=== PATIENT | female | born 1935 ===

== ENCOUNTER 2019-12-21 08:11 | Inpatient (IN) | payer MEDICARE ==
[~2019-12-21] VITALS: Ht 157.4 cm; Wt 57.2 kg
--- NOTE | 2019-12-21 11:08 | Progress Note ---
VERONICA JAVIER MED STUDENT 12/21/19 1108: Progress Note History: Ms. Grimm is an 84 year old white female who presented 12/17 to [facility] ER with back pain. She had been working in her garden when she experience shooting R sided back pain upon standing up after bending down. She experienced urinary incontinence earlier that day, as well as one week prior. She received Decadron in the ER. CT done that day showed no acute changes, spondylosis of C3-4, L3-4, and L4-5. Patient also had pulmonary effusion but denied any respiratory distress. An MRI was ordered but not done due to pacemaker. Since then she has had continued back pain. No LE weakness or loss of sensation noted on exam, however she has had frequent falls and OT/PT reports difficulty with ambulation and ADLs. She has not had continued incontinence, and has not developed any SOB or other respiratory difficulty. Transferred to IRF 12/22/19. Physical Exam: Assessment/Plan: Low back pain unable to assess for cauda equina due to pacemaker prohibiting MRI. No acute changes noted on initial CT Bladder incontinence monitor Frequent falls PT/OT HTN continue home medications PAF continue home medications Mitral valve replacement Aortic valve replacement Pacemaker CKD monitor kidney function Hypothyroidism Pleural effusion 12/17 monitor for shortness of breath, developing respiratory distress NIGHAT HERNANDEZ DO 12/22/192111: Supervisory-Addendum Brief Verification & Attestation Participated in pt care: history, MDM, physical Personally performed: exam, history, MDM, supervision of care Care discussed with: Medical Student Procedures: n/a Results interpretation: Verified all documentation Verification and Attestation of Medical Student E/M Service A medical student performed and documented this service in my presence. I reviewed and verified all information documented by the medical student and made modifications to such information, when appropriate. I personally performed the physical exam and medical decision making. Nighat Hernandez, Dec 22, 2019,21:12 VERONICA JAVIER MED STUDENT Dec 21, 2019 11:08 NIGHAT HERNANDEZ DO Dec 22, 2019 21:12
[2019-12-22] MEDS ORDERED: LOPERAMIDE 2 MG (IMODIUM) TABLET PO PRN (13:45)
[2019-12-22] MEDS ORDERED: guaiFENesin/CODEINE (ROBITUSSIN AC) 10ML UDC PO PRN (13:45)
[2019-12-22] MEDS ORDERED: BISACODYL 10 MG SUPP (DULCOLAX) PR PRN (13:45)
[2019-12-22] MEDS ORDERED: MELATONIN 3 MG TABLET PO PRN (13:45)
[2019-12-22] MEDS ORDERED: CALCIUM CARBONATE 500 MG (TUMS) TAB.CHEW PO PRN (13:45)
[2019-12-22] MEDS ORDERED: ONDANSETRON 4 MG (ZOFRAN) ORAL DISSOLVE TAB PO PRN (13:45)
[2019-12-22] MEDS ORDERED: DOCUSATE SODIUM 100 MG (COLACE) CAP PO PRN (13:45)
[2019-12-22] MEDS ORDERED: ALPRAZolam 0.25 MG (XANAX) TAB PO PRN (13:45)
[2019-12-22] MEDS ORDERED: ACETAMINOPHEN 500 MG TAB (TYLENOL) PO PRN (13:45)
[2019-12-22] MEDS ORDERED: diphenhydrAMINE 25 MG TAB (BENADRYL) PO PRN (13:45)
[2019-12-22] MEDS ORDERED: FLEET ENEMA ADULT 1 EA BTL PR PRN (13:45)
[2019-12-22] MEDS ORDERED: LACTULOSE SYRUP 10GM/15ML (ENULOSE) 30ML UDC PO PRN (13:45)
[2019-12-22] MEDS ORDERED: IRON1TAB97 PO (15:23)
[2019-12-22] MEDS ORDERED: CNC1KV IM (15:23)
[2019-12-22] MEDS ORDERED: DOCU-238 PO (15:23)
[2019-12-22] MEDS ORDERED: FURO-125 PO (15:23)
[2019-12-22] MEDS ORDERED: DEXA4TAB66 PO (15:23)
[2019-12-22] MEDS ORDERED: SIMV20TA PO (15:23)
[2019-12-22] MEDS ORDERED: LISI10TA2 PO (15:23)
[2019-12-22] MEDS ORDERED: WARF-47 PO (15:23)
[2019-12-22] MEDS ORDERED: LEVO75TA PO (15:23)
[2019-12-22] MEDS ORDERED: LUTE6TAB PO (15:23)
[2019-12-22] MEDS ORDERED: GLUC100016 PO (15:23)
[2019-12-22] MEDS ORDERED: ESCI5TAB PO (15:23)
[2019-12-22] MEDS ORDERED: ASPI-586 PO (15:23)
[2019-12-22] MEDS ORDERED: METO-451 PO (15:23)
[2019-12-22] MEDS ORDERED: ACET-2267 PO (15:23)
[2019-12-22] MEDS ORDERED: FLDR.1T PO (15:23)
--- NOTE | 2019-12-22 17:00 | NUR ---
MAXI KENNEDY, admitted to room 230-1, with an admitting diagnosis of DEBILITY, on 12/22/19 from [facility], accompanied by STAFF. MAXI KENNEDY introduced to surroundings, call light, bed controls, phone, TV, temperature control, lights, meal times, smoking policy, visitor policy, side rail policy, bathrooms and showers. Patient Rights given to patient in the handbook.MAXI KENNEDY verbalizes understanding that [facility] is not responsible for the loss or damage to any personal effects or valuables that are kept in the patients posession during their hospitalization. The following Patient Care Plans were discussed with the PATIENT: Discharge Planning, ACTIVITY INTOLERANCE,and FALLS. MAXI KENNEDY verbalizes understanding of Interdisciplinary Patient Education. Patient and/or family were informed about the Rapid Response Team and its purpose. Patient received Patient Rights Booklet, which includes Privacy Act Statement and Data Collection Information Summary.
[2019-12-22] MEDS ORDERED: CYANOCOBALAMIN INJ 1000 MCG/ML IM SCH (18:00)
--- NOTE | 2019-12-22 19:12 | NUR ---
Dr. Awad called at this time to report that patient's blood pressure is 181/72. Pulse is 77 and regular with heart murmur noted. Asks this RN what BP meds have been restarted. This RN states Metoprol 25 mg russell. and lisinopril 10mg PRN for SBP >160. Dr. Awad states to give both medications and to recheck BP in 4 hours and if still elevated to give one time dose of 5mg Norvasc PO. Will carry out orders and pass on information to shift lab technician RN.
[2019-12-22] MEDS: warFARin 2 MG (COUMADIN) TAB PO SCH (19:33)
--- NOTE | 2019-12-22 19:34 | NUR ---
Pt's 2100 Coumadin given at [facility] prior to discharge to this facility at 1530.
[2019-12-22] MEDS: meTOprolol TARTRATE 50 MG (LOPRESSOR) TAB PO SCH (19:38)
[2019-12-22] MEDS: lisINopril 10 MG (PRINIVIL) TABLET PO PRN (19:38)
[2019-12-22] MEDS: SENNA W/DOCUSATE (SENOKOT S) TABLET PO SCH (19:38)
[2019-12-22] MEDS: polyethylene glycoL POWDER 17 GM (MIRALAX) PACK PO SCH (20:21)
[2019-12-22] MEDS: SIMvastatin 20 MG (ZOCOR) TAB PO SCH (20:22)
[2019-12-22] MEDS: DOCUSATE SODIUM 100 MG (COLACE) CAP PO SCH (20:22)
[2019-12-22] MEDS ORDERED: ENOXAPARIN 30 MG/0.3 ML (LOVENOX) SYR SC SCH (20:30)
--- NOTE | 2019-12-22 20:41 | NUR ---
Pt currently on Lovenox and Coumadin. New orders received to d/c Lovenox.
[2019-12-22] MEDS ORDERED: ASCORBIC ACID PO SCH (21:00)
[2019-12-22] MEDS ORDERED: DOCUSATE SODIUM 100 MG (COLACE) CAP PO SCH (21:00)
[2019-12-22] MEDS ORDERED: IRON CARBONYL PO SCH (21:00)
[2019-12-22] MEDS ORDERED: amLODIPine 5 MG (NORVASC) TAB PO ONE (21:15)
[2019-12-22 21:18] VITALS: BP 186/77
--- NOTE | 2019-12-22 21:20 | PM&R Post Admission Assessment ---
PM&R HP Date of Visit: Dec 22, 2019 Time of Visit: 18:00 History of Present Illness CC: Severe low back pain requiring intensive rehab to return home HPI: This is an 84yoWF clinic patient of Dr Leyva and Dr Decker at [facility] who has a h/o AF and Aortic valve replacement who presents to the IRF unit in need of aggressive therapy in order to return to independent living. Patient appears to have mild cognitive impairment at baseline and apparently she had some significant confusion caused by narcotics which were DC and patient had clearance of that confusion. Patient has AF on Coumadin and was supratherapeutic at one point but has restarted Coumadin and INR was therapeutic at time of tra nsfer. BM have not moved since 12/16. Laxatives will be given. Patient does not wear O2 or CPAP at home. 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 Cardiac murmur will be managed by Dr Awad who has graciously agreed for consultation. I reviewed her [facility] admit details and hospital course. DC summary per [facility] Dr Thomson: Pat Peterson a 84 y.o.femalewho was admitted to [facility] on 12/18/2019and found to have a principle diagnosis of acute low back pain. The patientwas admitted through the emergency room with chief complaint ofback pain.Patient mentioned that she was working in her garden and taken out weeds earlier today when she bent down and after she got up, she experienced to shooting right-sided back pain. She is experienced chronic lower back pain in the past but this pain was worse which prompted her to come to the ER. She also mentions that she has had urinary incontinence x1 aweek ago. She also experienced urinary incontinence earlier today too.Labs not available at the time of admission. CT scan was done which showed no acute changes. CT showed C3-C4, L3-L4, L4-L5 spondylosis. He also showed pleural effusion but patient is in no respiratory distress and is at her baseline cardiopulmonary status with no supplementary oxygen use. MRI lumbar cannot be done 2/2 pacemaker. Discussed with neurosurgery , as patient don't have any signs of cauda equina syndrome, the risks of reversing the patient anticoagulation and performing CT myelogram outweigh benefits. Recommended pain control, PT and outpatient follow up. Patient responded well to steroids and PT. Patient didn't tolerate narcotics well, had significant confusion which resolved with stopping narcotics. Pain is controlled with tylenol. Patient was then discharged to acute rehab. History per Salas LARSEN: Ms. Grimm is an 84 year old white female who presented 12/17 to [facility] ER with b ack pain. She had been working in her garden when she experience shooting R sided back pain upon standing up after bending down. She experienced urinary incontinence earlier that day, as well as one week prior. She received Decadron in the ER. CT done that day showed no acute changes, spondylosis of C3-4, L3-4, and L4-5. Patient also had pulmonary effusion but denied any respiratory distress. An MRI was ordered but not done due to pacemaker. Since then she has had continued back pain. No LE weakness or loss of sensation noted on exam, however she has had frequent falls and OT/PT reports difficulty with ambulation and ADLs. She has not had continued incontinence, and has not developed any SOB or other respiratory difficulty. Transferred to IRF 12/22/19. Assessment/Plan: Low back pain unable to assess for cauda equina due to pacemaker prohibiting MRI. No acute changes noted on initial CT Bladder incontinence monitor Frequent falls PT/OT HTN continue home medications PAF continue home medications Mitral valve replacement Aortic valve replacement Pacemaker CKD monitor kidney function Hypothyroidism Pleural effusion 12/17 monitor for shortness of breath, developing respiratory distress Past Cmscbcy-Nujtdk-Obxtnv Hx Past Med/Social Hx: Reviewed Nursing Past Med/Soc Hx, Reviewed and Corrections made Patient Social History Marrital Status: single Employed/Student: retired Alcohol Use: Denies Use Recreational Drug Use: No Smoking Status: Never a Smoker Physical Abuse Screen: No Sexual Abuse: No Recent Foreign Travel: No Contact w/other who traveled: No Recent Hopitalizations: Yes (for Back pain at [facility]) Recent Infectious Disease Expo: No Immunizations Up To Date Date of Pneumonia Vaccine: Mar 23, 2019 Seasonal Allergies Seasonal Allergies: No Past Medical History Surgeries: Cardiac, Pacemaker Cardiac: Atrial Fibrillation, High Cholesterol, Hypertension, Valvular Heart Disease Neurological: Dementia Sexually Transmitted Disease: No HIV/AIDS: No Female Reproductive Disorders: Denies Genitourinary: Renal Failure Musculoskeletal: Chronic Back Pain HEENT: Cataract Loss of Vision: Bilateral Hearing Impairment: Hard of Hearing Cancer: Skin Did You Recieve Any Treatments: Yes What Type of Treatment Did You: Surgical Intervention History of Blood Disorders: No Family History Patient reports no known family medical history. Current Level of Fuctioning Wheelchair Distance: SEE PT NOTES PM&R Allergy/Meds/Data Review Allergies Coded Allergies: No Known Drug Allergies (Unverified , 12/22/19) Home Medications Scheduled Acetaminophen (Tylenol Extra Strength), 500 MG PO Q6H, (Reported) Aspirin (Aspir 81), 81 MG PO DAILY, (Reported) Cyanocobalamin (Cyanocobalamin Injection), 1,000 MCG IM UD, (Reported) Dexamethasone (Decadron), 4 MG PO BID, (Reported) Docusate Sodium (Stool Softener), 100 MG PO HS, (Reported) Escitalopram Oxalate (Lexapro), 5 MG PO DAILY, (Reported) Fludrocortisone Acetate (Fludrocortisone Acetate), 0.1 MG PO DAILY, (Reported) Furosemide (Lasix), 20 MG PO DAILY, (Reported) Glucosamine Sulfate 2Kcl (Glucosamine), 1,500 MG PO DAILY, (Reported) Iron,Carbonyl/Ascorbic Acid (Vitron-C Tablet), 1 EACH PO BID, (Reported) Levothyroxine Sodium (Synthroid), 75 MCG PO DAILY, (Reported) Lutein (Lutein), 6 MG PO DAILY, (Reported) Metoprolol Tartrate (Lopressor), 25 MG PO BID, (Reported) Simvastatin (Zocor), 20 MG PO HS, (Reported) Warfarin Sodium (Warfarin Sodium), 2 MG PO HS, (Reported) Scheduled PRN Lisinopril (Lisinopril), 10 MG PO DAILY PRN PRN for BLOOD PRESSURE, (Reported) Current Medications Current Medications Reviewed Laboratory Data Laboratory Tests 12/22/19 19:55: Creatinine 1.28 Review of Systems Constitutional: see HPI, malaise, weakness EENTM: no symptoms reported Respiratory: no symptoms reported Cardiovascular: no symptoms reported Gastrointestinal: constipation Genitourinary: no symptoms reported Musculoskeletal: back pain, joint pain, muscle pain, muscle stiffness, muscle cramps Skin: no symptoms reported Psychiatric/Neurological: Depressed, Other (confusion) Physical Exam Physical Exam Vital Signs Vital Signs - First Documented 12/22/19 12/22/19 17:00 17:10 Temp 36.6 Pulse 61 Resp 16 Pulse Ox 97 O2 Delivery Room Air Capillary Refill : Height, Weight, BMI Height: '" Weight: lbs. oz. kg; 23.20 BMI Method: General Appearance: No Apparent Distress, WD/WN, Chronically ill, Thin Eyes: Bilateral Eye Normal Inspection, Bilateral Eye PERRL HEENT: PERRL/EOMI, Normal ENT Inspection, Pharynx Normal Neck: Full Range of Motion, Normal Inspection, Non Tender, Supple, Carotid Bruit Respiratory: Chest Non Tender, Lungs Clear, Normal Breath Sounds, No Accessory Muscle Use, No Respiratory Distress Cardiovascular: No Edema, No Gallop, No JVD, Normal Peripheral Pulses, Diastolic Murmur, Systolic Murmur, Irregularly Irregular Gastrointestinal: Normal Bowel Sounds, No Organomegaly, No Pulsatile Mass, Non Tender, Soft Back: Normal Inspection, CVA Tenderness (L), CVA Tenderness (R), Decreased Range of Motion, Muscle Spasm, Vertebral Tenderness Extremity: Normal Capillary Refill, Normal Inspection, Normal Range of Motion, Non Tender, No Calf Tenderness, No Pedal Edema Neurologic/Psychiatric: Alert, Oriented x3, No Motor/Sensory Deficits (except for weakness in legs from severe back pain), Normal Mood/Affect, 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 Norm as Tested, Abnormal Gait, Disoriented (subtle poor recall) Skin: Normal Color, Warm/Dry Lymphatic: No Adenopathy PM&R Medical Assessment & Plan REHAB/MEDICAL ASSESSMENT AND PLAN: REHAB IMPAIRMENT GROUP: Debility ETIOLOGIC DIAGNOSIS: Debility The comorbidities that impact the patients function and/or functional outcome by: advanced age, cognitive deficit baseline, AF, valve replacement hx, lives alone, severe constipation narcotic induced REHAB PLAN: The patient is being admitted to our comprehensive inpatient rehabilitation facility and can tolerate the intensity of service consisting of at least: 180 minutes of therapy a day, 5 out of 7 days a week Rehab treatment will consist of: PT OT will help patient navigate with severe back pain and teach energy conservation and ST will help cognition The patient/family has a good understanding of our discharge process and will benefit from an interdisciplinary inpatient rehabilitation program. The patient has potential to make improvement and is in need of at least two of the following multidisciplinary therapies including but not limited to physical, occupational, speech, and prosthetics and orthotics. Additionally the patient will need services from respiratory, nutritional services, wound care, psychology, etc. (Customize this to each patient). Given the patients complex condition and risk of further medical complications, rehabilitation services cannot be safely or effectively provided at a lower level of care such as a halfway facility. BARRIERS TO DISCHARGE: Lives alone with confusion and poor recall ESTIMATED LOS: 7 days DISPOSITION: Home RELEVANT CHANGES SINCE PREADMISSION SCREENING: I have compared the patients medical and functional status at the time of the preadmission screening and there are: no changes PROGNOSIS: Fair REHABILITATION GOALS: 1. PT OT will help patient navigate with severe back pain and teach energy conservation and ST will help cognition All the above goals were reviewed with the patient and he/she is in agreement. By signing this document, I acknowledge that I have personally performed a full physical examination on this patient within 24 hours of admission to this inpatient rehabilitation facility and have determined the patient to be able to tolerate the above course of treatment at an intensive level for a reasonable period of time. I will be completing a detailed individualized Plan of Care for this patient by day #4 of the patients stay based upon the Preadmission Screen, the Post-Admission Evaluation, and the therapy evaluations. Admission Dx/Comorbidities: (1) Lumbar spondylosis ICD Codes: M47.816 - Spondylosis without myelopathy or radiculopathy, lumbar region (2) Atrial fibrillation with normal ventricular rate ICD Codes: I48.91 - Unspecified atrial fibrillation (3) Aortic valve replaced ICD Codes: Z95.2 - Presence of prosthetic heart valve (4) Mitral valve replaced ICD Codes: Z95.2 - Presence of prosthetic heart valve (5) Confusion ICD Codes: R41.0 - Disorientation, unspecified (6) Pacemaker ICD Codes: Z95.0 - Presence of cardiac pacemaker (7) Warfarin anticoagulation ICD Codes: Z79.01 - oral hygienist (current) use of anticoagulants (8) Renal insufficiency ICD Codes: N28.9 - Disorder of kidney and ureter, unspecified (9) Hypertension ICD Codes: I10 - Essential (primary) hypertension (10) Constipation ICD Codes: K59.00 - Constipation, unspecified (11) Delirium ICD Codes: R41.0 - Disorientation, unspecified (12) Advanced age ICD Codes: R54 - Age-related physical debility Assessment/Plan Assessment and Plan Assess & Plan/Chief Complaint Assessment: Severe back pain with severe spondylosis AF Coumadin treatment CRI Confusion Delirium Pacemaker Plan: 12/22/19 IRF protocol Check labs in am Fall risk Bed alarm Dr Awad consultation MOOSE HERNANDEZ DO Dec 22, 2019 21:20
--- OUTSIDE RECORDS SUMMARY | 2019-12-22 21:25 | XMS REPORT | Summary of Care ---
Author Author Pat Foster M.D. Organization Unknown Address [address] [place], [place] [id number] Phone Unavailable Care Team Providers Care Care Specialist Name Role Phone No Assigned PCP-Pt Confirmed PP Unavailable Unavailable Unavailable Functional Status Functional Status Health Issues* Name Dates Details Functional status health issues are not documented Status: Cognitive Status Health Issues* Name Dates Details Cognitive status health issues are not d ocumented Status: Problems Name Dates Details Laceration of right lower extremity (894 .0, S81.811A) Status: Active Medications Name Dates Details Metoprolol Tartrate 50 MG Oral Tablet TAKE 1 TABLET DAILY. * Started 20-Sep-2015 AddoscH28-Mpqwlm 1 MG Oral Tablet Chewable * Refills: 0 * Started 20-Sep-2015 ActiveGlucosamine 1500 Complex Oral Capsule * Refills: 0 * Started 20-Sep-2015 ActiveLutein-Zeaxanthin 25-5 MG Oral Capsule * Refills: 0 * Started 20-Sep-2015 ActiveCephalexin 500 MG Oral Tablet * Refills: 0 * Started 20-Sep-2015 ActiveSimvastatin 20 MG Oral Tablet * Refills: 0 * Started 20-Sep-2015 ActiveLisinopril 20 MG Oral Tablet * Refills: 0 * Started 20-Sep-2015 ActiveAspirin 81 MG Oral Tablet Chewable CHEW AND SWALLOW 1 TABLET DAILY. * Refills: 0 * Started 20-Sep-2015 Active Allergies and Adverse Reactions Name Dates Details No Known Drug Allergies Status: Active Past Medical History Name Dates Details History of blood transfusion (V15.89, Z9 2.89) Status: Resolved History of hypertension (V12.59, Z86.79) Status: Resolved History of hypothyroidism (V12.29, Z86.3 9) Status: Resolved History of malignant melanoma (V10.82, Z 85.820) Status: Resolved History of osteoarthritis (V13.4, Z87.39 ) Status: Resolved History of valvular heart disease (V12.5 9, Z86.79) Status: Resolved Procedures Procedure Dates Details History of Tonsillectomy History of Knee Surgery Left History of Hysterectomy History of Section Procedures not documented Immunization Name Dates Details Immunizations not documented Family History Mother* Name Dates Details Family history of congestive heart failu re (V17.49, Z82.49) Status: Active Father* Name Dates Details Family history of myocardial infarction (V17.3, Z82.49) Status: Active Social History Name Dates Details Smoking Status* Never smoker Vital Signs Date Test Result Details 20-Sep-2015 10:12 BP Systolic 124 mm[Hg] Status: BP Diastolic 60 mm[Hg] Status: Temperature 97.9 f Status: Heart Rate 68 /min Status: O2 SAT 97 % Status: Results Date Description Value Details Results not documented Plan of Care Planned Observations* Name Dates Details Planned Goals not documented Goal Instructions * Instructions not documented Encounters Appointment; Trey Foster Encounter Diagnosis: Problem not documented On 20-Sep-2015 10:00
--- OUTSIDE RECORDS SUMMARY | 2019-12-22 21:25 | XMS REPORT | Continuity of Care Document ---
Author Organization Unknown Address Unknown Phone Unavailable Allergies Active Description Code Type Severity Reaction Onset Reported/Identified Relationship to Patient Clinical Status Yes NO KNOWN DRUG ALLERGIES [id number] Drug Allergy N/A N/A Yes No Known Drug Allergies [id number] Drug Allergy Unknown N/A 12/22/2019 Medications There is no data. Problems Date Dx Coded Attending Type Code Diagnosis Diagnosed By 09/20/2015 Trey Foster Working S81.811A Laceration of right lower extremity Katja Foster 09/20/2015 Trey Foster Working S81.811A Laceration without foreign body, right l ower leg, initial encounter Trey Foster Procedures Code Description [place] [id number] [facility] Trey Foster 09/20/2015 Results Test Result Range POCT PT/INR - 01/16/19 13:44 POC PROTIME 48 NA NRG POC INR 4.3 NA PROTIME-INR - 11/30/19 13:50 PROTHROMBIN TIME 14.9 sec 11.8-15.0 INR 1.2 NA Serum or plasma creatinine measurement ( mass/volume) - 12/22/19 19:55 Serum or plasma creatinine measurement (mass/volume) 1.28 mg/dL 0.60-1.30 Encounters ACCT No. Visit Date/Time Discharge Status Pt. Type Provider Facility Loc./Unit Complaint [id number] 09/21/2015 13:50:50 ACT Outpatient Trey Foster [facility] 1WWIC [id number] 12/22/2019 17:00:[address] Inpatient MOOSE HERNANDEZ DO [facility] IRF SPONDYLOSIS [id number] 11/30/2019 13:49:42 2019 01:08:17 DIS Outpatient [facility] [id number] [id number] 01/16/2019 13:25:43 2018 01:09:03 [facility] [place] [facility]
[2019-12-23] VITALS: BP 153/71
[2019-12-23] MEDS: lisINopril 10 MG (PRINIVIL) TABLET PO PRN (04:59)
[2019-12-23 05:04] VITALS: BP 153/71
[2019-12-23 05:49] LABS: BASOPHILS % (AUTO) 0 % (0-10); EOSINOPHILS % (AUTO) 0 % (0-10); HEMATOCRIT 27 % (35-52); HEMOGLOBIN 8.4 G/DL (11.5-16.0); LYMPHOCYTES # (AUTO) 0.4 X 10^3 (1.0-4.0); LYMPHOCYTES % (AUTO) 3 % (12-44); MEAN CORPUSCULAR HGB CONC 32 G/DL (32-36); MEAN CORPUSCULAR VOLUME 81 FL (80-99); MEAN PLATELET VOLUME 9.6 FL (7.4-10.4); MONOCYTES # (AUTO) 0.2 X 10^3 (0.0-1.0); MONOCYTES % (AUTO) 2 % (0-12); NEUTROPHILS # (AUTO) 13.2 X 10^3 (1.8-7.8); NEUTROPHILS % (AUTO) 95 % (42-75); PLATELET COUNT 305 10^3/uL (130-400); RED CELL DISTRIBUTION WIDTH 17.2 % (10.0-14.5); WHITE BLOOD COUNT 13.8 10^3/uL (4.3-11.0)
[2019-12-23 05:51] LABS: MEAN CORPUSCULAR HEMOGLOBIN 25 PG (25-34)
[2019-12-23 05:56] LABS: INR 2.5 (0.8-1.4); PROTHROMBIN TIME PATIENT 27.4 SEC (12.2-14.7)
[2019-12-23 05:58] LABS: ALBUMIN 3.2 GM/DL (3.2-4.5); POTASSIUM 4.9 MMOL/L (3.6-5.0)
[2019-12-23 06:01] LABS: TOTAL PROTEIN 6.5 GM/DL (6.4-8.2)
[2019-12-23 06:02] LABS: BILIRUBIN,TOTAL 0.5 MG/DL (0.1-1.0)
[2019-12-23 06:04] LABS: CREATININE SERUM 1.03 MG/DL (0.60-1.30)
[2019-12-23 06:17] LABS: BAND NEUTROPHILS 2 %; LYMPHOCYTES % (MANUAL) 4 %; MONOCYTES % (MANUAL) 1 %; NEUTROPHILS % (MANUAL) 93 %
[2019-12-23 06:18] LABS: ANISOCYTOSIS SLIGHT
--- NOTE | 2019-12-23 07:32 | PM&R Progress Note ---
Subjective HPI/CC On Admission Date Seen by Provider: Dec 23, 2019 Time Seen by Provider: 10:00 Subjective/Events-last exam Patient doing well ECHO completed and Dr Awad saw her last night Noted increased pain and APAP not helping so I will start very low dose of Hydrocodone and assure she has no delirium with it as I had reviewed at [facility] requiring Narcan at once time BM not moved since 12/16 so will start suppository and SSE if needed to get those moving today INR 2.5 Kpad will be initiated too to help with pain Lisinopril started 10mg for elevated BP this morning Checked meds and labs Reviewed therapy notes 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 [employer] General: Fatigue, Malaise Gastrointestinal: Constipation Musculoskeletal: back pain, leg pain Neurological: Confusion Objective Exam Vital Signs Vital Signs Date Time Temp Pulse Resp B/P (MAP) Pulse Ox O2 Delivery O2 Flow Rate FiO2 12/23/19 09:00 Room Air 12/23/19 05:04 61 20 153/71 (98) 96 12/22/19 17:10 36.6 Capillary Refill : Less Than 3 Seconds General Appearance: No Apparent Distress, WD/WN, Chronically ill, Thin HEENT: PERRL/EOMI, Normal ENT Inspection, Pharynx Normal Neck: Full Range of Motion, Normal Inspection, Non Tender, Supple, Carotid Bruit Respiratory: Chest Non Tender, Lungs Clear, Normal Breath Sounds, No Accessory Muscle Use, No Respiratory Distress Cardiovascular: No Edema, No Gallop, No JVD, Normal Peripheral Pulses, Diastolic Murmur, Systolic Murmur, Irregularly Irregular Gastrointestinal: Normal Bowel Sounds, No Organomegaly, No Pulsatile Mass, Non Tender, Soft Back: Normal Inspection, CVA Tenderness (L), CVA Tenderness (R), Decreased Range of Motion, Muscle Spasm, Vertebral Tenderness Extremity: Normal Capillary Refill, Normal Inspection, Normal Range of Motion, Non Tender, No Calf Tenderness, No Pedal Edema Neurologic/Psychiatric: Alert, Oriented x3, No Motor/Sensory Deficits (except for weakness in legs from severe back pain), Normal Mood/Affect, case reviewer II-XII Norm as Tested, Abnormal Gait, Disoriented (subtle poor recall) Skin: Normal Color, Warm/Dry Lymphatic: No Adenopathy Results/Procedures Lab Laboratory Tests 12/22/19 19:55 12/23/19 04:50 Patient resulted labs reviewed. FIM Transfers Therapy Code Descriptions/Definitions Functional [place] Measure: 0=Not Assessed/NA 4=Minimal Assistance 1=Total Assistance 5=Supervision or Setup 2=Maximal Assistance 6=Modified [place] 3=Moderate Assistance 7=Complete IndependenceSCALE: Activities may be completed with or without assistive devices. 4-Nfmfrsoteq-xfmerkm completes the activity by him/herself with no assistance from a helper. 5-Set-up or Clean-up Assistance-helper sets up or cleans up; patient completes activity. [place] assists only prior to or following the activity. 4-Supervision or Touching Assistance-helper provides verbal cues and/or touch ing/steadying and/or contact guard assistance as patient completes activity. Assistance may be provided throughout the activity or intermittently. 3-Partial/Moderate Assistance-helper does LESS THAN HALF the effort. [place] lifts, holds or supports trunk or limbs, but provides less than half the effort. 2-Substantial/Maximal Assistance-helper does MORE THAN HALF the effort. [place] lifts or holds trunk or limbs and provides more than half the effort. 6-Bisxiqcsn-jfrmid does ALL the effort. Patient does none of the effort to complete the activity. Or, the assistance of 2 or more helpers is required for the patient to complete the activity. If activity was not attempted, code reason: 7-Patient Refused. 9-Not Applicable-not attempted and the patient did not perform the activity bef ore the current illness, exacerbation or injury. 10-Not Attempted due to Environmental Limitations-(lack of equipment, weather restraints, etc.). 88-Not Attempted due to Medical Conditions or Safety Concerns. 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
[2019-12-23 08:00] VITALS: BP 147/66
[2019-12-23] MEDS: polyethylene glycoL POWDER 17 GM (MIRALAX) PACK PO SCH ×2 (08:27→19:53)
[2019-12-23] MEDS: FLUDROCORTISONE 0.1 MG (FLORINEF) TAB PO SCH (08:27)
[2019-12-23] MEDS: LEVOTHYROXINE 75 MCG (LEVOTHROID) TABLET PO SCH (08:27)
[2019-12-23] MEDS: meTOprolol TARTRATE 50 MG (LOPRESSOR) TAB PO SCH ×2 (08:27→20:28)
[2019-12-23] MEDS: FUROSEMIDE 20 MG (LASIX) TAB PO SCH (08:27)
[2019-12-23] MEDS: ASPIRIN E.C. 81 MG (ECOTRIN) TAB PO SCH (08:27)
[2019-12-23] MEDS: SENNA W/DOCUSATE (SENOKOT S) TABLET PO SCH ×2 (08:27→19:53)
--- NOTE | 2019-12-23 08:30 | NUR ---
RATES NECK PAIN A "10" AND MEDICATED WITH TYLENOL. BP STABLE. IS MILDLY CONFUSED, BUT PLEASANT AND COOPERATIVE. COMPLAINS OF RIGHT SHOULDER STIFFNESS.
[2019-12-23] MEDS: ACETAMINOPHEN 325 MG TABLET PO PRN (08:35)
[2019-12-23] MEDS ORDERED: LUTEIN 6 MG PO SCH (09:00)
[2019-12-23] MEDS ORDERED: GLUCOSAMINE SULFATE 1500 MG PO SCH (09:00)
--- NOTE | 2019-12-23 09:22 | Occupational Therapy Eval ---
OT Evaluation-General/PLF Medical Diagnosis Admission Date Dec 22, 2019 at 17:00 Medical Diagnosis: Right Lower back pain Onset Date: Dec 22, 2019 Therapy Diagnosis Therapy Diagnosis: Decreased ADL skills Precautions Precautions/Isolations: Fall Prevention, Standard Precautions Weight Bear Status Weight Bearing Restriction: Weight Bearing/Tolerated Referral Physician: Dr. Johnston Referral Reason: Activity Tolerance, Self Care, Evaluation/Treatment, Strengthening/ROM Medical History Pertinent Medical History: Atrial Fib, HTN Additional Medical History CKD, Pacemaker Reviewed History: Yes Social History Home: Single Level Current Living Status: Alone Entry Into Home: Ramp ADL-Prior Level of Function SCALE: Activities may be completed with or without assistive devices. 2-Tyiebsktfl-ruftrph completes the activity by him/herself with no assistance from a helper. 5-Set-up or Clean-up Assistance-helper sets up or cleans up; patient completes activity. [place] assists only prior to or following the activity. 4-Supervision or Touching Assistance-helper provides verbal cues and/or touching/steadying and/or contact guard assistance as patient completes activity. Assistance may be provided throughout the activity or intermittently. 3-Partial/Moderate Assistance-helper does LESS THAN HALF the effort. [place] lifts, holds or supports trunk or limbs, but provides less than half the effort. 2-Substantial/Maximal Assistance-helper does MORE THAN HALF the effort. [place] lifts or holds trunk or limbs and provides more than half the effort. 0-Qqyzytvwb-sfowuz does ALL the effort. Patient does none of the effort to complete the activity. Or, the assistance of 2 or more helpers is required for the patient to complete the activity. If activity was not attempted, code reason: 7-Patient Refused. 9-Not Applicable-not attempted and the patient did not perform the activity before the current illness, exacerbation or injury. 10-Not Attempted due to Environmental Limitations-(lack of equipment, weather restraints, etc.). 88-Not Attempted due to Medical Conditions or Safety Concerns. ADL PLOF Comments Pt. reports that she lives alone in a house in [place]. She states that she was independent with her ADLs and IADLs. She still drives. Self Care: Independent Functional Cognition: Unknown DME/Equipment: Tub/Shower DME/Equipment Comments Pt. reports that she has her spouse's walker, but does not usually use. Drive Self: Yes OT Current Status Subjective Pt. reports 7/10 pain in lower back with movement. Nursing is notified and gives pt. pain medication. Appearance Pt. is up in chair, and agrees to work with OT. Mental Status/Objective Patient Orientation: Person, Place Current Hand Dominance: Right ADL-Treatment Eating (QC): 5 (per pt.) Oral Hygiene (QC): 10 Shower/Bathe Self (QC): 10 Upper Body Dressing (QC): 10 Lower Body Dressing (QC): 10 On/Off Footwear (QC): 2 Toileting Hygiene (QC): 7 Other Treatments Pt. up in chair. Pt. is able to participate in partial OT evaluation. LUKE to assist with ADLs at later time. Pt. agrees to attempt ambulation. Pt. reports that she is unable to don slipper socks, as she is unable to bend over. Pt. requires mod assist to stand from chair, and is able to ambulate approximately 12 feet with min assist. Pt. requires increased time with this task. Declines using bathroom, as she has already went. Pt. is inconsistent at times with history, and seems slightly confused as to previous level of function. This is reported. Pt. up in chair and LUKE takes over treatment. Education OT Patient Education: Correct positioning, Modified ADL techniques, Progress toward Goal/Update tx plan, Purpose of tx/functional activities, Reviewed precautions, Rehab process, Transfer techniques Teaching Recipient: Patient Teaching Methods: Demonstration, Discussion Response to Teaching: Verbalize Understanding, Return Demonstration, Reinforcement Needed OT Short Term Goals Short Term Goals Time Frame: Dec 30, 2019 Eatin Oral hygiene: 4 Toileting hygiene: 3 Shower/bathe self: 3 Upper body dressin Lower body dressin Putting on/taking off footwear: 3 OT Long-Term Goals Director Immunology Goals Time Frame: Jan 06, 2020 Eating (QC): 6 Oral Hygiene (QC): 6 Toileting Hygiene (QC): 6 Shower/Bathe Self (QC): 4 Upper Body Dressing (QC): 5 Lower Body Dressing (QC): 5 On/Off Footwear (QC): 5 Additional Goals: 1-Demonstrate ADL Tasks, 2-Verbalize Understanding, 3- ImproveStrength/Lukas 1=Demonstrate adherence to instructed precautions during ADL tasks. 2=Patient will verbalize/demonstrate understanding of assistive devices/modifications for ADL. 3=Patient will improve strength/tolerance for activity to enable patient to perform ADL's. OT Education/Plan Problem List/Assessment Assessment: Decreased Activ Tolerance, Dependent Transfers, Impaired Cognition, Impaired Funct Balance, Impaired I ADL's, Impaired Self-Care Skills Discharge Recommendations Plan/Recommendations: Continue POC Therapy Discharge Recommendati: Post Acute OT Equpiment Recommendations-D/C: Bath Chair, Hip Kit Treatment Plan/Plan of Care Treatment,Training & Education: Yes Patient would benefit from OT for education, treatment and training to promote independence in ADL's, mobility, safety and/or upper extremity function for ADL's. Plan of Care: ADL Retraining, Functional Mobility, UE Funct Exercise/Act Treatment Duration: Jan 06, 2020 Frequency: At least 5 of 7 days/Wk (IRF) Estimated Hrs Per Day: 1.5 hours per day Agreement: Yes Rehab Potential: Good Time/GCodes Start Time: 08:15 Stop Time: 08:40 Total Time Billed (hr/min): 25 Billed Treatment Time 1, EVM x 10minutes, FA x 15minutes DAVID LIU OT Dec 23, 2019 09:22
--- NOTE | 2019-12-23 10:20 | Occupational Ther Daily Note ---
OT Current Status-Daily Note Subjective Pt alert, sitting in ARU commons with OTR/L. Took over care of pt from OTR/L. Pt c/o pain in lower back with sit to stands, nrsg has given Tylenol prior to OT session. Mental Status/Objective Patient Orientation: Person, Place, Time, Situation Attachments: IV ADL-Treatment Pt has vision issues. Pt unable to distinguish items 2' distance, seeing fine rain though knows it is not real. Pt states that she was supposed to go to eye doctor soon. Vision issues may be contributing to pt's slight confusion throughout session. Pt does have difficulty with learning new strategies for dressing/bathing though is willing to learn and use equipment. Pt agrees to shower. Pt is close SBA for sit to stand and ambulation with FWW, some verbal cues needed to manipulate FWW effectively. Pt has increased pain with lower body dressing and bathing, will need AE and strategies to decrease pain. CGA for toilet transfer and verbal cues for hand placement. CGA for clothing manipulation and SBA for toilet hygiene. Verbal cues and CGA for FWW and hand placement during shower transfer. Pt able to complete bathing with min A for l ower legs/feet and verbal cues for safety while bathing and dressing. After set up, pt able to don/doff shirt by self. Pt required assist to thread feet into pants, pt pulled pants up B LE's then assist to hike over hips. Max A to don/doff socks. Pt educated on AE for lower body dressing, pt did demonstrate understanding though will need further education/attempts to become proficient. Pt ambulated to sink to complete oral care, SBA standing at sink. After session, pt sitting in recliner with call light/phone in reach. All needs met in room. Therapy Code Descriptions/Definitions Functional [place] Measure: 0=Not Assessed/NA 4=Minimal Assistance 1=Total Assistance 5=Supervision or Setup 2=Maximal Assistance 6=Modified [place] 3=Moderate Assistance 7=Complete IndependenceSCALE: Activities may be completed with or without assistive devices. 0-Pofdphippz-mfsdwfu completes the activity by him/herself with no assistance from a helper. 5-Set-up or Clean-up Assistance-helper sets up or cleans up; patient completes activity. [place] assists only prior to or following the activity. 4-Supervision or Touching Assistance-helper provides verbal cues and/or touching/steadying and/or contact guard assistance as patient completes activity. Assistance may be provided throughout the activity or intermittently. 3-Partial/Moderate Assistance-helper does LESS THAN HALF the effort. [place] lifts, holds or supports trunk or limbs, but provides less than half the effort. 2-Substantial/Maximal Assistance-helper does MORE THAN HALF the effort. [place] lifts or holds trunk or limbs and provides more than half the effort. 7-Btgtxupft-uotvnr does ALL the effort. Patient does none of the effort to complete the activity. Or, the assistance of 2 or more helpers is required for the patient to complete the activity. If activity was not attempted, code reason: 7-Patient Refused. 9-Not Applicable-not attempted and the patient did not perform the activity before the current illness, exacerbation or injury. 10-Not Attempted due to Environmental Limitations-(lack of equipment, weather restraints, etc.). 88-Not Attempted due to Medical Conditions or Safety Concerns. Eating (QC): 6 (Using clinical judgment pt demonstrates ability to set up own meal and use regular utensils to eat.) Oral Hygiene (QC): 4 Bathing Location: L Arm, R Arm, L Upper Leg, R Upper Leg, Chest, Abdomen, Buttocks, Perineal Area Shower/Bathe Self (QC): 3 Upper Body Dressing (QC): 5 Lower Body Dressing (QC): 2 On/Off Footwear: 2 Toileting Hygiene (QC): 4 Toilet Transfer (QC): 4 Pt has sock aide at home. Will need tub transfer bench, dressing stick, reach and either BSC or grabbars for bathroom and shower. OT Intermediate Goals Intermediate Goals Eating (QC): 6 Oral Hygiene (QC): 6 Toileting Hygiene (QC): 6 Shower/Bathe Self (QC): 6 Upper Body Dressing (QC): 6 Lower Body Dressing (QC): 6 On/Off Footwear (QC): 6 1=Demonstrate adherence to instructed precautions during ADL tasks. 2=Patient will verbalize/demonstrate understanding of assistive devices/modifications for ADL. 3=Patient will improve strength/tolerance for activity to enable patient to perform ADL's. OT Education/Plan Problem List/Assessment Assessment: Decreased Activ Tolerance, Decreased Safety Aware, Decreased UE Strength, Impaired Bed Mobility, Impaired Cognition, Impaired Coordination, Impaired Funct Balance, Impaired I ADL's, Impaired Self-Care Skills, Restricted Funct UE ROM, Visual-Perceptual Deficit Discharge Recommendations Plan/Recommendations: Continue POC Therapy Discharge Recommendati: Post Acute OT Equpiment Recommendations-D/C: Extended Bath Bench, Rails on Tub/Shower, Toilet Riser with Rails, Bath Chair, Extended Shower Sprayer, Bedside Commode, Hip Kit, Walker Bag or Basket Treatment Plan/Plan of Care Patient would benefit from OT for education, treatment and training to promote independence in ADL's, mobility, safety and/or upper extremity function for ADL's. Plan of Care: ADL Retraining, Functional Mobility, Group Exercise/Act as Ind, UE Funct Exercise/Act, UE Neuromus Re-Ed/Coord, Visual/Perceptual Retrain Treatment Duration: Jan 20, 2020 Frequency: At least 5 of 7 days/Wk (IRF) Estimated Hrs Per Day: 1.5 hours per day Rehab Potential: Good Time/GCodes Start Time: 08:40 Stop Time: 10:00 Total Time Billed (hr/min): 80 Billed Treatment Time 1 visit-ADL 5 (80 min) MAURA MORENO Dec 23, 2019 10:20
--- NOTE | 2019-12-23 11:00 | NUR ---
DR. HERNANDEZ INFORMED OF ELEVATED LIVER ENZYMES AND ORDER RECEIVED THAT IT IS OKAY TO CONTINUE TYLENOL FOR PAIN.
[2019-12-23] MEDS: HYDROcodone/APAP 5 MG/325 MG (LORTAB) TAB PO PRN (11:18)
[2019-12-23] MEDS ORDERED: CATHETER FLUSH 10 ML SYR IV PRN (11:30)
[2019-12-23] MEDS ORDERED: CATHETER FLUSH 10 ML SYR IV SCH (14:00)
--- NOTE | 2019-12-23 14:00 | NUR ---
DR. DAMON HERE TO SEE PATIENT.
--- NOTE | 2019-12-23 14:41 | Physical Therapy Evaluation ---
PT Evaluation-General Medical Diagnosis Admission Date Dec 22, 2019 at 17:00 Medical Diagnosis: Right Lower back pain Onset Date: Dec 22, 2019 Therapy Diagnosis Therapy Diagnosis: pain, decreased functional mobility Precautions Precautions/Isolations: Fall Prevention, Standard Precautions Weight Bear Status Right Lower Extremity: Right Weight Bearing/Tolerated Left Lower Extremity: Left Weight Bearing/Tolerated Referral Physician: Dr. Johnston Reason for Referral: Evaluation/Treatment Medical History Pertinent Medical History: Atrial Fib, HTN Additional Medical History aortic valve replacement, mitral valve replacement, mild cognitive impairment at baseline, chronic LBP, pacemaker, CKD Current History Pt admitted to [facility] in [place] on 12/18/2019 with acute LBP. Pt reports that she had been attempting to move a very heavy chair in the yard the day before. "When I got out of bed the next morning, I couldn't feel my feet on the floor and when I tried to stand up I just melted and couldn't get up". CT revealed C3-4, L3-4, L4-5 spondylosis, conservative measures taken. Pt reports that she did have chronic, mild LBP prior to this episode. Reviewed History: Yes Social History Home: Single Level Current Living Status: Alone Entry Into Home: Ramp Prior Prior Level of Function SCALE: Activities may be completed with or without assistive devices. 1-Vvbggrylbh-nzeuozs completes the activity by him/herself with no assistance from a helper. 5-Set-up or Clean-up Assistance-helper sets up or cleans up; patient completes activity. [place] assists only prior to or following the activity. 4-Supervision or Touching Assistance-helper provides verbal cues and/or touching/steadying and/or contact guard assistance as patient completes activity. Assistance may be provided throughout the activity or intermittently. 3-Partial/Moderate Assistance-helper does LESS THAN HALF the effort. [place] lifts, holds or supports trunk or limbs, but provides less than half the effort. 2-Substantial/Maximal Assistance-helper does MORE THAN HALF the effort. [place] lifts or holds trunk or limbs and provides more than half the effort. 5-Ripunlcct-cvzcys does ALL the effort. Patient does none of the effort to complete the activity. Or, the assistance of 2 or more helpers is required for the patient to complete the activity. If activity was not attempted, code reason: 7-Patient Refused. 9-Not Applicable-not attempted and the patient did not perform the activity before the current illness, exacerbation or injury. 10-Not Attempted due to Environmental Limitations-(lack of equipment, weather restraints, etc.). 88-Not Attempted due to Medical Conditions or Safety Concerns. Bed Mobility: 6 Transfers (B,C,W/C): 6 Gait: 6 Stairs: 6 Indoor Mobility (Ambulation): Independent Stairs: Independent Prior Devices Use: None Pt has a hospital bed ( 's) but she did not previously have to use it for bed mobility. PT Evaluation-Current Subjective Pt asleep in bed, agreeable to PT with encouragement. c/o neck and LBP at 8/10 in bed. Pain Numeric Pain Scale: 8 Location: Posterior Location Body Site: Neck Pain Description: Ache Pt/Family Goals Home Objective Patient Orientation: Person, Confused, Place, Time, Situation Mildly confused, difficulty problem solving transfers. ROM/Strength ROM Upper Extremities See OT ROM Lower Extremities Grossly WFL Strength Upper Extremities See OT Strength Lower Extremities Grossly 3/5; no resistance given due to high pain Integumentary/Posture Integumentary See nurses' notes Posture Forward head, mild kyphosis Neuromuscular (Tone, Coordination, Reflexes) Grossly intact Sensory Vision: Functional Hearing: Functional Hand Dominance: Right Sensation Right Lower Extremit: Intact Sensation Left Lower Extremity: Intact Transfers Roll Left to Right (QC): 5 Sit to Lying (QC): 3 Lying to Sitting/Side of Bed(Q: 5 Sit to Stand (QC): 4 Chair/Ezi-qd-Lvczz Xfer(QC): 4 Toilet Transfer (QC): 4 Car Transfer (QC): 4 Pt moves at a very slow pace with all functional mobility. Difficulty safely pro blem solving with TFRs, requiring frequent skilled VCS for sequencing and safety. VCS for log-rolling. Gait Does the Patient Walk?: Yes Mode of Locomotion: Walk Anticipated Mode of Locomotion: Walk Walk 10 feet (QC): 4 Walk 50 ft with 2 Turns(QC): 4 Walk 150 ft (QC): 7 Walking 10ft/uneven surface-QC: 4 Distance: 100 Gait Assistive Device: FWW Comments/Gait Description Very slow, shuffling gait with FWW, no justina LOB but requires frequent skilled VCS for safe use of walker and to navigate around objects. Pt declined to walk farther stating she felt weak and shaky. Wheelchair Training Does the Pt Use a Wheelchair?: No Wheel 50 ft with 2 turns (QC): 9 Wheel 150 ft (QC): 9 Type of Wheelchair: N/A Stairs #of Steps: 1 1 Step (curb) (QC): 4 4 Steps (QC): 88 12 Steps (QC): 88 Walking Assistive Device: Walker Pt negotiated curb step with FWW with min A x 1 and max skilled VCS for sequencing and safety. Flight of stairs not attempted due to high pain rating and level of assist required to negotiate one step. Balance Sitting Static: Good Sitting Dynamic: Fair Standing Static: Fair Standing Dynamic: Fair Picking up an Object (QC): 88 Special Test Comments Pt will utilize surgical instruments inspector as trunk flexion drastically increases pain. Treatment Eval. Gait training with FWW, transfer training (log-rolling, toilet transfers, car transfers). Pt returned to bed with all needs met. Towel roll positioned to promote neck extension with Pt reporting relief. Assessment/Needs Pt is an 84 y.o. female with decreased (I) with functional mobility due to acute LBP. Pt's problem list includes: decreased strength, decreased balance, decreased safety awareness, and significant pain which limits (I) with functional mobility. Pt would benefit from skilled PT to reduce LBP and improve safety and (I) with functional mobility to allow safe return home. Rehab Potential: Good Equipment Needs Continue to assess PT Short Term Goals Short Term Goals Time Frame: Dec 30, 2019 Roll Left & Right: 6 Sit to lyin Lying to sitting on side of be: 6 Sit to stand: 6 PT Hockey Scout Goals Hockey Scout Goals PT Halfway Goals Time Frame: Jan 06, 2020 Roll Left & Right (QC): 6 Sit to Lying (QC): 6 Lying-Sitting on Side/Bed(QC): 6 Sit to Stand (QC): 6 Chair/Ajc-is-Vhavl Xfer(QC): 6 Toilet Transfer (QC): 6 Car Transfer (QC): 6 Does the Patient Walk: Yes Walk 10 feet (QC): 6 Walk 50ft with 2 Turns (QC): 6 Walk 150 ft (QC): 6 Walking 10ft on Uneven Surface: 6 1 Step (curb) (QC): 6 4 Steps (QC): 6 12 Steps (QC): 9 Picking up an Object (QC): 88 (Pt will utilize surgical instruments inspector for back health) Does the Pt use WC or Scooter?: No Wheel 50 feet with 2 turns (QC: 9 Type: N/A Wheel 150 feet: 9 Type: N/A PT LTGs established to reduce LBP and improve safety and (I) with functional mobility to allow safe return home. PT Plan Problem List Problem List: Activity Tolerance, Functional Strength, Safety, Balance, Gait, Transfer, Bed Mobility, ROM Treatment/Plan Treatment Plan: Continue Plan of Care Treatment Plan: Bed Mobility, Education, Functional Activity Lukas, Functional Strength, Group Therapy, Gait, Safety, Therapeutic Exercise, Transfers Treatment Duration: Dec 30, 2019 Frequency: At least 5 of 7 days/Wk (IRF) Estimated Hrs Per Day: 1.5 hours per day Patient and/or Family Agrees t: Yes Safety Risks/Education Patient Education: Gait Training, Transfer Techniques Teaching Recipient: Patient Teaching Methods: Demonstration, Discussion Response to Teaching: Verbalize Understanding, Reinforcement Needed Discharge Recommendations Therapy Discharge Recommendati: Post Acute PT Barriers to Progress Pain Time/GCodes Time In: 1141 Time Out: 1256 Total Billed Treatment Time: 75 Total Billed Treatment 1, EVMODC x 20', GT x 30', FA x 25' CHASIDY JONES DPJarett Dec 23, 2019 14:41
--- NOTE | 2019-12-23 15:01 | Consultation-Cardiology ---
HPI-Cardiology Cardiology Consultation: Date of Consultation 12/23/19 Time Seen by a Provider: 14:20 Date of Admission Attending Physician Nighat Johnston DO Admitting Physician Consulting Physician FRANTZ DAMON MD, MA, FACP, FACC, FSCAI, CCDS HPI: Chief Complaint: Reason for cardiology consultation: H/o dual cardiac valve replacement, h/o PAF HPI 84 yo woman who has been admitted to Dr Johnston's service for rehab because of severe back pain. She has a significant cardiac history that is summarized below but she has very little recollection of details of her cardiac issues. States has had two valves replaced in [place] in or around 2007, but does not recall the hospital or the town of surgery. Her records from [place] (where she had initially presented for back pain and where she resides) state a h/o PAF, but she says she has never heard that she had atrial fibrillation. Says was on warfarin only for a few weeks after valve surgery. Anticoag was then stopped she was again place on anticoag perhaps in 2018, but does not know why. Was initially on Xarelto (for a year) and then went on warfarin due to cost issues. She does not report cp or palp or syncope or shortness of breath at rest. Review of Systems-Cardiology Review of Systems Constitutional: malaise, tiredness; No weight loss, No weight gain Eyes: No vision change Ears/Nose/Throat: No ear discharge, No nasal drainage, No recent hearing loss Respiratory: As described under HPI Cardiovascular: As described under HPI Gastrointestinal: No constipation, No diarrhea, No nausea, No vomiting Genitourinary: No dysuria, No hematuria, No urine frequency changes Musculoskeletal: As describe under HPI Skin: No rash, No ulcerations Psychiatric/Neurological: No focal weakness, No syncope Hematologic: No bleeding abnormalities ZLA-Cgwosi-Jppopw Hx Patient Social History Marrital Status: single Employed/Student: retired Alcohol Use: Denies Use Recreational Drug Use: No Smoking Status: Never a Smoker Recent Foreign Travel: No Recent Infectious Disease Expo: No Hospitalization with Isolation: Unknown Physical Abuse Screen: No Sexual Abuse: No Immunizations Up To Date Date of Pneumonia Vaccine: Mar 23, 2019 Past Medical History PMH As described under Assessment. Family Medical History Family History: Patient reports no known family medical history. Allergies and Home Medications Allergies Coded Allergies: No Known Drug Allergies (Unverified , 12/22/19) Home Medications Acetaminophen 500 Mg Tablet, 500 MG PO Q6H, (Reported) Aspirin 81 Mg Tablet.dr, 81 MG PO DAILY, (Reported) Cyanocobalamin 1,000 Mcg/Ml Inj, 1,000 MCG IM UD, (Reported) Every other month. Dexamethasone 4 Mg Tablet, 4 MG PO BID, (Reported) Stop date 12/25/19. Docusate Sodium 100 Mg Capsule, 100 MG PO HS, (Reported) Escitalopram Oxalate 5 Mg Tablet, 5 MG PO DAILY, (Reported) Fludrocortisone Acetate 0.1 Mg Tab, 0.1 MG PO DAILY, (Reported) Furosemide 20 Mg Tablet, 20 MG PO DAILY, (Reported) Daily PRN for swelling. Glucosamine Sulfate 2Kcl 1,000 Mg Tablet, 1,500 MG PO DAILY, (Reported) Iron,Carbonyl/Ascorbic Acid 1 Each Tablet.dr, 1 EACH PO BID, (Reported) Levothyroxine Sodium 75 Mcg Tablet, 75 MCG PO DAILY, (Reported) Lisinopril 10 Mg Tablet, 10 MG PO DAILY PRN PRN for BLOOD PRESSURE, (Reported) PRN systolic BP greater than 140mmhg. Lutein 6 Mg Tablet, 6 MG PO DAILY, (Reported) Metoprolol Tartrate 50 Mg Tablet, 25 MG PO BID, (Reported) Simvastatin 20 Mg Tablet, 20 MG PO HS, (Reported) Warfarin Sodium 2 Mg Tablet, 2 MG PO HS, (Reported) Patient Home Medication List Home Medication List Reviewed: Yes Physical Exam-Cardiology Physical Exam Vital Signs/I&O 12/23/19 12/23/19 05:04 09:00 Pulse 61 Resp 20 B/P (MAP) 153/71 (98) Pulse Ox 96 O2 Delivery Room Air Room Air Capillary Refill : Less Than 3 Seconds Constitutional: AAO x 3; No well-developed, No well-nourished; other (poor memory) HEENT: PERRL; No xanthelasmas are seen Neck: carotid pulses are 2 + bilaterally Respiratory: accessory muscle use, other (good bilat air entry) Cardiovascular: regular rate-rhythm, S1 and S2, systolic murmur (3/6 MSM over entire precordium, more prominent at the cardiac base) Gastrointestinal: No tender; soft; No guarding, No rebound; audible bowel sounds Extremities: No clubbing, No cyanosis, No significant edema Neurologic/Psychiatric: oriented x 3, other (moves all limbs equally) Skin: No rash on exposed areas, No ulcerations on exposed areas Data Review Labs Laboratory Tests 12/22/19 19:55: Creatinine 1.28 12/23/19 04:50: Creatinine 1.03, White Blood Count 13.8H, Red Blood Count 3.30L, Hemoglobin 8.4L , Hematocrit 27L, Mean Corpuscular Volume 81, Mean Corpuscular Hemoglobin 25, Mean Corpuscular Hemoglobin Concent 32, Red Cell Distribution Width 17.2H, Platelet Count 305, Mean Platelet Volume 9.6, Neutrophils (%) (Auto) 95H, Lymphocytes (%) (Auto) 3L, Monocytes (%) (Auto) 2, Eosinophils (%) (Auto) 0, Basophils (%) (Auto) 0, Neutrophils # (Auto) 13.2H, Lymphocytes # (Auto) 0.4L, Monocytes # (Auto) 0.2, Eosinophils # (Auto) 0.0, Basophils # (Auto) 0.0, Neutrophils % (Manual) 93, Lymphocytes % (Manual) 4, Monocytes % (Manual) 1, Band Neutrophils 2, Anisocytosis SLIGHT, Prothrombin Time 27.4H, INR Comment 2.5H, Sodium Level 135, Potassium Level 4.9, Chloride Level 105, Carbon Dioxide Level 18L, Anion Gap 12, Blood Urea Nitrogen 36H, Estimat Glomerular Filtration Rate 51, BUN/Creatinine Ratio 35, Glucose Level 146H, Calcium Level 9.0, Corrected Calcium 9.6, Total Bilirubin 0.5, Aspartate Amino Transf (AST/SGOT) 94H, Alanine Aminotransferase (ALT/SGPT) 65H, Alkaline Phosphatase 97, Total Protein 6.5, Albumin 3.2 Laboratory Tests 12/22/19 19:55 12/23/19 04:50 A/P-Cardiology Assessment/Admission Diagnosis Poor memory Valvular heart disease. Pt reports bioprosthetic ("pig valves") replacement of aortic and mitral valve in or around 2007 in [place] Echo of 12/23/19: LVEF 60-65%, prosthetic MV with mild mod mitral stenosis, severe AoV stenosis (mean gradient 62 mmHg, valve area 0.7 sq cm), biatrial enlargement, PASP 60 mmHg PAF. Pt has no recollection of that, but her records indicate that and she is on chronic anticoag H/o permanent pacemaker. Pt does not know details Pulmonary hypertension, probably related to valvular heart disease Back pain CKD 2-3 Hypertension Discussion and Recomendations * ECG * Continue anticoag * Pt states she sees a nurse executive in [place], but does not know the name of the nurse executive. We have requested that she find out the name so that we can request more info. She says she has some cards giving info on her valves and pacemaker. We have asked that she try to locate them * Further recs based on hosp course Clinical Quality Measures DVT/VTE Risk/Contraindication: Risk Factor Score Per Nursin RFS Level Per Nursing on Admit: 3=High FRANTZ DAMON MD FACP FAC CCDS Dec 23, 2019 15:01
--- NOTE | 2019-12-23 18:00 | NUR ---
AFTER RECEIVING DULCOLAX SUPPOSITORY AND FLEETS ENEMA THIS AFTERNOON, DID HAVE MULTIPLE BLACK STOOLS. STATES IS ON IRON AT HOME
[2019-12-23 18:55] VITALS: BP 128/60
[2019-12-23] MEDS: DOCUSATE SODIUM 100 MG (COLACE) CAP PO SCH (19:53)
[2019-12-23] MEDS: SIMvastatin 20 MG (ZOCOR) TAB PO SCH (20:28)
[2019-12-23] MEDS: warFARin 2 MG (COUMADIN) TAB PO SCH (20:28)
[2019-12-24] MEDS: lisINopril 10 MG (PRINIVIL) TABLET PO PRN (04:22)
[2019-12-24 05:21] VITALS: BP 198/83
[2019-12-24 08:00] VITALS: BP 188/81
--- NOTE | 2019-12-24 08:00 | NUR ---
REMAINS HYPERTENSIVE AT 188/81. MEDICATED WITH SCHEDULED LOPRESSOR. ALSO ADMITS TO NECK PAIN AND MEDICATED WITH LORTAB.
[2019-12-24] MEDS: FLUDROCORTISONE 0.1 MG (FLORINEF) TAB PO SCH (08:18)
[2019-12-24] MEDS: meTOprolol TARTRATE 50 MG (LOPRESSOR) TAB PO SCH ×2 (08:18→20:08)
[2019-12-24] MEDS: ASPIRIN E.C. 81 MG (ECOTRIN) TAB PO SCH (08:18)
[2019-12-24] MEDS: LEVOTHYROXINE 75 MCG (LEVOTHROID) TABLET PO SCH (08:18)
[2019-12-24] MEDS: FUROSEMIDE 20 MG (LASIX) TAB PO SCH (08:18)
[2019-12-24] MEDS: HYDROcodone/APAP 5 MG/325 MG (LORTAB) TAB PO PRN ×2 (08:19→23:28)
[2019-12-24] MEDS: polyethylene glycoL POWDER 17 GM (MIRALAX) PACK PO SCH ×2 (08:22→19:32)
[2019-12-24] MEDS: SENNA W/DOCUSATE (SENOKOT S) TABLET PO SCH ×2 (08:27→20:09)
--- NOTE | 2019-12-24 08:50 | PM&R Progress Note ---
Subjective HPI/CC On Admission Date Seen by Provider: Dec 24, 2019 Time Seen by Provider: 12:45 Subjective/Events-last exam Patient doing well Appreciate Dr Awad consultation Pain meds given rarely and it does seem to help her and I dosed it very minimally and having no delirium BM moved large amount dark from iron supplement INR 2.5 yesterday so will recheck tomorrow Kpad will be initiated too to help with pain Lisinopril started 10mg for elevated BP this morning again Checked meds and labs Reviewed therapy notes Conferred with global logistics analyst of Systems General: Fatigue, Malaise Neurological: Weakness Objective Exam Vital Signs Vital Signs Date Time Temp Pulse Resp B/P (MAP) Pulse Ox O2 Delivery O2 Flow Rate FiO2 12/24/19 15:50 64 189/79 (115) 12/24/19 09:00 Room Air 12/24/19 05:21 36.3 16 95 Capillary Refill : Less Than 3 Seconds General Appearance: No Apparent Distress, WD/WN, Chronically ill, Thin HEENT: PERRL/EOMI, Normal ENT Inspection, Pharynx Normal Neck: Full Range of Motion, Normal Inspection, Non Tender, Supple, Carotid Bruit Respiratory: Chest Non Tender, Lungs Clear, Normal Breath Sounds, No Accessory Muscle Use, No Respiratory Distress Cardiovascular: No Edema, No Gallop, No JVD, Normal Peripheral Pulses, Diastolic Murmur, Systolic Murmur, Irregularly Irregular Gastrointestinal: Normal Bowel Sounds, No Organomegaly, No Pulsatile Mass, Non Tender, Soft Back: Normal Inspection, CVA Tenderness (L), CVA Tenderness (R), Decreased Range of Motion, Muscle Spasm, Vertebral Tenderness Extremity: Normal Capillary Refill, Normal Inspection, Normal Range of Motion, Non Tender, No Calf Tenderness, No Pedal Edema Neurologic/Psychiatric: Alert, Oriented x3, No Motor/Sensory Deficits (except for weakness in legs from severe back pain), Normal Mood/Affect, instrumentation and controls technician II-XII Norm as Tested, Abnormal Gait, Disoriented (subtle poor recall) Skin: Normal Color, Warm/Dry Lymphatic: No Adenopathy Results/Procedures Lab Patient resulted labs reviewed. FIM Transfers Therapy Code Descriptions/Definitions Functional [place] Measure: 0=Not Assessed/NA 4=Minimal Assistance 1=Total Assistance 5=Supervision or Setup 2=Maximal Assistance 6=Modified [place] 3=Moderate Assistance 7=Complete IndependenceSCALE: Activities may be completed with or without assistive devices. 2-Dbkmjyjrpv-krufryk completes the activity by him/herself with no assistance from a helper. 5-Set-up or Clean-up Assistance-helper sets up or cleans up; patient completes activity. [place] assists only prior to or following the activity. 4-Supervision or Touching Assistance-helper provides verbal cues and/or touching/steadying and/or contact guard assistance as patient completes activity. Assistance may be provided throughout the activity or intermittently. 3-Partial/Moderate Assistance-helper does LESS THAN HALF the effort. [place] lifts, holds or supports trunk or limbs, but provides less than half the effort. 2-Substantial/Maximal Assistance-helper does MORE THAN HALF the effort. [place] lifts or holds trunk or limbs and provides more than half the effort. 8-Emaxqcrxj-mzbelr does ALL the effort. Patient does none of the effort to complete the activity. Or, the assistance of 2 or more helpers is required for the patient to complete the activity. If activity was not attempted, code reason: 7-Patient Refused. 9-Not Applicable-not attempted and the patient did not perform the activity before the current illness, exacerbation or injury. 10-Not Attempted due to Environmental Limitations-(lack of equipment, weather restraints, etc.). 88-Not Attempted due to Medical Conditions or Safety Concerns. Roll Left to Right (QC): 5 Sit to Lying (QC): 3 Sit to Stand (QC): 4 Chair/Iqy-ja-Opzfy Xfer(QC): 4 Car Transfer (QC): 4 Gait Training Does the Patient Walk?: Yes Walk 10 feet (QC): 4 Walk 50 ft with 2 Turns(QC): 4 Walk 150 ft (QC): 7 Walking 10ft/uneven surface-QC: 4 Gait Assistive Device: FWW Wheelchair Training Does the Pt Use a Wheelchair?: No Distance: SEE PT NOTES Wheel 50 ft with 2 turns (QC): 9 Wheel 150 ft (QC): 9 Type of Wheelchair: N/A Stair Training #of Steps: 1 1 Step (curb) (QC): 4 4 Steps (QC): 88 12 Steps (QC): 88 Balance Picking up an Object (QC): 88 ADL-Treatment Eating (QC): 5 (per pt.) Oral Hygiene (QC): 10 Bathing Location: L Arm, R Arm, L Upper Leg, R Upper Leg, Chest, Abdomen, Buttocks, Perineal Area Shower/Bathe Self (QC): 10 Upper Body Dressing (QC): 10 Lower Body Dressing (QC): 10 On/Off Footwear (QC): 2 Toileting Hygiene (QC): 7 Toilet Transfer (QC): 4 Assessment/Plan Assessment and Plan Assess & Plan/Chief Complaint Assessment: Severe back pain with severe spondylosis AF Coumadin treatment CRI Confusion Delirium Pacemaker Plan: 12/22/19 IRF protocol Check labs in am Fall risk Bed alarm Dr Awad consultation 12/23/19: INR good Start low dose Hydrocodone Monitor LFT's BP monitoring BM regimen since 6 days since BM 12/24/19: BM large so severe constipation of 6 days resolved Pain meds minimal dosing to prevent delirium Iron level and hgb 8.4 will require midline placement due to poor vascular access and start IV iron Monitor orthostatic BP readings (1) Lumbar spondylosis (2) Atrial fibrillation with normal ventricular rate (3) Aortic valve replaced (4) Mitral valve replaced (5) Confusion (6) Pacemaker (7) Warfarin anticoagulation (8) Renal insufficiency (9) Hypertension (10) Constipation (11) Delirium (12) Advanced age MOOSE HERNANDEZ DO Dec 24, 2019 08:49
--- NOTE | 2019-12-24 08:50 | Individualized Plan of Care ---
Individualized Plan of Care Rehab Nursing IPOC Order Admission Date Dec 22, 2019 at 17:00 Current Orders Orders Admission Order(Inpt,Obs,Sdc) (12/22/19 13:37) Vital Signs: Per Unit Policy ( 08,16,00 (12/22/19 13:37) Rodolfo Lombardo 09,21 (12/22/19 13:37) Sequential Compression Device Q4H (12/22/19 13:37) Implementation Technician-Inpt Rehab Con (12/22/19 13:37) Rehab Nursing Orders-Ipoc (12/22/19 13:37) Physical Therapy Rehab Orders (12/22/19 13:37) Occupational Therapy Rehab Ord (12/22/19 13:37) Speech Therapy Rehab Orders (12/22/19 13:37) Cbc With Automated Diff (12/23/19 06:00) Comprehensive Metabolic Panel (12/23/19 06:00) General/Regular (12/22/19 Lunch) Intake & Output 06,14,22 (12/22/19 13:37) Precautions (Aru) (12/22/19 13:37) Rehab-Intensity Of Therapy (12/22/19 13:37) Initiate Admission Nursing Pro .admission (12/22/19 13:37) Acetaminophen Tablet (Tylenol Tablet) (12/22/19 13:45) Alprazolam Tablet (Xanax Tablet) (12/22/19 13:45) Calcium Carbonate Chew Tablet (Antacid C (12/22/19 13:45) Diphenhydramine Tablet (Benadryl Tablet) (12/22/19 13:45) Docusate Sodium Capsule (Colace Capsule) (12/22/19 21:00) Docusate Sodium Capsule (Colace Capsule) (12/22/19 13:45) Bisacodyl Suppository (Dulcolax Supposit (12/22/19 13:45) Lactulose Oral Solution (Enulose Oral So (12/22/19 13:45) Na Phos/Na Biphos Enema (Fleet Enema Hal (12/22/19 13:45) Guaifenesin/Codeine Syrup (Robitussin Ac (12/22/19 13:45) Loperamide Tablet (Imodium Tablet) (12/22/19 13:45) Melatonin Tablet (Melatonin Tablet) (12/22/19 13:45) Polyethylene Glycol Powder Pkt (Miralax (12/22/19 21:00) Ondansetron Oral Dissolve Tab (Zofran (12/22/19 13:45) Senna S Tablet (Senokot S Tablet) (12/22/19 21:00) Code/Resuscitation (12/22/19 13:37) Initiate Admission Nursing Pro .admission (12/22/19 13:37) Transfer - Bed/Room/Location (12/22/19 17:00) Aspirin Enteric Coated Tablet (Ecotrin T (12/23/19 09:00) Cyanocobalamin Injection (Vitamin B-12 I (12/22/19 18:00) Dexamethasone Tablet (Decadron Tablet) (12/22/19 21:00) Docusate Sodium Capsule (Colace Capsule) (12/22/19 21:00) Fludrocortisone Tablet (Florinef Tablet) (12/23/19 09:00) Furosemide Tablet (Lasix Tablet) (12/23/19 09:00) Levothyroxine Tablet (Synthroid Tablet) (12/23/19 09:00) Lisinopril Tablet (Zestril Tablet) (12/22/19 18:00) Metoprolol Tartrate (Ir) Tab (Lopressor (12/22/19 21:00) Simvastatin Tablet (Zocor Tablet) (12/22/19 21:00) Warfarin Tablet (Coumadin Tablet) (12/22/19 21:00) Citalopram Tablet (Celexa Tablet) (12/23/19 09:00) (Nf) Glucosamine Sulfate 2kcl (Glucosami (12/23/19 09:00) (Nf) Iron,Carbonyl/Ascorbic Acid (Vitron (12/22/19 21:00) (Nf) Lutein (12/23/19 09:00) Protime With Inr (12/23/19 06:00) Consult Cardiology (12/22/19 17:53) Ambulate 08,12,20 (12/22/19 18:51) Sequential Compression Device Q4H (12/22/19 18:51) Dvt/Vte Risk - Notifiy Physici Q4H (12/22/19 18:51) Add Behavorial Health Instruct (12/22/19 18:51) Amlodipine Tablet (Norvasc Tablet) (12/22/19 21:15) Creatinine Serum (12/22/19 19:30) Enoxaparin Injection (Lovenox Injection) (12/22/19 20:30) Echo W Doppler/Color Flow (12/23/19 05:20) Manual Differential (12/23/19 04:50) Acetaminophen Tablet/Caplet (Tylenol T (12/23/19 08:30) Iron Test (Fe) (12/23/19 10:35) Hydrocodone/Apap 5/325 Tablet (Lortab 5 (12/23/19 10:45) Sodium Chloride Flush (Catheter Flush Sy (12/23/19 14:00) Patient Visit (12/23/19 ) Pt Eval Moderate Complexity (12/23/19 ) Gait Training, Ea 15 Min (12/23/19 ) Functional Activities, Ea 15 (12/23/19 ) Ekg Tracing (12/24/19 ) Venous Access Request Order (12/24/19 12:26) Iron Sucrose Injection (Venofer Injectio (12/25/19 11:00) Cbc With Automated Diff (12/25/19 06:00) Comprehensive Metabolic Panel (12/25/19 06:00) Protime With Inr (12/25/19 06:00) Metoprolol Tartrate (Ir) Tab (Lopressor (12/24/19 21:00) Lisinopril Tablet (Zestril Tablet) (12/24/19 15:45) Lisinopril Tablet (Zestril Tablet) (12/25/19 09:00) Triamterene/Hctz 75-50 Tablet (Maxzide 7 (12/25/19 09:00) Rehab Nursing Orders: Ongoing Assess. of Function Status, Bladder Management, Bladder Scan, Bladder Training, Bowel Management, Bowel Training, Disease Management & Educaiton, DVT Prophylaxis, Fall Prevention, Fluid/Electrolyte/Nutrition Mgmt, Infection Prevention, Medication Management & Education, Management of Risks & Complications, Management of Skin Intergrity, Nutrition Management, Pain Management, Patient/Family Support, Safety Management Intensity of Therapy to be met Patient to be seen: Min.3h per day/5 of 7d PT IPOC Problem List: Activity Tolerance, Functional Strength, Safety, Balance, Gait, Transfer, Bed Mobility, ROM Treatment Plan: Continue Plan of Care Bed Mobility, Education, Functional Activity Lukas, Functional Strength, Group Therapy, Gait, Safety, Therapeutic Exercise, Transfers Treatment Duration: Dec 30, 2019 Frequency: At least 5 of 7 days/Wk (IRF) Estimated Hrs Per Day: 1.5 hours per day OT IPOC Problems: Decreased Activ Tolerance, Dependent Transfers, Impaired Cognition, Impaired Funct Balance, Impaired I ADL's, Impaired Self-Care Skills OT Treatment, Training and Edu: Yes Plan of Care: ADL Retraining, Functional Mobility, UE Funct Exercise/Act Treatment Duration: Jan 06, 2020 Frequency: At least 5 of 7 days/Wk (IRF) Estimated Hrs Per Day: 1.[address] IPOC Speech Therapy Treatment Plan: Modify Plan, See Comments Treatment Duration: Dec 25, 2019 Frequency: Modified Program (IRF) Estimated Hrs Per Day: Other Implementation Technician/Case Mgmt Implementation Technician/Case Managemen: Discharge Planning Dietitian/Healthcare Economics Consultant Dietitian/Healthcare Economics Consultant to monitor nutritional status and make changes and/or recommendations as needed and work with speech pathology on dietary upgrades as the occur. Physician IPOC Medical Issues being managed closely and that require the 24 hour availability of a physician: Recent lengthy stay at [facility] complicated with delirium due to pain meds with pelvic fracture and high risk for decompensation Medical Issues: Bowel/Bladder Function, DVT Prophylaxis, Falls Precautions, Fluid/Electrolyte/Nutrition Balance, Infection Protection, Pain Management Brief Synthesis of Preadmission Screen, Post-Admission Evaluation, and Therapy Evaluations: PT OT will help increase ROM of spine and manage pain and focus on fall prevention and energy conservation and ST will focus on cognitive capabilities Medical Prognosis: Good Anticipated Length of Stay: 7 days MOOSE HERNANDEZ DO Dec 24, 2019 08:50
[2019-12-24 10:20] VITALS: BP 113/59
--- NOTE | 2019-12-24 10:20 | NUR ---
BP NOW 113/59 WHILE SITTING IN CHAIR. STATES HAS ORTHOSTATIC HYPOTENSION. WILL CONTINUE TO MONITOR.
--- NOTE | 2019-12-24 13:00 | NUR ---
PATIENT REQUESTING TO GO TO EYE APPOINTMENT IN [place] ON WEDNESDAY. STATES HAS "BALLS GOING ACROSS EYES AND WATER SPRAYING" SINCE HAS BEEN IN HOSPITAL. DR. HERNANDEZ DOES NOT FEEL APPOINTMENT IS NECESSARY TO GO TO AT THIS TIME. DR. HERNANDEZ ALSO NOTIFIED OF IRON LEVEL. PATIENT HAS VERY THIN, BRUISED SKIN AND WILL HAVE MIDLINE PLACED TOMORROW AND THEN START VENOFER.
--- NOTE | 2019-12-24 14:00 | NUR ---
BROTHER VISITED. KEEPING LEGS ELEVATED IN CHAIR. 1+ EDEMA BILATERALLY. PATIENT COMPLAINS THAT BRIGID HOSE HURT HER SKIN, BUT AGREEABLE TO WEARING STEPHEN WRAPS.
--- NOTE | 2019-12-24 15:38 | Progress Note - Cardiology ---
Cardiology SOAP Progress Note Subjective: No cp or palp or syncope No shortness of breath at rest Notes gen weakness No focal weakness No n/v/d Objective: I&O/Vital Signs 12/24/19 12/24/19 05:21 09:00 Temp 36.3 Pulse 61 Resp 16 B/P (MAP) 198/83 (121) Pulse Ox 95 O2 Delivery Room Air Room Air 12/24/19 00:00 Intake Total 800 ml Balance 800 ml Constitutional: AAO x 3; No well-developed, No well-nourished; other (poor memory) Respiratory: accessory muscle use, other (good bilat air entry) Cardiovascular: regular rate-rhythm, S1 and S2, systolic murmur (3/6 MSM over entire precordium, more prominent at the cardiac base) Gastrointestional: No tender; soft; No guarding, No rebound; audible bowel sounds Extremities: No clubbing, No cyanosis, No significant edema Neurologic/Psychiatric: oriented x 3, other (moves all limbs equally) Skin: No rash on exposed areas, No ulcerations on exposed areas Results/Procedures: Labs Laboratory Tests 12/22/19 19:55 12/23/19 04:50 A/P: Assessment: Poor memory Uncontrolled hypertension Valvular heart disease. 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
[2019-12-24] MEDS ORDERED: lisINopril 20 MG (PRINIVIL) TABLET PO ONE (15:45)
[2019-12-24 15:49] VITALS: BP 113/59
[2019-12-24 15:50] VITALS: BP 189/79
[2019-12-24] MEDS: ACETAMINOPHEN 325 MG TABLET PO PRN (16:02)
--- NOTE | 2019-12-24 18:00 | NUR ---
BP HAS BEEN UP AND DOWN TODAY. BP MEDS ADJUSTED BY DR. DAMON.
[2019-12-24 18:06] VITALS: BP 124/61
[2019-12-24] MEDS: DOCUSATE SODIUM 100 MG (COLACE) CAP PO SCH (19:32)
[2019-12-24] MEDS: SIMvastatin 20 MG (ZOCOR) TAB PO SCH (20:09)
[2019-12-24] MEDS: warFARin 2 MG (COUMADIN) TAB PO SCH (20:09)
[2019-12-25] VITALS (7 sets, daily range): BP systolic 127–168; BP diastolic 60–79
[2019-12-25 05:08] LABS: BASOPHILS % (AUTO) 0 % (0-10); EOSINOPHILS % (AUTO) 0 % (0-10); HEMATOCRIT 24 % (35-52); HEMOGLOBIN 7.5 G/DL (11.5-16.0); LYMPHOCYTES # (AUTO) 0.4 X 10^3 (1.0-4.0); LYMPHOCYTES % (AUTO) 5 % (12-44); MEAN CORPUSCULAR HEMOGLOBIN 26 PG (25-34); MEAN CORPUSCULAR HGB CONC 32 G/DL (32-36); MEAN CORPUSCULAR VOLUME 81 FL (80-99); MEAN PLATELET VOLUME 9.8 FL (7.4-10.4); MONOCYTES # (AUTO) 0.3 X 10^3 (0.0-1.0); MONOCYTES % (AUTO) 3 % (0-12); NEUTROPHILS # (AUTO) 8.3 X 10^3 (1.8-7.8); NEUTROPHILS % (AUTO) 92 % (42-75); PLATELET COUNT 219 10^3/uL (130-400); RED CELL DISTRIBUTION WIDTH 17.1 % (10.0-14.5)
[2019-12-25 05:14] LABS: INR 2.8 (0.8-1.4); PROTHROMBIN TIME PATIENT 29.6 SEC (12.2-14.7)
[2019-12-25 05:19] LABS: ALBUMIN 2.9 GM/DL (3.2-4.5)
[2019-12-25 05:20] LABS: POTASSIUM 4.6 MMOL/L (3.6-5.0)
[2019-12-25 05:21] LABS: CALCIUM 8.5 MG/DL (8.5-10.1)
[2019-12-25 05:22] LABS: TOTAL PROTEIN 5.5 GM/DL (6.4-8.2)
[2019-12-25 05:24] LABS: BILIRUBIN,TOTAL 0.4 MG/DL (0.1-1.0)
[2019-12-25 05:25] LABS: CREATININE SERUM 0.98 MG/DL (0.60-1.30)
[2019-12-25] MEDS: ASPIRIN E.C. 81 MG (ECOTRIN) TAB PO SCH (07:49)
[2019-12-25] MEDS: FLUDROCORTISONE 0.1 MG (FLORINEF) TAB PO SCH (07:50)
[2019-12-25] MEDS: meTOprolol TARTRATE 50 MG (LOPRESSOR) TAB PO SCH ×2 (07:50→20:20)
[2019-12-25] MEDS: LEVOTHYROXINE 75 MCG (LEVOTHROID) TABLET PO SCH (07:50)
[2019-12-25] MEDS: FUROSEMIDE 20 MG (LASIX) TAB PO SCH (07:50)
[2019-12-25] MEDS: SENNA W/DOCUSATE (SENOKOT S) TABLET PO SCH ×2 (07:50→20:28)
[2019-12-25] MEDS: TRIAMTERENE/HCTZ 75-50 (MAXZIDE,DYAZIDE) TABLET PO SCH (07:51)
[2019-12-25] MEDS: polyethylene glycoL POWDER 17 GM (MIRALAX) PACK PO SCH ×2 (07:52→20:28)
--- NOTE | 2019-12-25 09:11 | Physical Therapy Daily Note ---
PT Daily Note-Current Subjective Pt in recliner upon arrival and agrees to tx. With amb pt stated pain in R lower back. Pain Location: Right Location Body Site: Back Comment: Pt didn't rate pain Mental Status Patient Orientation: Person, Place, Time, Situation Transfers SCALE: Activities may be completed with or without assistive devices. 9-Hlwfhokqst-tmmqimq completes the activity by him/herself with no assistance from a helper. 5-Set-up or Clean-up Assistance-helper sets up or cleans up; patient completes activity. [place] assists only prior to or following the activity. 4-Supervision or Touching Assistance-helper provides verbal cues and/or touching/steadying and/or contact guard assistance as patient completes activity. Assistance may be provided throughout the activity or intermittently. 3-Partial/Moderate Assistance-helper does LESS THAN HALF the effort. [place] lifts, holds or supports trunk or limbs, but provides less than half the effort. 2-Substantial/Maximal Assistance-helper does MORE THAN HALF the effort. [place] lifts or holds trunk or limbs and provides more than half the effort. 0-Pxfdgtjxc-vjzmur does ALL the effort. Patient does none of the effort to complete the activity. Or, the assistance of 2 or more helpers is required for the patient to complete the activity. If activity was not attempted, code reason: 7-Patient Refused. 9-Not Applicable-not attempted and the patient did not perform the activity before the current illness, exacerbation or injury. 10-Not Attempted due to Environmental Limitations-(lack of equipment, weather restraints, etc.). 88-Not Attempted due to Medical Conditions or Safety Concerns. Sit to Lying (QC): 5 Lying to Sitting/Side of Bed(Q: 5 Sit to Stand (QC): 4 Chair/Mno-hy-Gablz Xfer(QC): 4 Weight Bearing Right Lower Extremity: Right Weight Bearing/Tolerated Left Lower Extremity: Left Weight Bearing/Tolerated Gait Training Does the Patient Walk?: Yes Distance: 100' Walk 10 feet (QC): 4 Walk 50 ft with 2 Turns(QC): 4 Gait Persons Needed: 1 Gait Assistive Device: FWW Pt amb from recliner to toilet and back. Pt amb in hallways approx 100' with FWW, requiring VC to keep FWW close to her. Pt had slow, shuffling gait. Pt stated she has used a FWW before, but only for a couple weeks. Pt shown and performed folding/unfolding of FWW. Pt performed retro gait 10' with no LOB. Wheelchair Training Does the Pt Use a Wheelchair?: No Exercises Seated Therapy Exercises: Ankle pumps, Long arc quads, Hip flexion, Hip abd/add, Glut set Seated Reps: 10 Treatments Pt in recliner and BP was taken at beginning of tx reading 136/65. Pt sit to stand and BP was taken again reading 142/59 and again at 139/62. Pt amb to bathroom and returns to recliner. Pt stated that she would like her legs wrapped prior to amb. [employer] talked to pt stating she should trial Rodolfo Hose so pt could be indep on donning them and be more prepared to return to home.Pt transferred from recliner to bed, sit to supine SBA and Rodolfo Hose were donned by [employer]. Pt supine to sit SBA, pt donned L shoe indep and [employer] donned R shoe. Pt amb in hallway 50' to a chair on unit. Pt takes seated rest break and performs seated exercises. Pt amb around unit and returns to recliner. Pt left with all needs met, call light in hand. Assessment Current Status: Good Progress Pt issued Rodolfo Hose to assist with edema in LE. Pt has no LOB with amb but requires VC to keep FWW closer to her as well as where to go. Pt somewhat confused throughout tx, requiring redirection. PT Short Term Goals Short Term Goals Time Frame: Dec 30, 2019 Roll Left & Right: 6 Sit to lyin Lying to sitting on side of be: 6 Sit to stand: 6 PT Alf Goals Alf Goals PT Furniture Refinisher Goals Time Frame: Jan 06, 2020 Roll Left & Right (QC): 6 Sit to Lying (QC): 6 Lying-Sitting on Side/Bed(QC): 6 Sit to Stand (QC): 6 Chair/Tkn-qy-Ahgaa Xfer(QC): 6 Toilet Transfer (QC): 6 Car Transfer (QC): 6 Does the Patient Walk: Yes Walk 10 feet (QC): 6 Walk 50ft with 2 Turns (QC): 6 Walk 150 ft (QC): 6 Walking 10ft on Uneven Surface: 6 1 Step (curb) (QC): 6 4 Steps (QC): 6 12 Steps (QC): 9 Picking up an Object (QC): 88 (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) Does the Pt use WC or Scooter?: No Wheel 50 feet with 2 turns (QC: 9 Type: N/A Wheel 150 feet: 9 Type: N/A PT Plan Problem List Problem List: Activity Tolerance, Safety Treatment/Plan Treatment Plan: Continue Plan of Care Treatment Plan: Bed Mobility, Education, Functional Activity Lukas, Functional Strength, Group Therapy, Gait, Safety, Therapeutic Exercise, Transfers Treatment Duration: Dec 30, 2019 Frequency: At least 5 of 7 days/Wk (IRF) Estimated Hrs Per Day: 1.5 hours per day Patient and/or Family Agrees t: Yes Safety Risks/Education Patient Education: Gait Training, Correct Positioning, Disease Process, Safety Issues Teaching Recipient: Patient Teaching Methods: Demonstration, Discussion Response to Teaching: Verbalize Understanding, Return Demonstration, Reinforcement Needed Time/GCodes Time In: 815 Time Out: 915 Total Billed Treatment Time: 60 Total Billed Treatment 1, FA x2 (30m), GT (15m), Ex (15m) MAX DEL ROSARIO [employer] Dec 25, 2019 09:11
--- NOTE | 2019-12-25 09:14 | PM&R Progress Note ---
Subjective HPI/CC On Admission Date Seen by Provider: Dec 25, 2019 Time Seen by Provider: 09:15 Subjective/Events-last exam One unit of blood will be given today Vitamin B12 subQ injection will be done today since she is due for that, she does have pernicious anemia Hgb 7.5 and Albumin is 2.8 Dr. Awad increased her blood pressure medicine Bowels moved yesterday, will hemoccult stools Hemoccult was positive so I did consult with Dr. Martines who will provide recommendations Pt maintained on Coumadin, INR 2.8 Very complex case Checked meds and labs Reviewed therapy notes Conferred with tank shop supervisor of Systems General: Fatigue, Malaise Musculoskeletal: back pain, leg pain Neurological: Weakness, Confusion Objective Exam Vital Signs Vital Signs Date Time Temp Pulse Resp B/P (MAP) Pulse Ox O2 Delivery O2 Flow Rate FiO2 12/25/19 18:25 36.8 57 18 158/68 (98) 98 Room Air Capillary Refill : Less Than 3 Seconds General Appearance: No Apparent Distress, WD/WN, Chronically ill, Thin HEENT: PERRL/EOMI, Normal ENT Inspection, Pharynx Normal Neck: Full Range of Motion, Normal Inspection, Non Tender, Supple, Carotid Bruit Respiratory: Chest Non Tender, Lungs Clear, Normal Breath Sounds, No Accessory Muscle Use, No Respiratory Distress Cardiovascular: No Edema, No Gallop, No JVD, Normal Peripheral Pulses, Diastolic Murmur, Systolic Murmur, Irregularly Irregular Gastrointestinal: Normal Bowel Sounds, No Organomegaly, No Pulsatile Mass, Non Tender, Soft Back: Normal Inspection, CVA Tenderness (L), CVA Tenderness (R), Decreased Range of Motion, Muscle Spasm, Vertebral Tenderness Extremity: Normal Capillary Refill, Normal Inspection, Normal Range of Motion, Non Tender, No Calf Tenderness, No Pedal Edema Neurologic/Psychiatric: Alert, Oriented x3, No Motor/Sensory Deficits (except for weakness in legs from severe back pain), Normal Mood/Affect, rail operator II-XII Norm as Tested, Abnormal Gait, Disoriented (subtle poor recall) Skin: Normal Color, Warm/Dry Lymphatic: No Adenopathy Results/Procedures Lab Laboratory Tests 12/25/19 04:30 Patient resulted labs reviewed. FIM Transfers Therapy Code Descriptions/Definitions Functional [place] Measure: 0=Not Assessed/NA 4=Minimal Assistance 1=Total Assistance 5=Supervision or Setup 2=Maximal Assistance 6=Modified [place] 3=Moderate Assistance 7=Complete IndependenceSCALE: Activities may be completed with or without assistive devices. 3-Hqhwkwmgla-wwavnvx completes the activity by him/herself with no assistance from a helper. 5-Set-up or Clean-up Assistance-helper sets up or cleans up; patient completes activity. [place] assists only prior to or following the activity. 4-Supervision or Touching Assistance-helper provides verbal cues and/or touching/steadying and/or contact guard assistance as patient completes activity. Assistance may be provided throughout the activity or intermittently. 3-Partial/Moderate Assistance-helper does LESS THAN HALF the effort. [place] lifts, holds or supports trunk or limbs, but provides less than half the effort. 2-Substantial/Maximal Assistance-helper does MORE THAN HALF the effort. [place] lifts or holds trunk or limbs and provides more than half the effort. 6-Fqchfmeow-hxzivk does ALL the effort. Patient does none of the effort to complete the activity. Or, the assistance of 2 or more helpers is required for the patient to complete the activity. If activity was not attempted, code reason: 7-Patient Refused. 9-Not Applicable-not attempted and the patient did not perform the activity before the current illness, exacerbation or injury. 10-Not Attempted due to Environmental Limitations-(lack of equipment, weather restraints, etc.). 88-Not Attempted due to Medical Conditions or Safety Concerns. Roll Left to Right (QC): 5 Sit to Lying (QC): 3 Sit to Stand (QC): 4 Chair/Eyb-uk-Oxxug Xfer(QC): 4 Car Transfer (QC): 4 Gait Training Does the Patient Walk?: Yes Walk 10 feet (QC): 4 Walk 50 ft with 2 Turns(QC): 4 Walk 150 ft (QC): 7 Walking 10ft/uneven surface-QC: 4 Gait Assistive Device: FWW Wheelchair Training Does the Pt Use a Wheelchair?: No Distance: SEE PT NOTES Wheel 50 ft with 2 turns (QC): 9 Wheel 150 ft (QC): 9 Type of Wheelchair: N/A Stair Training #of Steps: 1 1 Step (curb) (QC): 4 4 Steps (QC): 88 12 Steps (QC): 88 Balance Picking up an Object (QC): 88 ADL-Treatment Eating (QC): 5 (per pt.) Oral Hygiene (QC): 10 Bathing Location: L Arm, R Arm, L Upper Leg, R Upper Leg, Chest, Abdomen, Buttocks, Perineal Area Shower/Bathe Self (QC): 10 Upper Body Dressing (QC): 10 Lower Body Dressing (QC): 10 On/Off Footwear (QC): 2 Toileting Hygiene (QC): 7 Toilet Transfer (QC): 4 Assessment/Plan Assessment and Plan Assess & Plan/Chief Complaint Assessment: Severe back pain with severe spondylosis AF Coumadin treatment CRI Confusion Delirium Pacemaker Plan: 12/22/19 IRF protocol Check labs in am Fall risk Bed alarm Dr Awad consultation 12/23/19: INR good Start low dose Hydrocodone Monitor LFT's BP monitoring BM regimen since 6 days since BM 12/24/19: BM large so severe constipation of 6 days resolved Pain meds minimal dosing to prevent delirium Iron level and hgb 8.4 will require midline placement due to poor vascular access and start IV iron Monitor orthostatic BP readings 12/25/19: Transfuse 1 unit of blood Iron infusions Dr Martines consult INR monitoring Complex case (1) Lumbar spondylosis (2) Atrial fibrillation with normal ventricular rate (3) Aortic valve replaced (4) Mitral valve replaced (5) Confusion (6) Pacemaker (7) Warfarin anticoagulation (8) Renal insufficiency (9) Hypertension (10) Constipation (11) Delirium (12) Advanced age MOOSE HERNANDEZ DO Dec 25, 2019 09:14
--- NOTE | 2019-12-25 09:37 | NUR ---
DR. HERNANDEZ HERE WITH ORDERS TO GIVE 1 UNIT OF BLOOD AFTER MIDLINE IS PLACED. GIVE SCHEDULED IV IRON AFTER BLOOD IS FINISHED INFUSING. GIVE VITAMIN B-12 INJECTION NOW.
[2019-12-25] MEDS ORDERED: NS IV 500 ML 500 ML IV SCH (09:45)
[2019-12-25] MEDS ORDERED: CYANOCOBALAMIN INJ 1000 MCG/ML IM NR (09:45)
--- NOTE | 2019-12-25 09:57 | ST Cognitive Linguistic Eval ---
Speech Evaluation-General Medical Diagnosis Right Lower back pain Onset Date: Dec 22, 2019 Therapy Diagnosis Therapy Diagnosis: Cognitive-communication Referral Referring Physician: Dr. Johnston Medical History Pertinent Medical History: Atrial Fib, HTN Reviewed History: Yes Social History Current Living Status: Alone Speech PLF-Current Status Prior Level of Function Patient lived alone in [facility] where she was independent for her daily needs. Subjective Patient was pleasant and cooperative with the cognitive assessment. Language Eval: Auditory Comprehends Simple Yes/No Ques: Functional Indent/Objects Multiple Kate: Functional Ident/Pics in Multiple Kate: Functional Follows 1-Step Commands: Functional Follows Complex Directions: Functional Follows General Conversations: Functional Language Eval: Verbal Language Completes Spontaneous Greeting: Functional Produces Auto, Serial Info: Functional Imitates Simple Words/Phrases: Functional Word Finding: Mild Requests Basic Needs: Functional Expresses Complex Ideas: Functional Objective Cognitive Domain Attention: WNL Memory: Mild Problem Solving: Functional Executive Functions: WNL Visuospatial Skills: WNL Composite Severity Rating: WNL Clock Drawing Severity Rating: Mild Objective Formal/Standardized Tests [facility] Status ([facility]) Results 24/30, Mild Neurocognitive Disorder range of function Oral Motor/Speech Production Within Normal Limits Impression Patient is a pleasant 84 y/o female who was admitted to the ARU due to back pain. Patient was given the SLUMS with a score of 24/30 obtained. Patient's score is within the MNCD range of function. Patient will receive skilled ST services with focus on improving memory, safety awareness and problem solving so that she may return home safer. Speech Patient Assess Expression of Ideas/Wants: Exhibits (3) Understanding Verbal Content: Usually Understands (3) Brief Interview-Mental Status: Yes Repetition of Three Words: Three (3) Temporal Orientation: Year: Correct (3) Temporal Orientation: Month: Accurate within 5 days(2) Temporal Orientation: Day: Correct (1) Recall : Wear to say "Sock": Yes,after cueing (1) Recall : Color: Yes, after cueing (1) Recall : Bed: No, could not recall (0) Memory/Recall Ability: Current season, That he or she is in a hsp/hsp unit Speech Short Term Goals Short Term Goals Short Term Goals 1) Patient will complete memory tasks related to her daily needs at 90% or greater. 2) Patient will complete safety awareness tasks related to her daily needs at 90% or greater. 3) Patient will complete problem solving tasks related to her daily needs at 90% or greater. Speech Skilled Nursing Goals Spiritual Care Coordinator Goals Patient will improve cognitive-communication necessary for safety and daily living tasks with minimal assist. Speech-Plan Patient/Family Goals Patient/Family Goals: Patient plans on returning to her home upon discharge. Treatment Plan Speech Therapy Treatment Plan: Continue Plan of Care Treatment Duration: Dec 25, 2019 Frequency: 5 times per week Estimated Hrs Per Day: Other Rehab Potential: Good Barriers to Learning: Patient has mild cognitive deficits Pt/Family Agrees to Plan: Yes Safety Risks/Education Teaching Recipient: Patient Teaching Methods: Discussion Response to Teaching: Verbalize Understanding Education Topics Provided: Safety within her room and communication of wants/needs Time Speech Therapy Time In: 09:15 Speech Therapy Time Out: 09:30 Total Billed Time: 15 Billed Treatment Time 1, CRISTINE Conley Dec 25, 2019 09:57
[2019-12-25] MEDS: lisINopril 20 MG (PRINIVIL) TABLET PO SCH (10:11)
[2019-12-25] MEDS: HYDROcodone/APAP 5 MG/325 MG (LORTAB) TAB PO PRN ×2 (11:30→20:20)
--- NOTE | 2019-12-25 12:15 | Progress Note - Cardiology ---
Cardiology SOAP Progress Note Subjective: No new symptoms Weakness present No cp or palp or syncope or shortness of breath at rest No focal weakness No n/v/d Objective: I&O/Vital Signs 12/25/19 12/25/19 12/25/19 12/25/19 05:12 07:54 08:22 10:17 Temp 36.2 Pulse 64 62 65 Resp 18 B/P (MAP) 168/79 (108) 147/65 (92) 127/60 (82) Pulse Ox 97 O2 Delivery Room Air Room Air 12/25/19 00:00 Intake Total 1000 ml Balance 1000 ml Constitutional: AAO x 3; No well-developed, No well-nourished; other (poor memory) Respiratory: accessory muscle use, other (good bilat air entry) Cardiovascular: regular rate-rhythm, S1 and S2, systolic murmur (3/6 MSM over entire precordium, more prominent at the cardiac base) Gastrointestional: No tender; soft; No guarding, No rebound; audible bowel sounds Extremities: No clubbing, No cyanosis, No significant edema Neurologic/Psychiatric: oriented x 3, other (moves all limbs equally) Skin: No rash on exposed areas, No ulcerations on exposed areas Results/Procedures: Labs Laboratory Tests 12/24/19 20:50: Glucometer 99 12/25/19 04:30: White Blood Count 9.0, Red Blood Count 2.90L, Hemoglobin 7.5L, Hematocrit 24L, Mean Corpuscular Volume 81, Mean Corpuscular Hemoglobin 26, Mean Corpuscular Hemoglobin Concent 32, Red Cell Distribution Width 17.1H, Platelet Count 219, Mean Platelet Volume 9.8, Neutrophils (%) (Auto) 92H, Lymphocytes (%) (Auto) 5L, Monocytes (%) (Auto) 3, Eosinophils (%) (Auto) 0, Basophils (%) (Auto) 0, Neutrophils # (Auto) 8.3H, Lymphocytes # (Auto) 0.4L, Monocytes # (Auto) 0.3, Eosinophils # (Auto) 0.0, Basophils # (Auto) 0.0, Prothrombin Time 29.6H, INR Comment 2.8H, Sodium Level 136, Potassium Level 4.6, Chloride Level 106, Carbon Dioxide Level 21, Anion Gap 9, Blood Urea Nitrogen 35H, Creatinine 0.98, Estimat Glomerular Filtration Rate 54, BUN/Creatinine Ratio 36, Glucose Level 122H, Calcium Level 8.5, Corrected Calcium 9.4, Total Bilirubin 0.4, Aspartate Amino T ransf (AST/SGOT) 40H, Alanine Aminotransferase (ALT/SGPT) 49, Alkaline Phosphatase 83, Total Protein 5.5L, Albumin 2.9L 12/25/19 11:32: Stool Occult Blood Immunoassay POSITIVEH Laboratory Tests 12/25/19 04:30 A/P: Assessment: Severe anemia that is worsening. Management is with Dr Johnston Uncontrolled hypertension, now improved Valvular heart disease. 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
--- NOTE | 2019-12-25 12:49 | NUR ---
DR. HERNANDEZ INFORMED OF POSITIVE OB STOOL. ORDERS TO CONSULT DR. HAWKINS. DR. HERNANDEZ STATES THAT SHE WILL NOTIFY DR. HAWKINS.
--- NOTE | 2019-12-25 13:17 | NUR ---
CM/SS ADMISSION Patient was admitted to ARU 12/22/19 from [facility] for Lumbar Spondylosis. Additional comorbidities are, in part, afib, aortic and mitral valves replaced, pacemaker, HTN, confusion and delirium (exacerbated by pain Rx), advanced age. Patient resided home alone prior to acute onset of severe back pain after working in her garden at home. She describes being IADL prior to that, including driving. Patient's spouse Severino Grimm 07/09/18 after having a foot amputation and an extended stay at [facility]. Patient describes they used to winter in [place] and summer in [place], all of which she has given up at this time. Patient plans to go to the home of her brother in [place], [place] upon discharge for a temporary period of time so that they can assess her ability and confidence regarding returning home alone. She has a son, Kiersten [place], in [place], [place]; her other son, Franklin [place], . PCP: Dr. Bel Leyva MD, affiliated with [facility]. [phone] PHARMACY: Not yet identified. INSURANCE: Medicare, [place] Power of [place] DME: Patient indicates she has a FWW at her house. BARRIERS TO DISCHARGE PLAN: Going home alone would be a concern unless her back pain is controlled and her fall risk is lessened. She conversed well, will refer to ST progress note for SLUMS score and any documentation of confusion. She shared a tentative plan to go to the home of her brother in [place], he intends to be here Wednesday to get an update on team recommendations. Assurance that she would have this assistance and monitor immediately post discharge would lessen concern. CONTACTS: Get Velarde, Brother, POA- [address] [place], [place] [id number] Kiersten [place], Son, DPOA [address] [place] [address] Phone number not clarified. Patient understands the purpose and process of the weekly patient care conference and her brother Get plans to be here this Wednesday for her first review, 12/27/19.
[2019-12-25] MEDS ORDERED: NS IV 500 ML 500 ML ONE (13:35)
--- NOTE | 2019-12-25 14:02 | Physical Therapy Daily Note ---
PT Daily Note-Current Subjective Pt in recliner upon arrival and agrees to tx. Pt stated she had a pain pill recently and had no pain at beginning of tx. During tx, pt stated pain with exercise while attempting LE exercises in supine Pain Location: Right Location Body Site: Back Comment: pt. did not rate pain per number Mental Status Patient Orientation: Person, Confused, Place, Time, Situation Transfers SCALE: Activities may be completed with or without assistive devices. 7-Siablacgoh-ykrjnjz completes the activity by him/herself with no assistance from a helper. 5-Set-up or Clean-up Assistance-helper sets up or cleans up; patient completes activity. [place] assists only prior to or following the activity. 4-Supervision or Touching Assistance-helper provides verbal cues and/or touching/steadying and/or contact guard assistance as patient completes activity. Assistance may be provided throughout the activity or intermittently. 3-Partial/Moderate Assistance-helper does LESS THAN HALF the effort. [place] lifts, holds or supports trunk or limbs, but provides less than half the effort. 2-Substantial/Maximal Assistance-helper does MORE THAN HALF the effort. [place] lifts or holds trunk or limbs and provides more than half the effort. 8-Vnmramsxx-mixnxj does ALL the effort. Patient does none of the effort to co mplete the activity. Or, the assistance of 2 or more helpers is required for the patient to complete the activity. If activity was not attempted, code reason: 7-Patient Refused. 9-Not Applicable-not attempted and the patient did not perform the activity before the current illness, exacerbation or injury. 10-Not Attempted due to Environmental Limitations-(lack of equipment, weather restraints, etc.). 88-Not Attempted due to Medical Conditions or Safety Concerns. Sit to Lying (QC): 5 Lying to Sitting/Side of Bed(Q: 5 Sit to Stand (QC): 5 Weight Bearing Right Lower Extremity: Right Weight Bearing/Tolerated Left Lower Extremity: Left Weight Bearing/Tolerated Gait Training Does the Patient Walk?: Yes Distance: 150 Walk 10 feet (QC): 4 Walk 50 ft with 2 Turns(QC): 4 Walk 150 ft (QC): 4 Gait Persons Needed: 1 Gait Assistive Device: FWW Exercises Supine Ex: Bridging (discontinued d/t pain), Pelvic tilt Supine Reps: 10 pt. with poor performance of pelvic tilt , poor awareness of core etc. will continue to work on this to facilitate core stability Treatments Pt in recliner and amb to bathroom followed by amb to gym. Pt laid on mat and performed supine exercises, as well as hook lying marching, with pelvic stability. Pt amb back to room and returned to recliner, left with all needs met. Assessment Current Status: Good Progress Pt is confused, thinking that her kidneys are hurting and was educated regarding her spinal issues. Pt requires VC to remind her on activities and keep her FWW close to her. PT Short Term Goals Short Term Goals Time Frame: Dec 30, 2019 Roll Left & Right: 6 Sit to lyin Lying to sitting on side of be: 6 Sit to stand: 6 PT Auditor Supervisor Goals Custodial Goals PT Auditor Supervisor Goals Time Frame: Jan 06, 2020 Roll Left & Right (QC): 6 Sit to Lying (QC): 6 Lying-Sitting on Side/Bed(QC): 6 Sit to Stand (QC): 6 Chair/Lwg-wk-Hcwyj Xfer(QC): 6 Toilet Transfer (QC): 6 Car Transfer (QC): 6 Does the Patient Walk: Yes Walk 10 feet (QC): 6 Walk 50ft with 2 Turns (QC): 6 Walk 150 ft (QC): 6 Walking 10ft on Uneven Surface: 6 1 Step (curb) (QC): 6 4 Steps (QC): 6 12 Steps (QC): 9 Picking up an Object (QC): 88 (Pt will utilize water pollution specialist for back health) Does the Pt use WC or Scooter?: No Wheel 50 feet with 2 turns (QC: 9 Type: N/A Wheel 150 feet: 9 Type: N/A PT Plan Treatment/Plan Treatment Plan: Continue Plan of Care Treatment Plan: Bed Mobility, Education, Functional Activity Lukas, Functional Strength, Group Therapy, Gait, Safety, Therapeutic Exercise, Transfers Treatment Duration: Dec 30, 2019 Frequency: At least 5 of 7 days/Wk (IRF) Estimated Hrs Per Day: 1.5 hours per day Patient and/or Family Agrees t: Yes Safety Risks/Education Patient Education: Gait Training, Correct Positioning, Safety Issues Teaching Recipient: Patient Teaching Methods: Demonstration, Discussion Response to Teaching: Verbalize Understanding, Return Demonstration, Reinforcement Needed Time/GCodes Time In: 1300 Time Out: 1330 Total Billed Treatment Time: 30 Total Billed Treatment 1, FA (15m), Ex (15m) MAX DEL ROSARIO SALT PLANT OPERATOR Dec 25, 2019 14:02
--- NOTE | 2019-12-25 14:02 | NUR ---
RD ASSESSMENT PMHx: afib; hypercholesterolemia; HTN; dementia; renal failure PT INTERACTION: Pt was awake and pleasant during nutrition assessment. Pt states current appetite is not good and has this way for a while. Note avg PO intake 25-50% x2d, per chart review. Pt states following a regular diet at home, and has no issues with chewing/swallowing food. Pt states no recent issues with nausea, vomiting, or diarrhea. Pt states some recent issues with constipation. Note last BM was 12/22 and pt currently on bowel regimen of colace HS; senna BID; and miralax BID, per chart review. Pt states recent 4# wt loss "since all this happened (believe reference to COVID-19)". Note unable to determine recent wt hx, per chart review. ABNORMAL NUTRITION-RELATED LAB VALUES LOW: Pro 5.5; alb 2.9 HIGH: BUN 35; glu 122; AST 40 Est. kcal needs: 1450 kcal | 25 kcal/kg Est. Pro needs: 58 g Pro | 0.8 g Pro/kg PES STATEMENT: Inadequate oral intake (NI-2.1) related to loss of appetite | constipation as evidenced by pt interview | avg PO intake 25-50% x2d INTERVENTION: Continue with current diet order of Regular diet. Pt may benefit from nutrition supplementation, if PO intake declines. Encouraged pt to eat when able. Will continue to follow and reassess as pt needs, intake, and status change. MONITOR/EVALUATE: PO Intake; Plan of Care; Hydration Status; Weight Status; Lab Values Shantelle Flores, MS, RD, LD
--- NOTE | 2019-12-25 14:14 | Occupational Ther Daily Note ---
OT Current Status-Daily Note Subjective No pain reported. Appearance Pt. on toilet when OT entered room. Pt. agrees to shower. Mental Status/Objective Patient Orientation: Person, Place Attachments: IV Pt. has just had mid-line placed in right upper arm. ADL-Treatment Therapy Code Descriptions/Definitions Functional [place] Measure: 0=Not Assessed/NA 4=Minimal Assistance 1=Total Assistance 5=Supervision or Setup 2=Maximal Assistance 6=Modified [place] 3=Moderate Assistance 7=Complete IndependenceSCALE: Activities may be completed with or without assistive devices. 0-Bkkogdlxuc-ieoumpr completes the activity by him/herself with no assistance from a helper. 5-Set-up or Clean-up Assistance-helper sets up or cleans up; patient completes activity. [place] assists only prior to or following the activity. 4-Supervision or Touching Assistance-helper provides verbal cues and/or touching/steadying and/or contact guard assistance as patient completes activity. Assistance may be provided throughout the activity or intermittently. 3-Partial/Moderate Assistance-helper does LESS THAN HALF the effort. [place] lifts, holds or supports trunk or limbs, but provides less than half the effort. 2-Substantial/Maximal Assistance-helper does MORE THAN HALF the effort. [place] lifts or holds trunk or limbs and provides more than half the effort. 5-Qmejmskom-dqdklw does ALL the effort. Patient does none of the effort to com plete the activity. Or, the assistance of 2 or more helpers is required for the patient to complete the activity. If activity was not attempted, code reason: 7-Patient Refused. 9-Not Applicable-not attempted and the patient did not perform the activity before the current illness, exacerbation or injury. 10-Not Attempted due to Environmental Limitations-(lack of equipment, weather restraints, etc.). 88-Not Attempted due to Medical Conditions or Safety Concerns. Shower/Bathe Self (QC): 4 (CGA in stance in shower.) Upper Body Dressing (QC): 5 Lower Body Dressing (QC): 3 (Min assist to use AE to don underwear and shorts over feet and over hips.) On/Off Footwear: 3 (Mod assist overall with shoes. Pt. able to doff shoes with cues and dressing stick, but required assistance to don them.) Toileting Hygiene (QC): 4 (SBA) Toilet Transfer (QC): 4 Other Treatment Pt. agreed to shower. Pt. had LH sponge in room, as well as dressing stick. Pt. issued spring production supervisor and sock aide, and practiced spring production supervisor, as she did not don socks. OT did assist with doffing/donning BRIGID hose. Pt. reports having sensitive skin and this made application difficult. After ADL treatment, pt. ambulated to chair in room with SBA and walker. All needs met. Education OT Patient Education: Correct positioning, Modified ADL techniques, Progress toward Goal/Update tx plan, Purpose of tx/functional activities, Reviewed precautions, Rehab process, Transfer techniques, Use of adapted equipment Teaching Recipient: Patient Teaching Methods: Demonstration, Discussion Response to Teaching: Verbalize Understanding, Return Demonstration OT Short Term Goals Short Term Goals Time Frame: Dec 30, 2019 Eatin Oral hygiene: 4 Toileting hygiene: 3 Shower/bathe self: 3 Upper body dressin Lower body dressin Putting on/taking off footwear: 3 OT Senior Living Goals Senior Living Goals Time Frame: Jan 06, 2020 Eating (QC): 6 Oral Hygiene (QC): 6 Toileting Hygiene (QC): 6 Shower/Bathe Self (QC): 4 Upper Body Dressing (QC): 5 Lower Body Dressing (QC): 5 On/Off Footwear (QC): 5 Additional Goals: 1-Demonstrate ADL Tasks, 2-Verbalize Understanding, 3-ImproveStrength/Lukas 1=Demonstrate adherence to instructed precautions during ADL tasks. 2=Patient will verbalize/demonstrate understanding of assistive devices/modifications for ADL. 3=Patient will improve strength/tolerance for activity to enable patient to perform ADL's. OT Education/Plan Problem List/Assessment Assessment: Decreased Activ Tolerance, Dependent Transfers, Impaired I ADL's, Impaired Self-Care Skills Discharge Recommendations Plan/Recommendations: Continue POC Therapy Discharge Recommendati: Post Acute OT Equpiment Recommendations-D/C: Hip Kit Treatment Plan/Plan of Care Treatment,Training & Education: Yes Patient would benefit from OT for education, treatment and training to promote independence in ADL's, mobility, safety and/or upper extremity function for ADL's. Plan of Care: ADL Retraining, Functional Mobility, UE Funct Exercise/Act Treatment Duration: Jan 06, 2020 Frequency: At least 5 of 7 days/Wk (IRF) Estimated Hrs Per Day: 1.5 hours per day Agreement: Yes Rehab Potential: Good Time/GCodes Start Time: 11:30 Stop Time: 12:15 Total Time Billed (hr/min): 45 Billed Treatment Time 1, ADL x 3 DAVID LIU OT Dec 25, 2019 14:14
--- NOTE | 2019-12-25 14:36 | Occupational Ther Daily Note ---
OT Current Status-Daily Note Subjective Pt alert, sitting in recliner. Pt agrees to therapy. Pt discusses her pain medications. States pain is 3/10. Mental Status/Objective Patient Orientation: Person, Place, Time, Situation Attachments: IV (midline) ADL-Treatment Pt educated on using sock aide to don socks. Pt required verbal and gestural cues to complete sock aide task. Pt then demonstrated ability to complete doffing socks/shoes without AE. Therapy Code Descriptions/Definitions Functional [place] Measure: 0=Not Assessed/NA 4=Minimal Assistance 1=Total Assistance 5=Supervision or Setup 2=Maximal Assistance 6=Modified [place] 3=Moderate Assistance 7=Complete IndependenceSCALE: Activities may be completed with or without assistive devices. 9-Xpvifqufbo-yuewndz completes the activity by him/herself with no assistance from a helper. 5-Set-up or Clean-up Assistance-helper sets up or cleans up; patient completes activity. [place] assists only prior to or following the activity. 4-Supervision or Touching Assistance-helper provides verbal cues and/or touching/steadying and/or contact guard assistance as patient completes activity. Assistance may be provided throughout the activity or intermittently. 3-Partial/Moderate Assistance-helper does LESS THAN HALF the effort. [place] lifts, holds or supports trunk or limbs, but provides less than half the effort. 2-Substantial/Maximal Assistance-helper does MORE THAN HALF the effort. [place] lifts or holds trunk or limbs and provides more than half the effort. 2-Gvrdkxefl-iyxoou does ALL the effort. Patient does none of the effort to complete the activity. Or, the assistance of 2 or more helpers is required for the patient to complete the activity. If activity was not attempted, code reason: 7-Patient Refused. 9-Not Applicable-not attempted and the patient did not perform the activity before the current illness, exacerbation or injury. 10-Not Attempted due to Environmental Limitations-(lack of equipment, weather restraints, etc.). 88-Not Attempted due to Medical Conditions or Safety Concerns. Oral Hygiene (QC): 6 (Standing at sink, completes own oral care.) On/Off Footwear: 4 Other Treatment Pt ambulated to therapy gym to complete B UE exercises to increase strength and activity tolerance for daily functional tasks. 1# wts attached to arms while completing resistive fine motor tasks. Pt ambulated back to room. After therapy, pt lying in bed with call light/phone in reach. All needs met in room. OT Short Term Goals Short Term Goals Time Frame: Dec 30, 2019 Eatin Oral hygiene: 4 Toileting hygiene: 3 Shower/bathe self: 3 Upper body dressin Lower body dressin Putting on/taking off footwear: 3 OT Senior Clinical Consultant Goals Senior Clinical Consultant Goals Time Frame: Jan 06, 2020 Eating (QC): 6 Oral Hygiene (QC): 6 Toileting Hygiene (QC): 6 Shower/Bathe Self (QC): 4 Upper Body Dressing (QC): 5 Lower Body Dressing (QC): 5 On/Off Footwear (QC): 5 Additional Goals: 1-Demonstrate ADL Tasks, 2-Verbalize Understanding, 3- ImproveStrength/Lukas 1=Demonstrate adherence to instructed precautions during ADL tasks. 2=Patient will verbalize/demonstrate understanding of assistive devices/modifications for ADL. 3=Patient will improve strength/tolerance for activity to enable patient to perform ADL's. OT Education/Plan Problem List/Assessment Assessment: Decreased Activ Tolerance, Decreased UE Strength, Impaired Self- Care Skills Discharge Recommendations Plan/Recommendations: Continue POC Treatment Plan/Plan of Care Patient would benefit from OT for education, treatment and training to promote independence in ADL's, mobility, safety and/or upper extremity function for ADL's. Plan of Care: ADL Retraining, Functional Mobility, UE Funct Exercise/Act Treatment Duration: Jan 06, 2020 Frequency: At least 5 of 7 days/Wk (IRF) Estimated Hrs Per Day: 1.5 hours per day Agreement: Yes Rehab Potential: Good Time/GCodes Start Time: 13:30 Stop Time: 14:15 Total Time Billed (hr/min): 45 Billed Treatment Time 1 visit-ADL 1 (20 min) EX 2 (25 min) MAURA MORENO Dec 25, 2019 14:36
[2019-12-25] MEDS: IRON SUCROSE 200 MG/10 ML (VENOFER) VIAL IV SCH (17:43)
--- NOTE | 2019-12-25 18:06 | NUR ---
DR. HAWKINS HERE TO SEE PATIENT. OK TO GIVE COUMADIN AND ASA FOR NOW. IF PATIENT DECIDES TO PROCEED WITH EGD/COLONOSCOPY... IT WILL NOT BE DONE UNTIL WEDNESDAY. DR. HAWKINS STATES THAT HE WILL DISCUSS CASE WITH DR. DAMON.
--- NOTE | 2019-12-25 18:26 | Consultation - Surgery ---
History of Present Illness History of Present Illness Patient Consulted On(guillermo/time) 12/25/19 18:20 Time Seen by Provider: 16:46 History of Present Illness Surgery asked to consult regarding Anemia and Hemoccult +. HPI per IM: Ms. Grimm is an 84 year old white female who presented 12/17 to [facility] ER with back pain. She had been working in her garden when she experience shooting R sided back pain upon standing up after bending down. She experienced urinary incontinence earlier that day, as well as one week prior. She received Decadron in the ER. CT done that day showed no acute changes, spondylosis of C3-4, L3-4, and L4-5. Patient also had pulmonary effusion but denied any respiratory distress. An MRI was ordered but not done due to pacemaker. Since then she has had continued back pain. No LE weakness or loss of sensation noted on exam, however she has had frequent falls and OT/PT reports difficulty with ambulation and ADLs. She has not had continued incontinence, and has not developed any SOB or other respiratory difficulty. Transferred to IRF 12/22/19. When I spoke to pt this afternoon she states she has "been anemic my entire life". She thinks her last colonoscopy was about 13 years ago and does not think she has ever had an EGD. She states they have never found anything on her colonoscopies. She has been worked up for Leukemia and last she was told was that she had pernicious anemia. Pt is sub-therapeutic on Coumadin, INR 2.8. She has in the past required blood transfusions. Allergies and Home Medications Allergies Coded Allergies: No Known Drug Allergies (Unverified , 12/22/19) Home Medications Acetaminophen 500 Mg Tablet, 500 MG PO Q6H, (Reported) Aspirin 81 Mg Tablet.dr, 81 MG PO DAILY, (Reported) Cyanocobalamin 1,000 Mcg/Ml Inj, 1,000 MCG IM UD, (Reported) Every other month. Dexamethasone 4 Mg Tablet, 4 MG PO BID, (Reported) Stop date 12/25/19. Docusate Sodium 100 Mg Capsule, 100 MG PO HS, (Reported) Escitalopram Oxalate 5 Mg Tablet, 5 MG PO DAILY, (Reported) Fludrocortisone Acetate 0.1 Mg Tab, 0.1 MG PO DAILY, (Reported) Furosemide 20 Mg Tablet, 20 MG PO DAILY, (Reported) Daily PRN for swelling. Glucosamine Sulfate 2Kcl 1,000 Mg Tablet, 1,500 MG PO DAILY, (Reported) Iron,Carbonyl/Ascorbic Acid 1 Each Tablet.dr, 1 EACH PO BID, (Reported) Levothyroxine Sodium 75 Mcg Tablet, 75 MCG PO DAILY, (Reported) Lisinopril 10 Mg Tablet, 10 MG PO DAILY PRN PRN for BLOOD PRESSURE, (Reported) PRN systolic BP greater than 140mmhg. Lutein 6 Mg Tablet, 6 MG PO DAILY, (Reported) Metoprolol Tartrate 50 Mg Tablet, 25 MG PO BID, (Reported) Simvastatin 20 Mg Tablet, 20 MG PO HS, (Reported) Warfarin Sodium 2 Mg Tablet, 2 MG PO HS, (Reported) Patient Home Medication List Home Medication List Reviewed: Yes Past Xghpalf-Fdmkcm-Gewuag Hx Patient Social History Alcohol Use: Denies Use Recreational Drug Use: No Smoking Status: Never a Smoker Recent Foreign Travel: No Contact w/Someone Who Travel: No Recent Infectious Disease Expo: No Recent Hopitalizations: Yes (for Back pain at [facility]) Physical Abuse Screen: No Sexual Abuse: No Immunizations Up To Date Date of Pneumonia Vaccine: Mar 23, 2019 Seasonal Allergies Seasonal Allergies: No Surgeries History of Surgeries: Yes Surgeries: Cardiac, Pacemaker Respiratory History of Respiratory Disorde: No Cardiovascular History of Cardiac Disorders: Yes (Aortic valve replacement) Cardiac Disorders: Atrial Fibrillation, High Cholesterol, Hypertension, Valvular Heart Disease Neurological History of Neurological Disord: No Neurological Disorders: Dementia Reproductive System Sexually Transmitted Disease: No HIV/AIDS: No Female Reproductive Disorders: Denies Genitourinary History of Genitourinary Disor: No Genitourinary Disorders: Renal Failure Gastrointestinal History of Gastrointestinal Di: No Musculoskeletal History of Musculoskeletal Dis: Yes Musculoskeletal Disorders: Chronic Back Pain Endocrine History of Endocrine Disorders: Yes HEENT History of HEENT Disorders: Yes (cataracts removed) HEENT Disorders: Cataract Loss of Vision: Bilateral Hearing Impairment: Hard of Hearing Cancer History of Cancer: Yes Cancer: Skin Psychosocial History of Psychiatric Problem: No Integumentary History of Skin or Integumenta: No Blood Transfusions History of Blood Disorders: No Family Medical History Significant Family History: Other Conditions/Hx (pt denied ) Family Medial History: Patient reports no known family medical history. Review of Systems-General Constitutional: malaise, weakness EENTM: No blurred vision, No double vision, No mouth swelling, No epistaxis Respiratory: No dyspnea on exertion, No short of breath Cardiovascular: No chest pain; palpitations Gastrointestinal: No abdominal pain, No melena, No nausea, No vomiting Genitourinary: No dysuria, No frequency, No hematuria Musculoskeletal: back pain, joint pain, joint swelling, muscle pain, muscle stiffness, muscle cramps, muscle weakness Skin: hx of skin cancer; No rash Psychiatric/Neurological: Denies Anxiety, Denies Depressed; Numbness, Paresthesia; Denies Seizure; Weakness Other pt states she bleeds and bruises easily because of blood thinners Physical Exam-General Problems Physical Exam Vital Signs Vital Signs - First Documented 12/22/19 12/22/19 12/22/19 17:00 17:10 21:18 Temp 36.6 Pulse 61 Resp 16 B/P (MAP) 186/77 (113) Pulse Ox 97 O2 Delivery Room Air Capillary Refill : Less Than 3 Seconds General Appearance: WD/WN, no apparent distress Eyes: Bilateral Eye PERRL, Bilateral Eye EOMI HEENT: pharynx normal; No scleral icterus (R), No scleral icterus (L) Neck: non-tender, supple Respiratory: lungs clear, normal breath sounds, no respiratory distress, no accessory muscle use Cardiovascular: regular rate, rhythm, no murmur Gastrointestinal: non tender, soft, no organomegaly, no pulsatile mass Back: decreased range of motion, vertebral tenderness Extremities: no pedal edema, no calf tenderness, normal capillary refill Neurologic/Psychiatric: 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 nml as tested, alert, oriented x 3 Skin: normal color, warm/dry, ecchymosis Lymphatic: no adenopathy (neck, axilla or groin) Data Review Labs Laboratory Tests 12/24/19 20:50: Glucometer 99 12/25/19 04:30: White Blood Count 9.0, Red Blood Count 2.90L, Hemoglobin 7.5L, Hematocrit 24L, Mean Corpuscular Volume 81, Mean Corpuscular Hemoglobin 26, Mean Corpuscular Hemoglobin Concent 32, Red Cell Distribution Width 17.1H, Platelet Count 219, Mean Platelet Volume 9.8, Neutrophils (%) (Auto) 92H, Lymphocytes (%) (Auto) 5L, Monocytes (%) (Auto) 3, Eosinophils (%) (Auto) 0, Basophils (%) (Auto) 0, Neutrophils # (Auto) 8.3H, Lymphocytes # (Auto) 0.4L, Monocytes # (Auto) 0.3, Eosinophils # (Auto) 0.0, Basophils # (Auto) 0.0, Prothrombin Time 29.6H, INR Comment 2.8H, Sodium Level 136, Potassium Level 4.6, Chloride Level 106, Carbon Dioxide Level 21, Anion Gap 9, Blood Urea Nitrogen 35H, Creatinine 0.98, Estimat Glomerular Filtration Rate 54, BUN/Creatinine Ratio 36, Glucose Level 122H, Calcium Level 8.5, Corrected Calcium 9.4, Total Bilirubin 0.4, Aspartate Amino Transf (AST/SGOT) 40H, Alanine Aminotransferase (ALT/SGPT) 49, Alkaline Phosphatase 83, Total Protein 5.5L, Albumin 2.9L 12/25/19 11:32: Stool Occult Blood Immunoassay POSITIVEH Assessment/Plan Assessment/Plan Assessment/Plan Anemia Hemoccult + Anticoagulation therapy Pt is on coumadin and INR is elevated. She has not really seen any melena or hematochezia and has always had problems with anemia. However, it has been appx 13 years since her last colonoscopy and therefore it might be worthwhile to do an EGD and colonoscopy for work-up. First pt will need to stop her coumadin (will check with Cardiology) and then will need to do bowel prep. I did discuss risks and complications not limited to pain, bleeding, infection, intestinal or esophageal perforation and all questions answered to her satisfaction. She is going to think about it overnight. Clinical Quality Measures DVT/VTE Risk/Contraindication: Risk Factor Score Per Nursin RFS Level Per Nursing on Admit: 3=High HERMES HAWKINS DO Dec 25, 2019 18:26
[2019-12-25] MEDS: DOCUSATE SODIUM 100 MG (COLACE) CAP PO SCH (20:20)
[2019-12-25] MEDS: SIMvastatin 20 MG (ZOCOR) TAB PO SCH (20:20)
[2019-12-25] MEDS: warFARin 2 MG (COUMADIN) TAB PO SCH (20:20)
[2019-12-26 05:37] VITALS: BP 165/74
[2019-12-26 06:26] LABS: BASOPHILS % (AUTO) 0 % (0-10); EOSINOPHILS % (AUTO) 0 % (0-10); HEMATOCRIT 29 % (35-52); HEMOGLOBIN 9.4 G/DL (11.5-16.0); LYMPHOCYTES # (AUTO) 0.5 X 10^3 (1.0-4.0); LYMPHOCYTES % (AUTO) 4 % (12-44); MEAN CORPUSCULAR HEMOGLOBIN 26 PG (25-34); MEAN CORPUSCULAR HGB CONC 33 G/DL (32-36); MEAN CORPUSCULAR VOLUME 80 FL (80-99); MONOCYTES # (AUTO) 0.4 X 10^3 (0.0-1.0); MONOCYTES % (AUTO) 3 % (0-12); NEUTROPHILS # (AUTO) 10.6 X 10^3 (1.8-7.8); NEUTROPHILS % (AUTO) 93 % (42-75); PLATELET COUNT 223 10^3/uL (130-400); RED CELL DISTRIBUTION WIDTH 16.4 % (10.0-14.5); WHITE BLOOD COUNT 11.5 10^3/uL (4.3-11.0)
[2019-12-26 06:37] LABS: ALBUMIN 3.2 GM/DL (3.2-4.5); CHLORIDE 102 MMOL/L (98-107); POTASSIUM 4.6 MMOL/L (3.6-5.0); SODIUM 135 MMOL/L (135-145)
[2019-12-26 06:38] LABS: CALCIUM 8.8 MG/DL (8.5-10.1)
[2019-12-26 06:40] LABS: GLUCOSE 99 MG/DL (70-105); TOTAL PROTEIN 6.1 GM/DL (6.4-8.2)
[2019-12-26 06:41] LABS: BILIRUBIN,TOTAL 0.8 MG/DL (0.1-1.0); CARBON DIOXIDE 23 MMOL/L (21-32)
--- NOTE | 2019-12-26 06:42 | PM&R Progress Note ---
Subjective HPI/CC On Admission Date Seen by Provider: Dec 26, 2019 Time Seen by Provider: 10:00 Subjective/Events-last exam Hgb 9.4 after one units of blood yesterday Overall doing much better Dr. Martines consulted for endoscopy but after a great deal of thought she wants to hold off on that Coumadin maintained BP elevation noted, cardiology managing that Stopping Florinef for the orthostatic hypotension she has had in the past Overall feels much better and the midline did hurt when they inserted it in her right arm but now she is doing well Pain is well controlled Very complex case Checked meds and labs Reviewed therapy notes Conferred with marine photographer of Systems General: Fatigue, Malaise Neurological: Weakness Objective Exam Vital Signs Vital Signs Date Time Temp Pulse Resp B/P (MAP) Pulse Ox O2 Delivery O2 Flow Rate FiO2 12/26/19 17:19 36.9 62 18 145/67 (93) 96 Room Air Capillary Refill : Less Than 3 Seconds General Appearance: No Apparent Distress, WD/WN, Chronically ill, Thin HEENT: PERRL/EOMI, Normal ENT Inspection, Pharynx Normal Neck: Full Range of Motion, Normal Inspection, Non Tender, Supple, Carotid Bruit Respiratory: Chest Non Tender, Lungs Clear, Normal Breath Sounds, No Accessory Muscle Use, No Respiratory Distress Cardiovascular: No Edema, No Gallop, No JVD, Normal Peripheral Pulses, Diastolic Murmur, Systolic Murmur, Irregularly Irregular Gastrointestinal: Normal Bowel Sounds, No Organomegaly, No Pulsatile Mass, Non Tender, Soft Back: Normal Inspection, CVA Tenderness (L), CVA Tenderness (R), Decreased Range of Motion, Muscle Spasm, Vertebral Tenderness Extremity: Normal Capillary Refill, Normal Inspection, Normal Range of Motion, Non Tender, No Calf Tenderness, No Pedal Edema Neurologic/Psychiatric: Alert, Oriented x3, No Motor/Sensory Deficits (except for weakness in legs from severe back pain), Normal Mood/Affect, 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 FIM Transfers Therapy Code Descriptions/Definitions Functional [place] Measure: 0=Not Assessed/NA 4=Minimal Assistance 1=Total Assistance 5=Supervision or Setup 2=Maximal Assistance 6=Modified [place] 3=Moderate Assistance 7=Complete IndependenceSCALE: Activities may be completed with or without assistive devices. 7-Telrjoadxs-pofseym completes the activity by him/herself with no assistance from a helper. 5-Set-up or Clean-up Assistance-helper sets up or cleans up; patient completes activity. [place] assists only prior to or following the activity. 4-Supervision or Touching Assistance-helper provides verbal cues and/or touching/steadying and/or contact guard assistance as patient completes activity. Assistance may be provided throughout the activity or intermittently. 3-Partial/Moderate Assistance-helper does LESS THAN HALF the effort. [place] lifts, holds or supports trunk or limbs, but provides less than half the effort. 2-Substantial/Maximal Assistance-helper does MORE THAN HALF the effort. [place] lifts or holds trunk or limbs and provides more than half the effort. 0-Edeoztdnt-itkqie does ALL the effort. Patient does none of the effort to complete the activity. Or, the assistance of 2 or more helpers is required for the patient to complete the activity. If activity was not attempted, code reason: 7-Patient Refused. 9-Not Applicable-not attempted and the patient did not perform the activity before the current illness, exacerbation or injury. 10-Not Attempted due to Environmental Limitations-(lack of equipment, weather restraints, etc.). 88-Not Attempted due to Medical Conditions or Safety Concerns. Roll Left to Right (QC): 5 Sit to Lying (QC): 5 Sit to Stand (QC): 5 Chair/Wov-ch-Clcgm Xfer(QC): 4 Car Transfer (QC): 4 Gait Training Does the Patient Walk?: Yes Distance: 150 Walk 10 feet (QC): 4 Walk 50 ft with 2 Turns(QC): 4 Walk 150 ft (QC): 4 Walking 10ft/uneven surface-QC: 4 Gait Persons Needed: 1 Gait Assistive Device: FWW Wheelchair Training Does the Pt Use a Wheelchair?: No Distance: SEE PT NOTES Wheel 50 ft with 2 turns (QC): 9 Wheel 150 ft (QC): 9 Type of Wheelchair: N/A Stair Training #of Steps: 1 1 Step (curb) (QC): 4 4 Steps (QC): 88 12 Steps (QC): 88 Balance Picking up an Object (QC): 88 ADL-Treatment Eating (QC): 5 (per pt.) Oral Hygiene (QC): 6 (Standing at sink, completes own oral care.) Bathing Location: L Arm, R Arm, L Upper Leg, R Upper Leg, Chest, Abdomen, Buttocks, Perineal Area Shower/Bathe Self (QC): 4 (CGA in stance in shower.) Upper Body Dressing (QC): 5 Lower Body Dressing (QC): 3 (Min assist to use AE to don underwear and shorts over feet and over hips.) On/Off Footwear (QC): 4 Toileting Hygiene (QC): 4 (SBA) Toilet Transfer (QC): 4 Assessment/Plan Assessment and Plan Assess & Plan/Chief Complaint Assessment: Severe back pain with severe spondylosis AF Coumadin treatment CRI Confusion Delirium Pacemaker Plan: 12/22/19 IRF protocol Check labs in am Fall risk Bed alarm Dr Awad consultation 12/23/19: INR good Start low dose Hydrocodone Monitor LFT's BP monitoring BM regimen since 6 days since BM 12/24/19: BM large so severe constipation of 6 days resolved Pain meds minimal dosing to prevent delirium Iron level and hgb 8.4 will require midline placement due to poor vascular access and start IV iron Monitor orthostatic BP readings 12/25/19: Transfuse 1 unit of blood Iron infusions Dr Martines consult INR monitoring Complex case 12/26/19: Appreciate Dr. Martines but she declines endoscopy Maintain Coumadin Blood pressure management per cardiology Stop Florinef Monitor Hemiglobin (1) Lumbar spondylosis (2) Atrial fibrillation with normal ventricular rate (3) Aortic valve replaced (4) Mitral valve replaced (5) Confusion (6) Pacemaker (7) Warfarin anticoagulation (8) Renal insufficiency (9) Hypertension (10) Constipation (11) Delirium (12) Advanced age MOOSE HERNANDEZ DO Dec 26, 2019 06:42
[2019-12-26 06:43] LABS: ALKALINE PHOSPHATASE 87 U/L (40-136); CREATININE SERUM 0.89 MG/DL (0.60-1.30); GFR ESTIMATED > 60
[2019-12-26 06:44] LABS: BUN/CREATININE RATIO 35
[2019-12-26 06:46] LABS: ALANINE AMINOTRANSFERASE 51 U/L (0-55)
[2019-12-26] MEDS: meTOprolol TARTRATE 50 MG (LOPRESSOR) TAB PO SCH ×2 (08:15→20:41)
[2019-12-26] MEDS: FUROSEMIDE 20 MG (LASIX) TAB PO SCH (08:15)
[2019-12-26] MEDS: polyethylene glycoL POWDER 17 GM (MIRALAX) PACK PO SCH ×2 (08:16→20:36)
[2019-12-26] MEDS: ASPIRIN E.C. 81 MG (ECOTRIN) TAB PO SCH (08:16)
[2019-12-26] MEDS: SENNA W/DOCUSATE (SENOKOT S) TABLET PO SCH ×2 (08:16→20:36)
[2019-12-26] MEDS: TRIAMTERENE/HCTZ 75-50 (MAXZIDE,DYAZIDE) TABLET PO SCH (08:16)
[2019-12-26] MEDS: LEVOTHYROXINE 75 MCG (LEVOTHROID) TABLET PO SCH (08:16)
[2019-12-26 08:20] VITALS: BP 120/56
[2019-12-26] MEDS: lisINopril 20 MG (PRINIVIL) TABLET PO SCH (10:04)
[2019-12-26 10:23] VITALS: BP_SYST 130; BP_SYST 136; BP_SYST 166; BP_DIAS 61; BP_DIAS 62; BP_DIAS 69
[2019-12-26] MEDS: FLUDROCORTISONE 0.1 MG (FLORINEF) TAB PO SCH (10:59)
--- NOTE | 2019-12-26 11:02 | NUR ---
BP CONTINUES TO REMAIN ELEVATED. PATIENT IS ON FLORINEF. STATES THAT SHE TAKES THIS TO "HOLD WATER IN"... "DEHYDRATES TOO EASILY". ALTHOUGH, ON LASIX AND MAXZIDE. ORTHOSTATICS FOLLOWS- LYING- 166/69, HR 67: SITTING- 130/62, HR 63: STANDING- 136/61, HR 60. HBAIMA ON THE FLOOR AND NOTIFIED. ORDERS TO DC FLORINEF FOR NOW. Addendum: 12/26/19 at 1320 by JOHN BATES RN DOES ADMIT TO FAINTING EPISODES 2-3 YEARS AGO D/T LOW BP.
--- NOTE | 2019-12-26 11:10 | Occupational Ther Daily Note ---
OT Current Status-Daily Note Subjective Pt. seated EOB when OT entered room. No c/o pain. Mental Status/Objective Patient Orientation: Person, Place Attachments: Central Line ADL-Treatment Therapy Code Descriptions/Definitions Functional [place] Measure: 0=Not Assessed/NA 4=Minimal Assistance 1=Total Assistance 5=Supervision or Setup 2=Maximal Assistance 6=Modified [place] 3=Moderate Assistance 7=Complete IndependenceSCALE: Activities may be completed with or without assistive devices. 5-Wdnlyeoqub-vlqrthk completes the activity by him/herself with no assistance from a helper. 5-Set-up or Clean-up Assistance-helper sets up or cleans up; patient completes activity. [place] assists only prior to or following the activity. 4-Supervision or Touching Assistance-helper provides verbal cues and/or touchi ng/steadying and/or contact guard assistance as patient completes activity. Assistance may be provided throughout the activity or intermittently. 3-Partial/Moderate Assistance-helper does LESS THAN HALF the effort. [place] lifts, holds or supports trunk or limbs, but provides less than half the effort. 2-Substantial/Maximal Assistance-helper does MORE THAN HALF the effort. [place] lifts or holds trunk or limbs and provides more than half the effort. 9-Ijhtlvbzv-bwbudz does ALL the effort. Patient does none of the effort to complete the activity. Or, the assistance of 2 or more helpers is required for the patient to complete the activity. If activity was not attempted, code reason: 7-Patient Refused. 9-Not Applicable-not attempted and the patient did not perform the activity before the current illness, exacerbation or injury. 10-Not Attempted due to Environmental Limitations-(lack of equipment, weather restraints, etc.). 88-Not Attempted due to Medical Conditions or Safety Concerns. On/Off Footwear: 3 Other Treatment Pt. seated EOB when OT entered room. Pt. agreeable to working on using sock aid to put on slipper socks. Pt. reported that she has watched therapists use sock aid and tried, but struggled. She independently doffed both slipper socks. OT provided step by step instructions and min A to place sock on sock aid. Once sock was on sock aid, pt. independent in donning slipper socks. Pt. able to don second sock with minimal cueing. Pt. reported at the end of session that she was beginning to feel some pain in her back and that she wanted her pain medication prior to PT. Pt. did not report pain level. Pt. was repositioned supine for comfort. Nursing was notified. All needs met. 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 2=Patient will verbalize/demonstrate understanding of assistive devices/modifications for ADL. 3=Patient will improve strength/tolerance for activity to enable patient to perform ADL's. OT Education/Plan Problem List/Assessment Assessment: Decreased UE Strength, Impaired Cognition, Impaired I ADL's, Impaired Self-Care Skills, Visual-Perceptual Deficit Discharge Recommendations Plan/Recommendations: Continue POC Therapy Discharge Recommendati: Post Acute OT Equpiment Recommendations-D/C: Hip Kit Treatment Plan/Plan of Care Treatment,Training & Education: Yes Patient would benefit from OT for education, treatment and training to promote independence in ADL's, mobility, safety and/or upper extremity function for AD L's. Plan of Care: ADL Retraining, Functional Mobility, UE Funct Exercise/Act Treatment Duration: Jan 06, 2020 Frequency: At least 5 of 7 days/Wk (IRF) Estimated Hrs Per Day: 1.5 hours per day Agreement: Yes Rehab Potential: Good Time/GCodes Start Time: 10:32 Stop Time: 10:52 Total Time Billed (hr/min): 20 Billed Treatment Time 1, ADL DAVID LIU OT Dec 26, 2019 11:10
--- NOTE | 2019-12-26 11:19 | Progress Note - Cardiology ---
Cardiology SOAP Progress Note Objective: I&O/Vital Signs 12/27/19 05:36 Temp 36.7 Pulse 63 Resp 18 B/P (MAP) 137/62 (87) Pulse Ox 95 O2 Delivery Room Air 12/26/19 23:59 Intake Total 680 ml Balance 680 ml Constitutional: AAO x 3; No well-developed, No well-nourished; other (poor memory) Respiratory: accessory muscle use, other (good bilat air entry) Cardiovascular: regular rate-rhythm, S1 and S2, systolic murmur (3/6 MSM over entire precordium, more prominent at the cardiac base) Gastrointestional: No tender; soft; No guarding, No rebound; audible bowel sounds Extremities: No clubbing, No cyanosis, No significant edema Neurologic/Psychiatric: oriented x 3, other (moves all limbs equally) Skin: No rash on exposed areas, No ulcerations on exposed areas Results/Procedures: Labs Laboratory Tests 12/27/19 05:25: Sodium Level 132L, Potassium Level 5.0, Chloride Level 100, Carbon Dioxide Level 24, Anion Gap 8, Blood Urea Nitrogen 34H, Creatinine 1.14, Estimat Glomerular Filtration Rate 46, BUN/Creatinine Ratio 30, Glucose Level 85, Calcium Level 8.4L, Magnesium Level 1.9 A/P: Assessment: Severe anemia that is worsening. Management is with Dr Johnston Uncontrolled hypertension, now improved Valvular heart disease. Pt reports bioprosthetic replacement of aortic and mitral valve in or around 2007 in [place] Echo of 12/23/19: LVEF 60-65%, bioprosthetic MV with mild mod mitral stenosis, severe AoV stenosis (mean gradient 62 mmHg, valve area 0.7 sq cm), biatrial enlargement, PASP 60 mmHg PAF. Pt has no recollection of that, but her records indicate that and she is on chronic anticoag H/o permanent pacemaker placed in 2012, pt report regular f/u with her groundskeeper porter and normal function of pacemaker Pulmonary hypertension, probably related to valvular heart disease Back pain CKD 2-3 Transaminase elevation of undetermined etiology, managed by Dr Johnston Plan: * BP better after increased STEPHEN-inhib and bb, and add diuretic for better bp control * We will stop the Florinef * Stop the Lasix since having her on 2 diuretics increases her risk of electrolyte abnormalities * Please eval for bleeding, given patient's worsening anemia * Continue anticoag if no bleeding is suspected * Monitor labs LINCOLN MUÑOZ [facility] Dec 26, 2019 11:19
--- NOTE | 2019-12-26 11:20 | Occupational Ther Daily Note ---
OT Current Status-Daily Note Subjective Pt. in bathroom when OT entered room. No c/o pain. Mental Status/Objective Patient Orientation: Person ADL-Treatment Therapy Code Descriptions/Definitions Functional [place] Measure: 0=Not Assessed/NA 4=Minimal Assistance 1=Total Assistance 5=Supervision or Setup 2=Maximal Assistance 6=Modified [place] 3=Moderate Assistance 7=Complete IndependenceSCALE: Activities may be completed with or without assistive devices. 9-Lxiliepwiy-tccktsl completes the activity by him/herself with no assistance from a helper. 5-Set-up or Clean-up Assistance-helper sets up or cleans up; patient completes activity. [place] assists only prior to or following the activity. 4-Supervision or Touching Assistance-helper provides verbal cues and/or touching/steadying and/or contact guard assistance as patient completes activity. Assistance may be provided throughout the activity or intermittently. 3-Partial/Moderate Assistance-helper does LESS THAN HALF the effort. [place] lifts, holds or supports trunk or limbs, but provides less than half the effort. 2-Substantial/Maximal Assistance-helper does MORE THAN HALF the effort. [place] lifts or holds trunk or limbs and provides more than half the effort. 8-Bewjujmyk-exasal does ALL the effort. Patient does none of the effort to complete the activity. Or, the assistance of 2 or more helpers is required for the patient to complete the activity. If activity was not attempted, code reason: 7-Patient Refused. 9-Not Applicable-not attempted and the patient did not perform the activity before the current illness, exacerbation or injury. 10-Not Attempted due to Environmental Limitations-(lack of equipment, weather restraints, etc.). 88-Not Attempted due to Medical Conditions or Safety Concerns. Upper Body Dressing (QC): 4 Lower Body Dressing (QC): 4 Toileting Hygiene (QC): 4 Toilet Transfer (QC): 4 Pt in restroom when OT entered room. She independently completed isha cleansing while seated on BSC placed over toilet. Pt. required SBA for safety while ambulating with walker to sink to wash hands. Pt. then ambulated with walker and SBA to closet to collect clothing. She independently donned her shirt, underwear, and shorts while seated. SBA required for pulling underwear and pants over hips. Pt. then ambulated to therapy gym with walker and SBA. Once in the gym, pt. participated in 25 minute peg activity with two rest breaks working on hand eye coordination, activity tolerance, and bilateral hand strength and ROM. During activity, pt. reported that she has been having issues with eyes and that she occasionally sees water coming from the [place] and balloons floating by. When OT asked further questions about vision, pt. did not answer. When asked about pain, pt. reported that it felt good to move her arms. Pt. returned to room with walker and SBA. Pt. requested to sit in bed to rest her legs while working with speech. Call light within reach and all needs met. Education OT Patient Education: Correct positioning, Energy conservation, Modified ADL techniques, Progress toward Goal/Update tx plan, Purpose of tx/functional activities, Reviewed precautions, Rehab process, Transfer techniques Teaching Recipient: Patient Teaching Methods: Demonstration, Discussion Response to Teaching: Verbalize Understanding, Return Demonstration OT Short Term Goals Short Term Goals Time Frame: Dec 30, 2019 Eatin Oral hygiene: 4 Toileting hygiene: 3 Shower/bathe self: 3 Upper body dressin Lower body dressin Putting on/taking off footwear: 3 OT Chcf Goals Chcf Goals Time Frame: Jan 06, 2020 Eating (QC): 6 Oral Hygiene (QC): 6 Toileting Hygiene (QC): 6 Shower/Bathe Self (QC): 4 Upper Body Dressing (QC): 5 Lower Body Dressing (QC): 5 On/Off Footwear (QC): 5 Additional Goals: 1-Demonstrate ADL Tasks, 2-Verbalize Understanding, 3- ImproveStrength/Lukas 1=Demonstrate adherence to instructed precautions during ADL tasks. 2=Patient will verbalize/demonstrate understanding of assistive devices/modifications for ADL. 3=Patient will improve strength/tolerance for activity to enable patient to perform ADL's. OT Education/Plan Problem List/Assessment Assessment: Decreased Activ Tolerance, Decreased UE Strength, Impaired I ADL's, Impaired Self-Care Skills, Restricted Funct UE ROM, Visual-Perceptual Deficit Discharge Recommendations Plan/Recommendations: Continue POC Therapy Discharge Recommendati: Post Acute OT Treatment Plan/Plan of Care Treatment,Training & Education: Yes Patient would benefit from OT for education, treatment and training to promote independence in ADL's, mobility, safety and/or upper extremity function for ADL's. Plan of Care: ADL Retraining, Functional Mobility, UE Funct Exercise/Act Treatment Duration: Jan 06, 2020 Frequency: At least 5 of 7 days/Wk (IRF) Estimated Hrs Per Day: 1.5 hours per day Agreement: Yes Rehab Potential: Good Time/GCodes Start Time: 08:05 Stop Time: 09:00 Total Time Billed (hr/min): 55 Billed Treatment Time 1, ADL 2 (25 minutes), FA 2 (30 minutes) DAVID LIU OT Dec 26, 2019 11:20
[2019-12-26] MEDS: PANTOPRAZOLE 40 MG (PROTONIX) TAB PO SCH ×2 (11:33→20:41)
[2019-12-26] MEDS: HYDROcodone/APAP 5 MG/325 MG (LORTAB) TAB PO PRN (11:34)
--- NOTE | 2019-12-26 11:34 | NUR ---
DR. HERNANDEZ HERE WITH ORDERS TO START PROTONIX- 40 MG PO BID. FIRST DOSE NOW.
--- NOTE | 2019-12-26 12:13 | Physical Therapy Daily Note ---
PT Daily Note-Current Subjective Pt in bed upon arrival and agrees to tx. Pt stated pain in lower back, RN gave pain med at this time. Pain Location: Lower Location Body Site: Back Mental Status Patient Orientation: Person, Confused, Place, Time, Situation Transfers SCALE: Activities may be completed with or without assistive devices. 6-Bnphhvxmho-nhtvgrc completes the activity by him/herself with no assistance from a helper. 5-Set-up or Clean-up Assistance-helper sets up or cleans up; patient completes activity. [place] assists only prior to or following the activity. 4-Supervision or Touching Assistance-helper provides verbal cues and/or touching/steadying and/or contact guard assistance as patient completes activity. Assistance may be provided throughout the activity or intermittently. 3-Partial/Moderate Assistance-helper does LESS THAN HALF the effort. [place] lifts, holds or supports trunk or limbs, but provides less than half the effort. 2-Substantial/Maximal Assistance-helper does MORE THAN HALF the effort. [place] lifts or holds trunk or limbs and provides more than half the effort. 8-Kryzslfqc-lduvmv does ALL the effort. Patient does none of the effort to complete the activity. Or, the assistance of 2 or more helpers is required for the patient to complete the activity. If activity was not attempted, code reason: 7-Patient Refused. 9-Not Applicable-not attempted and the patient did not perform the activity before the current illness, exacerbation or injury. 10-Not Attempted due to Environmental Limitations-(lack of equipment, weather restraints, etc.). 88-Not Attempted due to Medical Conditions or Safety Concerns. Sit to Lying (QC): 5 Lying to Sitting/Side of Bed(Q: 5 Sit to Stand (QC): 5 Weight Bearing Right Lower Extremity: Right Weight Bearing/Tolerated Left Lower Extremity: Left Weight Bearing/Tolerated Gait Training Does the Patient Walk?: Yes Distance: 150 Walk 10 feet (QC): 4 Walk 50 ft with 2 Turns(QC): 4 Walk 150 ft (QC): 4 Gait Persons Needed: 1 Gait Assistive Device: FWW Exercises NuStep Minutes: 10 NuStep Workload: 4 Treatments Pt amb from room to restroom, then to gym. Pt used NuStep for 10 mins, amb back to room and returned to bed. Pt left in bed with all needs met, call light in hand. Assessment Current Status: Good Progress Pt requires VC on direction with amb. PT Short Term Goals Short Term Goals Time Frame: Dec 30, 2019 Roll Left & Right: 6 Sit to lyin Lying to sitting on side of be: 6 Sit to stand: 6 PT Immigration Consultant Goals Mcc Goals PT Immigration Consultant Goals Time Frame: Jan 06, 2020 Roll Left & Right (QC): 6 Sit to Lying (QC): 6 Lying-Sitting on Side/Bed(QC): 6 Sit to Stand (QC): 6 Chair/Xhz-uu-Rlzus Xfer(QC): 6 Toilet Transfer (QC): 6 Car Transfer (QC): 6 Does the Patient Walk: Yes Walk 10 feet (QC): 6 Walk 50ft with 2 Turns (QC): 6 Walk 150 ft (QC): 6 Walking 10ft on Uneven Surface: 6 1 Step (curb) (QC): 6 4 Steps (QC): 6 12 Steps (QC): 9 Picking up an Object (QC): 88 (Pt will utilize pillowcase maker for back health) Does the Pt use WC or Scooter?: No Wheel 50 feet with 2 turns (QC: 9 Type: N/A Wheel 150 feet: 9 Type: N/A PT Plan Treatment/Plan Treatment Plan: Continue Plan of Care Treatment Plan: Bed Mobility, Education, Functional Activity Lukas, Functional Strength, Group Therapy, Gait, Safety, Therapeutic Exercise, Transfers Treatment Duration: Dec 30, 2019 Frequency: At least 5 of 7 days/Wk (IRF) Estimated Hrs Per Day: 1.5 hours per day Patient and/or Family Agrees t: Yes Safety Risks/Education Patient Education: Gait Training, Correct Positioning, Safety Issues Teaching Recipient: Patient Teaching Methods: Discussion Response to Teaching: Verbalize Understanding Time/GCodes Time In: 1115 Time Out: 1200 Total Billed Treatment Time: 45 Total Billed Treatment 1, EX x2 (30m), GT (15m) GEOFFREY PARADA PTA Dec 26, 2019 12:13
--- NOTE | 2019-12-26 13:30 | Progress Note - Surgery ---
Subjective Time Seen by a Provider: 11:51 Subjective/Events-last exam Pt seen and examined, just finished walking with PT. She denies abdominal pain or hematochezia. Review of Systems General: Fatigue, Malaise Pulmonary: No Dyspnea, No Cough Cardiovascular: No: Chest Pain, Palpitations Gastrointestinal: No: Nausea, Vomiting, Abdominal Pain Objective Exam Vital Signs Date Time Temp Pulse Resp B/P (MAP) Pulse Ox O2 Delivery O2 Flow Rate FiO2 12/26/19 10:23 67 166/69 (101) 63 130/62 (84) 60 136/61 (86) 12/26/19 09:03 Room Air 12/26/19 08:20 65 120/56 (77) 12/26/19 05:37 36.2 87 12 165/74 (104) 96 Room Air 12/25/19 20:00 Room Air 12/25/19 18:25 36.8 57 18 158/68 (98) 98 Room Air 12/25/19 17:36 36.8 57 18 150/68 98 Room Air 12/25/19 14:58 36.4 60 18 155/71 97 Room Air 12/25/19 14:38 36.8 61 18 144/65 97 Room Air I & O 12/26/19 07:00 Intake Total 1210 ml Balance 1210 ml Capillary Refill : Less Than 3 Seconds General Appearance: No Apparent Distress, Thin HEENT: PERRL/EOMI, Moist Mucous Membranes Respiratory: Chest Non Tender, Lungs Clear, Normal Breath Sounds, No Accessory Muscle Use, No Respiratory Distress Cardiovascular: Systolic Murmur, Irregularly Irregular Gastrointestinal: non tender, soft, no organomegaly, no pulsatile mass Extremity: No Pedal Edema Neurologic/Psychiatric: Alert, Abnormal Gait, Disoriented (subtle poor recall), Motor Weakness Results Lab Laboratory Tests 12/25/19 21:09: Hemoglobin 8.9L 12/26/19 05:27: Hemoglobin 9.4L, White Blood Count 11.5H, Red Blood Count 3.59L, Hematocrit 29L, Mean Corpuscular Volume 80, Mean Corpuscular Hemoglobin 26, Mean Corpuscular Hemoglobin Concent 33, Red Cell Distribution Width 16.4H, Platelet Count 223, Mean Platelet Volume 10.0, Neutrophils (%) (Auto) 93H, Lymphocytes (%) (Auto) 4L , Monocytes (%) (Auto) 3, Eosinophils (%) (Auto) 0, Basophils (%) (Auto) 0, Neutrophils # (Auto) 10.6H, Lymphocytes # (Auto) 0.5L, Monocytes # (Auto) 0.4, Eosinophils # (Auto) 0.0, Basophils # (Auto) 0.0, Sodium Level 135, Potassium Level 4.6, Chloride Level 102, Carbon Dioxide Level 23, Anion Gap 10, Blood Urea Nitrogen 31H, Creatinine 0.89, Estimat Glomerular Filtration Rate > 60, BUN/Creatinine Ratio 35, Glucose Level 99, Calcium Level 8.8, Corrected Calcium 9.4, Total Bilirubin 0.8, Aspartate Amino Transf (AST/SGOT) 35H, Alanine Aminotransferase (ALT/SGPT) 51, Alkaline Phosphatase 87, Total Protein 6.1L, Albumin 3.2 Assessment/Plan Assessment/Plan Assessment/Plan Anemia Hemoccult + Anticoagulation therapy Pt believes her black BM and + hemoccult are due to the iron she started taking (which is the most likely possibility). She states she has been anemic her whole life and has never before seen black or bloody BM's. In addition, she is not sure if she would have surgery if colon CA was found on colonoscopy. Therefore, pt has decided not to proceed with endoscopy work-up for her anemia. I told her that that is her choice and if she changes her mind she can always call and we will set that up. Clinical Quality Measures DVT/VTE Risk/Contraindication: Risk Factor Score Per Nursin RFS Level Per Nursing on Admit: 3=High HERMES HAWKINS DO Dec 26, 2019 13:30
--- NOTE | 2019-12-26 13:33 | NUR ---
CM/SS CONCURRENT DOCUMENTATION Patient's OBED/Analisa Velarde called to coordinate a meeting with mortgage or loan underwriter to discuss tentative discharge plans for patient. In correlation with the patient care conference tomorrow, brother Get (DPOA-HC) and Analisa plan to come to [place] to visit patient and to participate in her post hospital care planning. Patient indicated she would go to their home in [place], [place] for a respite period to ensure she was capable of returning to her home alone. Analisa has requested that patient have a med alert, and confirms that patient has no landline service. Exploring alert systems that do not require a landline and will provide to patient and family. It will be up to patient to pursue due to private pay monthly fee. Track Coach agreed to meet with Get and Analisa while here to explore post hospital options and to answer their questions to their satisfaction.
--- NOTE | 2019-12-26 14:09 | Speech Therapy Daily Note ---
Speech Daily Progress Note Subjective Date Seen by Provider: Dec 26, 2019 Time Seen by Provider: 00:30 Patient was resting in her bed following her OT session. Objective Patient completed general information q/a related to her self and daily needs at 80% with min to mod repetitions. Speech Short Term Goals Short Term Goals Short Term Goals 1) Patient will complete memory tasks related to her daily needs at 90% or greater. 2) Patient will complete safety awareness tasks related to her daily needs at 90 % or greater. 3) Patient will complete problem solving tasks related to her daily needs at 90% or greater. Speech Senior Living Goals Senior Living Goals Patient will improve cognitive-communication necessary for safety and daily living tasks with minimal assist. Speech-Plan Patient/Family Goals Patient/Family Goals: Patient plans on returning to her home upon discharge from rehab. Treatment Plan Speech Therapy Treatment Plan: Continue Plan of Care Treatment Duration: Dec 25, 2019 Frequency: 5 times per week Estimated Hrs Per Day: Other Rehab Potential: Good Barriers to Learning: Patient has mild cognitive deficits Pt/Family Agrees to Plan: Yes Safety Risks/Education Teaching Recipient: Patient Teaching Methods: Demonstration, Discussion Response to Teaching: Verbalize Understanding, Return Demonstration Education Topics Provided: Continued safety and communication of wants/needs Time Speech Therapy Time In: 09:00 Speech Therapy Time Out: 09:30 Total Billed Time: 30 Billed Treatment Time 1MIKKI BETHANIA ST Dec 26, 2019 14:09
--- NOTE | 2019-12-26 14:29 | Physical Therapy Daily Note ---
PT Daily Note-Current Subjective Pt in bed upon arrival and agrees to tx. Pt stated that she isn't sure what is wrong, but her back is hurting and she shouldn't have been moving her recliner in the yard at home. Pt stated pain 7/10 on R lower back. Pain Numeric Pain Scale: 7 Location: Right Location Body Site: Back Pain Description: Stabbing Mental Status Patient Orientation: Person, Confused, Place, Time, Situation Transfers SCALE: Activities may be completed with or without assistive devices. 0-Ucsbtbnqqb-zognenv completes the activity by him/herself with no assistance from a helper. 5-Set-up or Clean-up Assistance-helper sets up or cleans up; patient completes activity. [place] assists only prior to or following the activity. 4-Supervision or Touching Assistance-helper provides verbal cues and/or touching/steadying and/or contact guard assistance as patient completes activity. Assistance may be provided throughout the activity or intermittently. 3-Partial/Moderate Assistance-helper does LESS THAN HALF the effort. [place] lifts, holds or supports trunk or limbs, but provides less than half the effort. 2-Substantial/Maximal Assistance-helper does MORE THAN HALF the effort. [place] lifts or holds trunk or limbs and provides more than half the effort. 9-Aerklwcdl-rygsjl does ALL the effort. Patient does none of the effort to complete the activity. Or, the assistance of 2 or more helpers is required for the patient to complete the activity. If activity was not attempted, code reason: 7-Patient Refused. 9-Not Applicable-not attempted and the patient did not perform the activity before the current illness, exacerbation or injury. 10-Not Attempted due to Environmental Limitations-(lack of equipment, weather restraints, etc.). 88-Not Attempted due to Medical Conditions or Safety Concerns. Lying to Sitting/Side of Bed(Q: 5 Sit to Stand (QC): 4 Toilet Transfer (QC): 4 Weight Bearing Right Lower Extremity: Right Weight Bearing/Tolerated Left Lower Extremity: Left Weight Bearing/Tolerated Gait Training Does the Patient Walk?: Yes Distance: 300 Walk 10 feet (QC): 4 Walk 50 ft with 2 Turns(QC): 4 Walk 150 ft (QC): 4 Gait Persons Needed: 1 Gait Assistive Device: FWW Pt amb around unit and down halls approx 300' with FWW. Pt has slow, shuffling gait. Treatments Pt uses restroom at beginning of tx. Pt performs functional balance and reaching activity with market stall vendor and brand bags placed around unit, in higher and lower places. Pt had difficulty locating brand bags, but had no difficulty using marlee abram. Pt amb around unit, took a seated rest break, and amb back to room. Pt returned to bed and was left with all needs met, call light in hand and bed alarm on. Assessment Current Status: Good Progress Pt seems slightly confused with some activity. Pt requires VC with amb to keep FWW close to her. PT Short Term Goals Short Term Goals Time Frame: Dec 30, 2019 Roll Left & Right: 6 Sit to lyin Lying to sitting on side of be: 6 Sit to stand: 6 PT Pleat Patternmaker Goals Pleat Patternmaker Goals PT Senior Care Goals Time Frame: Jan 06, 2020 Roll Left & Right (QC): 6 Sit to Lying (QC): 6 Lying-Sitting on Side/Bed(QC): 6 Sit to Stand (QC): 6 Chair/Hdr-pu-Wbpnq Xfer(QC): 6 Toilet Transfer (QC): 6 Car Transfer (QC): 6 Does the Patient Walk: Yes Walk 10 feet (QC): 6 Walk 50ft with 2 Turns (QC): 6 Walk 150 ft (QC): 6 Walking 10ft on Uneven Surface: 6 1 Step (curb) (QC): 6 4 Steps (QC): 6 12 Steps (QC): 9 Picking up an Object (QC): 88 (Pt will utilize market stall vendor for back health) Does the Pt use WC or Scooter?: No Wheel 50 feet with 2 turns (QC: 9 Type: N/A Wheel 150 feet: 9 Type: N/A PT Plan Problem List Problem List: Safety Treatment/Plan Treatment Plan: Continue Plan of Care Treatment Plan: Bed Mobility, Education, Functional Activity Lukas, Functional Strength, Group Therapy, Gait, Safety, Therapeutic Exercise, Transfers Treatment Duration: Dec 30, 2019 Frequency: At least 5 of 7 days/Wk (IRF) Estimated Hrs Per Day: 1.5 hours per day Patient and/or Family Agrees t: Yes Safety Risks/Education Patient Education: Gait Training, Correct Positioning, Safety Issues Teaching Recipient: Patient Teaching Methods: Discussion Response to Teaching: Verbalize Understanding Time/GCodes Time In: 1345 Time Out: 1430 Total Billed Treatment Time: 45 Total Billed Treatment 1, FA x2 (30m), GT (15m) GEOFFREY PARADA DISASTER OR DAMAGE CONTROL SPECIALIST Dec 26, 2019 14:29
[2019-12-26 17:19] VITALS: BP 145/67
--- NOTE | 2019-12-26 17:44 | Progress Note - Cardiology ---
Cardiology SOAP Progress Note Subjective: No cp or palp or syncope Gen weakness and body aches Poor appetite today No n/v/d Objective: I&O/Vital Signs 12/26/19 12/26/19 12/26/19 12/26/19 08:20 09:03 10:23 17:19 Temp 36.9 Pulse 65 67 62 63 60 Resp 18 B/P (MAP) 120/56 (77) 166/69 (101) 145/67 (93) 130/62 (84) 136/61 (86) Pulse Ox 96 O2 Delivery Room Air Room Air 12/26/19 00:00 Intake Total 1010 ml Balance 1010 ml Constitutional: AAO x 3; No well-developed, No well-nourished; other (poor memory) Respiratory: accessory muscle use, other (good bilat air entry) Cardiovascular: regular rate-rhythm, S1 and S2, systolic murmur (3/6 MSM over entire precordium, more prominent at the cardiac base) Gastrointestional: No tender; soft; No guarding, No rebound; audible bowel sounds Extremities: No clubbing, No cyanosis, No significant edema Neurologic/Psychiatric: oriented x 3, other (moves all limbs equally) Skin: No rash on exposed areas, No ulcerations on exposed areas Results/Procedures: Labs Laboratory Tests 12/25/19 21:09: Hemoglobin 8.9L 12/26/19 05:27: Hemoglobin 9.4L, White Blood Count 11.5H, Red Blood Count 3.59L, Hematocrit 29L, Mean Corpuscular Volume 80, Mean Corpuscular Hemoglobin 26, Mean Corpuscular Hemoglobin Concent 33, Red Cell Distribution Width 16.4H, Platelet Count 223, Mean Platelet Volume 10.0, Neutrophils (%) (Auto) 93H, Lymphocytes (%) (Auto) 4L , Monocytes (%) (Auto) 3, Eosinophils (%) (Auto) 0, Basophils (%) (Auto) 0, Neutrophils # (Auto) 10.6H, Lymphocytes # (Auto) 0.5L, Monocytes # (Auto) 0.4, Eosinophils # (Auto) 0.0, Basophils # (Auto) 0.0, Sodium Level 135, Potassium Level 4.6, Chloride Level 102, Carbon Dioxide Level 23, Anion Gap 10, Blood Urea Nitrogen 31H, Creatinine 0.89, Estimat Glomerular Filtration Rate > 60, BUN/Creatinine Ratio 35, Glucose Level 99, Calcium Level 8.8, Corrected Calcium 9.4, Total Bilirubin 0.8, Aspartate Amino Transf (AST/SGOT) 35H, Alanine Aminotransferase (ALT/SGPT) 51, Alkaline Phosphatase 87, Total Protein 6.1L, Albumin 3.2 Laboratory Tests 12/25/19 04:30 12/25/19 21:09 12/26/19 05:27 A/P: Assessment: Anemia of undetermined etiology. Management is with Dr Johnston Hypertension Valvular heart disease. 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 and normal function of pacemaker Pulmonary hypertension, probably related to valvular heart disease Back pain CKD 2-3 Transaminase elevation of undetermined etiology, managed by Dr Johnston Plan: * BP better after increased STEPHEN-inhib and bb, and add diuretic for better bp control * We will stop the Florinef * Stop the Lasix since having her on 2 diuretics increases her risk of electrolyte abnormalities * Please eval for bleeding, given patient's worsening anemia * Continue anticoag if no bleeding is suspected * Monitor labs [facility] Dec 26, 2019 17:44
[2019-12-26] MEDS: SIMvastatin 20 MG (ZOCOR) TAB PO SCH (20:41)
[2019-12-26] MEDS: warFARin 2 MG (COUMADIN) TAB PO SCH (20:41)
[2019-12-26] MEDS: DOCUSATE SODIUM 100 MG (COLACE) CAP PO SCH (20:42)
[2019-12-26] MEDS: CATHETER FLUSH 10 ML SYR IV SCH (20:42)
[2019-12-27 05:36] VITALS: BP 137/62
[2019-12-27 05:51] LABS: CALCIUM 8.4 MG/DL (8.5-10.1)
[2019-12-27 05:56] LABS: CREATININE SERUM 1.14 MG/DL (0.60-1.30)
--- NOTE | 2019-12-27 05:56 | PM&R Progress Note ---
Subjective HPI/CC On Admission Date Seen by Provider: Dec 27, 2019 Time Seen by Provider: 10:30 Subjective/Events-last exam Dr. 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 operator of Systems General: Fatigue, Malaise Neurological: Weakness Objective Exam Vital Signs Vital Signs Date Time Temp Pulse Resp B/P (MAP) Pulse Ox O2 Delivery O2 Flow Rate FiO2 12/27/19 20:10 Room Air 12/27/19 17:59 36.4 62 18 97/48 (64) 96 Capillary Refill : Less Than 3 Seconds General Appearance: No Apparent Distress, WD/WN, Chronically ill, Thin HEENT: PERRL/EOMI, Normal ENT Inspection, Pharynx Normal Neck: Full Range of Motion, Normal Inspection, Non Tender, Supple, Carotid Bruit Respiratory: Chest Non Tender, Lungs Clear, Normal Breath Sounds, No Accessory Muscle Use, No Respiratory Distress Cardiovascular: No Edema, No Gallop, No JVD, Normal Peripheral Pulses, Diastolic Murmur, Systolic Murmur, Irregularly Irregular Gastrointestinal: Normal Bowel Sounds, No Organomegaly, No Pulsatile Mass, Non Tender, Soft Back: Normal Inspection, CVA Tenderness (L), CVA Tenderness (R), Decreased Range of Motion, Muscle Spasm, Vertebral Tenderness Extremity: Normal Capillary Refill, Normal Inspection, Normal Range of Motion, Non Tender, No Calf Tenderness, No Pedal Edema Neurologic/Psychiatric: Alert, Oriented x3, No Motor/Sensory Deficits (except for weakness in legs from severe back pain), Normal Mood/Affect, hot head machine operator II-XII Norm as Tested, Abnormal Gait, Disoriented (subtle poor recall) Skin: Normal Color, Warm/Dry Lymphatic: No Adenopathy Results/Procedures Lab Laboratory Tests 12/27/19 05:25 Patient resulted labs reviewed. FIM Transfers Therapy Code Descriptions/Definitions Functional [place] Measure: 0=Not Assessed/NA 4=Minimal Assistance 1=Total Assistance 5=Supervision or Setup 2=Maximal Assistance 6=Modified [place] 3=Moderate Assistance 7=Complete IndependenceSCALE: Activities may be completed with or without assistive devices. 5-Mafwsgcknj-plyqvpi completes the activity by him/herself with no assistance from a helper. 5-Set-up or Clean-up Assistance-helper sets up or cleans up; patient completes activity. [place] assists only prior to or following the activity. 4-Supervision or Touching Assistance-helper provides verbal cues and/or touching/steadying and/or contact guard assistance as patient completes activity. Assistance may be provided throughout the activity or intermittently. 3-Partial/Moderate Assistance-helper does LESS THAN HALF the effort. [place] lifts, holds or supports trunk or limbs, but provides less than half the effort. 2-Substantial/Maximal Assistance-helper does MORE THAN HALF the effort. [place] lifts or holds trunk or limbs and provides more than half the effort. 7-Yxywsupkp-sopxdp does ALL the effort. Patient does none of the effort to complete the activity. Or, the assistance of 2 or more helpers is required for the patient to complete the activity. If activity was not attempted, code reason: 7-Patient Refused. 9-Not Applicable-not attempted and the patient did not perform the activity before the current illness, exacerbation or injury. 10-Not Attempted due to Environmental Limitations-(lack of equipment, weather restraints, etc.). 88-Not Attempted due to Medical Conditions or Safety Concerns. Roll Left to Right (QC): 5 Sit to Lying (QC): 5 Sit to Stand (QC): 4 Chair/Efc-fh-Kxntx Xfer(QC): 4 Car Transfer (QC): 4 Gait Training Does the Patient Walk?: Yes Distance: 300 Walk 10 feet (QC): 4 Walk 50 ft with 2 Turns(QC): 4 Walk 150 ft (QC): 4 Walking 10ft/uneven surface-QC: 4 Gait Persons Needed: 1 Gait Assistive Device: FWW Wheelchair Training Does the Pt Use a Wheelchair?: No Distance: SEE PT NOTES Wheel 50 ft with 2 turns (QC): 9 Wheel 150 ft (QC): 9 Type of Wheelchair: N/A Stair Training #of Steps: 1 1 Step (curb) (QC): 4 4 Steps (QC): 88 12 Steps (QC): 88 Balance Picking up an Object (QC): 88 ADL-Treatment Eating (QC): 5 (per pt.) Oral Hygiene (QC): 6 (Standing at sink, completes own oral care.) Bathing Location: L Arm, R Arm, L Upper Leg, R Upper Leg, Chest, Abdomen, Buttocks, Perineal Area Shower/Bathe Self (QC): 4 (CGA in stance in shower.) Upper Body Dressing (QC): 4 Lower Body Dressing (QC): 4 On/Off Footwear (QC): 3 Toileting Hygiene (QC): 4 Toilet Transfer (QC): 4 Assessment/Plan Assessment and Plan Assess & Plan/Chief Complaint Assessment: Severe back pain with severe spondylosis AF Coumadin treatment CRI Confusion Delirium Pacemaker Plan: 12/22/19 IRF protocol Check labs in am Fall risk Bed alarm Dr Awad consultation 12/23/19: INR good Start low dose Hydrocodone Monitor LFT's BP monitoring BM regimen since 6 days since BM 12/24/19: BM large so severe constipation of 6 days resolved Pain meds minimal dosing to prevent delirium Iron level and hgb 8.4 will require midline placement due to poor vascular access and start IV iron Monitor orthostatic BP readings 12/25/19: Transfuse 1 unit of blood Iron infusions Dr Martines consult INR monitoring Complex case 12/26/19: Appreciate Dr. Martines but she declines endoscopy Maintain Coumadin Blood pressure management per cardiology Stop Florinef Monitor Hemiglobin 12/27/19: Appreciate cardiology management of elevated low blood pressure Monitor INR periodically last was 2.8 Bowels are moving well (1) Lumbar spondylosis (2) Atrial fibrillation with normal ventricular rate (3) Aortic valve replaced (4) Mitral valve replaced (5) Confusion (6) Pacemaker (7) Warfarin anticoagulation (8) Renal insufficiency (9) Hypertension (10) Constipation (11) Delirium (12) Advanced age MOOSE HERNANDEZ DO Dec 27, 2019 05:56
[2019-12-27 05:58] LABS: MAGNESIUM 1.9 MG/DL (1.6-2.4)
[2019-12-27] MEDS: CATHETER FLUSH 10 ML SYR IV SCH ×3 (06:11→20:53)
[2019-12-27 08:00] VITALS: BP 107/51
--- NOTE | 2019-12-27 08:00 | NUR ---
APPEARS LESS CONFUSED TODAY. BP READINGS STABLE.
[2019-12-27] MEDS: polyethylene glycoL POWDER 17 GM (MIRALAX) PACK PO SCH ×2 (09:00→20:54)
[2019-12-27] MEDS: SENNA W/DOCUSATE (SENOKOT S) TABLET PO SCH ×2 (09:00→20:55)
[2019-12-27 09:45] VITALS: BP 132/59
[2019-12-27] MEDS: TRIAMTERENE/HCTZ 75-50 (MAXZIDE,DYAZIDE) TABLET PO SCH (10:00)
[2019-12-27] MEDS: ACETAMINOPHEN 325 MG TABLET PO PRN (10:00)
[2019-12-27] MEDS: ASPIRIN E.C. 81 MG (ECOTRIN) TAB PO SCH (10:00)
[2019-12-27] MEDS: IRON SUCROSE 200 MG/10 ML (VENOFER) VIAL IV SCH (10:01)
[2019-12-27] MEDS: LEVOTHYROXINE 75 MCG (LEVOTHROID) TABLET PO SCH (10:01)
[2019-12-27] MEDS: PANTOPRAZOLE 40 MG (PROTONIX) TAB PO SCH ×2 (10:01→20:53)
[2019-12-27] MEDS: meTOprolol TARTRATE 50 MG (LOPRESSOR) TAB PO SCH ×2 (10:02→20:53)
[2019-12-27] MEDS: lisINopril 20 MG (PRINIVIL) TABLET PO SCH (10:02)
--- NOTE | 2019-12-27 11:28 | Progress Note - Cardiology ---
Cardiology SOAP Progress Note Subjective: No cp or palp or syncope Gen weakness and malaise No focal weakness No n/v/d Objective: I&O/Vital Signs 12/27/19 05:36 Temp 36.7 Pulse 63 Resp 18 B/P (MAP) 137/62 (87) Pulse Ox 95 O2 Delivery Room Air 12/27/19 00:00 Intake Total 680 ml Balance 680 ml Constitutional: AAO x 3; No well-developed, No well-nourished; other (poor memory) Respiratory: accessory muscle use, other (good bilat air entry) Cardiovascular: regular rate-rhythm, S1 and S2, systolic murmur (3/6 MSM over entire precordium, more prominent at the cardiac base) Gastrointestional: No tender; soft; No guarding, No rebound; audible bowel sounds Extremities: No clubbing, No cyanosis, No significant edema Neurologic/Psychiatric: oriented x 3, other (moves all limbs equally) Skin: No rash on exposed areas, No ulcerations on exposed areas Results/Procedures: Labs Laboratory Tests 12/27/19 05:25: Sodium Level 132L, Potassium Level 5.0, Chloride Level 100, Carbon Dioxide Level 24, Anion Gap 8, Blood Urea Nitrogen 34H, Creatinine 1.14, Estimat Glomerular Filtration Rate 46, BUN/Creatinine Ratio 30, Glucose Level 85, Calcium Level 8.4L, Magnesium Level 1.9 A/P: Assessment: Anemia of undetermined etiology. Management is with Dr Johnston Hypertension Valvular heart disease. Pt reports bioprosthetic replacement of aortic and mitral valve in or around 2007 in [place] [facility] of 12/23/19: LVEF 60-65%, bioprosthetic MV with mild mod mitral stenosis, severe AoV stenosis (mean gradient 62 mmHg, valve area 0.7 sq cm), biatrial enlargement, PASP 60 mmHg PAF. Pt has no recollection of that, but her records indicate that and she is on chronic anticoag H/o permanent pacemaker placed in 2012, pt report regular f/u with her cripple chaser and normal function of pacemaker Pulmonary hypertension, probably related to valvular heart disease Back pain CKD 2-3 Transaminase elevation of undetermined etiology, managed by Dr Johnston Plan: * We again discussed her CV issues with her * Monitor labs FRANTZ DAMON MD FACP [facility] Dec 27, 2019 11:28
--- NOTE | 2019-12-27 11:40 | Speech Therapy Daily Note ---
Speech Daily Progress Note Subjective Date Seen by Provider: Dec 27, 2019 Time Seen by Provider: 00:30 Patient was sitting up in her recliner resting when I entered her room. She requested to have assistance due to feeling like she was going to have a BM. Patient was assisted to the bathroom by the aide. Objective Patient completed general information trivia at 85% with 10% repetitions and/or cuing. Assessment Assessment Current Status: Good Progress Treatment Plan Continue Plan of Care Speech Short Term Goals Short Term Goals Short Term Goals 1) Patient will complete memory tasks related to her daily needs at 90% or greater. 2) Patient will complete safety awareness tasks related to her daily needs at 90% or greater. 3) Patient will complete problem solving tasks related to her daily needs at 90% or greater. Speech Field Sales Associate Goals Field Sales Associate Goals Patient will improve cognitive-communication necessary for safety and daily living tasks with minimal assist. Speech-Plan Patient/Family Goals Patient/Family Goals: Patient plans on returning to her home upon discharge. Treatment Plan Speech Therapy Treatment Plan: Continue Plan of Care Treatment Duration: Dec 25, 2019 Frequency: 5 times per week Estimated Hrs Per Day: Other Rehab Potential: Good Barriers to Learning: Patient's age, mild cognitive deficits Pt/Family Agrees to Plan: Yes Safety Risks/Education Teaching Recipient: Patient Teaching Methods: Demonstration, Discussion Response to Teaching: Verbalize Understanding, Return Demonstration Education Topics Provided: Continued safety within her room Time Speech Therapy Time In: 09:00 Speech Therapy Time Out: 09:30 Total Billed Time: 30 Billed Treatment Time 1MIKKI [address]ETH[address] ST Dec 27, 2019 11:40
--- NOTE | 2019-12-27 11:59 | Physical Therapy Daily Note ---
PT Daily Note-Current Subjective Pt in recliner upon arrival and agrees to pt. Pt demonstrates moments of confusion. Mental Status Patient Orientation: Person, Confused, Place, Time, Situation Transfers SCALE: Activities may be completed with or without assistive devices. 0-Thseberpmt-lpquuak completes the activity by him/herself with no assistance from a helper. 5-Set-up or Clean-up Assistance-helper sets up or cleans up; patient completes activity. [place] assists only prior to or following the activity. 4-Supervision or Touching Assistance-helper provides verbal cues and/or touching/steadying and/or contact guard assistance as patient completes activi ty. Assistance may be provided throughout the activity or intermittently. 3-Partial/Moderate Assistance-helper does LESS THAN HALF the effort. [place] lifts, holds or supports trunk or limbs, but provides less than half the effort. 2-Substantial/Maximal Assistance-helper does MORE THAN HALF the effort. [place] lifts or holds trunk or limbs and provides more than half the effort. 2-Wlhilwfbv-dvaoew does ALL the effort. Patient does none of the effort to complete the activity. Or, the assistance of 2 or more helpers is required for the patient to complete the activity. If activity was not attempted, code reason: 7-Patient Refused. 9-Not Applicable-not attempted and the patient did not perform the activity before the current illness, exacerbation or injury. 10-Not Attempted due to Environmental Limitations-(lack of equipment, weather restraints, etc.). 88-Not Attempted due to Medical Conditions or Safety Concerns. Sit to Stand (QC): 4 Toilet Transfer (QC): 4 Weight Bearing Right Lower Extremity: Right Weight Bearing/Tolerated Left Lower Extremity: Left Weight Bearing/Tolerated Gait Training Does the Patient Walk?: Yes Distance: 300 x3 Walk 10 feet (QC): 4 Walk 50 ft with 2 Turns(QC): 4 Walk 150 ft (QC): 4 Gait Persons Needed: 1 Gait Assistive Device: FWW Pt amb from recliner to bathroom to gym. Pt amb from gym to elevators, from elevators to waiting area on main floor. Pt descended/ascended ramp approx 30'. Pt amb back to elevators, from elevators to bathroom, and bathroom to recliner. Exercises Supine Ex: Ankle pumps, Hip abd/add Supine Reps: 10 Seated Therapy Exercises: Ankle pumps, Long arc quads, Hip flexion Seated Reps: 10 Treatments Pt amb from restroom to gym, performs seated exercises followed by standing exercises. Pt amb from gym to elevators, and amb downstairs on mail floor. Pt had difficulty getting FWW over small bumps, and finding to button to the elevator. Pt amb on ramp and returned to IRU. Pt amb back to room, used restroom, and returned to chair. Pt left with all needs met, call light in hand and chair alarm on. Assessment Current Status: Good Progress Pt demonstrates some confusion. Pt requires VC for direction PT Short Term Goals Short Term Goals Time Frame: Dec 30, 2019 Roll Left & Right: 6 Sit to lyin Lying to sitting on side of be: 6 Sit to stand: 6 PT Director Of Campus Recreation Goals Director Of Campus Recreation Goals PT Custodial Goals Time Frame: Jan 06, 2020 Roll Left & Right (QC): 6 Sit to Lying (QC): 6 Lying-Sitting on Side/Bed(QC): 6 Sit to Stand (QC): 6 Chair/Pla-pw-Jdfps Xfer(QC): 6 Toilet Transfer (QC): 6 Car Transfer (QC): 6 Does the Patient Walk: Yes Walk 10 feet (QC): 6 Walk 50ft with 2 Turns (QC): 6 Walk 150 ft (QC): 6 Walking 10ft on Uneven Surface: 6 1 Step (curb) (QC): 6 4 Steps (QC): 6 12 Steps (QC): 9 Picking up an Object (QC): 88 (Pt will utilize sales commissions analyst for back health) Does the Pt use WC or Scooter?: No Wheel 50 feet with 2 turns (QC: 9 Type: N/A Wheel 150 feet: 9 Type: N/A PT Plan Treatment/Plan Treatment Plan: Continue Plan of Care Treatment Plan: Bed Mobility, Education, Functional Activity Lukas, Functional Strength, Group Therapy, Gait, Safety, Therapeutic Exercise, Transfers Treatment Duration: Dec 30, 2019 Frequency: At least 5 of 7 days/Wk (IRF) Estimated Hrs Per Day: 1.5 hours per day Patient and/or Family Agrees t: Yes Safety Risks/Education Patient Education: Gait Training, Correct Positioning, Safety Issues Teaching Recipient: Patient Teaching Methods: Demonstration, Discussion Response to Teaching: Verbalize Understanding, Return Demonstration, Godfrey nforcement Needed Time/GCodes Time In: 1100 Time Out: 1200 Total Billed Treatment Time: 60 Total Billed Treatment 1, Ex x2 (30m), GT (15m), FA (15m) GEOFFREY PARADA WEB SITE ADMINISTRATOR Dec 27, 2019 11:59
--- NOTE | 2019-12-27 13:22 | Physical Therapy Daily Note ---
PT Daily Note-Current Subjective Pt in recliner and agrees to tx. Pt stated pain in lower back /10. Pain Numeric Pain Scale: 4 Location: Lower Location Body Site: Back Pain Description: Ache Mental Status Patient Orientation: Person, Confused, Place, Time, Situation Transfers SCALE: Activities may be completed with or without assistive devices. 0-Snbwdciivv-logfxgj completes the activity by him/herself with no assistance from a helper. 5-Set-up or Clean-up Assistance-helper sets up or cleans up; patient completes activity. [place] assists only prior to or following the activity. 4-Supervision or Touching Assistance-helper provides verbal cues and/or touching /steadying and/or contact guard assistance as patient completes activity. Assistance may be provided throughout the activity or intermittently. 3-Partial/Moderate Assistance-helper does LESS THAN HALF the effort. [place] lifts, holds or supports trunk or limbs, but provides less than half the effort. 2-Substantial/Maximal Assistance-helper does MORE THAN HALF the effort. [place] lifts or holds trunk or limbs and provides more than half the effort. 6-Sdejsqmzh-uohbdh does ALL the effort. Patient does none of the effort to complete the activity. Or, the assistance of 2 or more helpers is required for the patient to complete the activity. If activity was not attempted, code reason: 7-Patient Refused. 9-Not Applicable-not attempted and the patient did not perform the activity before the current illness, exacerbation or injury. 10-Not Attempted due to Environmental Limitations-(lack of equipment, weather restraints, etc.). 88-Not Attempted due to Medical Conditions or Safety Concerns. Sit to Stand (QC): 4 Toilet Transfer (QC): 4 Weight Bearing Right Lower Extremity: Right Weight Bearing/Tolerated Left Lower Extremity: Left Weight Bearing/Tolerated Gait Training Does the Patient Walk?: Yes Distance: 150 Walk 10 feet (QC): 4 Walk 50 ft with 2 Turns(QC): 4 Walk 150 ft (QC): 4 Gait Persons Needed: 1 Gait Assistive Device: FWW Pt amb from room to gym and back to room. Pt amb with stiff, extended UE and puts weight through UE. Pt pushes FWW away from body. Exercises NuStep Minutes: 6 NuStep Workload: 4 Treatments Pt used restroom at beginning of tx, then amb to gym. Pt uses NuStep 6 mins and amb back to room. Pt left in bed with all needs met, call light in hand, bed alarm on. Assessment Current Status: Good Progress Pt demonstrates moments of confusion. Pt has no LOB with amb. PT Short Term Goals Short Term Goals Time Frame: Dec 30, 2019 Roll Left & Right: 6 Sit to lyin Lying to sitting on side of be: 6 Sit to stand: 6 PT Christmas Tree Grader Goals Christmas Tree Grader Goals PT Fpc Goals Time Frame: Jan 06, 2020 Roll Left & Right (QC): 6 Sit to Lying (QC): 6 Lying-Sitting on Side/Bed(QC): 6 Sit to Stand (QC): 6 Chair/Baw-nv-Jyggv Xfer(QC): 6 Toilet Transfer (QC): 6 Car Transfer (QC): 6 Does the Patient Walk: Yes Walk 10 feet (QC): 6 Walk 50ft with 2 Turns (QC): 6 Walk 150 ft (QC): 6 Walking 10ft on Uneven Surface: 6 1 Step (curb) (QC): 6 4 Steps (QC): 6 12 Steps (QC): 9 Picking up an Object (QC): 88 (Pt will utilize low pressure kettle operator for back health) Does the Pt use WC or Scooter?: No Wheel 50 feet with 2 turns (QC: 9 Type: N/A Wheel 150 feet: 9 Type: N/A PT Plan Treatment/Plan Treatment Plan: Continue Plan of Care Treatment Plan: Bed Mobility, Education, Functional Activity Lukas, Functional Strength, Group Therapy, Gait, Safety, Therapeutic Exercise, Transfers Treatment Duration: Dec 30, 2019 Frequency: At least 5 of 7 days/Wk (IRF) Estimated Hrs Per Day: 1.5 hours per day Patient and/or Family Agrees t: Yes Safety Risks/Education Patient Education: Gait Training, Correct Positioning, Safety Issues Teaching Recipient: Patient Teaching Methods: Demonstration, Discussion Response to Teaching: Verbalize Understanding, Return Demonstration Time/GCodes Time In: 1300 Time Out: 1315 Total Billed Treatment Time: 15 Total Billed Treatment 1, EX HUBERTGEOFFREY ZHANG OVERHEAD DOOR TECHNICIAN Dec 27, 2019 13:22
--- NOTE | 2019-12-27 14:49 | Occupational Ther Daily Note ---
OT Current Status-Daily Note Subjective Pt. in chair when OT entered room. Pt. reported pain in back and rated at 2/10. Pt. agreeable to therapy. Mental Status/Objective Patient Orientation: Person Attachments: Central Line ADL-Treatment Therapy Code Descriptions/Definitions Functional [place] Measure: 0=Not Assessed/NA 4=Minimal Assistance 1=Total Assistance 5=Supervision or Setup 2=Maximal Assistance 6=Modified [place] 3=Moderate Assistance 7=Complete IndependenceSCALE: Activities may be completed with or without assistive devices. 6-Rvbwdwwfef-zxsatye completes the activity by him/herself with no assistance from a helper. 5-Set-up or Clean-up Assistance-helper sets up or cleans up; patient completes activity. [place] assists only prior to or following the activity. 4-Supervision or Touching Assistance-helper provides verbal cues and/or touching/steadying and/or contact guard assistance as patient completes activity. Assistance may be provided throughout the activity or intermittently. 3-Partial/Moderate Assistance-helper does LESS THAN HALF the effort. [place] lifts, holds or supports trunk or limbs, but provides less than half the effort. 2-Substantial/Maximal Assistance-helper does MORE THAN HALF the effort. [place] lifts or holds trunk or limbs and provides more than half the effort. 5-Piqfjlsfl-aaftlv does ALL the effort. Patient does none of the effort to complete the activity. Or, the assistance of 2 or more helpers is required for the patient to complete the activity. If activity was not attempted, code reason: 7-Patient Refused. 9-Not Applicable-not attempted and the patient did not perform the activity before the current illness, exacerbation or injury. 10-Not Attempted due to Environmental Limitations-(lack of equipment, weather restraints, etc.). 88-Not Attempted due to Medical Conditions or Safety Concerns. Oral Hygiene (QC): 4 Upper Body Dressing (QC): 4 Lower Body Dressing (QC): 4 On/Off Footwear: 3 (Min A to tie shoe laces) Toileting Hygiene (QC): 4 Toilet Transfer (QC): 4 Pt. in chair when OT entered room. She reported that she needed to use the restroom and required CGA to ambulate to toilet with walker. Once seated on [facility] over toilet, pt. required SBA for toilet hygiene. Pt. ambulated to bathroom sink to wash hands and complete oral hygiene with CGA while standing. With walker, pt. ambulated to closet to pick out clothes with CGA for safety. [place] sleep shirt and donning clothing while seated in chair using dressing stick and box packer required SBA. Min A needed for donning footwear due to inability to tie shoe strings. OT will apply elastic shoe laces tomorrow. Pt. required extra time to complete all tasks today for processing and problem solving. Education OT Patient Education: Correct positioning, Disease process, Energy conservatio n, Modified ADL techniques, Progress toward Goal/Update tx plan, Purpose of tx/functional activities, Reviewed precautions, Rehab process, Safety issues, Transfer techniques, Use of adapted equipment Teaching Recipient: Patient Teaching Methods: Demonstration, Discussion Response to Teaching: Verbalize Understanding, Return Demonstration OT Short Term Goals Short Term Goals Time Frame: Dec 30, 2019 Eatin Oral hygiene: 4 Toileting hygiene: 3 Shower/bathe self: 3 Upper body dressin Lower body dressin Putting on/taking off footwear: 3 OT [facility] Goals Stamp Machine Servicer Goals Time Frame: Jan 06, 2020 Eating (QC): 6 Oral Hygiene (QC): 6 Toileting Hygiene (QC): 6 Shower/Bathe Self (QC): 4 Upper Body Dressing (QC): 5 Lower Body Dressing (QC): 5 On/Off Footwear (QC): 5 Additional Goals: 1-Demonstrate ADL Tasks, 2-Verbalize Understanding, 3- ImproveStrength/Lukas 1=Demonstrate adherence to instructed precautions during ADL tasks. 2=Patient will verbalize/demonstrate understanding of assistive devices/modifications for ADL. 3=Patient will improve strength/tolerance for activity to enable patient to perform ADL's. OT Education/Plan Problem List/Assessment Assessment: Decreased Activ Tolerance, Decreased Safety Aware, Decreased UE Strength, Dependent Transfers, Impaired Cognition, Impaired I ADL's, Impaired Self-Care Skills, Visual-Perceptual Deficit Discharge Recommendations Plan/Recommendations: Continue POC Therapy Discharge Recommendati: Home & Family, Post Acute OT Equpiment Recommendations-D/C: Hip Kit Treatment Plan/Plan of Care Treatment,Training & Education: Yes Patient would benefit from OT for education, treatment and training to promote independence in ADL's, mobility, safety and/or upper extremity function for ADL's. Plan of Care: ADL Retraining, Functional Mobility, UE Funct Exercise/Act Treatment Duration: Jan 06, 2020 Frequency: At least 5 of 7 days/Wk (IRF) Estimated Hrs Per Day: 1.5 hours per day Agreement: Yes Rehab Potential: Good Time/GCodes Start Time: 08:15 Stop Time: 09:00 Total Time Billed (hr/min): 45 Billed Treatment Time 1, ADL x3 (45 minutes) DAVID LIU OT Dec 27, 2019 14:49
--- NOTE | 2019-12-27 14:58 | Occupational Ther Daily Note ---
OT Current Status-Daily Note Subjective Pt. in chair when OT entered room. Nursing finished administering medication via IV. No c/o pain. Mental Status/Objective Patient Orientation: Person Attachments: Central Line ADL-Treatment Therapy Code Descriptions/Definitions Functional [place] Measure: 0=Not Assessed/NA 4=Minimal Assistance 1=Total Assistance 5=Supervision or Setup 2=Maximal Assistance 6=Modified [place] 3=Moderate Assistance 7=Complete IndependenceSCALE: Activities may be completed with or without assistive devices. 9-Ioidbokuuy-olnsmuf completes the activity by him/herself with no assistance from a helper. 5-Set-up or Clean-up Assistance-helper sets up or cleans up; patient completes activity. [place] assists only prior to or following the activity. 4-Supervision or Touching Assistance-helper provides verbal cues and/or touching/steadying and/or contact guard assistance as patient completes activity. Assistance may be provided throughout the activity or intermittently. 3-Partial/Moderate Assistance-helper does LESS THAN HALF the effort. [place] lifts, holds or supports trunk or limbs, but provides less than half the effort. 2-Substantial/Maximal Assistance-helper does MORE THAN HALF the effort. [place] lifts or holds trunk or limbs and provides more than half the effort. 3-Qsbjstpsw-bjgulm does ALL the effort. Patient does none of the effort to complete the activity. Or, the assistance of 2 or more helpers is required for the patient to complete the activity. If activity was not attempted, code reason: 7-Patient Refused. 9-Not Applicable-not attempted and the patient did not perform the activity before the current illness, exacerbation or injury. 10-Not Attempted due to Environmental Limitations-(lack of equipment, weather restraints, etc.). 88-Not Attempted due to Medical Conditions or Safety Concerns. Other Treatment Pt. in chair just finished receiving medications. Pt. reported that R UE is "stiff" since having line placed in arm. OT educated pt. on B UE exercises in all planes. Pt. demonstrated ability to complete exercise program. Pt. then ambulated to gym with CGA and walker. Once in gym, pt. tolerated 12 minutes on arm bike with minimal resistance to increase B UE ROM and improve activity tolerance. Pt. required one brief rest break. OT observed pt's pupils to be pinpoint in side. Noted that when asked about her vision, pt. reported that she is still seeing "water coming from [place] and a red balloon." She also reports that she has macular degeneration. This was reported to staff in team meeting. When further questioned, she reported that the water and balloon visualization is new since coming to the hospital. Pt. returned to room with walker and CGA. Pt. seated in reclining chair with call light and chair alarm set. All needs met. Education OT Patient Education: Correct positioning, Disease process, Energy conservation, Exercise program, Modified ADL techniques, Progress toward Goal/Update tx plan, Purpose of tx/functional activities, Reviewed precautions, Rehab process, Safety issues Teaching Recipient: Patient Teaching Methods: Demonstration, Discussion Response to Teaching: Verbalize Understanding, Return Demonstration, Reinforcement Needed OT Short Term Goals Short Term Goals Time Frame: Dec 30, 2019 Eatin Oral hygiene: 4 Toileting hygiene: 3 Shower/bathe self: 3 Upper body dressin Lower body dressin Putting on/taking off footwear: 3 OT M[facility] Goals Mcc Goals Time Frame: Jan 06, 2020 Eating (QC): 6 Oral Hygiene (QC): 6 Toileting Hygiene (QC): 6 Shower/Bathe Self (QC): 4 Upper Body Dressing (QC): 5 Lower Body Dressing (QC): 5 On/Off Footwear (QC): 5 Additional Goals: 1-Demonstrate ADL Tasks, 2-Verbalize Understanding, 3- ImproveStrength/Lukas 1=Demonstrate adherence to instructed precautions during ADL tasks. 2=Patient will verbalize/demonstrate understanding of assistive devices/modifications for ADL. 3=Patient will improve strength/tolerance for activity to enable patient to perform ADL's. OT Education/Plan Problem List/Assessment Assessment: Decreased Safety Aware, Decreased UE Strength, Dependent Transfers, Impaired Cognition, Impaired I ADL's, Impaired Self-Care Skills, Visual- Perceptual Deficit Discharge Recommendations Plan/Recommendations: Continue POC Therapy Discharge Recommendati: Home & Family, Post Acute OT Equpiment Recommendations-D/C: Hip Kit Treatment Plan/Plan of Care Treatment,Training & Education: Yes Patient would benefit from OT for education, treatment and training to promote independence in ADL's, mobility, safety and/or upper extremity function for ADL's. Plan of Care: ADL Retraining, Functional Mobility, UE Funct Exercise/Act Treatment Duration: Jan 06, 2020 Frequency: At least 5 of 7 days/Wk (IRF) Estimated Hrs Per Day: 1.5 hours per day Agreement: Yes Rehab Potential: Good Time/GCodes Start Time: 10:15 Stop Time: 10:45 Total Time Billed (hr/min): 30 Billed Treatment Time 1, EX (15 minutes), FA (15 minutes) DAVID LIU OT Dec 27, 2019 14:58
[2019-12-27 17:59] VITALS: BP 97/48
--- NOTE | 2019-12-27 18:00 | NUR ---
HYPOTENSIVE THIS JESSICA. WILL CONTINUE TO MONITOR. COMPLAIN NECK PAIN. KPAD PUT ON AND MEDICATED WITH LORTAB.
[2019-12-27] MEDS: HYDROcodone/APAP 5 MG/325 MG (LORTAB) TAB PO PRN (18:19)
[2019-12-27] MEDS: SIMvastatin 20 MG (ZOCOR) TAB PO SCH (20:53)
[2019-12-27] MEDS: DOCUSATE SODIUM 100 MG (COLACE) CAP PO SCH (20:53)
[2019-12-27] MEDS: warFARin 2 MG (COUMADIN) TAB PO SCH (20:53)
[2019-12-28] MEDS: HYDROcodone/APAP 5 MG/325 MG (LORTAB) TAB PO PRN ×3 (03:28→21:21)
[2019-12-28 05:02] VITALS: BP 153/67
[2019-12-28 06:39] LABS: HEMOGLOBIN 9.6 G/DL (11.5-16.0)
[2019-12-28 06:56] LABS: PROTHROMBIN TIME PATIENT 22.8 SEC (12.2-14.7)
[2019-12-28 06:58] LABS: CALCIUM 8.7 MG/DL (8.5-10.1); CREATININE SERUM 1.29 MG/DL (0.60-1.30); POTASSIUM 5.3 MMOL/L (3.6-5.0)
[2019-12-28] MEDS: CATHETER FLUSH 10 ML SYR IV SCH ×3 (07:24→20:06)
[2019-12-28] MEDS: TRIAMTERENE/HCTZ 75-50 (MAXZIDE,DYAZIDE) TABLET PO SCH (08:12)
[2019-12-28] MEDS: lisINopril 20 MG (PRINIVIL) TABLET PO SCH (08:13)
[2019-12-28] MEDS: meTOprolol TARTRATE 50 MG (LOPRESSOR) TAB PO SCH ×2 (08:13→20:04)
[2019-12-28] MEDS: SENNA W/DOCUSATE (SENOKOT S) TABLET PO SCH ×2 (08:13→19:26)
[2019-12-28] MEDS: polyethylene glycoL POWDER 17 GM (MIRALAX) PACK PO SCH ×2 (08:13→19:26)
[2019-12-28] MEDS: LEVOTHYROXINE 75 MCG (LEVOTHROID) TABLET PO SCH (08:13)
[2019-12-28] MEDS: PANTOPRAZOLE 40 MG (PROTONIX) TAB PO SCH ×2 (08:13→20:04)
[2019-12-28] MEDS: ASPIRIN E.C. 81 MG (ECOTRIN) TAB PO SCH (08:13)
--- NOTE | 2019-12-28 09:25 | Occupational Ther Daily Note ---
OT Current Status-Daily Note Subjective Pt in reclining chair when OT entered room. Nursing finishing up administering am medications. Pt. reported some pain in lower back but did not rate. Nursing reported that she has already had pain medication this am. Mental Status/Objective Patient Orientation: Person ADL-Treatment Therapy Code Descriptions/Definitions Functional [place] Measure: 0=Not Assessed/NA 4=Minimal Assistance 1=Total Assistance 5=Supervision or Setup 2=Maximal Assistance 6=Modified [place] 3=Moderate Assistance 7=Complete IndependenceSCALE: Activities may be completed with or without assistive devices. 1-Mzvddennpw-zixpdlw completes the activity by him/herself with no assistance from a helper. 5-Set-up or Clean-up Assistance-helper sets up or cleans up; patient completes activity. [place] assists only prior to or following the activity. 4-Supervision or Touching Assistance-helper provides verbal cues and/or touching/steadying and/or contact guard assistance as patient completes activity. Assistance may be provided throughout the activity or intermittently. 3-Partial/Moderate Assistance-helper does LESS THAN HALF the effort. [place] lifts, holds or supports trunk or limbs, but provides less than half the effort. 2-Substantial/Maximal Assistance-helper does MORE THAN HALF the effort. [place] lifts or holds trunk or limbs and provides more than half the effort. 4-Yaibacwbw-fiuusm does ALL the effort. Patient does none of the effort to complete the activity. Or, the assistance of 2 or more helpers is required for the patient to complete the activity. If activity was not attempted, code reason: 7-Patient Refused. 9-Not Applicable-not attempted and the patient did not perform the activity before the current illness, exacerbation or injury. 10-Not Attempted due to Environmental Limitations-(lack of equipment, weather restraints, etc.). 88-Not Attempted due to Medical Conditions or Safety Concerns. Shower/Bathe Self (QC): 4 (CGA) Upper Body Dressing (QC): 4 (SBA) Lower Body Dressing (QC): 4 On/Off Footwear: 3 (Min A) Toileting Hygiene (QC): 4 Toilet Transfer (QC): 4 Pt. requested shower this am. Donning slipper socks with sock aid required min A as pt had difficulty problem solving while using sock aid. Pt. ambulated to bathroom with SBA and walker. Once in bathroom, pt. completed toilet hygiene with SBA while seated on BSC over toilet. Pt. then doffed pants and socks with CGA using dressing stick. SBA required for doffing shirt. Pt. bathed self using long handled sponge for feet with CGA for safety while standing and for drying feet with animal sitter. Pt. donned shirt with SBA. CGA required for donning shorts using dressing stick. Pt. educated on new elastic shoestrings and how to use them. Pt. verbalized understanding. Pt. ambulated back to reclining chair with walker and CGA. Noted that pt. required extra time with all tasks this am. Pt. reports again that she is seeing falling water when there is no water present. She also requires increased cues during ADL tasks due to decreased problem solving and difficulty sequencing steps. Chair alarm set and call light in reach. All needs met. Education OT Patient Education: Correct positioning, Energy conservation, Modified ADL techniques, Progress toward Goal/Update tx plan, Purpose of tx/functional activities, Reviewed precautions, Rehab process, Safety issues, Transfer techniques, Use of adapted equipment Teaching Recipient: Patient Teaching Methods: Demonstration, Discussion Response to Teaching: Verbalize Understanding, Return Demonstration, Reinforcement Needed OT Short Term Goals Short Term Goals Time Frame: Dec 30, 2019 Eatin Oral hygiene: 4 Toileting hygiene: 3 Shower/bathe self: 3 Upper body dressin Lower body dressin Putting on/taking off footwear: 3 OT Adjunct Psychology Faculty Member Goals Adjunct Psychology Faculty Member Goals Time Frame: Jan 06, 2020 Eating (QC): 6 Oral Hygiene (QC): 6 Toileting Hygiene (QC): 6 Shower/Bathe Self (QC): 4 Upper Body Dressing (QC): 5 Lower Body Dressing (QC): 5 On/Off Footwear (QC): 5 Additional Goals: 1-Demonstrate ADL Tasks, 2-Verbalize Understanding, 3- ImproveStrength/Lukas 1=Demonstrate adherence to instructed precautions during ADL tasks. 2=Patient will verbalize/demonstrate understanding of assistive devices/modifications for ADL. 3=Patient will improve strength/tolerance for activity to enable patient to perform ADL's. OT Education/Plan Problem List/Assessment Assessment: Decreased Activ Tolerance, Decreased Safety Aware, Decreased UE Strength, Dependent Transfers, Impaired Cognition, Impaired I ADL's, Impaired Self-Care Skills, Restricted Funct UE ROM, Visual-Perceptual Deficit Discharge Recommendations Plan/Recommendations: Continue POC Therapy Discharge Recommendati: Home & Family, Post Acute OT Equpiment Recommendations-D/C: Hip Kit Treatment Plan/Plan of Care Treatment,Training & Education: Yes Patient would benefit from OT for education, treatment and training to promote independence in ADL's, mobility, safety and/or upper extremity function for ADL's. Plan of Care: ADL Retraining, Functional Mobility, UE Funct Exercise/Act Treatment Duration: Jan 06, 2020 Frequency: At least 5 of 7 days/Wk (IRF) Estimated Hrs Per Day: 1.5 hours per day Agreement: Yes Rehab Potential: Good Time/GCodes Start Time: 08:15 Stop Time: 09:05 Total Time Billed (hr/min): 50 Billed Treatment Time 1, ADL 3 (50 minutes) DAVID LIU OT Dec 28, 2019 09:25
--- NOTE | 2019-12-28 09:37 | PM&R Progress Note ---
Subjective HPI/CC On Admission Date Seen by Provider: Dec 28, 2019 Time Seen by Provider: 10:45 Subjective/Events-last exam Pt discharging Wednesday Declined colonoscopy and EGD Hgb 9.6 INR 2.0 Very lucid today and clearing very well Very complex case Checked meds and labs Reviewed therapy notes Conferred with rattan worker of Systems General: Fatigue, Malaise Neurological: Weakness Objective Exam Vital Signs Vital Signs Date Time Temp Pulse Resp B/P (MAP) Pulse Ox O2 Delivery O2 Flow Rate FiO2 12/28/19 20:20 Room Air 12/28/19 17:05 37.0 68 18 110/61 (77) 95 Capillary Refill : Less Than 3 Seconds General Appearance: No Apparent Distress, WD/WN, Chronically ill, Thin HEENT: PERRL/EOMI, Normal ENT Inspection, Pharynx Normal Neck: Full Range of Motion, Normal Inspection, Non Tender, Supple, Carotid Bruit Respiratory: Chest Non Tender, Lungs Clear, Normal Breath Sounds, No Accessory Muscle Use, No Respiratory Distress Cardiovascular: No Edema, No Gallop, No JVD, Normal Peripheral Pulses, Diastolic Murmur, Systolic Murmur, Irregularly Irregular Gastrointestinal: Normal Bowel Sounds, No Organomegaly, No Pulsatile Mass, Non Tender, Soft Back: Normal Inspection, CVA Tenderness (L), CVA Tenderness (R), Decreased [place] of Motion, Muscle Spasm, Vertebral Tenderness Extremity: Normal Capillary Refill, Normal Inspection, Normal Range of Motion, Non Tender, No Calf Tenderness, No Pedal Edema Neurologic/Psychiatric: Alert, Oriented x3, No Motor/Sensory Deficits (except for weakness in legs from severe back pain), Normal Mood/Affect, landscaper II-XII Norm as Tested, Abnormal Gait, Disoriented (subtle poor recall) Skin: Normal Color, Warm/Dry Lymphatic: No Adenopathy Results/Procedures Lab Laboratory Tests 12/28/19 06:30 Patient resulted labs reviewed. FIM Transfers Therapy Code Descriptions/Definitions Functional [place] Measure: 0=Not Assessed/NA 4=Minimal Assistance 1=Total Assistance 5=Supervision or Setup 2=Maximal Assistance 6=Modified [place] 3=Moderate Assistance 7=Complete IndependenceSCALE: Activities may be completed with or without assistive devices. 8-Feeypeerqs-hnibojr completes the activity by him/herself with no assistance from a helper. 5-Set-up or Clean-up Assistance-helper sets up or cleans up; patient completes activity. [place] assists only prior to or following the activity. 4-Supervision or Touching Assistance-helper provides verbal cues and/or touching/steadying and/or contact guard assistance as patient completes acti vity. Assistance may be provided throughout the activity or intermittently. 3-Partial/Moderate Assistance-helper does LESS THAN HALF the effort. [place] lifts, holds or supports trunk or limbs, but provides less than half the effort. 2-Substantial/Maximal Assistance-helper does MORE THAN HALF the effort. [place] lifts or holds trunk or limbs and provides more than half the effort. 0-Abyhrecqr-eihrmv does ALL the effort. Patient does none of the effort to complete the activity. Or, the assistance of 2 or more helpers is required for the patient to complete the activity. If activity was not attempted, code reason: 7-Patient Refused. 9-Not Applicable-not attempted and the patient did not perform the activity before the current illness, exacerbation or injury. 10-Not Attempted due to Environmental Limitations-(lack of equipment, weather restraints, etc.). 88-Not Attempted due to Medical Conditions or Safety Concerns. Roll Left to Right (QC): 5 Sit to Lying (QC): 5 Sit to Stand (QC): 4 Chair/Www-fo-Qlvpw Xfer(QC): 4 Car Transfer (QC): 4 Gait Training Does the Patient Walk?: Yes Distance: 150 Walk 10 feet (QC): 4 Walk 50 ft with 2 Turns(QC): 4 Walk 150 ft (QC): 4 Walking 10ft/uneven surface-QC: 4 Gait Persons Needed: 1 Gait Assistive Device: FWW Wheelchair Training Does the Pt Use a Wheelchair?: No Distance: SEE PT NOTES Wheel 50 ft with 2 turns (QC): 9 Wheel 150 ft (QC): 9 Type of Wheelchair: N/A Stair Training #of Steps: 1 1 Step (curb) (QC): 4 4 Steps (QC): 88 12 Steps (QC): 88 Balance Picking up an Object (QC): 88 ADL-Treatment Eating (QC): 5 (per pt.) Oral Hygiene (QC): 4 Bathing Location: L Arm, R Arm, L Upper Leg, R Upper Leg, Chest, Abdomen, Buttocks, Perineal Area Shower/Bathe Self (QC): 4 (CGA in stance in shower.) Upper Body Dressing (QC): 4 Lower Body Dressing (QC): 4 On/Off Footwear (QC): 3 (Min A to tie shoe laces) Toileting Hygiene (QC): 4 Toilet Transfer (QC): 4 Assessment/Plan Assessment and Plan Assess & Plan/Chief Complaint Assessment: Severe back pain with severe spondylosis AF Coumadin treatment CRI Confusion Delirium Pacemaker Plan: 12/22/19 IRF protocol Check labs in am Fall risk Bed alarm Dr Awad consultation 12/23/19: INR good Start low dose Hydrocodone Monitor LFT's BP monitoring BM regimen since 6 days since BM 12/24/19: BM large so severe constipation of 6 days resolved Pain meds minimal dosing to prevent delirium Iron level and hgb 8.4 will require midline placement due to poor vascular access and start IV iron Monitor orthostatic BP readings 12/25/19: Transfuse 1 unit of blood Iron infusions Dr Martines consult INR monitoring Complex case 12/26/19: Appreciate Dr. 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
--- NOTE | 2019-12-28 12:02 | Physical Therapy Daily Note ---
PT Daily Note-Current Subjective Pt in recliner upon arrival with jqbfxn-fs-teo in room. Pt stated sharp, shooting pain in L back during tx, that went away with rest. Pain Numeric Pain Scale: 8 Location: Lower Location Body Site: Back Pain Description: Stabbing, Sharp Mental Status Patient Orientation: Person, Confused, Place, Time, Situation Transfers SCALE: Activities may be completed with or without assistive devices. 4-Kvhdlufaio-qjncbxn completes the activity by him/herself with no assistance from a helper. 5-Set-up or Clean-up Assistance-helper sets up or cleans up; patient completes activity. [place] assists only prior to or following the activity. 4-Supervision or Touching Assistance-helper provides verbal cues and/or touching/steadying and/or contact guard assistance as patient completes activity. Assistance may be provided throughout the activity or intermittently. 3-Partial/Moderate Assistance-helper does LESS THAN HALF the effort. [place] lifts, holds or supports trunk or limbs, but provides less than half the effort. 2-Substantial/Maximal Assistance-helper does MORE THAN HALF the effort. [place] lifts or holds trunk or limbs and provides more than half the effort. 7-Fxzxdthrp-fmudhp does ALL the effort. Patient does none of the effort to complete the activity. Or, the assistance of 2 or more helpers is required for the patient to complete the activity. If activity was not attempted, code reason: 7-Patient Refused. 9-Not Applicable-not attempted and the patient did not perform the activity before the current illness, exacerbation or injury. 10-Not Attempted due to Environmental Limitations-(lack of equipment, weather restraints, etc.). 88-Not Attempted due to Medical Conditions or Safety Concerns. Sit to Stand (QC): 4 Toilet Transfer (QC): 4 Weight Bearing Right Lower Extremity: Right Weight Bearing/Tolerated Left Lower Extremity: Left Weight Bearing/Tolerated Gait Training Does the Patient Walk?: Yes Distance: 150 Walk 10 feet (QC): 4 Walk 50 ft with 2 Turns(QC): 4 Walk 150 ft (QC): 4 Gait Persons Needed: 1 Gait Assistive Device: FWW Pt amb from room to gym and back with FWW, pt has slow, shuffling gait, and is very stiff w walker. Exercises NuStep Minutes: 15 NuStep Workload: 4 Treatments Pt amb from recliner to restroom at beginning of tx. Pt amb from room to gym and uses NuStep 15 mins. Pt amb back to recliner in room and was left with all needs met, call light in hand. Assessment Current Status: Good Progress Pt demonstrates slight confusion throughout tx. PT Short Term Goals Short Term Goals Time Frame: Dec 30, 2019 Roll Left & Right: 6 Sit to lyin Lying to sitting on side of be: 6 Sit to stand: 6 PT [facility] Goals Director Of Residential Services Goals PT [facility] Goals Time Frame: Jan 06, 2020 Roll Left & Right (QC): 6 Sit to Lying (QC): 6 Lying-Sitting on Side/Bed(QC): 6 Sit to Stand (QC): 6 Chair/Cwu-si-Zxueu Xfer(QC): 6 Toilet Transfer (QC): 6 Car Transfer (QC): 6 Does the Patient Walk: Yes Walk 10 feet (QC): 6 Walk 50ft with 2 Turns (QC): 6 Walk 150 ft (QC): 6 Walking 10ft on Uneven Surface: 6 1 Step (curb) (QC): 6 4 Steps (QC): 6 12 Steps (QC): 9 Picking up an Object (QC): 88 (Pt will utilize evp business development for back health) Does the Pt use WC or Scooter?: No Wheel 50 feet with 2 turns (QC: 9 Type: N/A Wheel 150 feet: 9 Type: N/A PT Plan Treatment/Plan Treatment Plan: Continue Plan of Care Treatment Plan: Bed Mobility, Education, Functional Activity Lukas, Functional Strength, Group Therapy, Gait, Safety, Therapeutic Exercise, Transfers Treatment Duration: Dec 30, 2019 Frequency: At least 5 of 7 days/Wk (IRF) Estimated Hrs Per Day: 1.5 hours per day Patient and/or Family Agrees t: Yes Safety Risks/Education Patient Education: Gait Training, Correct Positioning, Safety Issues Teaching Recipient: Patient Teaching Methods: Discussion Response to Teaching: Verbalize Understanding Time/GCodes Time In: 1115 Time Out: 1200 Total Billed Treatment Time: 45 Total Billed Treatment 1, Ex x2 (25m), GT (20m) GEOFFREY PARADA CLINICAL SERVICES DIRECTOR Dec 28, 2019 12:02
--- NOTE | 2019-12-28 13:33 | Physical Therapy Daily Note ---
PT Daily Note-Current Subjective Pt in recliner upon arrival and agrees to tx. Pt states pain in lower back /10. Pain Numeric Pain Scale: 7 Location: Lower Location Body Site: Back Pain Description: Sharp Mental Status Patient Orientation: Person, Confused, Place, Time, Situation Transfers SCALE: Activities may be completed with or without assistive devices. 4-Qenhqhuooe-kclrike completes the activity by him/herself with no assistance from a helper. 5-Set-up or Clean-up Assistance-helper sets up or cleans up; patient completes activity. [place] assists only prior to or following the activity. 4-Supervision or Touching Assistance-helper provides verbal cues and/or touching/steadying and/or contact guard assistance as patient completes activity. Assistance may be provided throughout the activity or intermittently. 3-Partial/Moderate Assistance-helper does LESS THAN HALF the effort. [place] lifts, holds or supports trunk or limbs, but provides less than half the effort. 2-Substantial/Maximal Assistance-helper does MORE THAN HALF the effort. [place] lifts or holds trunk or limbs and provides more than half the effort. 3-Nbvvxllwj-vvmdth does ALL the effort. Patient does none of the effort to complete the activity. Or, the assistance of 2 or more helpers is required for the patient to complete the activity. If activity was not attempted, code reason: 7-Patient Refused. 9-Not Applicable-not attempted and the patient did not perform the activity before the current illness, exacerbation or injury. 10-Not Attempted due to Environmental Limitations-(lack of equipment, weather restraints, etc.). 88-Not Attempted due to Medical Conditions or Safety Concerns. Sit to Lying (QC): 5 Sit to Stand (QC): 4 Weight Bearing Right Lower Extremity: Right Weight Bearing/Tolerated Left Lower Extremity: Left Weight Bearing/Tolerated Gait Training Does the Patient Walk?: Yes Distance: 300 Walk 10 feet (QC): 4 Walk 50 ft with 2 Turns(QC): 4 Walk 150 ft (QC): 4 Gait Persons Needed: 1 Gait Assistive Device: FWW Stair Training Stair Training: Handrails/: 1 handrail #of Steps: 4 1 Step (curb) (QC): 3 4 Steps (QC): 3 Stairs: Pattern: Step to Treatments Pt amb from room around unit, approx 300' with two seated rest breaks. Pt amb to gym and performs stairs, requiring Cindy and VC. Pt able to clear steps ascending, descending pt caught step with back of foot on each step. Pt returned to bed in room, left with all needs met, call light in hand, bed alarm on. Assessment Current Status: Good Progress Pt requires frequent rest breaks and VC for sequencing on stairs. PT Short Term Goals Short Term Goals Time Frame: Dec 30, 2019 Roll Left & Right: 6 Sit to lyin Lying to sitting on side of be: 6 Sit to stand: 6 PT Jail Goals Jail Goals PT Jail Goals Time Frame: Jan 06, 2020 Roll Left & Right (QC): 6 Sit to Lying (QC): 6 Lying-Sitting on Side/Bed(QC): 6 Sit to Stand (QC): 6 Chair/Yzr-pq-Huowv Xfer(QC): 6 Toilet Transfer (QC): 6 Car Transfer (QC): 6 Does the Patient Walk: Yes Walk 10 feet (QC): 6 Walk 50ft with 2 Turns (QC): 6 Walk 150 ft (QC): 6 Walking 10ft on Uneven Surface: 6 1 Step (curb) (QC): 6 4 Steps (QC): 6 12 Steps (QC): 9 Picking up an Object (QC): 88 (Pt will utilize ring striker for back health) Does the Pt use WC or Scooter?: No Wheel 50 feet with 2 turns (QC: 9 Type: N/A Wheel 150 feet: 9 Type: N/A PT Plan Treatment/Plan Treatment Plan: Continue Plan of Care Treatment Plan: Bed Mobility, Education, Functional Activity Lukas, Functional Strength, Group Therapy, Gait, Safety, Therapeutic Exercise, Transfers Treatment Duration: Dec 30, 2019 Frequency: At least 5 of 7 days/Wk (IRF) Estimated Hrs Per Day: 1.5 hours per day Patient and/or Family Agrees t: Yes Safety Risks/Education Patient Education: Gait Training, Steps, Correct Positioning, Safety Issues Teaching Recipient: Patient Teaching Methods: Demonstration, Discussion Response to Teaching: Verbalize Understanding, Return Demonstration, Reinforcement Needed Time/GCodes Time In: 1300 Time Out: 1330 Total Billed Treatment Time: 30 Total Billed Treatment 1, GT x2 HUBERTCONNOR ZHANGAH CUSTOMER CARE CONSULTANT Dec 28, 2019 13:33
--- NOTE | 2019-12-28 13:55 | Speech Therapy Daily Note ---
Speech Daily Progress Note Subjective Date Seen by Provider: Dec 28, 2019 Time Seen by Provider: 00:30 Patient sitting in her recliner. Patient states she is not having a good day and is having more pain. Objective Patient completed q/a related to his needs with 85% given min verbal cues and/or repetitions. Assessment Assessment Current Status: Good Progress Treatment Plan Continue Plan of Care Speech Short Term Goals Short Term Goals Short Term Goals 1) Patient will complete memory tasks related to her daily needs at 90% or greater. 2) Patient will complete safety awareness tasks related to her daily needs at 90% or greater. 3) Patient will complete problem solving tasks related to her daily needs at 90% or greater. Speech Bed And Breakfast Innkeeper Goals Prison Goals Patient will improve cognitive-communication necessary for safety and daily living tasks with minimal assist. Speech-Plan Patient/Family Goals Patient/Family Goals: Patient's discharge plans are to relocate to her brother and sister in laws home where they can assist her. Treatment Plan Speech Therapy Treatment Plan: Continue Plan of Care Treatment Duration: Dec 25, 2019 Frequency: 5 times per week Estimated Hrs Per Day: Other Rehab Potential: Good Barriers to Learning: Patient's cognitive deficits, although they are resolving. Pt/Family Agrees to Plan: Yes Safety Risks/Education Teaching Recipient: Patient Teaching Methods: Demonstration, Discussion Response to Teaching: Verbalize Understanding, Return Demonstration Education Topics Provided: Patient's continued safety Time Speech Therapy Time In: 09:30 Speech Therapy Time Out: 10:00 Total Billed Time: 30 Billed Treatment Time 1MIKKI [address] Dec 28, 2019 13:55
--- NOTE | 2019-12-28 14:06 | Occupational Ther Daily Note ---
OT Current Status-Daily Note Subjective Pt. reports that she is tired. States that the "sprays of water" are slowing down. She reports seeing running water on the chapman of her room. Appearance Pt. up in chair. Pt. is agreeable to work with OT. Mental Status/Objective Patient Orientation: Person ADL-Treatment Therapy Code Descriptions/Definitions Functional [place] Measure: 0=Not Assessed/NA 4=Minimal Assistance 1=Total Assistance 5=Supervision or Setup 2=Maximal Assistance 6=Modified [place] 3=Moderate Assistance 7=Complete IndependenceSCALE: Activities may be completed with or without assistive devices. 4-Myxhgcgaaa-lqmvfcm completes the activity by him/herself with no assistance from a helper. 5-Set-up or Clean-up Assistance-helper sets up or cleans up; patient completes activity. [place] assists only prior to or following the activity. 4-Supervision or Touching Assistance-helper provides verbal cues and/or touching/steadying and/or contact guard assistance as patient completes activity. Assistance may be provided throughout the activity or intermittently. 3-Partial/Moderate Assistance-helper does LESS THAN HALF the effort. [place] lifts, holds or supports trunk or limbs, but provides less than half the effort. 2-Substantial/Maximal Assistance-helper does MORE THAN HALF the effort. [place] lifts or holds trunk or limbs and provides more than half the effort. 2-Veybyznio-ftitmm does ALL the effort. Patient does none of the effort to complete the activity. Or, the assistance of 2 or more helpers is required for the patient to complete the activity. If activity was not attempted, code reason: 7-Patient Refused. 9-Not Applicable-not attempted and the patient did not perform the activity before the current illness, exacerbation or injury. 10-Not Attempted due to Environmental Limitations-(lack of equipment, weather restraints, etc.). 88-Not Attempted due to Medical Conditions or Safety Concerns. Other Treatment Pt. has been reporting visual changes in the way of seeing running water and a "balloon" floating by. Pt. states that it is better, but it is still happening. Pt. is confused at times, and reports that she just needs to "go to the eye d r." OT performed a partial visual assessment using the "Injury Visual Assessment Battery for Adults." This was used to determine any other underlying visual changes that can assist OT with increasing her safety during functional tasks. Pt. states that she has macular degeneration. Upon observation, pt's pupil size is 3 mm in diameter, changing to 2 mm with light change. Pt. states that she usually wears glasses for reading only. However, she does not have them at this time, so her visual and reading acuity scores are likely skewed. Pt. demonstrates 20/50 visual acuity in each eye, and 20/63 reading acuity. Issues with contrast sensitivity do not seem to be a problem upon testing. Visual bernard tested to best of ability, as pt. demonstrates difficulty with attention and sequencing. Upon testing, it is noted that pt. has peripheral field loss on bilateral sides. Pt. is only able to see approximately 1/2 of appropriate visual field on lateral side of midline of each eye She also demonstrates difficulty with visual field above horizontal midline. However, again this may be incorrect only in the fact that she is tired, demonstrates poor attention at times, and reports having ptosis, or "droopy eyelids." Pt. given visual scan board, with instructions to scan each line, left to right, and to point to the "p" and the "f" whenever she saw it. However, she requires these instructions to be reported to her multiple times, and then she has difficulty attending to finding the correct letters, as well as staying on the line while she scans. All needs met in room. Education OT Patient Education: Correct positioning, Disease process, Progress toward Goal/Update tx plan, Purpose of tx/functional activities, Reviewed precautions, Rehab process, Safety issues Teaching Recipient: Patient Teaching Methods: Demonstration, Discussion Response to Teaching: Verbalize Understanding, Return Demonstration, Reinforcement Needed OT Short Term Goals Short Term Goals Time Frame: Dec 30, 2019 Eatin Oral hygiene: 4 Toileting hygiene: 3 Shower/bathe self: 3 Upper body dressin Lower body dressin Putting on/taking off footwear: 3 OT Half-Way Goals Foundry Tender Goals Time Frame: Jan 06, 2020 Eating (QC): 6 Oral Hygiene (QC): 6 Toileting Hygiene (QC): 6 Shower/Bathe Self (QC): 4 Upper Body Dressing (QC): 5 Lower Body Dressing (QC): 5 On/Off Footwear (QC): 5 Additional Goals: 1-Demonstrate ADL Tasks, 2-Verbalize Understanding, 3- ImproveStrength/Lukas 1=Demonstrate adherence to instructed precautions during ADL tasks. 2=Patient will verbalize/demonstrate understanding of assistive devices/modifications for ADL. 3=Patient will improve strength/tolerance for activity to enable patient to perform ADL's. OT Education/Plan Problem List/Assessment Assessment: Decreased Activ Tolerance, Impaired Cognition, Impaired I ADL's, Impaired Self-Care Skills Discharge Recommendations Plan/Recommendations: Continue POC Therapy Discharge Recommendati: Home & Family, Post Acute OT Treatment Plan/Plan of Care Treatment,Training & Education: Yes Patient would benefit from OT for education, treatment and training to promote independence in ADL's, mobility, safety and/or upper extremity function for ADL's. Plan of Care: ADL Retraining, Functional Mobility, UE Funct Exercise/Act Treatment Duration: Jan 06, 2020 Frequency: At least 5 of 7 days/Wk (IRF) Estimated Hrs Per Day: 1.5 hours per day Agreement: Yes Rehab Potential: Good Time/GCodes Start Time: 10:20 Stop Time: 10:50 Total Time Billed (hr/min): 30 Billed Treatment Time 1, FA x 2 DAVID LIU OT Dec 28, 2019 14:05
--- NOTE | 2019-12-28 15:52 | NUR ---
CM/SS PATIENT CARE CONFERENCE Met with patient today to review Summary, she understands her target discharge date is 01/03/20. Met with patient's brother and OBED yesterday afternoon, Get and Analisa Prachi, to answer their questions to their satisfaction and to get information from them about available resources in their area. All parties confirmed the plan is that Get and Analisa will take patient to their home in [place], [place] upon discharge for continued recuperation and monitor. HHC: Will be pursued through [facility], in [place], for RN, PT, and OT. DME: She has a FWW, OT recommended hip kit which is private purchase item. Will inform patient and brother they are available at [facility] for $35 plus tax; otherwise, they may pursue closer to their home from agency of their choice. Get mentioned in discussion yesterday they are following up with the claims attorney in [place] that started patient's POA documents a year ago. Additionally, patient has a trailer/camper for sale in her front yard. Get shared patient has a large camper on a site in [place], covered and with an out building. He indicates they will need to discuss how to continue with this or some sort of disposition. Patient is reporting lower back pain today and has been utilizing a heat pad in an attempt to find comfort. Continue intermittent review of progress and initiate resource-finding for post hospital care away from her home.
[2019-12-28 17:05] VITALS: BP 110/61
[2019-12-28] MEDS: DOCUSATE SODIUM 100 MG (COLACE) CAP PO SCH (20:03)
[2019-12-28] MEDS: warFARin 2 MG (COUMADIN) TAB PO SCH (20:04)
[2019-12-28] MEDS: SIMvastatin 20 MG (ZOCOR) TAB PO SCH (20:04)
[2019-12-29] MEDS: CATHETER FLUSH 10 ML SYR IV SCH ×3 (04:40→21:55)
[2019-12-29 05:11] VITALS: BP 116/58
--- NOTE | 2019-12-29 06:22 | PM&R Progress Note ---
Subjective HPI/CC On Admission Date Seen by Provider: Dec 29, 2019 Time Seen by Provider: 10:00 Subjective/Events-last exam Patient complaining of back pain Kpad placed and will start Voltaren gel Orthostatic hypotension requiring overhaul of BP meds Very difficult to manage elevated BP and orthostasis Very lucid today and clearing very well Very complex case Checked meds and labs Reviewed therapy notes Conferred with collateral clerk of Systems General: Fatigue, Malaise Neurological: Weakness Objective Exam Vital Signs Vital Signs Date Time Temp Pulse Resp B/P (MAP) Pulse Ox O2 Delivery O2 Flow Rate FiO2 12/29/19 20:15 98 Room Air 12/29/19 17:21 36.4 60 18 150/67 (94) Capillary Refill : Less Than 3 Seconds General Appearance: No Apparent Distress, WD/WN, Chronically ill, Thin HEENT: PERRL/EOMI, Normal ENT Inspection, Pharynx Normal Neck: Full Range of Motion, Normal Inspection, Non Tender, Supple, Carotid Bruit Respiratory: Chest Non Tender, Lungs Clear, Normal Breath Sounds, No Accessory Muscle Use, No Respiratory Distress Cardiovascular: No Edema, No Gallop, No JVD, Normal Peripheral Pulses, Diastolic Murmur, Systolic Murmur, Irregularly Irregular Gastrointestinal: Normal Bowel Sounds, No Organomegaly, No Pulsatile Mass, Non Tender, Soft Back: Normal Inspection, CVA Tenderness (L), CVA Tenderness (R), Decreased Range of Motion, Muscle Spasm, Vertebral Tenderness Extremity: Normal Capillary Refill, Normal Inspection, Normal Range of Motion, Non Tender, No Calf Tenderness, No Pedal Edema Neurologic/Psychiatric: Alert, Oriented x3, No Motor/Sensory Deficits (except for weakness in legs from severe back pain), Normal Mood/Affect, assistant professor of surgery II-XII Norm as Tested, Abnormal Gait, Disoriented (subtle poor recall) Skin: Normal Color, Warm/Dry Lymphatic: No Adenopathy Results/Procedures Lab Patient resulted labs reviewed. FIM Transfers Therapy Code Descriptions/Definitions Functional [place] Measure: 0=Not Assessed/NA 4=Minimal Assistance 1=Total Assistance 5=Supervision or Setup 2=Maximal Assistance 6=Modified [place] 3=Moderate Assistance 7=Complete IndependenceSCALE: Activities may be completed with or without assistive devices. 7-Wevdiijuqh-hgtycwn completes the activity by him/herself with no assistance from a helper. 5-Set-up or Clean-up Assistance-helper sets up or cleans up; patient completes activity. [place] assists only prior to or following the activity. 4-Supervision or Touching Assistance-helper provides verbal cues and/or touching/steadying and/or contact guard assistance as patient completes activity. Assistance may be provided throughout the activity or intermittently. 3-Partial/Moderate Assistance-helper does LESS THAN HALF the effort. [place] lifts, holds or supports trunk or limbs, but provides less than half the effort. 2-Substantial/Maximal Assistance-helper does MORE THAN HALF the effort. [place] lifts or holds trunk or limbs and provides more than half the effort. 2-Tixarifmi-ayrxqw does ALL the effort. Patient does none of the effort to complete the activity. Or, the assistance of 2 or more helpers is required for the patient to complete the activity. If activity was not attempted, code reason: 7-Patient Refused. 9-Not Applicable-not attempted and the patient did not perform the activity before the current illness, exacerbation or injury. 10-Not Attempted due to Environmental Limitations-(lack of equipment, weather restraints, etc.). 88-Not Attempted due to Medical Conditions or Safety Concerns. Roll Left to Right (QC): 5 Sit to Lying (QC): 5 Sit to Stand (QC): 4 Chair/Xuj-wq-Koykh Xfer(QC): 4 Car Transfer (QC): 4 Gait Training Does the Patient Walk?: Yes Distance: 300 Walk 10 feet (QC): 4 Walk 50 ft with 2 Turns(QC): 4 Walk 150 ft (QC): 4 Walking 10ft/uneven surface-QC: 4 Gait Persons Needed: 1 Gait Assistive Device: FWW Wheelchair Training Does the Pt Use a Wheelchair?: No Distance: SEE PT NOTES Wheel 50 ft with 2 turns (QC): 9 Wheel 150 ft (QC): 9 Type of Wheelchair: N/A Stair Training Stair Training: Handrails/: 1 handrail #of Steps: 4 1 Step (curb) (QC): 3 4 Steps (QC): 3 12 Steps (QC): 88 Stairs: Pattern: Step to Balance Picking up an Object (QC): 88 ADL-Treatment Eating (QC): 5 (per pt.) Oral Hygiene (QC): 4 Bathing Location: L Arm, R Arm, L Upper Leg, R Upper Leg, Chest, Abdomen, Buttocks, Perineal Area Shower/Bathe Self (QC): 4 (CGA) Upper Body Dressing (QC): 4 (SBA) Lower Body Dressing (QC): 4 On/Off Footwear (QC): 3 (Min A) Toileting Hygiene (QC): 4 Toilet Transfer (QC): 4 Assessment/Plan Assessment and Plan Assess & Plan/Chief Complaint Assessment: Severe back pain with severe spondylosis AF Coumadin treatment CRI Confusion Delirium Pacemaker Plan: 12/22/19 IRF protocol Check labs in am Fall risk Bed alarm Dr Awad consultation 12/23/19: INR good Start low dose Hydrocodone Monitor LFT's BP monitoring BM regimen since 6 days since BM 12/24/19: BM large so severe constipation of 6 days resolved Pain meds minimal dosing to prevent delirium Iron level and hgb 8.4 will require midline placement due to poor vascular ac cess and start IV iron Monitor orthostatic BP readings 12/25/19: Transfuse 1 unit of blood Iron infusions Dr Martines consult INR monitoring Complex case 12/26/19: Appreciate Dr. Martines but she declines endoscopy Maintain Coumadin Blood pressure management per cardiology Stop Florinef Monitor Hemiglobin 12/27/19: Appreciate cardiology management of elevated low blood pressure Monitor INR periodically last was 2.8 Bowels are moving well 12/28/19: Hemiglobin much improved at 9.6 Doing much better Very lucid today INR 2.0 12/29/19: Monitor Orthostasis Voltaren gel Multiple blood pressure medications changed by Cardiology Back pain management (1) Lumbar spondylosis (2) Atrial fibrillation with normal ventricular rate (3) Aortic valve replaced (4) Mitral valve replaced (5) Confusion (6) Pacemaker (7) Warfarin anticoagulation (8) Renal insufficiency (9) Hypertension (10) Constipation (11) Delirium (12) Advanced age MOOSE HERNANDEZ DO Dec 29, 2019 06:22
[2019-12-29] MEDS: HYDROcodone/APAP 5 MG/325 MG (LORTAB) TAB PO PRN ×2 (06:36→17:49)
[2019-12-29 07:45] VITALS: BP 92/55
[2019-12-29 08:15] VITALS: BP 99/47
--- NOTE | 2019-12-29 08:15 | NUR ---
Patient found to have decreased blood pressures this morning. Reported to Dr. Awad. New orders received. Will monitor throughout the day. Therapy notified of decreased blood pressure.
[2019-12-29] MEDS: SENNA W/DOCUSATE (SENOKOT S) TABLET PO SCH ×2 (08:46→21:54)
[2019-12-29] MEDS: IRON SUCROSE 200 MG/10 ML (VENOFER) VIAL IV SCH (08:47)
[2019-12-29] MEDS: ASPIRIN E.C. 81 MG (ECOTRIN) TAB PO SCH (08:47)
[2019-12-29] MEDS: PANTOPRAZOLE 40 MG (PROTONIX) TAB PO SCH ×2 (08:47→21:54)
[2019-12-29] MEDS: LEVOTHYROXINE 75 MCG (LEVOTHROID) TABLET PO SCH (08:47)
[2019-12-29] MEDS: meTOprolol TARTRATE 50 MG (LOPRESSOR) TAB PO SCH (09:36)
[2019-12-29] MEDS: lisINopril 20 MG (PRINIVIL) TABLET PO SCH (09:37)
[2019-12-29] MEDS: TRIAMTERENE/HCTZ 75-50 (MAXZIDE,DYAZIDE) TABLET PO SCH (09:37)
[2019-12-29] MEDS: polyethylene glycoL POWDER 17 GM (MIRALAX) PACK PO SCH ×2 (09:37→21:55)
[2019-12-29 10:00] VITALS: BP 113/57
--- NOTE | 2019-12-29 10:08 | Progress Note - Cardiology ---
Cardiology SOAP Progress Note Subjective: More weak today and somewhat dizzy with posture changes No cp or palp or syncope or shortness of breath No focal weakness No n/v/d Objective: I&O/Vital Signs 12/29/19 12/29/19 05:11 09:00 Temp 36.4 Pulse 60 Resp 21 B/P (MAP) 116/58 (77) Pulse Ox 97 O2 Delivery Room Air Room Air 12/29/19 00:00 Intake Total 675 ml Balance 675 ml Constitutional: AAO x 3; No well-developed, No well-nourished; other (poor memory) Respiratory: accessory muscle use, other (good bilat air entry) Cardiovascular: regular rate-rhythm, S1 and S2, systolic murmur (3/6 MSM over entire precordium, more prominent at the cardiac base) Gastrointestional: No tender; soft; No guarding, No rebound; audible bowel sounds Extremities: No clubbing, No cyanosis, No significant edema Neurologic/Psychiatric: oriented x 3, other (moves all limbs equally) Skin: No rash on exposed areas, No ulcerations on exposed areas Results/Procedures: Labs Laboratory Tests 12/28/19 06:30 A/P: Assessment: Relatively hypotensive on 12/29/19 Anemia of undetermined etiology. Management is with Dr Johnston Valvular heart disease. 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 Pt has no recollection of that, but her records indicate that and she is on chronic anticoag H/o permanent pacemaker placed in 2012, pt report regular f/u with her show worker and normal function of pacemaker Pulmonary hypertension, probably related to valvular heart disease Back pain CKD 2-3 Transaminase elevation of undetermined etiology, managed by Dr Johnston Plan: * Reduce STEPHEN-inhib and bb * D/c Maxzide * Monitor labs FRANTZ DAMON MD FACP [facility] Dec 29, 2019 10:08
--- NOTE | 2019-12-29 10:34 | Speech Therapy Daily Note ---
Speech Daily Progress Note Subjective Date Seen by Provider: Dec 29, 2019 Time Seen by Provider: 00:30 Patient was resting in her recliner with a towel around her neck which she stated she had taken a pain pill for. Objective Patient completed a series of initial letter exercises at 85% with minimal cues. Assessment Assessment Current Status: Good Progress Treatment Plan Continue Plan of Care Speech Short Term Goals Short Term Goals Short Term Goals 1) Patient will complete memory tasks related to her daily needs at 90% or greater. 2) Patient will complete safety awareness tasks related to her daily needs at 90% or greater. 3) Patient will complete problem solving tasks related to her daily needs at 90% or greater. Speech Custodial Goals Custodial Goals Patient will improve cognitive-communication necessary for safety and daily living tasks with minimal assist. Speech-Plan Patient/Family Goals Patient/Family Goals: Patient will be discharging to live temporarily with her brother and his . Treatment Plan Speech Therapy Treatment Plan: Continue Plan of Care Treatment Duration: Dec 25, 2019 Frequency: 5 times per week Estimated Hrs Per Day: Other Rehab Potential: Good Barriers to Learning: Patient's cognitive deficits, however these are resolving Pt/Family Agrees to Plan: Yes Safety Risks/Education Teaching Recipient: Patient Teaching Methods: Demonstration, Discussion Response to Teaching: Verbalize Understanding, Return Demonstration Education Topics Provided: Continued safety and communication Time Speech Therapy Time In: 09:00 Speech Therapy Time Out: 09:30 Total Billed Time: 30 Billed Treatment Time 1MIKKI [address] Dec 29, 2019 10:34
[2019-12-29] MEDS: ACETAMINOPHEN 325 MG TABLET PO PRN (11:32)
--- NOTE | 2019-12-29 11:39 | Occupational Ther Daily Note ---
OT Current Status-Daily Note Subjective Nursing reported that pt. is having low BP today. Pt. reported some pain in lower back but did not rate. Nursing reported that she has had her pain medication and is not ready for more. Pt. agreeable to therapy. Mental Status/Objective Patient Orientation: Person Attachments: Central Line ADL-Treatment Therapy Code Descriptions/Definitions Functional [place] Measure: 0=Not Assessed/NA 4=Minimal Assistance 1=Total Assistance 5=Supervision or Setup 2=Maximal Assistance 6=Modified [place] 3=Moderate Assistance 7=Complete IndependenceSCALE: Activities may be completed with or without assistive devices. 0-Chyzvpdmcq-frtdxuk completes the activity by him/herself with no assistance from a helper. 5-Set-up or Clean-up Assistance-helper sets up or cleans up; patient completes activity. [place] assists only prior to or following the activity. 4-Supervision or Touching Assistance-helper provides verbal cues and/or touching/steadying and/or contact guard assistance as patient completes activity. Assistance may be provided throughout the activity or intermittently. 3-Partial/Moderate Assistance-helper does LESS THAN HALF the effort. [place] lifts, holds or supports trunk or limbs, but provides less than half the effort. 2-Substantial/Maximal Assistance-helper does MORE THAN HALF the effort. [place] lifts or holds trunk or limbs and provides more than half the effort. 9-Lrzhyjwvt-vxkneb does ALL the effort. Patient does none of the effort to complete the activity. Or, the assistance of 2 or more helpers is required for the patient to complete the activity. If activity was not attempted, code reason: 7-Patient Refused. 9-Not Applicable-not attempted and the patient did not perform the activity before the current illness, exacerbation or injury. 10-Not Attempted due to Environmental Limitations-(lack of equipment, weather restraints, etc.). 88-Not Attempted due to Medical Conditions or Safety Concerns. Shower/Bathe Self (QC): 4 On/Off Footwear: 4 Toileting Hygiene (QC): 4 Toilet Transfer (QC): 4 Pt seated in reclining chair when OT entered room. Nursing reported low BP, monitored throughout session. While seated in chair at start of tx, BP 113/56. Pt. cued to stand for hypostatic BP reading 81/42. Pt. told to sit back into chair and relax. She requested cleaning today, due to BP agreed to sponge bath in chair. After resting for a few minutes, pt. requested to use restroom and ambulated with walker and CGA to toilet. While seated on BSC placed over toilet, pt. completed toilet hygiene with SBA. Pt. ambulated back to reclining chair with walker and CGA. Once seated in chair, pt. provided with warm wash clothes and towels. CGA required for washing in chair. Pt. had difficulty problem elmer ving throughout task requiring extra time and verbal cues to complete. For example, pt. washed body with washcloth, then rewashed entire body with long handled sponge when it was provided to wash her feet and back. After bathing, BP measured 101/49. When asked, pt. reported that she was feeling "alright" and was not having any dizziness. Pt. handed hair brush, but used the wrong side of the brush until OT switched it for her. Pt. fatigued and began to close eyes. Nursing notified of BP and current state. She was provided with warm blanket and call light. All needs met. Education OT Patient Education: Correct positioning, Disease process, Energy conservation, Modified ADL techniques, Progress toward Goal/Update tx plan, Purpose of tx/functional activities, Reviewed precautions, Rehab process, Safety issues, Transfer techniques, Use of adapted equipment Teaching Recipient: Patient Teaching Methods: Demonstration, Discussion Response to Teaching: Verbalize Understanding, Return Demonstration, Reinforcement Needed OT Short Term Goals Short Term Goals Time Frame: Dec 30, 2019 Eatin Oral hygiene: 4 Toileting hygiene: 3 Shower/bathe self: 3 Upper body dressin Lower body dressin Putting on/taking off footwear: 3 OT Pharmacy Picking Tech Goals Pharmacy Picking Tech Goals Time Frame: Jan 06, 2020 Eating (QC): 6 Oral Hygiene (QC): 6 Toileting Hygiene (QC): 6 Shower/Bathe Self (QC): 4 Upper Body Dressing (QC): 5 Lower Body Dressing (QC): 5 On/Off Footwear (QC): 5 Additional Goals: 1-Demonstrate ADL Tasks, 2-Verbalize Understanding, 3- ImproveStrength/Lukas 1=Demonstrate adherence to instructed precautions during ADL tasks. 2=Patient will verbalize/demonstrate understanding of assistive devices/modifications for ADL. 3=Patient will improve strength/tolerance for activity to enable patient to perform ADL's. OT Education/Plan Problem List/Assessment Assessment: Decreased Activ Tolerance, Decreased Safety Aware, Decreased UE Strength, Dependent Transfers, Impaired Cognition, Impaired I ADL's, Impaired Self-Care Skills, Restricted Funct UE ROM Discharge Recommendations Plan/Recommendations: Continue POC Therapy Discharge Recommendati: Home & Family, Post Acute OT Equpiment Recommendations-D/C: Hip Kit Treatment Plan/Plan of Care Treatment,Training & Education: Yes Patient would benefit from OT for education, treatment and training to promote independence in ADL's, mobility, safety and/or upper extremity function for ADL's. Plan of Care: ADL Retraining, Functional Mobility, UE Funct Exercise/Act Treatment Duration: Jan 06, 2020 Frequency: At least 5 of 7 days/Wk (IRF) Estimated Hrs Per Day: 1.5 hours per day Agreement: Yes Rehab Potential: Good Time/GCodes Start Time: 10:00 Stop Time: 11:00 Total Time Billed (hr/min): 60 Billed Treatment Time 1, ADL4 MAURA MORENO Dec 29, 2019 11:39
[2019-12-29] MEDS: DICLOFENAC 1% GEL 100 GM (VOLTAREN) TUBE TOP SCH ×3 (13:09→21:50)
--- NOTE | 2019-12-29 13:44 | Physical Therapy Daily Note ---
PT Daily Note-Current Subjective Pt in recliner upon arrival and agrees to tx. Pt stated pain at 8/10 in R lower back, stating she didn't want to get up and walk in am tx. Pt RN gave pt pain meds during tx to assist with pain. Pain Numeric Pain Scale: 8 Location: Right, Lower Location Body Site: Back Pain Description: Sharp Mental Status Patient Orientation: Person, Confused Transfers SCALE: Activities may be completed with or without assistive devices. 9-Emdsnmakuu-jnarykc completes the activity by him/herself with no assistance from a helper. 5-Set-up or Clean-up Assistance-helper sets up or cleans up; patient completes activity. [place] assists only prior to or following the activity. 4-Supervision or Touching Assistance-helper provides verbal cues and/or touching/steadying and/or contact guard assistance as patient completes activity. Assistance may be provided throughout the activity or intermittently. 3-Partial/Moderate Assistance-helper does LESS THAN HALF the effort. [place] lifts, holds or supports trunk or limbs, but provides less than half the effort. 2-Substantial/Maximal Assistance-helper does MORE THAN HALF the effort. [place] lifts or holds trunk or limbs and provides more than half the effort. 2-Aolpgmkbi-bqmxws does ALL the effort. Patient does none of the effort to complete the activity. Or, the assistance of 2 or more helpers is required for the patient to complete the activity. If activity was not attempted, code reason: 7-Patient Refused. 9-Not Applicable-not attempted and the patient did not perform the activity before the current illness, exacerbation or injury. 10-Not Attempted due to Environmental Limitations-(lack of equipment, weather restraints, etc.). 88-Not Attempted due to Medical Conditions or Safety Concerns. Sit to Stand (QC): 4 Toilet Transfer (QC): 4 Weight Bearing Right Lower Extremity: Right Weight Bearing/Tolerated Left Lower Extremity: Left Weight Bearing/Tolerated Gait Training Does the Patient Walk?: Yes Distance: 10 Walk 10 feet (QC): 4 Gait Assistive Device: FWW Pt amb from recliner to restroom, and back to recliner with FWW. Pt amb with an talgic gait d/t pain on R side, slow, short, shuffling gait, and kyphotic posture. Exercises Supine Ex: Quad Set (Pt instructed and demonstrated in Quad Sets but unable to comprehend explanation of activity. ), Heel Slides, Short Arc Quads Supine Reps: 10 Seated Therapy Exercises: Ankle pumps, Hip flexion, Kicking activity, Hip abd/add, Glut set Seated Reps: 10 Treatments Pt performed seated exercises in recliner, pt performed kicking activity first, followed by marching, then hip abd/add. During hip abd/add pt began performing the kicking activity again, pt reminded what exercises we were performing and pt stated she forgot. Pt performs rest of seated exercises. Pt performed supine exercises in recliner with leg rest up. Pt taken to restroom following exercises, pt independent with toileting and able to don/doff pants and clean self. Pt amb back to recliner and was left with all needs met, call light in hand, chair alarm on. Assessment Current Status: Fair Progress Pt had episode of confusion during tx today. PT Short Term Goals Short Term Goals Time Frame: Dec 30, 2019 Roll Left & Right: 6 Sit to lyin Lying to sitting on side of be: 6 Sit to stand: 6 PT Fdc Goals Risk Engineer Goals PT Risk Engineer Goals Time Frame: Jan 06, 2020 Roll Left & Right (QC): 6 Sit to Lying (QC): 6 Lying-Sitting on Side/Bed(QC): 6 Sit to Stand (QC): 6 Chair/Tov-kc-Undou Xfer(QC): 6 Toilet Transfer (QC): 6 Car Transfer (QC): 6 Does the Patient Walk: Yes Walk 10 feet (QC): 6 Walk 50ft with 2 Turns (QC): 6 Walk 150 ft (QC): 6 Walking 10ft on Uneven Surface: 6 1 Step (curb) (QC): 6 4 Steps (QC): 6 12 Steps (QC): 9 Picking up an Object (QC): 88 (Pt will utilize family reunification specialist for back health) Does the Pt use WC or Scooter?: No Wheel 50 feet with 2 turns (QC: 9 Type: N/A Wheel 150 feet: 9 Type: N/A PT Plan Treatment/Plan Treatment Plan: Continue Plan of Care Treatment Plan: Bed Mobility, Education, Functional Activity Lukas, Functional Strength, Group Therapy, Gait, Safety, Therapeutic Exercise, Transfers Treatment Duration: Dec 30, 2019 Frequency: At least 5 of 7 days/Wk (IRF) Estimated Hrs Per Day: 1.5 hours per day Patient and/or Family Agrees t: Yes Safety Risks/Education Patient Education: Gait Training, Correct Positioning, Safety Issues Teaching Recipient: Patient Teaching Methods: Demonstration, Discussion Response to Teaching: Verbalize Understanding, Return Demonstration, Reinforcement Needed Time/GCodes Time In: 1115 Time Out: 1200 Total Billed Treatment Time: 45 Total Billed Treatment 1, EX x2 (30m), FA (15m) MAX DEL ROSARIO SENIOR BENEFITS MANAGER Dec 29, 2019 13:44
--- NOTE | 2019-12-29 14:03 | NUR ---
CM/SS CONCURRENT DOCUMENTATION AND DISCHARGE PLANNING Discharge planned for January 03, 2020. [facility] has been tentatively initiated with: [facility] which is being merged [facility] [place] [facility]. Agency has agreed to provide services to patient at her brother's home in [place]. Referral will not be sent until next week so that the most current clinical information can be provided. PH: [phone] FX: [phone] Bel Leyva MD, [facility], has agreed to follow patient for orders while under the home health care in [place]. RN/Jesica assessed situation and accepted this arrangement, she will document in patient's chart her approval. Facilities Maintenance Worker will fax ARU discharge orders/instructions for physician information. PH: [phone] FX: [phone] Patient's brother/DPOA and OBED did not answer calls, texted latest findings. Also informed them therapy has recommended a hip kit, that they are private pay and available through [facility] $35 + tax or other big box stores/agencies of their choice.
--- NOTE | 2019-12-29 14:13 | Occupational Ther Daily Note ---
OT Current Status-Daily Note Subjective Pt. seated in reclining chair when OT entered room. Pt. recently had heat pack on neck and reported that she was having no pain. Pt. agreeable to therapy. Mental Status/Objective Patient Orientation: Person ADL-Treatment Therapy Code Descriptions/Definitions Functional [place] Measure: 0=Not Assessed/NA 4=Minimal Assistance 1=Total Assistance 5=Supervision or Setup 2=Maximal Assistance 6=Modified [place] 3=Moderate Assistance 7=Complete IndependenceSCALE: Activities may be completed with or without assistive devices. 6-Dyrmjmrqak-vkhhgwr completes the activity by him/herself with no assistance from a helper. 5-Set-up or Clean-up Assistance-helper sets up or cleans up; patient completes activity. [place] assists only prior to or following the activity. 4-Supervision or Touching Assistance-helper provides verbal cues and/or touching/steadying and/or contact guard assistance as patient completes activity. Assistance may be provided throughout the activity or intermittently. 3-Partial/Moderate Assistance-helper does LESS THAN HALF the effort. [place] lifts, holds or supports trunk or limbs, but provides less than half the effort. 2-Substantial/Maximal Assistance-helper does MORE THAN HALF the effort. [place] lifts or holds trunk or limbs and provides more than half the effort. 6-Vthqmtmih-jebktc does ALL the effort. Patient does none of the effort to complete the activity. Or, the assistance of 2 or more helpers is required for the patient to complete the activity. If activity was not attempted, code reason: 7-Patient Refused. 9-Not Applicable-not attempted and the patient did not perform the activity before the current illness, exacerbation or injury. 10-Not Attempted due to Environmental Limitations-(lack of equipment, weather restraints, etc.). 88-Not Attempted due to Medical Conditions or Safety Concerns. Other Treatment Pt. reported that she has been completing arm exercises at home using theraband prior to hospitalization. OT provided yellow theraband (low resistance) and skilled instruction on B UE placement for each exercise and proper motion to use targeted muscles. Pt. demonstrated 3 sets of 10 repetitions for each of the 3 exercises (B shoulder abduction, R elbow extension, and L elbow extension). Pt. verbalized understanding of each of the exercises and reported that she does not experience any pain when completing. OT advised that she complete 2 times daily. Noted that pt. reported seeing "very few water droplets" on chapman and no balloons on this date. Pt. positioned in chair for comfort with call light in reach and pharmacy in room when OT left. All needs met. Education OT Patient Education: Correct positioning, Exercise program, Home exercise program, Progress toward Goal/Update tx plan, Purpose of tx/functional activities, Reviewed precautions, Rehab process Teaching Recipient: Patient Teaching Methods: Demonstration, Discussion Response to Teaching: Verbalize Understanding, Return Demonstration, Reinforcement Needed OT Short Term Goals Short Term Goals Time Frame: Dec 30, 2019 Eatin Oral hygiene: 4 Toileting hygiene: 3 Shower/bathe self: 3 Upper body dressin Lower body dressin Putting on/taking off footwear: 3 OT Fdc Goals Fdc Goals Time Frame: Jan 06, 2020 Eating (QC): 6 Oral Hygiene (QC): 6 Toileting Hygiene (QC): 6 Shower/Bathe Self (QC): 4 Upper Body Dressing (QC): 5 Lower Body Dressing (QC): 5 On/Off Footwear (QC): 5 Additional Goals: 1-Demonstrate ADL Tasks, 2-Verbalize Understanding, 3- ImproveStrength/Lukas 1=Demonstrate adherence to instructed precautions during ADL tasks. 2=Patient will verbalize/demonstrate understanding of assistive devices/modifications for ADL. 3=Patient will improve strength/tolerance for activity to enable patient to perform ADL's. OT Education/Plan Problem List/Assessment Assessment: Decreased Activ Tolerance, Decreased Safety Aware, Decreased UE Strength, Dependent Transfers, Impaired Cognition, Impaired I ADL's, Impaired Self-Care Skills, Restricted Funct UE ROM, Visual-Perceptual Deficit Discharge Recommendations Plan/Recommendations: Continue POC Therapy Discharge Recommendati: Home & Family, Post Acute OT Treatment Plan/Plan of Care Treatment,Training & Education: Yes Patient would benefit from OT for education, treatment and training to promote independence in ADL's, mobility, safety and/or upper extremity function for ADL's. Plan of Care: ADL Retraining, Functional Mobility, UE Funct Exercise/Act Treatment Duration: Jan 06, 2020 Frequency: At least 5 of 7 days/Wk (IRF) Estimated Hrs Per Day: 1.5 hours per day Agreement: Yes Rehab Potential: Good Time/GCodes Start Time: 13:45 Stop Time: 14:00 Total Time Billed (hr/min): 15 Billed Treatment Time 1, EX (15 minutes) MAURA MORENO Dec 29, 2019 14:12
--- NOTE | 2019-12-29 14:17 | Physical Therapy Daily Note ---
PT Daily Note-Current Subjective Pt. up in recliner, laurita, explains that her name is pronounced with a long o. Pt. agrees to Rx and states she feels her neck is a little better after nurse applied voltaren Pain Numeric Pain Scale: 4 Location: Medial Location Body Site: Neck Pain Description: Ache Mental Status Patient Orientation: Person pt. states her name but cannot remember what facility she is in, does know this is [place] but not her situation Transfers SCALE: Activities may be completed with or without assistive devices. 4-Xxoduhtguq-svwpdkw completes the activity by him/herself with no assistance from a helper. 5-Set-up or Clean-up Assistance-helper sets up or cleans up; patient completes activity. [place] assists only prior to or following the activity. 4-Supervision or Touching Assistance-helper provides verbal cues and/or touching/steadying and/or contact guard assistance as patient completes activity. Assistance may be provided throughout the activity or intermittently. 3-Partial/Moderate Assistance-helper does LESS THAN HALF the effort. [place] lifts, holds or supports trunk or limbs, but provides less than half the effort. 2-Substantial/Maximal Assistance-helper does MORE THAN HALF the effort. [place] lifts or holds trunk or limbs and provides more than half the effort. 9-Fffnbovfi-edcqzn does ALL the effort. Patient does none of the effort to complete the activity. Or, the assistance of 2 or more helpers is required for the patient to complete the activity. If activity was not attempted, code reason: 7-Patient Refused. 9-Not Applicable-not attempted and the patient did not perform the activity before the current illness, exacerbation or injury. 10-Not Attempted due to Environmental Limitations-(lack of equipment, weather restraints, etc.). 88-Not Attempted due to Medical Conditions or Safety Concerns. Sit to Stand (QC): 4 Weight Bearing Right Lower Extremity: Right Weight Bearing/Tolerated Left Lower Extremity: Left Weight Bearing/Tolerated Gait Training Does the Patient Walk?: Yes Gait Assistive Device: FWW 75, 80 ft CGA and guidance for all turns etc and destination Exercises Seated Therapy Exercises: Ankle pumps, Sit to stand, Long arc quads, Hip flexion, Hip abd/add Seated Reps: 12 Treatments MHP with heavy toweling applied for 15m with pt. commenting that she feels some relief of neck pain Assessment Current Status: Good Progress PT Short Term Goals Short Term Goals Time Frame: Dec 30, 2019 Roll Left & Right: 6 Sit to lyin Lying to sitting on side of be: 6 Sit to stand: 6 PT Lime Supervisor Goals Group Home Goals PT Group Home Goals Time Frame: Jan 06, 2020 Roll Left & Right (QC): 6 Sit to Lying (QC): 6 Lying-Sitting on Side/Bed(QC): 6 Sit to Stand (QC): 6 Chair/Agd-pj-Ydqov Xfer(QC): 6 Toilet Transfer (QC): 6 Car Transfer (QC): 6 Does the Patient Walk: Yes Walk 10 feet (QC): 6 Walk 50ft with 2 Turns (QC): 6 Walk 150 ft (QC): 6 Walking 10ft on Uneven Surface: 6 1 Step (curb) (QC): 6 4 Steps (QC): 6 12 Steps (QC): 9 Picking up an Object (QC): 88 (Pt will utilize supervisor purification for back health) Does the Pt use WC or Scooter?: No Wheel 50 feet with 2 turns (QC: 9 Type: N/A Wheel 150 feet: 9 Type: N/A PT Plan Treatment/Plan Treatment Plan: Continue Plan of Care Treatment Plan: Bed Mobility, Education, Functional Activity Lukas, Functional Strength, Group Therapy, Gait, Safety, Therapeutic Exercise, Transfers Treatment Duration: Dec 30, 2019 Frequency: At least 5 of 7 days/Wk (IRF) Estimated Hrs Per Day: 1.5 hours per day Patient and/or Family Agrees t: Yes Safety Risks/Education Patient Education: Gait Training, Transfer Techniques, Correct Positioning, Disease Process, Safety Issues Teaching Recipient: Patient Teaching Methods: Demonstration, Discussion Response to Teaching: Verbalize Understanding, Return Demonstration, Reinforcement Needed Time/GCodes Time In: 1300 Time Out: 1330 Total Billed Treatment Time: 30 Total Billed Treatment 1,EX10m,GT20m MAX DEL ROSARIO RECEIVING CLERK Dec 29, 2019 14:16
[2019-12-29] MEDS ORDERED: WARF-48 PO ×2 (14:37)
[2019-12-29] MEDS ORDERED: LISI-552 PO (14:37)
[2019-12-29] MEDS ORDERED: ASPI-983 PO (14:37)
--- NOTE | 2019-12-29 14:41 | NUR ---
SPOKE WITH THE PT, CALLED [facility] IN [place] AND [facility] IN [place] TO COMPLETE THE MED REC THE FOLLOWING CHANGES HAVE BEEN MADE: LISINOPRIL 10MG WAS ENTERED ON THE MED REC BUT PT WAS TAKING 20MG PRIOR TO HOSPITALIZATION ESCITALOPRAM 5MG: WAS ENTERED 1 TAB DAILY BUT PT TAKING HS WARFARIN 2MG WAS ENTERED BUT PT WAS TAKING 5MG ON WEDNESDAY AND 2.5MG ( OF A 5MG TAB) ALL OTHER DAYS OF THE WEEK (WED,WED,WED,,WED &WED) METOPROLOL TART 50MG AND TYLENOL 500MG WERE ENTERED ON THE MED REC HOWEVER THE PT SAYS SHE DOES NOT TAKE EITHER OF THEM THE FOLLOWING ARE FILL DATES FOR THE REST OF THE MEDS: 04-18-2019 LISINOPRIL 20MG #90/PRN 04-18-2020 FUROSEMIDE 20MG #30/PRN 05-09-2019 B-12 INJECTION 1000MCG # DAY SUPPLY 10-17-2019 LEVOTHYROXINE 75MCG #90/90DS 10-17-2019 SIMVASTATIN 20MG #90/90DS 11-09-2019 ESCITALOPRAM 5MG #30/30DS 11-09-2019 FLUDROCORTISONE 0.1MG #30/30DS 11-09-2019 WARFARIN 5MG #78/90DS OTC MEDS: ASPIRIN 81 DOCUSATE GLUCOSAMINE VITRON -C LUTEIN
[2019-12-29 17:21] VITALS: BP 150/67
[2019-12-29] MEDS ORDERED: lisINopril 10 MG (PRINIVIL) TABLET PO SCH (21:00)
[2019-12-29] MEDS: warFARin 2 MG (COUMADIN) TAB PO SCH (21:54)
[2019-12-29] MEDS: SIMvastatin 20 MG (ZOCOR) TAB PO SCH (21:54)
[2019-12-29] MEDS: DOCUSATE SODIUM 100 MG (COLACE) CAP PO SCH (21:54)
[2019-12-30] MEDS: HYDROcodone/APAP 5 MG/325 MG (LORTAB) TAB PO PRN ×2 (04:14→21:04)
[2019-12-30] MEDS: CATHETER FLUSH 10 ML SYR IV SCH ×3 (06:14→21:04)
[2019-12-30 06:30] VITALS: BP 124/56
[2019-12-30] MEDS: LEVOTHYROXINE 75 MCG (LEVOTHROID) TABLET PO SCH (08:48)
[2019-12-30] MEDS: PANTOPRAZOLE 40 MG (PROTONIX) TAB PO SCH ×2 (08:48→20:23)
[2019-12-30] MEDS: SENNA W/DOCUSATE (SENOKOT S) TABLET PO SCH ×2 (08:48→20:22)
[2019-12-30] MEDS: polyethylene glycoL POWDER 17 GM (MIRALAX) PACK PO SCH ×2 (08:48→20:23)
[2019-12-30] MEDS: ASPIRIN E.C. 81 MG (ECOTRIN) TAB PO SCH (08:48)
[2019-12-30] MEDS: DICLOFENAC 1% GEL 100 GM (VOLTAREN) TUBE TOP SCH ×4 (08:49→20:30)
--- NOTE | 2019-12-30 09:05 | Physical Therapy Daily Note ---
PT Daily Note-Current Subjective Pt initially seated in chair upon arrival to room, agreeable to therapy this time. Appearance Following session, pt in chair with call light and tray within reach. All needs met Mental Status Patient Orientation: Person Transfers SCALE: Activities may be completed with or without assistive devices. 0-Ilupxsadey-biaimun completes the activity by him/herself with no assistance from a helper. 5-Set-up or Clean-up Assistance-helper sets up or cleans up; patient completes activity. [place] assists only prior to or following the activity. 4-Supervision or Touching Assistance-helper provides verbal cues and/or touching/steadying and/or contact guard assistance as patient completes activity. Assistance may be provided throughout the activity or intermittently. 3-Partial/Moderate Assistance-helper does LESS THAN HALF the effort. [place] lifts, holds or supports trunk or limbs, but provides less than half the effort. 2-Substantial/Maximal Assistance-helper does MORE THAN HALF the effort. [place] lifts or holds trunk or limbs and provides more than half the effort. 2-Xtlxjkguk-pattad does ALL the effort. Patient does none of the effort to complete the activity. Or, the assistance of 2 or more helpers is required for the patient to complete the activity. If activity was not attempted, code reason: 7-Patient Refused. 9-Not Applicable-not attempted and the patient did not perform the activity before the current illness, exacerbation or injury. 10-Not Attempted due to Environmental Limitations-(lack of equipment, weather restraints, etc.). 88-Not Attempted due to Medical Conditions or Safety Concerns. Sit to Stand (QC): 4 Weight Bearing Right Lower Extremity: Right Weight Bearing/Tolerated Left Lower Extremity: Left Weight Bearing/Tolerated Gait Training Does the Patient Walk?: Yes Distance: 150' Walk 50 ft with 2 Turns(QC): 4 Walk 150 ft (QC): 4 Gait Assistive Device: FWW Pt with slow, steady gait pattern. No LOB noted during ambulation. Pt cued to take larger steps, but continues to take small shuffling steps Treatments Pt initially ambulated to restroom, prior to ambulation in the halls. Pt then returned to chair. Assessment Current Status: Fair Progress Pt with good participation this visit, seemed to be less confused. Will continue to progress patient as tolerated. PT Short Term Goals Short Term Goals Time Frame: Dec 30, 2019 Roll Left & Right: 6 Sit to lyin Lying to sitting on side of be: 6 Sit to stand: 6 PT Spiral Tube Winder Helper Goals Spiral Tube Winder Helper Goals PT Residential Goals Time Frame: Jan 06, 2020 Roll Left & Right (QC): 6 Sit to Lying (QC): 6 Lying-Sitting on Side/Bed(QC): 6 Sit to Stand (QC): 6 Chair/Mrm-dx-Nkvnu Xfer(QC): 6 Toilet Transfer (QC): 6 Car Transfer (QC): 6 Does the Patient Walk: Yes Walk 10 feet (QC): 6 Walk 50ft with 2 Turns (QC): 6 Walk 150 ft (QC): 6 Walking 10ft on Uneven Surface: 6 1 Step (curb) (QC): 6 4 Steps (QC): 6 12 Steps (QC): 9 Picking up an Object (QC): 88 (Pt will utilize schedule planning manager for back health) Does the Pt use WC or Scooter?: No Wheel 50 feet with 2 turns (QC: 9 Type: N/A Wheel 150 feet: 9 Type: N/A PT Plan Problem List Problem List: Activity Tolerance, Functional Strength, Safety, Balance, Gait, Transfer, Bed Mobility Treatment/Plan Treatment Plan: Continue Plan of Care Treatment Plan: Bed Mobility, Education, Functional Activity Lukas, Functional Strength, Group Therapy, Gait, Safety, Therapeutic Exercise, Transfers Treatment Duration: Dec 30, 2019 Frequency: At least 5 of 7 days/Wk (IRF) Estimated Hrs Per Day: 1.5 hours per day Patient and/or Family Agrees t: Yes Time/GCodes Time In: 812 Time Out: 825 Total Billed Treatment Time: 13 Total Billed Treatment 1 visit GT (13 min) FELECIA SANDERS PT Dec 30, 2019 09:05
--- NOTE | 2019-12-30 11:05 | PM&R Progress Note ---
Subjective HPI/CC On Admission Date Seen by Provider: Dec 30, 2019 Time Seen by Provider: 11:00 Subjective/Events-last exam Patient not complaining of back pain today Kpad was placed and will maintain Voltaren gel Orthostatic hypotension requiring overhaul of BP meds and that seems to be working fairly well Very difficult to manage elevated BP and orthostasis Very lucid today and clearing very well and that is improved every day Very complex case Checked meds and labs Reviewed therapy notes Conferred with preventive maintenance coordinator of Systems General: Fatigue, Malaise Neurological: Weakness Objective Exam Vital Signs Vital Signs Date Time Temp Pulse Resp B/P (MAP) Pulse Ox O2 Delivery O2 Flow Rate FiO2 12/30/19 08:45 Room Air 12/30/19 06:30 36.6 60 18 124/56 (78) 95 Capillary Refill : Less Than 3 Seconds General Appearance: No Apparent Distress, WD/WN, Chronically ill, Thin HEENT: PERRL/EOMI, Normal ENT Inspection, Pharynx Normal Neck: Full Range of Motion, Normal Inspection, Non Tender, Supple, Carotid Bruit Respiratory: Chest Non Tender, Lungs Clear, Normal Breath Sounds, No Accessory Muscle Use, No Respiratory Distress Cardiovascular: No Edema, No Gallop, No JVD, Normal Peripheral Pulses, Diastolic Murmur, Systolic Murmur, Irregularly Irregular Gastrointestinal: Normal Bowel Sounds, No Organomegaly, No Pulsatile Mass, Non Tender, Soft Back: Normal Inspection, CVA Tenderness (L), CVA Tenderness (R), Decreased Ran ge of Motion, Muscle Spasm, Vertebral Tenderness Extremity: Normal Capillary Refill, Normal Inspection, Normal Range of Motion, Non Tender, No Calf Tenderness, No Pedal Edema Neurologic/Psychiatric: Alert, Oriented x3, No Motor/Sensory Deficits (except for weakness in legs from severe back pain), Normal Mood/Affect, eclectic doctor II-XII Norm as Tested, Abnormal Gait, Disoriented (subtle poor recall) Skin: Normal Color, Warm/Dry Lymphatic: No Adenopathy Results/Procedures Lab Patient resulted labs reviewed. FIM Transfers Therapy Code Descriptions/Definitions Functional [place] Measure: 0=Not Assessed/NA 4=Minimal Assistance 1=Total Assistance 5=Supervision or Setup 2=Maximal Assistance 6=Modified [place] 3=Moderate Assistance 7=Complete IndependenceSCALE: Activities may be completed with or without assistive devices. 5-Tcptcnnfla-gkkdhzh completes the activity by him/herself with no assistance from a helper. 5-Set-up or Clean-up Assistance-helper sets up or cleans up; patient completes activity. [place] assists only prior to or following the activity. 4-Supervision or Touching Assistance-helper provides verbal cues and/or touching/steadying and/or contact guard assistance as patient completes activity. Assistance may be provided throughout the activity or intermittently. 3-Partial/Moderate Assistance-helper does LESS THAN HALF the effort. [place] lifts, holds or supports trunk or limbs, but provides less than half the effort. 2-Substantial/Maximal Assistance-helper does MORE THAN HALF the effort. [place] lifts or holds trunk or limbs and provides more than half the effort. 5-Cdemjlqum-eqopaf does ALL the effort. Patient does none of the effort to complete the activity. Or, the assistance of 2 or more helpers is required for the patient to complete the activity. If activity was not attempted, code reason: 7-Patient Refused. 9-Not Applicable-not attempted and the patient did not perform the activity before the current illness, exacerbation or injury. 10-Not Attempted due to Environmental Limitations-(lack of equipment, weather restraints, etc.). 88-Not Attempted due to Medical Conditions or Safety Concerns. Roll Left to Right (QC): 5 Sit to Lying (QC): 5 Sit to Stand (QC): 4 Chair/Nfr-sc-Rzvkc Xfer(QC): 4 Car Transfer (QC): 4 Gait Training Does the Patient Walk?: Yes Distance: 150' Walk 10 feet (QC): 4 Walk 50 ft with 2 Turns(QC): 4 Walk 150 ft (QC): 4 Walking 10ft/uneven surface-QC: 4 Gait Persons Needed: 1 Gait Assistive Device: FWW Wheelchair Training Does the Pt Use a Wheelchair?: No Distance: SEE PT NOTES Wheel 50 ft with 2 turns (QC): 9 Wheel 150 ft (QC): 9 Type of Wheelchair: N/A Stair Training Stair Training: Handrails/: 1 handrail #of Steps: 4 1 Step (curb) (QC): 3 4 Steps (QC): 3 12 Steps (QC): 88 Stairs: Pattern: Step to Balance Picking up an Object (QC): 88 ADL-Treatment Eating (QC): 5 (per pt.) Oral Hygiene (QC): 4 Bathing Location: L Arm, R Arm, L Upper Leg, R Upper Leg, Chest, Abdomen, Buttocks, Perineal Area Shower/Bathe Self (QC): 4 Upper Body Dressing (QC): 4 (SBA) Lower Body Dressing (QC): 4 On/Off Footwear (QC): 4 Toileting Hygiene (QC): 4 Toilet Transfer (QC): 4 Assessment/Plan Assessment and Plan Assess & Plan/Chief Complaint Assessment: Severe back pain with severe spondylosis AF Coumadin treatment CRI Confusion Delirium Pacemaker Plan: 12/22/19 IRF protocol Check labs in am Fall risk Bed alarm Dr Awad consultation 12/23/19: INR good Start low dose Hydrocodone Monitor LFT's BP monitoring BM regimen since 6 days since BM 12/24/19: BM large so severe constipation of 6 days resolved Pain meds minimal dosing to prevent delirium Iron level and hgb 8.4 will require midline placement due to poor vascular access and start IV iron Monitor orthostatic BP readings 12/25/19: Transfuse 1 unit of blood Iron infusions Dr Martines consult INR monitoring Complex case 12/26/19: Appreciate Dr. Martines but she declines endoscopy Maintain Coumadin Blood pressure management per cardiology Stop Florinef Monitor Hemiglobin 12/27/19: Appreciate cardiology management of elevated low blood pressure Monitor INR periodically last was 2.8 Bowels are moving well 12/28/19: Hemiglobin much improved at 9.6 Doing much better Very lucid today INR 2.0 12/29/19: Monitor Orthostasis Voltaren gel Multiple blood pressure medications changed by Cardiology Back pain management 12/30/19: More lucid and delirium is clearing Back pain management Orthostasis management (1) Lumbar spondylosis (2) Atrial fibrillation with normal ventricular rate (3) Aortic valve replaced (4) Mitral valve replaced (5) Confusion (6) Pacemaker (7) Warfarin anticoagulation (8) Renal insufficiency (9) Hypertension (10) Constipation (11) Delirium (12) Advanced age MOOSE HERNANDEZ DO Dec 30, 2019 11:05
--- NOTE | 2019-12-30 12:43 | Progress Note - Cardiology ---
Cardiology SOAP Progress Note Subjective: Feels weak. Poor appetite No cp or palp or syncope or shortness of breath No focal weakness No n/v/d Objective: I&O/Vital Signs 12/30/19 12/30/19 06:30 08:45 Temp 36.6 Pulse 60 Resp 18 B/P (MAP) 124/56 (78) Pulse Ox 95 O2 Delivery Room Air Room Air 12/30/19 00:00 Intake Total 1060 ml Balance 1060 ml Constitutional: AAO x 3; No well-developed, No well-nourished; other (poor memory) Respiratory: accessory muscle use, other (good bilat air entry) Cardiovascular: regular rate-rhythm, S1 and S2, systolic murmur (3/6 MSM over entire precordium, more prominent at the cardiac base) Gastrointestional: No tender; soft; No guarding, No rebound; audible bowel sounds Extremities: No clubbing, No cyanosis, No significant edema Neurologic/Psychiatric: oriented x 3, other (moves all limbs equally) Skin: No rash on exposed areas, No ulcerations on exposed areas A/P: Assessment: Relatively hypotensive on 12/29/19 Anemia of undetermined etiology. Management is with Dr Johnston Valvular heart disease. 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 Pt has no recollection of that, but her records indicate that and she is on chronic anticoag H/o permanent pacemaker placed in 2012, pt report regular f/u with her cardio logist and normal function of pacemaker Pulmonary hypertension, probably related to valvular heart disease Back pain CKD 2-3 Transaminase elevation of undetermined etiology, managed by Dr Johnston Plan: * D/c STEPHEN-inhib (mildly elevated K and low bp). D/c Mazide (mildly reduced Na and low bp) * Increase Toprol XL to 25 bid (because STEPHEN-d/c'd today * Monitor labs FRANTZ DAMON MD FACP [facility] Dec 30, 2019 12:43
--- NOTE | 2019-12-30 17:20 | NUR ---
RN in room to get pt up for dinner. Pt noted to have a confused look on her face, when this RN asked if pt was ok, pt responded "yes". Pt then asked if she would like to sit in the chair for supper, pt responded "yes". Pt then sat on the side of the bed and made no movements to help this RN get her to the chair. This RN had to direct pt 3 times to get her to stand up. Pt had to have a large amount of redirection just to get her to the chair. When pt got to chair, pt was confused on what to do with her dinner, pt tried to drink her salad and was reaching for items that were not there. Pt was able to answer all orientation questions correctly at this time, name, year, president and city she was in but continued to hallucinate at this time. Pt taken to the restroom again, with a large amount of direction as pt's gait was off and pt had no sense of direction. Pt would run her walker into the table, the wall, and the toilet without knowing to turn the walker, pt would just keep trying to move forward even when walker was pressed up against an object. Vitals taken and all within normal limits. Pt says she feels fine but remains with a confused look on her face. Pt placed back in bed, all 4 rails up, bed alarm on and Dr. Johnston notified. Orders received.
[2019-12-30 17:30] VITALS: BP 118/51
[2019-12-30 18:37] LABS: BASOPHILS % (AUTO) 0 % (0-10); EOSINOPHILS # (AUTO) 0.1 10^3/uL (0.0-0.3); EOSINOPHILS % (AUTO) 0 % (0-10); HEMATOCRIT 29 % (35-52); HEMOGLOBIN 9.5 G/DL (11.5-16.0); LYMPHOCYTES # (AUTO) 0.5 X 10^3 (1.0-4.0); LYMPHOCYTES % (AUTO) 4 % (12-44); MEAN CORPUSCULAR HEMOGLOBIN 27 PG (25-34); MEAN CORPUSCULAR HGB CONC 33 G/DL (32-36); MEAN CORPUSCULAR VOLUME 81 FL (80-99); MONOCYTES # (AUTO) 0.5 X 10^3 (0.0-1.0); MONOCYTES % (AUTO) 3 % (0-12); NEUTROPHILS # (AUTO) 12.2 X 10^3 (1.8-7.8); NEUTROPHILS % (AUTO) 92 % (42-75); PLATELET COUNT 227 10^3/uL (130-400); RED CELL DISTRIBUTION WIDTH 17.7 % (10.0-14.5); WHITE BLOOD COUNT 13.2 10^3/uL (4.3-11.0)
[2019-12-30 18:46] LABS: ALBUMIN 3.1 GM/DL (3.2-4.5); POTASSIUM 5.2 MMOL/L (3.6-5.0)
[2019-12-30 18:47] LABS: CALCIUM 8.5 MG/DL (8.5-10.1); INR 2.2 (0.8-1.4); PROTHROMBIN TIME PATIENT 24.9 SEC (12.2-14.7)
[2019-12-30 18:49] LABS: TOTAL PROTEIN 6.1 GM/DL (6.4-8.2)
[2019-12-30 18:50] LABS: BILIRUBIN,TOTAL 0.7 MG/DL (0.1-1.0)
[2019-12-30 18:52] LABS: CREATININE SERUM 1.53 MG/DL (0.60-1.30)
[2019-12-30 20:00] VITALS: BP 144/55
--- NOTE | 2019-12-30 20:00 | NUR ---
ASSISTED UP TO BATHROOM. PATIENT CONFUSED AND ORIENTED TO NAME ONLY AT THIS TIME, BUT COOPERATIVE. BACK TO CHAIR WITH EXIT ALARM ON. NS STARTED AT 50 CC/HR. WILL CONTINUE TO MONITOR.
[2019-12-30] MEDS ORDERED: NS IV 1000 ML 1,000 ML ONE (20:18)
[2019-12-30] MEDS: NS IV 1000 ML 1,000 ML IV SCH (20:22)
[2019-12-30] MEDS: DOCUSATE SODIUM 100 MG (COLACE) CAP PO SCH (20:23)
[2019-12-30] MEDS: SIMvastatin 20 MG (ZOCOR) TAB PO SCH (20:23)
[2019-12-30] MEDS: warFARin 2 MG (COUMADIN) TAB PO SCH (20:23)
--- NOTE | 2019-12-30 21:00 | NUR ---
INCREASED NECK PAIN. ASSISTED BACK TO BED. VOLTAREN GEL APPLIED AND KPAD TO NECK. ALSO MEDICATED WITH LORTAB. 4 RAILS UP AND BED EXIT ALARM ON.
--- NOTE | 2019-12-31 06:00 | NUR ---
ASSISTED UP TO CHAIR. SLEPT WELL. MENTAL STATUS STABLE. BP STABLE.
[2019-12-31] MEDS: CATHETER FLUSH 10 ML SYR IV SCH ×3 (06:20→21:56)
[2019-12-31 06:25] LABS: BASOPHILS % (AUTO) 0 % (0-10); EOSINOPHILS # (AUTO) 0.1 10^3/uL (0.0-0.3); EOSINOPHILS % (AUTO) 1 % (0-10); HEMATOCRIT 28 % (35-52); LYMPHOCYTES # (AUTO) 0.9 X 10^3 (1.0-4.0); LYMPHOCYTES % (AUTO) 8 % (12-44); MEAN CORPUSCULAR HEMOGLOBIN 27 PG (25-34); MEAN CORPUSCULAR HGB CONC 33 G/DL (32-36); MEAN CORPUSCULAR VOLUME 82 FL (80-99); MEAN PLATELET VOLUME 10.1 FL (7.4-10.4); MONOCYTES # (AUTO) 0.5 X 10^3 (0.0-1.0); MONOCYTES % (AUTO) 4 % (0-12); NEUTROPHILS # (AUTO) 9.5 X 10^3 (1.8-7.8); NEUTROPHILS % (AUTO) 87 % (42-75); PLATELET COUNT 205 10^3/uL (130-400); RED CELL DISTRIBUTION WIDTH 17.6 % (10.0-14.5); WHITE BLOOD COUNT 10.9 10^3/uL (4.3-11.0)
--- NOTE | 2019-12-31 06:34 | PM&R Progress Note ---
Subjective HPI/CC On Admission Date Seen by Provider: Dec 31, 2019 Time Seen by Provider: 12:30 Subjective/Events-last exam Patient was acting oddly yesterday so labs checked and found to have hyponatremia with ARF from Maxzide given for 3 days but stopped due to hypotension complicating Orthostasis Hgb 9.0 today and sodium level is 132 up from 128 Creatinine improved 1.35 improved from 1.5 Patient very fragile and likely will need more supervision than returning home as planned? Very complex case Checked meds and labs Reviewed therapy notes Conferred with scaffold worker of Systems Musculoskeletal: back pain Focused Exam Lactate Level 12/30/19 18:27: Lactic Acid Level 0.63 Objective Exam Vital Signs Vital Signs Date Time Temp Pulse Resp B/P (MAP) Pulse Ox O2 Delivery O2 Flow Rate FiO2 12/31/19 20:32 Room Air 12/31/19 17:42 36.3 63 20 136/63 (87) 97 Capillary Refill : Less Than 3 Seconds General Appearance: No Apparent Distress, WD/WN, Chronically ill, Thin HEENT: PERRL/EOMI, Normal ENT Inspection, Pharynx Normal Neck: Full Range of Motion, Normal Inspection, Non Tender, Supple, Carotid Bruit Respiratory: Chest Non Tender, Lungs Clear, Normal Breath Sounds, No Accessory Muscle Use, No Respiratory Distress Cardiovascular: No Edema, No Gallop, No JVD, Normal Peripheral Pulses, Diastolic Murmur, Systolic Murmur, Irregularly Irregular Gastrointestinal: Normal Bowel Sounds, No Organomegaly, No Pulsatile Mass, Non Tender, Soft Back: Normal Inspection, CVA Tenderness (L), CVA Tenderness (R), Decreased Rang e of Motion, Muscle Spasm, Vertebral Tenderness Extremity: Normal Capillary Refill, Normal Inspection, Normal Range of Motion, Non Tender, No Calf Tenderness, No Pedal Edema Neurologic/Psychiatric: Alert, Oriented x3, No Motor/Sensory Deficits (except for weakness in legs from severe back pain), Normal Mood/Affect, refrigerating engineer head II-XII Norm as Tested, Abnormal Gait, Disoriented (subtle poor recall) Skin: Normal Color, Warm/Dry Lymphatic: No Adenopathy Results/Procedures Lab Laboratory Tests 12/31/19 06:05 Patient resulted labs reviewed. FIM Transfers Therapy Code Descriptions/Definitions Functional [place] Measure: 0=Not Assessed/NA 4=Minimal Assistance 1=Total Assistance 5=Supervision or Setup 2=Maximal Assistance 6=Modified [place] 3=Moderate Assistance 7=Complete IndependenceSCALE: Activities may be completed with or without assistive devices. 0-Skubeabacp-zhurqnx completes the activity by him/herself with no assistance from a helper. 5-Set-up or Clean-up Assistance-helper sets up or cleans up; patient completes activity. [place] assists only prior to or following the activity. 4-Supervision or Touching Assistance-helper provides verbal cues and/or touching/steadying and/or contact guard assistance as patient completes activi ty. Assistance may be provided throughout the activity or intermittently. 3-Partial/Moderate Assistance-helper does LESS THAN HALF the effort. [place] lifts, holds or supports trunk or limbs, but provides less than half the effort. 2-Substantial/Maximal Assistance-helper does MORE THAN HALF the effort. [place] lifts or holds trunk or limbs and provides more than half the effort. 5-Plaqlptov-azchvd does ALL the effort. Patient does none of the effort to complete the activity. Or, the assistance of 2 or more helpers is required for the patient to complete the activity. If activity was not attempted, code reason: 7-Patient Refused. 9-Not Applicable-not attempted and the patient did not perform the activity before the current illness, exacerbation or injury. 10-Not Attempted due to Environmental Limitations-(lack of equipment, weather restraints, etc.). 88-Not Attempted due to Medical Conditions or Safety Concerns. Roll Left to Right (QC): 5 Sit to Lying (QC): 5 Sit to Stand (QC): 4 Chair/Dfo-qz-Jojjf Xfer(QC): 4 Car Transfer (QC): 4 Gait Training Does the Patient Walk?: Yes Distance: 150' Walk 10 feet (QC): 4 Walk 50 ft with 2 Turns(QC): 4 Walk 150 ft (QC): 4 Walking 10ft/uneven surface-QC: 4 Gait Persons Needed: 1 Gait Assistive Device: FWW Wheelchair Training Does the Pt Use a Wheelchair?: No Distance: SEE PT NOTES Wheel 50 ft with 2 turns (QC): 9 Wheel 150 ft (QC): 9 Type of Wheelchair: N/A Stair Training Stair Training: Handrails/: 1 handrail #of Steps: 4 1 Step (curb) (QC): 3 4 Steps (QC): 3 12 Steps (QC): 88 Stairs: Pattern: Step to Balance Picking up an Object (QC): 88 ADL-Treatment Eating (QC): 5 (per pt.) Oral Hygiene (QC): 4 Bathing Location: L Arm, R Arm, L Upper Leg, R Upper Leg, Chest, Abdomen, Buttocks, Perineal Area Shower/Bathe Self (QC): 4 Upper Body Dressing (QC): 4 (SBA) Lower Body Dressing (QC): 4 On/Off Footwear (QC): 4 Toileting Hygiene (QC): 4 Toilet Transfer (QC): 4 Assessment/Plan Assessment and Plan Assess & Plan/Chief Complaint Assessment: Severe back pain with severe spondylosis AF Coumadin treatment CRI Confusion Delirium Pacemaker Plan: 12/22/19 IRF protocol Check labs in am Fall risk Bed alarm Dr Awad consultation 12/23/19: INR good Start low dose Hydrocodone Monitor LFT's BP monitoring BM regimen since 6 days since BM 12/24/19: BM large so severe constipation of 6 days resolved Pain meds minimal dosing to prevent delirium Iron level and hgb 8.4 will require midline placement due to poor vascular access and start IV iron Monitor orthostatic BP readings 12/25/19: Transfuse 1 unit of blood Iron infusions Dr Martines consult INR monitoring Complex case 12/26/19: Appreciate Dr. Martines but she declines endoscopy Maintain Coumadin Blood pressure management per cardiology Stop Florinef Monitor Hemiglobin 12/27/19: Appreciate cardiology management of elevated low blood pressure Monitor INR periodically last was 2.8 Bowels are moving well 12/28/19: Hemiglobin much improved at 9.6 Doing much better Very lucid today INR 2.0 12/29/19: Monitor Orthostasis Voltaren gel Multiple blood pressure medications changed by Cardiology Back pain management 12/30/19: More lucid and delirium is clearing Back pain management Orthostasis management 12/31/19: Monitor hyponatremia Continue NS at 50cc/hr Check labs in am List HCTZ as allergy due to severe and rapid hyponatremia Monitor loose stools (1) Lumbar spondylosis (2) Atrial fibrillation with normal ventricular rate (3) 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
[2019-12-31 06:46] LABS: POTASSIUM 5.3 MMOL/L (3.6-5.0)
[2019-12-31 06:47] LABS: CALCIUM 8.5 MG/DL (8.5-10.1)
[2019-12-31 06:51] LABS: CREATININE SERUM 1.35 MG/DL (0.60-1.30)
[2019-12-31 07:00] VITALS: BP 137/64
[2019-12-31 08:30] VITALS: BP 89/47
[2019-12-31 09:30] VITALS: BP 98/46
[2019-12-31] MEDS: LEVOTHYROXINE 75 MCG (LEVOTHROID) TABLET PO SCH (09:33)
[2019-12-31] MEDS: ASPIRIN E.C. 81 MG (ECOTRIN) TAB PO SCH (09:33)
[2019-12-31] MEDS: PANTOPRAZOLE 40 MG (PROTONIX) TAB PO SCH ×2 (09:33→20:24)
[2019-12-31] MEDS: IRON SUCROSE 200 MG/10 ML (VENOFER) VIAL IV SCH (09:33)
[2019-12-31] MEDS: polyethylene glycoL POWDER 17 GM (MIRALAX) PACK PO SCH ×2 (09:41→20:27)
[2019-12-31] MEDS: SENNA W/DOCUSATE (SENOKOT S) TABLET PO SCH ×2 (09:42→20:27)
[2019-12-31] MEDS: DICLOFENAC 1% GEL 100 GM (VOLTAREN) TUBE TOP SCH ×4 (09:43→20:26)
--- NOTE | 2019-12-31 14:35 | Progress Note - Cardiology ---
Cardiology SOAP Progress Note Subjective: Multiple body pains Gen weakness Diminished appetite No n/v/d No cp or palp or syncope or shortness of breath Objective: I&O/Vital Signs 12/31/19 12/31/19 12/31/19 12/31/19 07:00 08:30 09:00 09:30 Temp 36.6 Pulse 60 63 Resp 18 B/P (MAP) 137/64 (88) 89/47 (61) 98/46 (63) Pulse Ox 96 O2 Delivery Room Air Room Air 12/31/19 00:00 Intake Total 550 ml Balance 550 ml Constitutional: AAO x 3; No well-developed, No well-nourished; other (poor memory) Respiratory: accessory muscle use, other (good bilat air entry) Cardiovascular: regular rate-rhythm, S1 and S2, systolic murmur (3/6 MSM over entire precordium, more prominent at the cardiac base) Gastrointestional: No tender; soft; No guarding, No rebound; audible bowel sounds Extremities: No clubbing, No cyanosis, No significant edema Neurologic/Psychiatric: oriented x 3, other (moves all limbs equally) Skin: No rash on exposed areas, No ulcerations on exposed areas Results/Procedures: Labs Laboratory Tests 12/30/19 18:27: White Blood Count 13.2H, Red Blood Count 3.57L, Hemoglobin 9.5L, Hematocrit 29L, Mean Corpuscular Volume 81, Mean Corpuscular Hemoglobin 27, Mean Corpuscular Hemoglobin Concent 33, Red Cell Distribution Width 17.7H, Platelet Count 227, Mean Platelet Volume 10.0, Neutrophils (%) (Auto) 92H, Lymphocytes (%) (Auto) 4L , Monocytes (%) (Auto) 3, Eosinophils (%) (Auto) 0, Basophils (%) (Auto) 0, Neutrophils # (Auto) 12.2H, Lymphocytes # (Auto) 0.5L, Monocytes # (Auto) 0.5, Eosinophils # (Auto) 0.1, Basophils # (Auto) 0.0, Prothrombin Time 24.9H, INR Comment 2.2H, Sodium Level 128L, Potassium Level 5.2H, Chloride Level 96L, Carbon Dioxide Level 21, Anion Gap 11, Blood Urea Nitrogen 39H, Creatinine 1.53H , Estimat Glomerular Filtration Rate 32, BUN/Creatinine Ratio 25, Glucose Level 103, Lactic Acid Level 0.63, Calcium Level 8.5, Corrected Calcium 9.2, Total Bilirubin 0.7, Aspartate Amino Transf (AST/SGOT) 20, Alanine Aminotransferase (ALT/SGPT) 30, Alkaline Phosphatase 70, Total Protein 6.1L, Albumin 3.1L, Procalcitonin 0.96H 12/31/19 06:05: White Blood Count 10.9, Red Blood Count 3.37L, Hemoglobin 9.0L, Hematocrit 28L, Mean Corpuscular Volume 82, Mean Corpuscular Hemoglobin 27, Mean Corpuscular Hemoglobin Concent 33, Red Cell Distribution Width 17.6H, Platelet Count 205, Mean Platelet Volume 10.1, Neutrophils (%) (Auto) 87H, Lymphocytes (%) (Auto) 8L , Monocytes (%) (Auto) 4, Eosinophils (%) (Auto) 1, Basophils (%) (Auto) 0, Neutrophils # (Auto) 9.5H, Lymphocytes # (Auto) 0.9L, Monocytes # (Auto) 0.5, Eosinophils # (Auto) 0.1, Basophils # (Auto) 0.0, Sodium Level 132L, Potassium Level 5.3H, Chloride Level 102, Carbon Dioxide Level 22, Anion Gap 8, Blood Urea Nitrogen 36H, Creatinine 1.35H, Estimat Glomerular Filtration Rate 37, BUN/Creatinine Ratio 27, Glucose Level 84, Calcium Level 8.5 Laboratory Tests 12/30/19 18:27 12/31/19 06:05 A/P: Assessment: Relatively hypotensive Anemia of undetermined etiology. Management is with Dr Johnston Valvular heart disease. 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 LANIE improving Transaminase elevation of undetermined etiology, managed by Dr Johnston Plan: * D/c bb * Continue iv fluids * Monitor labs FRANTZ DAMON MD FACP FAC CCDS Dec 31, 2019 14:35
[2019-12-31] MEDS: HYDROcodone/APAP 5 MG/325 MG (LORTAB) TAB PO PRN ×2 (14:42→22:00)
[2019-12-31] MEDS: NS IV 1000 ML 1,000 ML IV SCH (15:21)
[2019-12-31 17:42] VITALS: BP 136/63
[2019-12-31] MEDS: warFARin 2 MG (COUMADIN) TAB PO SCH (20:24)
[2019-12-31] MEDS: SIMvastatin 20 MG (ZOCOR) TAB PO SCH (20:24)
[2019-12-31] MEDS: DOCUSATE SODIUM 100 MG (COLACE) CAP PO SCH (20:26)
--- NOTE | 2019-12-31 22:00 | NUR ---
LITTLE CONFUSION TONIGHT COMPARED TO LAST NIGHT. IV FLUIDS CONTINUE. MEDICATED WITH [facility] REQUESTED FOR NECK PAIN.
[2020-01-01] MEDS: CATHETER FLUSH 10 ML SYR IV SCH ×3 (05:31→20:12)
[2020-01-01 05:49] LABS: BASOPHILS % (AUTO) 0 % (0-10); EOSINOPHILS # (AUTO) 0.1 10^3/uL (0.0-0.3); EOSINOPHILS % (AUTO) 1 % (0-10); HEMATOCRIT 26 % (35-52); HEMOGLOBIN 8.1 G/DL (11.5-16.0); LYMPHOCYTES # (AUTO) 0.6 X 10^3 (1.0-4.0); LYMPHOCYTES % (AUTO) 6 % (12-44); MEAN CORPUSCULAR HEMOGLOBIN 26 PG (25-34); MEAN CORPUSCULAR HGB CONC 32 G/DL (32-36); MEAN CORPUSCULAR VOLUME 84 FL (80-99); MEAN PLATELET VOLUME 10.1 FL (7.4-10.4); MONOCYTES # (AUTO) 0.5 X 10^3 (0.0-1.0); MONOCYTES % (AUTO) 5 % (0-12); NEUTROPHILS % (AUTO) 89 % (42-75); PLATELET COUNT 186 10^3/uL (130-400); RED CELL DISTRIBUTION WIDTH 17.9 % (10.0-14.5); WHITE BLOOD COUNT 10.2 10^3/uL (4.3-11.0)
--- NOTE | 2020-01-01 05:59 | PM&R Progress Note ---
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 helper of Systems General: Fatigue, Malaise Neurological: Weakness Focused Exam Lactate Level 12/30/19 18:27: Lactic Acid Level 0.63 Objective Exam Vital Signs Vital Signs Date Time Temp Pulse Resp B/P (MAP) Pulse Ox O2 Delivery O2 Flow Rate FiO2 01/01/20 09:00 Room Air 01/01/20 06:37 36.4 60 16 124/54 (77) 95 Capillary Refill : Less Than 3 Seconds General Appearance: No Apparent Distress, WD/WN, Chronically ill, Thin HEENT: PERRL/EOMI, Normal ENT Inspection, Pharynx Normal Neck: Full Range of Motion, Normal Inspection, Non Tender, Supple, Carotid Bruit Respiratory: Chest Non Tender, Lungs Clear, Normal Breath Sounds, No Accessory Muscle Use, No Respiratory Distress Cardiovascular: No Edema, No Gallop, No JVD, Normal Peripheral Pulses, Diastolic Murmur, Systolic Murmur, Irregularly Irregular Gastrointestinal: Normal Bowel Sounds, No Organomegaly, No Pulsatile Mass, Non Tender, Soft Back: Normal Inspection, CVA Tenderness (L), CVA Tenderness (R), Decreased Range of Motion, Muscle Spasm, Vertebral Tenderness Extremity: Normal Capillary Refill, Normal Inspection, Normal Range of Motion, Non Tender, No Calf Tenderness, No Pedal Edema Neurologic/Psychiatric: Alert, Oriented x3, No Motor/Sensory Deficits (except for weakness in legs from severe back pain), Normal Mood/Affect, 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 FIM Transfers Therapy Code Descriptions/Definitions Functional [place] Measure: 0=Not Assessed/NA 4=Minimal Assistance 1=Total Assistance 5=Supervision or Setup 2=Maximal Assistance 6=Modified [place] 3=Moderate Assistance 7=Complete IndependenceSCALE: Activities may be completed with or without assistive devices. 0-Zlywzcuytv-mucnbuw completes the activity by him/herself with no assistance from a helper. 5-Set-up or Clean-up Assistance-helper sets up or cleans up; patient completes activity. [place] assists only prior to or following the activity. 4-Supervision or Touching Assistance-helper provides verbal cues and/or touching/steadying and/or contact guard assistance as patient completes activity. Assistance may be provided throughout the activity or intermittently. 3-Partial/Moderate Assistance-helper does LESS THAN HALF the effort. [place] lifts, holds or supports trunk or limbs, but provides less than half the effort. 2-Substantial/Maximal Assistance-helper does MORE THAN HALF the effort. [place] lifts or holds trunk or limbs and provides more than half the effort. 5-Eblksasni-sijedk does ALL the effort. Patient does none of the effort to complete the activity. Or, the assistance of 2 or more helpers is required for the patient to complete the activity. If activity was not attempted, code reason: 7-Patient Refused. 9-Not Applicable-not attempted and the patient did not perform the activity before the current illness, exacerbation or injury. 10-Not Attempted due to Environmental Limitations-(lack of equipment, weather restraints, etc.). 88-Not Attempted due to Medical Conditions or Safety Concerns. Roll Left to Right (QC): 5 Sit to Lying (QC): 5 Sit to Stand (QC): 4 Chair/Mfk-lq-Gquzb Xfer(QC): 4 Car Transfer (QC): 4 Gait Training Does the Patient Walk?: Yes Distance: 150' Walk 10 feet (QC): 4 Walk 50 ft with 2 Turns(QC): 4 Walk 150 ft (QC): 4 Walking 10ft/uneven surface-QC: 4 Gait Persons Needed: 1 Gait Assistive Device: FWW Wheelchair Training Does the Pt Use a Wheelchair?: No Distance: SEE PT NOTES Wheel 50 ft with 2 turns (QC): 9 Wheel 150 ft (QC): 9 Type of Wheelchair: N/A Stair Training Stair Training: Handrails/: 1 handrail #of Steps: 4 1 Step (curb) (QC): 3 4 Steps (QC): 3 12 Steps (QC): 88 Stairs: Pattern: Step to Balance Picking up an Object (QC): 88 ADL-Treatment Eating (QC): 5 (per pt.) Oral Hygiene (QC): 4 Bathing Location: L Arm, R Arm, L Upper Leg, R Upper Leg, Chest, Abdomen, Buttocks, Perineal Area Shower/Bathe Self (QC): 4 Upper Body Dressing (QC): 4 (SBA) Lower Body Dressing (QC): 4 On/Off Footwear (QC): 4 Toileting Hygiene (QC): 4 Toilet Transfer (QC): 4 Assessment/Plan Assessment and Plan Assess & Plan/Chief Complaint Assessment: Severe back pain with severe spondylosis AF Coumadin treatment CRI Confusion Delirium Pacemaker Plan: 12/22/19 IRF protocol Check labs in am Fall risk Bed alarm Dr Awad consultation 12/23/19: INR good Start low dose Hydrocodone Monitor LFT's BP monitoring BM regimen since 6 days since BM 12/24/19: BM large so severe constipation of 6 days resolved Pain meds minimal dosing to prevent delirium Iron level and hgb 8.4 will require midline placement due to poor vascular ac cess and start IV iron Monitor orthostatic BP readings 12/25/19: Transfuse 1 unit of blood Iron infusions Dr Martines consult INR monitoring Complex case 12/26/19: Appreciate Dr. Martines but she declines endoscopy Maintain Coumadin Blood pressure management per cardiology Stop Florinef Monitor Hemiglobin 12/27/19: Appreciate cardiology management of elevated low blood pressure Monitor INR periodically last was 2.8 Bowels are moving well 12/28/19: Hemiglobin much improved at 9.6 Doing much better Very lucid today INR 2.0 12/29/19: Monitor Orthostasis Voltaren gel Multiple blood pressure medications changed by Cardiology Back pain management 12/30/19: More lucid and delirium is clearing Back pain management Orthostasis management 12/31/19: Monitor hyponatremia Continue NS at 50cc/hr Check labs in am List HCTZ as allergy due to severe and rapid hyponatremia Monitor loose stools 01/01/20: Had 3 loose stools yesterday x3 Creatinine 1.14 so will [place] IV fluid Hemoglobin 8.1 and that is dilutional Overall improved (1) Lumbar spondylosis (2) Atrial fibrillation with normal ventricular rate (3) Aortic valve replaced (4) Mitral valve replaced (5) Confusion (6) Pacemaker (7) Warfarin anticoagulation (8) Renal insufficiency (9) Hypertension (10) Constipation (11) Delirium (12) Advanced age MOOSE HERNANDEZ DO Jan 01, 2020 05:59
[2020-01-01 06:07] LABS: ALBUMIN 2.7 GM/DL (3.2-4.5)
[2020-01-01 06:08] LABS: POTASSIUM 5.4 MMOL/L (3.6-5.0)
[2020-01-01 06:10] LABS: TOTAL PROTEIN 5.3 GM/DL (6.4-8.2)
[2020-01-01 06:12] LABS: BILIRUBIN,TOTAL 0.5 MG/DL (0.1-1.0)
[2020-01-01 06:13] LABS: CREATININE SERUM 1.14 MG/DL (0.60-1.30)
[2020-01-01 06:37] VITALS: BP 124/54
[2020-01-01 07:23] LABS: BAND NEUTROPHILS 4 %; BASOPHILS % (MANUAL) 0 %; EOSINOPHILS % (MANUAL) 1 %; LYMPHOCYTES % (MANUAL) 6 %; MONOCYTES % (MANUAL) 5 %; NEUTROPHILS % (MANUAL) 84 %
[2020-01-01 07:24] LABS: ANISOCYTOSIS SLIGHT; ELLIPT/OVALOCYTES SLIGHT
[2020-01-01] MEDS: PANTOPRAZOLE 40 MG (PROTONIX) TAB PO SCH ×2 (08:32→20:12)
[2020-01-01] MEDS: LEVOTHYROXINE 75 MCG (LEVOTHROID) TABLET PO SCH (08:32)
[2020-01-01] MEDS: ASPIRIN E.C. 81 MG (ECOTRIN) TAB PO SCH (08:32)
[2020-01-01] MEDS: HYDROcodone/APAP 5 MG/325 MG (LORTAB) TAB PO PRN ×2 (08:34→18:52)
[2020-01-01] MEDS: polyethylene glycoL POWDER 17 GM (MIRALAX) PACK PO SCH ×2 (08:35→20:30)
[2020-01-01] MEDS: SENNA W/DOCUSATE (SENOKOT S) TABLET PO SCH ×2 (08:35→20:31)
[2020-01-01] MEDS: DICLOFENAC 1% GEL 100 GM (VOLTAREN) TUBE TOP SCH ×4 (08:58→20:31)
--- NOTE | 2020-01-01 09:02 | Physical Therapy Daily Note ---
PT Daily Note-Current Subjective Agrees to PT. Reports she had a good weekend. Reports she is going to her brother's home at discharge. Mental Status Attachments: IV Transfers SCALE: Activities may be completed with or without assistive devices. 6-Xsmbwvxsql-ecrdqro completes the activity by him/herself with no assistance from a helper. 5-Set-up or Clean-up Assistance-helper sets up or cleans up; patient completes activity. [place] assists only prior to or following the activity. 4-Supervision or Touching Assistance-helper provides verbal cues and/or touching/steadying and/or contact guard assistance as patient completes activity. Assistance may be provided throughout the activity or intermittently. 3-Partial/Moderate Assistance-helper does LESS THAN HALF the effort. [place] lifts, holds or supports trunk or limbs, but provides less than half the effort. 2-Substantial/Maximal Assistance-helper does MORE THAN HALF the effort. [place] lifts or holds trunk or limbs and provides more than half the effort. 6-Wpanaogbx-xeegtf does ALL the effort. Patient does none of the effort to complete the activity. Or, the assistance of 2 or more helpers is required for the patient to complete the activity. If activity was not attempted, code reason: 7-Patient Refused. 9-Not Applicable-not attempted and the patient did not perform the activity before the current illness, exacerbation or injury. 10-Not Attempted due to Environmental Limitations-(lack of equipment, weather restraints, etc.). 88-Not Attempted due to Medical Conditions or Safety Concerns. Sit to Stand (QC): 4 (SBA with intermittent cues for hand placement and sequencing. ) Weight Bearing Right Lower Extremity: Right Weight Bearing/Tolerated Left Lower Extremity: Left Weight Bearing/Tolerated Gait Training Does the Patient Walk?: Yes Gait Assistive Device: FWW Pt ambulated x 150 ft x 5 reps with FWW with SBA with intermittent cues for safety. Had a small amount of difficulty with obstacles iwth her walker. Slow gait pattern but steady. Stair Training Stair Training: Handrails/: 1 handrail 4 Steps (QC): 4 (SBA with step to gait pattern; used 1 handrail) Exercises Seated Therapy Exercises: Long arc quads (15) Standing: Heel/toe raises, Marching, Mini squats, Sit to Stand Standing Reps: 15 LE ther ex performed to facilitate LE strength for improved transfers and functional mobility. Treatments Pt in chair post treatment, with chair alarm activated. Nurse present as this therapist left, providing medication to patient. Assessment Current Status: Good Progress Pt is slow with tasks and needs intermittent cues for safety. no LOB noted thro ughout treatment. Pt pleasant and interactive with motivation to improve. PT Short Term Goals Short Term Goals Time Frame: Dec 30, 2019 Roll Left & Right: 6 Sit to lyin Lying to sitting on side of be: 6 Sit to stand: 6 PT Plastic Panel Installer Goals Nursing Home Goals PT Plastic Panel Installer Goals Time Frame: Jan 06, 2020 Roll Left & Right (QC): 6 Sit to Lying (QC): 6 Lying-Sitting on Side/Bed(QC): 6 Sit to Stand (QC): 6 Chair/Evp-na-[place] Xfer(QC): 6 Toilet Transfer (QC): 6 Car Transfer (QC): 6 Does the Patient Walk: Yes Walk 10 feet (QC): 6 Walk 50ft with 2 Turns (QC): 6 Walk 150 ft (QC): 6 Walking 10ft on Uneven Surface: 6 1 Step (curb) (QC): 6 4 Steps (QC): 6 12 Steps (QC): 9 Picking up an Object (QC): 88 (Pt will utilize net washer for back health) Does the Pt use WC or Scooter?: No Wheel 50 feet with 2 turns (QC: 9 Type: N/A Wheel 150 feet: 9 Type: N/A PT Plan Problem List Problem List: Activity Tolerance, Functional Strength, Safety Treatment/Plan Treatment Plan: Continue Plan of Care Treatment Plan: Bed Mobility, Education, Functional Activity Lukas, Functional Strength, Group Therapy, Gait, Safety, Therapeutic Exercise, Transfers Treatment Duration: Dec 30, 2019 Frequency: At least 5 of 7 days/Wk (IRF) Estimated Hrs Per Day: 1.5 hours per day Patient and/or Family Agrees t: Yes Safety Risks/Education Patient Education: Safety Issues Teaching Recipient: Patient Teaching Methods: Demonstration, Discussion Response to Teaching: Reinforcement Needed Discharge Recommendations Therapy Discharge Recommendati: Post Acute PT Time/GCodes Time In: 800 Time Out: 900 Total Billed Treatment Time: 60 Total Billed Treatment visit GT 30 EX 30 MAURA ROSS PT Jan 01, 2020 09:02
--- NOTE | 2020-01-01 11:58 | Occupational Ther Daily Note ---
OT Current Status-Daily Note Subjective Pt alert, lying in bed. Pt agrees to therapy. No c/o pain at this time. Mental Status/Objective Patient Orientation: Person, Place Attachments: IV ADL-Treatment Therapy Code Descriptions/Definitions Functional [place] Measure: 0=Not Assessed/NA 4=Minimal Assistance 1=Total Assistance 5=Supervision or Setup 2=Maximal Assistance 6=Modified [place] 3=Moderate Assistance 7=Complete IndependenceSCALE: Activities may be completed with or without assistive devices. 5-Cyxkrnalgv-sxvjnas completes the activity by him/herself with no assistance from a helper. 5-Set-up or Clean-up Assistance-helper sets up or cleans up; patient completes activity. [place] assists only prior to or following the activity. 4-Supervision or Touching Assistance-helper provides verbal cues and/or touching/steadying and/or contact guard assistance as patient completes activity. Assistance may be provided throughout the activity or intermittently. 3-Partial/Moderate Assistance-helper does LESS THAN HALF the effort. [place] lifts, holds or supports trunk or limbs, but provides less than half the effort. 2-Substantial/Maximal Assistance-helper does MORE THAN HALF the effort. [place] lifts or holds trunk or limbs and provides more than half the effort. 7-Fwstmmuoq-qzccaj does ALL the effort. Patient does none of the effort to complete the activity. Or, the assistance of 2 or more helpers is required for the patient to complete the activity. If activity was not attempted, code reason: 7-Patient Refused. 9-Not Applicable-not attempted and the patient did not perform the activity before the current illness, exacerbation or injury. 10-Not Attempted due to Environmental Limitations-(lack of equipment, weather restraints, etc.). 88-Not Attempted due to Medical Conditions or Safety Concerns. Other Treatment Pt completed light resistance B UE theraband exercises. Pt able to remember 3 out of 5 UE exercises. Skilled instruction given for technique and positioning. 20 reps 1 set. After therapy, pt lying in bed with call light/phone in reach. All needs met in room. OT Short Term Goals Short Term Goals Time Frame: Dec 30, 2019 Eatin Oral hygiene: 4 Toileting hygiene: 3 Shower/bathe self: 3 Upper body dressin Lower body dressin Putting on/taking off footwear: 3 OT Red Lead Burner Goals Red Lead Burner Goals Time Frame: Jan 06, 2020 Eating (QC): 6 Oral Hygiene (QC): 6 Toileting Hygiene (QC): 6 Shower/Bathe Self (QC): 4 Upper Body Dressing (QC): 5 Lower Body Dressing (QC): 5 On/Off Footwear (QC): 5 Additional Goals: 1-Demonstrate ADL Tasks, 2-Verbalize Understanding, 3- ImproveStrength/Lukas 1=Demonstrate adherence to instructed precautions during ADL tasks. 2=Patient will verbalize/demonstrate understanding of assistive devices/modifications for ADL. 3=Patient will improve strength/tolerance for activity to enable patient to perform ADL's. OT Education/Plan Problem List/Assessment Assessment: Decreased Activ Tolerance, Decreased UE Strength Discharge Recommendations Plan/Recommendations: Continue POC Treatment Plan/Plan of Care Patient would benefit from OT for education, treatment and training to promote independence in ADL's, mobility, safety and/or upper extremity function for ADL's. Plan of Care: ADL Retraining, Functional Mobility, UE Funct Exercise/Act Treatment Duration: Jan 06, 2020 Frequency: At least 5 of 7 days/Wk (IRF) Estimated Hrs Per Day: 1.5 hours per day Agreement: Yes Rehab Potential: Good Time/GCodes Start Time: 13:45 Stop Time: 14:00 Total Time Billed (hr/min): 15 Billed Treatment Time 1 visit-EX 1 (15 min) MAURA MORENO Jan 01, 2020 11:57
--- NOTE | 2020-01-01 12:44 | Speech Therapy Daily Note ---
Speech Daily Progress Note Subjective Date Seen by Provider: Jan 01, 2020 Time Seen by Provider: 00:30 Patient was sitting up eating her lunch when I entered her room. Objective Patient completed a series of safety awareness questions with 80% accuracy given minimal cues. Assessment Assessment Current Status: Fair Progress Treatment Plan Continue Plan of Care Speech Short Term Goals Short Term Goals Short Term Goals 1) Patient will complete memory tasks related to her daily needs at 90% or greater. 2) Patient will complete safety awareness tasks related to her daily needs at 90% or greater. 3) Patient will complete problem solving tasks related to her daily needs at 90% or greater. Speech Fci Goals Circus Trainer Goals Patient will improve cognitive-communication necessary for safety and daily living tasks with minimal assist. Speech-Plan Treatment Plan Speech Therapy Treatment Plan: Continue Plan of Care Treatment Duration: Dec 25, 2019 Frequency: 5 times per week Estimated Hrs Per Day: Other Rehab Potential: Good Barriers to Learning: Patient's decreased cognition Pt/Family Agrees to Plan: Yes Safety Risks/Education Teaching Recipient: Patient Teaching Methods: Demonstration, Discussion Response to Teaching: Verbalize Understanding, Return Demonstration Education Topics Provided: Continued safety Time Speech Therapy Time In: 12:30 Speech Therapy Time Out: 13:00 Total Billed Time: 30 Billed Treatment Time 1, CRISTINE Mercedes Jan 01, 2020 12:44
--- NOTE | 2020-01-01 12:50 | Occupational Ther Daily Note ---
OT Current Status-Daily Note Subjective Pt alert, sitting in recliner. Pt c/o pain in neck, did not rate. Applied moist heat with shower then ointment for pain. Pt agrees to therapy. QC's gathered this date. Mental Status/Objective Patient Orientation: Person, Place, Time, Situation Attachments: IV (midline) ADL-Treatment Pt agrees to shower. Pt used FWW to gather clothing, verbal instructions to place clothing on FWW for transportation. Pt ambulated to toilet using FWW. Mod I for toilet transfer using FWW and grabbars. Mod I using BSC and grabbars for hygiene and clothing manipulation. Pt transferred into shower using shower bench, grabbars and FWW. Completed shower using shower bench, grabbars and hand held shower (mod I). Pt completed dressing by self. Doffed socks with dressing stick, donned socks without equipment. Pt stood at sink to complete oral care. Shampoo bottle was beside tube of toothpaste, pt used shampoo by accident and was able to fix mix up. After session, pt sitting in recliner with call [facility] t/phone in reach. All needs met in room. Therapy Code Descriptions/Definitions Functional [place] Measure: 0=Not Assessed/NA 4=Minimal Assistance 1=Total Assistance 5=Supervision or Setup 2=Maximal Assistance 6=Modified [place] 3=Moderate Assistance 7=Complete IndependenceSCALE: Activities may be completed with or without assistive devices. 4-Xmovplckve-gvfwdws completes the activity by him/herself with no assistance from a helper. 5-Set-up or Clean-up Assistance-helper sets up or cleans up; patient completes activity. [place] assists only prior to or following the activity. 4-Supervision or Touching Assistance-helper provides verbal cues and/or touching/steadying and/or contact guard assistance as patient completes activity. Assistance may be provided throughout the activity or intermittently. 3-Partial/Moderate Assistance-helper does LESS THAN HALF the effort. [place] lifts, holds or supports trunk or limbs, but provides less than half the effort. 2-Substantial/Maximal Assistance-helper does MORE THAN HALF the effort. [place] lifts or holds trunk or limbs and provides more than half the effort. 5-Ytwzanpsb-idutxy does ALL the effort. Patient does none of the effort to complete the activity. Or, the assistance of 2 or more helpers is required for the patient to complete the activity. If activity was not attempted, code reason: 7-Patient Refused. 9-Not Applicable-not attempted and the patient did not perform the activity before the current illness, exacerbation or injury. 10-Not Attempted due to Environmental Limitations-(lack of equipment, weather restraints, etc.). 88-Not Attempted due to Medical Conditions or Safety Concerns. Eating (QC): 6 (Using clinical judgement, pt demonstrates ability to complete by self.) Oral Hygiene (QC): 6 Shower/Bathe Self (QC): 6 Upper Body Dressing (QC): 6 Lower Body Dressing (QC): 6 On/Off Footwear: 6 Toileting Hygiene (QC): 6 Toilet Transfer (QC): 6 OT Short Term Goals Short Term Goals Time Frame: Dec 30, 2019 Eatin Oral hygiene: 4 Toileting hygiene: 3 Shower/bathe self: 3 Upper body dressin Lower body dressin Putting on/taking off footwear: 3 OT Skilled Nursing Goals Medical Registrar Goals Time Frame: Jan 06, 2020 Eating (QC): 6 Oral Hygiene (QC): 6 Toileting Hygiene (QC): 6 Shower/Bathe Self (QC): 4 Upper Body Dressing (QC): 5 Lower Body Dressing (QC): 5 On/Off Footwear (QC): 5 Additional Goals: 1-Demonstrate ADL Tasks, 2-Verbalize Understanding, 3- ImproveStrength/Lukas 1=Demonstrate adherence to instructed precautions during ADL tasks. 2=Patient will verbalize/demonstrate understanding of assistive devices/modifications for ADL. 3=Patient will improve strength/tolerance for activity to enable patient to perform ADL's. OT Education/Plan Problem List/Assessment Assessment: Decreased Activ Tolerance, Impaired Self-Care Skills Discharge Recommendations Plan/Recommendations: Continue POC Treatment Plan/Plan of Care Patient would benefit from OT for education, treatment and training to promote independence in ADL's, mobility, safety and/or upper extremity function for ADL's. Plan of Care: ADL Retraining, Functional Mobility, UE Funct Exercise/Act Treatment Duration: Jan 06, 2020 Frequency: At least 5 of 7 days/Wk (IRF) Estimated Hrs Per Day: 1.5 hours per day Agreement: Yes Rehab Potential: Good Time/GCodes Start Time: 11:00 Stop Time: 12:00 Total Time Billed (hr/min): 60 Billed Treatment Time 1 visit-ADL 4 (60 min) MAURA MORENO Jan 01, 2020 12:50
--- NOTE | 2020-01-01 14:23 | Progress Note ---
FABRICIO CAPONE MED STUDENT 01/01/20 1423: Progress Note Review of therapy notes 84 F presents with severe low back pain. pt progress has been reported as slow and steady, pt is motivated. pt has received multiple blood transfusions. pt has been consistently complaining of vision problems, described as water on the [place]. pt has history of anemia, atrial fibrillation, delirium, cri. pt has history of mitral valve and aortic valve replacement. testing has indicated mitral stenosis and aortic stenosis. pt became delirious and hyponatremic after hydrochlorothiazide administration. subsequent hydrochlorothiazide allergy has been diagnosed. pt plans to live with brother and sister in law in [place], upon discharge. Previous level of function pt previously lived on her own pt able to walk around home on her own pt bowel and bladder function were normal, did not need help to restroom. pt ate on her own Goals pt stated that she would like to be able to take care of her body again. pt stated that she would like know the cause of the pain and subsequent symptoms. NIGHAT JOHNSTON DO 01/01/202049: Supervisory-Addendum Brief Verification & Attestation Participated in pt care: history, MDM, physical Personally performed: exam, history, MDM, supervision of care Care discussed with: Medical Student Procedures: n/a Results interpretation: Verified all documentation Verification and Attestation of Medical Student E/M Service A medical student performed and documented this service in my presence. I reviewed and verified all information documented by the medical student and made modifications to such information, when appropriate. I personally performed the physical exam and medical decision making. Nighat Johnston, Jan 01, 2020,20:50 FABRICIO CAPONE MED STUDENT Jan 01, 2020 14:23 NIGHAT JOHNSTON DO Jan 01, 2020 20:50
--- NOTE | 2020-01-01 15:04 | NUR ---
"RD ASSESSMENT PMHx: afib; hypercholesterolemia; HTN; dementia; renal failure PT INTERACTION: Pt was awake and pleasant during nutrition follow-up. Pt states she has not been eating well since last assessment. Note avg PO intake 50-75% x3d, per chart review. Pt states no issues with nausea, vomiting, constipation, or diarrhea since last assessment. Note last BM was 8/, and pt currently on bowel regimen of colace BID; senna BID; and miralax BID, per chart review. ABNORMAL NUTRITION-RELATED LAB VALUES LOW: Na 132; Ca 8.0; Pro 5.3; alb 2.7 HIGH: K 5.4; BUN 33 Est. kcal needs: 1425 kcal | 25 kcal/kg Est. Pro needs: 57 g Pro | 1.0 g Pro/kg PES STATEMENT: Inadequate oral intake (NI-2.1) related to loss of appetite as evidenced by pt interview | avg PO intake 50-75% x3d INTERVENTION: Continue with current diet order of Regular diet. Pt may benefit from nutrition supplementation if PO intake declines. Will continue to follow and reassess as pt needs, intake, and status change. MONITOR/EVALUATE: PO Intake; Plan of Care; Hydration Status; Weight Status; Lab Values Shantelle Flores, MS, RD, LD"
--- NOTE | 2020-01-01 15:46 | Physical Therapy Daily Note ---
PT Daily Note-Current Subjective Agrees to PT. No complaints Transfers SCALE: Activities may be completed with or without assistive devices. 2-Rhqknxaqia-obtanpu completes the activity by him/herself with no assistance from a helper. 5-Set-up or Clean-up Assistance-helper sets up or cleans up; patient completes activity. [place] assists only prior to or following the activity. 4-Supervision or Touching Assistance-helper provides verbal cues and/or touching/steadying and/or contact guard assistance as patient completes activity. Assistance may be provided throughout the activity or intermittently. 3-Partial/Moderate Assistance-helper does LESS THAN HALF the effort. [place] lifts, holds or supports trunk or limbs, but provides less than half the effort. 2-Substantial/Maximal Assistance-helper does MORE THAN HALF the effort. [place] lifts or holds trunk or limbs and provides more than half the effort. 2-Dwkimcgka-vvbsrv does ALL the effort. Patient does none of the effort to complete the activity. Or, the assistance of 2 or more helpers is required for the patient to complete the activity. If activity was not attempted, code reason: 7-Patient Refused. 9-Not Applicable-not attempted and the patient did not perform the activity before the current illness, exacerbation or injury. 10-Not Attempted due to Environmental Limitations-(lack of equipment, weather restraints, etc.). 88-Not Attempted due to Medical Conditions or Safety Concerns. Weight Bearing Right Lower Extremity: Right Weight Bearing/Tolerated Left Lower Extremity: Left Weight Bearing/Tolerated Treatments Functional gait training with FWW with SBA with intermittent cues for safety and sequencing. Gait 150 ft x 3 reps. Pt in bed post treatment with bed alarm set with needs met. Assessment Current Status: Good Progress Functional safety improving. PT Short Term Goals Short Term Goals Time Frame: Dec 30, 2019 Roll Left & Right: 6 Sit to lyin Lying to sitting on side of be: 6 Sit to stand: 6 PT Bible Worker Goals Bible Worker Goals PT Senior Living Goals Time Frame: Jan 06, 2020 Roll Left & Right (QC): 6 Sit to Lying (QC): 6 Lying-Sitting on Side/Bed(QC): 6 Sit to Stand (QC): 6 Chair/Msf-hk-Xqfdw Xfer(QC): 6 Toilet Transfer (QC): 6 Car Transfer (QC): 6 Does the Patient Walk: Yes Walk 10 feet (QC): 6 Walk 50ft with 2 Turns (QC): 6 Walk 150 ft (QC): 6 Walking 10ft on Uneven Surface: 6 1 Step (curb) (QC): 6 4 Steps (QC): 6 12 Steps (QC): 9 Picking up an Object (QC): 88 (Pt will utilize retail loan originator for back health) Does the Pt use WC or Scooter?: No Wheel 50 feet with 2 turns (QC: 9 Type: N/A Wheel 150 feet: 9 Type: N/A PT Plan Problem List Problem List: Activity Tolerance, Functional Strength, Safety Treatment/Plan Treatment Plan: Continue Plan of Care Treatment Plan: Bed Mobility, Education, Functional Activity Lukas, Functional Strength, Group Therapy, Gait, Safety, Therapeutic Exercise, Transfers Treatment Duration: Dec 30, 2019 Frequency: At least 5 of 7 days/Wk (IRF) Estimated Hrs Per Day: 1.5 hours per day Patient and/or Family Agrees t: Yes Safety Risks/Education Patient Education: Safety Issues Teaching Recipient: Patient Teaching Methods: Discussion Response to Teaching: Verbalize Understanding Time/GCodes Time In: 1300 Time Out: 1324 Total Billed Treatment Time: 24 Total Billed Treatment visit GT 24 MAURA ROSS PT Jan 01, 2020 15:46
--- NOTE | 2020-01-01 16:29 | Progress Note - Cardiology ---
Cardiology SOAP Progress Note Subjective: Feels a little better than yesterday Less weak No cp or palp or syncope or shortness of breath No n/v/d Objective: I&O/Vital Signs 01/01/20 01/01/20 06:37 09:00 Temp 36.4 Pulse 60 Resp 16 B/P (MAP) 124/54 (77) Pulse Ox 95 O2 Delivery Room Air Room Air 01/01/20 00:00 Intake Total 1590 ml Balance 1590 ml Constitutional: AAO x 3; No well-developed, No well-nourished; other (poor memory) Respiratory: accessory muscle use, other (good bilat air entry) Cardiovascular: regular rate-rhythm, S1 and S2, systolic murmur (3/6 MSM over entire precordium, more prominent at the cardiac base) Gastrointestional: No tender; soft; No guarding, No rebound; audible bowel sounds Extremities: No clubbing, No cyanosis, No significant edema Neurologic/Psychiatric: oriented x 3, other (moves all limbs equally) Skin: No rash on exposed areas, No ulcerations on exposed areas Results/Procedures: Labs Laboratory Tests 01/01/20 05:40: White Blood Count 10.2, Red Blood Count 3.07L, Hemoglobin 8.1L, Hematocrit 26L, Mean Corpuscular Volume 84, Mean Corpuscular Hemoglobin 26, Mean Corpuscular Hemoglobin Concent 32, Red Cell Distribution Width 17.9H, Platelet Count 186, Mean Platelet Volume 10.1, Neutrophils (%) (Auto) 89H, Lymphocytes (%) (Auto) 6L , Monocytes (%) (Auto) 5, Eosinophils (%) (Auto) 1, Basophils (%) (Auto) 0, Neutrophils # (Auto) 9.0H, Lymphocytes # (Auto) 0.6L, Monocytes # (Auto) 0.5, Eosinophils # (Auto) 0.1, Basophils # (Auto) 0.0, Neutrophils % (Manual) 84, Lymphocytes % (Manual) 6, Monocytes % (Manual) 5, Eosinophils % (Manual) 1, Basophils % (Manual) 0, Band Neutrophils 4, Anisocytosis SLIGHT, Elliptocytes SLIGHT, Sodium Level 132L, Potassium Level 5.4H, Chloride Level 105, Carbon Dioxide Level 19L, Anion Gap 8, Blood Urea Nitrogen 33H, Creatinine 1.14, Estimat Glomerular Filtration Rate 46, BUN/Creatinine Ratio 29, Glucose Level 86, Calcium Level 8.0L, Corrected Calcium 9.0, Total Bilirubin 0.5, Aspartate Amino Transf (AST/SGOT) 28, Alanine Aminotransferase (ALT/SGPT) 29, Alkaline Ph osphatase 73, Total Protein 5.3L, Albumin 2.7L Laboratory Tests 12/30/19 18:27 12/31/19 06:05 01/01/20 05:40 A/P: Assessment: Relatively hypotensive recently, resolved after d/c bp meds Anemia of undetermined etiology. Management is with Dr Johnston Valvular heart disease. 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 LANIE appears to have resolved Transaminase elevation of undetermined etiology, managed by Dr Johnston Plan: * Continue current regimen (all bp meds, including STEPHEN-inhib and diuretics, stopped) * Continue to monitor labs because K mildly elevated (Cr improved) FRANTZ DAMON MD FACP [facility] Jan 01, 2020 16:29
[2020-01-01 18:00] VITALS: BP 141/58
[2020-01-01] MEDS: warFARin 2 MG (COUMADIN) TAB PO SCH (20:12)
[2020-01-01] MEDS: SIMvastatin 20 MG (ZOCOR) TAB PO SCH (20:12)
[2020-01-01] MEDS: DOCUSATE SODIUM 100 MG (COLACE) CAP PO SCH (20:30)
[2020-01-02] MEDS: HYDROcodone/APAP 5 MG/325 MG (LORTAB) TAB PO PRN ×3 (04:27→20:58)
[2020-01-02 05:10] VITALS: BP 127/56
[2020-01-02 06:01] LABS: BASOPHILS % (AUTO) 0 % (0-10); EOSINOPHILS % (AUTO) 0 % (0-10); HEMATOCRIT 24 % (35-52); HEMOGLOBIN 7.7 G/DL (11.5-16.0); LYMPHOCYTES # (AUTO) 0.4 X 10^3 (1.0-4.0); LYMPHOCYTES % (AUTO) 4 % (12-44); MEAN CORPUSCULAR HEMOGLOBIN 27 PG (25-34); MEAN CORPUSCULAR HGB CONC 33 G/DL (32-36); MEAN CORPUSCULAR VOLUME 83 FL (80-99); MEAN PLATELET VOLUME 10.2 FL (7.4-10.4); MONOCYTES # (AUTO) 0.4 X 10^3 (0.0-1.0); MONOCYTES % (AUTO) 4 % (0-12); NEUTROPHILS # (AUTO) 9.9 X 10^3 (1.8-7.8); NEUTROPHILS % (AUTO) 92 % (42-75); PLATELET COUNT 174 10^3/uL (130-400); RED CELL DISTRIBUTION WIDTH 17.4 % (10.0-14.5); WHITE BLOOD COUNT 10.8 10^3/uL (4.3-11.0)
[2020-01-02 06:11] LABS: CALCIUM 7.8 MG/DL (8.5-10.1); CREATININE SERUM 1.14 MG/DL (0.60-1.30); MAGNESIUM 1.8 MG/DL (1.6-2.4); POTASSIUM 4.8 MMOL/L (3.6-5.0)
[2020-01-02] MEDS: CATHETER FLUSH 10 ML SYR IV SCH ×3 (06:12→22:36)
[2020-01-02 06:21] LABS: INR 2.6 (0.8-1.4); PROTHROMBIN TIME PATIENT 28.2 SEC (12.2-14.7)
--- NOTE | 2020-01-02 08:51 | PM&R Progress Note ---
Subjective HPI/CC On Admission Date Seen by Provider: Jan 02, 2020 Time Seen by Provider: 09:30 Subjective/Events-last exam 01/02/20: INR is 2.6 Talked to her again about Endoscopy Neck pain continues which is becoming chronic Iron infusions continues Bowels are moving no apparent blood loss Declines EGD and Colonoscopy again Loose stools x 3 yesterday Creatinine 1.14 Hgb 8.1 HLIVF today Pain improved Very complex case Checked meds and labs Reviewed therapy notes Conferred with pickle water pump operator of Systems General: Fatigue, Malaise Neurological: Weakness Focused Exam Lactate Level Objective Exam Vital Signs Vital Signs Date Time Temp Pulse Resp B/P (MAP) Pulse Ox O2 Delivery O2 Flow Rate FiO2 01/02/20 17:58 36.8 60 16 106/71 97 Room Air Capillary Refill : Less Than 3 Seconds General Appearance: No Apparent Distress, WD/WN, Chronically ill, Thin HEENT: PERRL/EOMI, Normal ENT Inspection, Pharynx Normal Neck: Full Range of Motion, Normal Inspection, Non Tender, Supple, Carotid Bruit Respiratory: Chest Non Tender, Lungs Clear, Normal Breath Sounds, No Accessory Muscle Use, No Respiratory Distress Cardiovascular: No Edema, No Gallop, No JVD, Normal Peripheral Pulses, Diastolic Murmur, Systolic Murmur, Irregularly Irregular Gastrointestinal: Normal Bowel Sounds, No Organomegaly, No Pulsatile Mass, Non Tender, Soft Back: Normal Inspection, CVA Tenderness (L), CVA Tenderness (R), Decreased Rang e of Motion, Muscle Spasm, Vertebral Tenderness Extremity: Normal Capillary Refill, Normal Inspection, Normal Range of Motion, Non Tender, No Calf Tenderness, No Pedal Edema Neurologic/Psychiatric: Alert, Oriented x3, No Motor/Sensory Deficits (except for weakness in legs from severe back pain), Normal Mood/Affect, healthcare insurance sales agent II-XII Norm as Tested, Abnormal Gait, Disoriented (subtle poor recall) Skin: Normal Color, Warm/Dry Lymphatic: No Adenopathy Results/Procedures Lab Laboratory Tests 01/02/20 05:43 Patient resulted labs reviewed. FIM Transfers Therapy Code Descriptions/Definitions Functional [place] Measure: 0=Not Assessed/NA 4=Minimal Assistance 1=Total Assistance 5=Supervision or Setup 2=Maximal Assistance 6=Modified [place] 3=Moderate Assistance 7=Complete IndependenceSCALE: Activities may be completed with or without assistive devices. 9-Muvhpzapsn-ptryhhh completes the activity by him/herself with no assistance from a helper. 5-Set-up or Clean-up Assistance-helper sets up or cleans up; patient completes activity. [place] assists only prior to or following the activity. 4-Supervision or Touching Assistance-helper provides verbal cues and/or touching/steadying and/or contact guard assistance as patient completes activi ty. Assistance may be provided throughout the activity or intermittently. 3-Partial/Moderate Assistance-helper does LESS THAN HALF the effort. [place] lifts, holds or supports trunk or limbs, but provides less than half the effort. 2-Substantial/Maximal Assistance-helper does MORE THAN HALF the effort. [place] lifts or holds trunk or limbs and provides more than half the effort. 2-Xuahxhaij-enwtkm does ALL the effort. Patient does none of the effort to complete the activity. Or, the assistance of 2 or more helpers is required for the patient to complete the activity. If activity was not attempted, code reason: 7-Patient Refused. 9-Not Applicable-not attempted and the patient did not perform the activity before the current illness, exacerbation or injury. 10-Not Attempted due to Environmental Limitations-(lack of equipment, weather restraints, etc.). 88-Not Attempted due to Medical Conditions or Safety Concerns. Roll Left to Right (QC): 5 Sit to Lying (QC): 5 Sit to Stand (QC): 4 (SBA with intermittent cues for hand placement and sequencing. ) Chair/Xdb-fm-Wujde Xfer(QC): 4 Car Transfer (QC): 4 Gait Training Does the Patient Walk?: Yes Distance: 150' Walk 10 feet (QC): 4 Walk 50 ft with 2 Turns(QC): 4 Walk 150 ft (QC): 4 Walking 10ft/uneven surface-QC: 4 Gait Persons Needed: 1 Gait Assistive Device: FWW Wheelchair Training Does the Pt Use a Wheelchair?: No Distance: SEE PT NOTES Wheel 50 ft with 2 turns (QC): 9 Wheel 150 ft (QC): 9 Type of Wheelchair: N/A Stair Training Stair Training: Handrails/: 1 handrail #of Steps: 4 1 Step (curb) (QC): 3 4 Steps (QC): 4 (SBA with step to gait pattern; used 1 handrail) 12 Steps (QC): 88 Stairs: Pattern: Step to Balance Picking up an Object (QC): 88 ADL-Treatment Eating (QC): 6 (Using clinical judgement, pt demonstrates ability to complete by self.) Oral Hygiene (QC): 6 Bathing Location: L Arm, R Arm, L Upper Leg, R Upper Leg, Chest, Abdomen, Buttocks, Perineal Area Shower/Bathe Self (QC): 6 Upper Body Dressing (QC): 6 Lower Body Dressing (QC): 6 On/Off Footwear (QC): 6 Toileting Hygiene (QC): 6 Toilet Transfer (QC): 6 Assessment/Plan Assessment and Plan Assess & Plan/Chief Complaint Assessment: Severe back pain with severe spondylosis AF Coumadin treatment CRI Confusion Delirium Pacemaker Plan: 12/22/19 IRF protocol Check labs in am Fall risk Bed alarm Dr Awad consultation 12/23/19: INR good Start low dose Hydrocodone Monitor LFT's BP monitoring BM regimen since 6 days since BM 12/24/19: BM large so severe constipation of 6 days resolved Pain meds minimal dosing to prevent delirium Iron level and hgb 8.4 will require midline placement due to poor vascular access and start IV iron Monitor orthostatic BP readings 12/25/19: Transfuse 1 unit of blood Iron infusions Dr Martines consult INR monitoring Complex case 12/26/19: Appreciate Dr. Martines but she declines endoscopy Maintain Coumadin Blood pressure management per cardiology Stop Florinef Monitor Hemiglobin 12/27/19: Appreciate cardiology management of elevated low blood pressure Monitor INR periodically last was 2.8 Bowels are moving well 12/28/19: Hemiglobin much improved at 9.6 Doing much better Very lucid today INR 2.0 12/29/19: Monitor Orthostasis Voltaren gel Multiple blood pressure medications changed by Cardiology Back pain management 12/30/19: More lucid and delirium is clearing Back pain management Orthostasis management 12/31/19: Monitor hyponatremia Continue NS at 50cc/hr Check labs in am List HCTZ as allergy due to severe and rapid hyponatremia Monitor loose stools 01/01/20: Had 3 loose stools yesterday x3 Creatinine 1.14 so will He[place] IV fluid Hemoglobin 8.1 and that is dilutional Overall improved 01/02/20: Continue Iron Infusions Patient really needs Endoscopy but she declines Will likely need to get some sort of follow up arranged because she really needs to have the scopes Disposition home with brother tomorrow (1) Lumbar spondylosis (2) Atrial fibrillation with normal ventricular rate (3) Aortic valve replaced (4) Mitral valve replaced (5) Confusion (6) Pacemaker (7) Warfarin anticoagulation (8) Renal insufficiency (9) Hypertension (10) Constipation (11) Delirium (12) Advanced age MOOSE HERNANDEZ DO Jan 02, 2020 08:50
--- NOTE | 2020-01-02 09:23 | Physical Therapy Daily Note ---
PT Daily Note-Current Subjective Agrees to PT. Pt still in bed with breakfast in front of her. Reports difficulty eating and no appetite. Mental Status Patient Orientation: Person, Place, Time, Situation Transfers SCALE: Activities may be completed with or without assistive devices. 2-Xbjfddporq-wwogimd completes the activity by him/herself with no assistance from a helper. 5-Set-up or Clean-up Assistance-helper sets up or cleans up; patient completes activity. [place] assists only prior to or following the activity. 4-Supervision or Touching Assistance-helper provides verbal cues and/or touching/steadying and/or contact guard assistance as patient completes activity. Assistance may be provided throughout the activity or intermittently. 3-Partial/Moderate Assistance-helper does LESS THAN HALF the effort. [place] lifts, holds or supports trunk or limbs, but provides less than half the effort. 2-Substantial/Maximal Assistance-helper does MORE THAN HALF the effort. [place] lifts or holds trunk or limbs and provides more than half the effort. 6-Xvgqtaddq-ybvmyh does ALL the effort. Patient does none of the effort to complete the activity. Or, the assistance of 2 or more helpers is required for the patient to complete the activity. If activity was not attempted, code reason: 7-Patient Refused. 9-Not Applicable-not attempted and the patient did not perform the activity before the current illness, exacerbation or injury. 10-Not Attempted due to Environmental Limitations-(lack of equipment, weather restraints, etc.). 88-Not Attempted due to Medical Conditions or Safety Concerns. Roll Left & Right (QC): 6 Sit to Lying (QC): 6 Lying to Sitting/Side of Bed(Q: 6 Sit to Stand (QC): 6 Chair/Dgk-ey-Xuukn Xfer(QC): 6 Toilet Transfer (QC): 6 Car Transfer (QC): 5 (intermittent cues) Pt is indep with all functional transfers. Takes extra time to complete. Weight Bearing Right Lower Extremity: Right Weight Bearing/Tolerated Left Lower Extremity: Left Weight Bearing/Tolerated Gait Training Walk 10 feet (QC): 6 Walk 50 ft with 2 Turns(QC): 6 Walk 150 ft (QC): 6 Walking 10ft/uneven surface-QC: 6 Gait Assistive Device: FWW gait is slow. Decreased step length. Safe and steady Wheelchair Training Does the Pt Use a Wheelchair?: No Stair Training 1 Step (curb) (QC): 6 4 Steps (QC): 6 12 Steps (QC): 4 (due to fatigue with increased number of steps) Stairs: Pattern: Step to Balance Picking up an Object (QC): 3 Treatments functional gait; balance with uneven surface and curb step/stairs. Assessment Current Status: Excellent Progress Pt is making functional gains. Safe with gait and transfers. Strength has progressed. Pt plans to discharge tomorrow with brother. Feel this is safe from a PT standpoint and recommned [facility] PT to follow. PT Short Term Goals Short Term Goals Time Frame: Dec 30, 2019 Roll Left & Right: 6 Sit to lyin Lying to sitting on side of be: 6 Sit to stand: 6 PT Director Of Sustainability Programs Goals Senior Living Goals PT Senior Living Goals Time Frame: Jan 06, 2020 Roll Left & Right (QC): 6 (met) Sit to Lying (QC): 6 (met) Lying-Sitting on Side/Bed(QC): 6 (met) Sit to Stand (QC): 6 (met) Chair/Uqf-ho-Svmzv Xfer(QC): 6 (met) Toilet Transfer (QC): 6 (met) Car Transfer (QC): 6 (scored 5) Does the Patient Walk: Yes Walk 10 feet (QC): 6 (met) Walk 50ft with 2 Turns (QC): 6 (met) Walk 150 ft (QC): 6 (met) Walking 10ft on Uneven Surface: 6 (met) 1 Step (curb) (QC): 6 (met) 4 Steps (QC): 6 (met) 12 Steps (QC): 9 Picking up an Object (QC): 88 (Pt will utilize apartment rental agent for back health) Does the Pt use WC or Scooter?: No Wheel 50 feet with 2 turns (QC: 9 Type: N/A Wheel 150 feet: 9 Type: N/A PT Plan Problem List Problem List: Activity Tolerance, Safety Treatment/Plan Treatment Plan: Continue Plan of Care Treatment Plan: Bed Mobility, Education, Functional Activity Lukas, Functional Strength, Group Therapy, Gait, Safety, Therapeutic Exercise, Transfers Treatment Duration: Dec 30, 2019 Frequency: At least 5 of 7 days/Wk (IRF) Estimated Hrs Per Day: 1.5 hours per day Patient and/or Family Agrees t: Yes Safety Risks/Education Patient Education: Safety Issues Teaching Recipient: Patient Teaching Methods: Discussion Response to Teaching: Verbalize Understanding Discharge Recommendations Therapy Discharge Recommendati: Post Acute PT (C PT) Time/GCodes Time In: 815 Time Out: 900 Total Billed Treatment Time: 45 Total Billed Treatment visit GT 30 NM 15 MAURA ROSS PT Jan 02, 2020 09:23
[2020-01-02] MEDS: SENNA W/DOCUSATE (SENOKOT S) TABLET PO SCH ×2 (09:44→20:59)
[2020-01-02] MEDS: PANTOPRAZOLE 40 MG (PROTONIX) TAB PO SCH ×2 (09:44→20:58)
[2020-01-02] MEDS: LEVOTHYROXINE 75 MCG (LEVOTHROID) TABLET PO SCH (09:44)
[2020-01-02] MEDS: polyethylene glycoL POWDER 17 GM (MIRALAX) PACK PO SCH ×2 (09:44→20:59)
[2020-01-02] MEDS: IRON SUCROSE 200 MG/10 ML (VENOFER) VIAL IV SCH (09:44)
[2020-01-02] MEDS: ASPIRIN E.C. 81 MG (ECOTRIN) TAB PO SCH (09:44)
[2020-01-02] MEDS: DICLOFENAC 1% GEL 100 GM (VOLTAREN) TUBE TOP SCH ×5 (09:45→21:30)
--- NOTE | 2020-01-02 10:40 | Occupational Ther Daily Note ---
OT Current Status-Daily Note Subjective Pt alert, finishing up with PT. Pt agrees to therapy. Pt c/o neck pain, nrsg aware and ointment applied. Mental Status/Objective Patient Orientation: Person, Place, Time, Situation Attachments: IV ADL-Treatment Pt declines shower. Pt requires increased time to process steps of tasks. Pt ambulated to sink and complete oral care and washing face, mod I. Pt able to use dressing stick to doff socks and sock aide to don socks. Therapy Code Descriptions/Definitions Functional [place] Measure: 0=Not Assessed/NA 4=Minimal Assistance 1=Total Assistance 5=Supervision or Setup 2=Maximal Assistance 6=Modified [place] 3=Moderate Assistance 7=Complete IndependenceSCALE: Activities may be completed with or without assistive devices. 5-Qpvsngfuae-knwjjop completes the activity by him/herself with no assistance from a helper. 5-Set-up or Clean-up Assistance-helper sets up or cleans up; patient completes activity. [place] assists only prior to or following the activity. 4-Supervision or Touching Assistance-helper provides verbal cues and/or touching/steadying and/or contact guard assistance as patient completes activity. Assistance may be provided throughout the activity or intermittently. 3-Partial/Moderate Assistance-helper does LESS THAN HALF the effort. [place] lifts, holds or supports trunk or limbs, but provides less than half the effort. 2-Substantial/Maximal Assistance-helper does MORE THAN HALF the effort. [place] lifts or holds trunk or limbs and provides more than half the effort. 7-Rikomlxuy-grgoiy does ALL the effort. Patient does none of the effort to complete the activity. Or, the assistance of 2 or more helpers is required for the patient to complete the activity. If activity was not attempted, code reason: 7-Patient Refused. 9-Not Applicable-not attempted and the patient did not perform the activity before the current illness, exacerbation or injury. 10-Not Attempted due to Environmental Limitations-(lack of equipment, weather restraints, etc.). 88-Not Attempted due to Medical Conditions or Safety Concerns. Oral Hygiene (QC): 6 On/Off Footwear: 6 Other Treatment Pt ambulated to therapy gym using FWW. Completed arm bike with multiple breaks to increase strength and activity tolerance for daily functional tasks. Minimal resistance for 20 min. After session, pt left in care of BODY ARTIST. All needs met in room. Safety measures in place. OT Short Term Goals Short Term Goals Time Frame: Dec 30, 2019 Eatin Oral hygiene: 4 Toileting hygiene: 3 Shower/bathe self: 3 Upper body dressin Lower body dressin Putting on/taking off footwear: 3 OT Training And Development Project Leader Goals Training And Development Project Leader Goals Time Frame: Jan 06, 2020 Eating (QC): 6 Oral Hygiene (QC): 6 Toileting Hygiene (QC): 6 Shower/Bathe Self (QC): 4 Upper Body Dressing (QC): 5 Lower Body Dressing (QC): 5 On/Off Footwear (QC): 5 Additional Goals: 1-Demonstrate ADL Tasks, 2-Verbalize Understanding, 3- ImproveStrength/Lukas 1=Demonstrate adherence to instructed precautions during ADL tasks. 2=Patient will verbalize/demonstrate understanding of assistive devices/modifications for ADL. 3=Patient will improve strength/tolerance for activity to enable patient to perform ADL's. OT Education/Plan Problem List/Assessment Assessment: Decreased Activ Tolerance, Decreased UE Strength, Impaired Self- Care Skills Discharge Recommendations Plan/Recommendations: Continue POC Treatment Plan/Plan of Care Patient would benefit from OT for education, treatment and training to promote independence in ADL's, mobility, safety and/or upper extremity function for ADL's. Plan of Care: ADL Retraining, Functional Mobility, UE Funct Exercise/Act Treatment Duration: Jan 06, 2020 Frequency: At least 5 of 7 days/Wk (IRF) Estimated Hrs Per Day: 1.5 hours per day Agreement: Yes Rehab Potential: Good Time/GCodes Start Time: 09:00 Stop Time: 10:00 Total Time Billed (hr/min): 60 Billed Treatment Time 1 visit-ADL 3 (40 min) EX 1 (20 min) MAURA MORENO Jan 02, 2020 10:40
--- NOTE | 2020-01-02 10:41 | Speech Therapy Daily Note ---
Speech Daily Progress Note Subjective Date Seen by Provider: Jan 02, 2020 Time Seen by Provider: 00:30 Patient was resting in her recliner following her OT session. Patient was c/o pain at 9 which nursing gave her a pain pill. Objective Patient completed memory tasks for a series of 3 presented words at 90% given 10% cues and/or repetitions. Assessment Assessment Current Status: Good Progress Treatment Plan Continue Plan of Care Speech Short Term Goals Short Term Goals Short Term Goals 1) Patient will complete memory tasks related to her daily needs at 90% or greater. 2) Patient will complete safety awareness tasks related to her daily needs at 90% or greater. 3) Patient will complete problem solving tasks related to her daily needs at 90% or greater. Speech Motor And Controls Tester Goals Motor And Controls Tester Goals Patient will improve cognitive-communication necessary for safety and daily living tasks with minimal assist. Speech-Plan Patient/Family Goals Patient/Family Goals: Patient plans on temporarily living with her brother and sister in law for assistance with her daily needs. Treatment Plan Speech Therapy Treatment Plan: Continue Plan of Care Treatment Duration: Dec 25, 2019 Frequency: 5 times per week Estimated Hrs Per Day: Other Rehab Potential: Good Barriers to Learning: Patient's decreased cognitive function Pt/Family Agrees to Plan: Yes Safety Risks/Education Teaching Recipient: Patient Teaching Methods: Demonstration, Discussion Response to Teaching: Verbalize Understanding, Return Demonstration Education Topics Provided: Continued safety within her room Time Speech Therapy Time In: 10:00 Speech Therapy Time Out: 10:30 Total Billed Time: 30 Billed Treatment Time 1MIKKI BETHANIA ST Jan 02, 2020 10:41
--- NOTE | 2020-01-02 12:21 | Progress Note - Cardiology ---
Cardiology SOAP Progress Note Subjective: Sitting up in recliner at the bedside eating lunch. States she feels much better today. Objective: I&O/Vital Signs 01/02/20 01/02/20 05:10 09:00 Temp 37.0 Pulse 63 Resp 18 B/P (MAP) 127/56 (79) Pulse Ox 96 O2 Delivery Room Air Room Air 01/02/20 00:00 Intake Total 1740 ml Balance 1740 ml Constitutional: AAO x 3; No well-developed, No well-nourished; other (poor memory) Respiratory: accessory muscle use, other (good bilat air entry) Cardiovascular: regular rate-rhythm, S1 and S2, systolic murmur (3/6 MSM over entire precordium, more prominent at the cardiac base) Gastrointestional: No tender; soft; No guarding, No rebound; audible bowel sounds Extremities: No clubbing, No cyanosis, No significant edema Neurologic/Psychiatric: oriented x 3, other (moves all limbs equally) Skin: No rash on exposed areas, No ulcerations on exposed areas Results/Procedures: Labs Laboratory Tests 01/02/20 05:42: Prothrombin Time 28.2H, INR Comment 2.6H 01/02/20 05:43: White Blood Count 10.8, Red Blood Count 2.85L, Hemoglobin 7.7L, Hematocrit 24L, Mean Corpuscular Volume 83, Mean Corpuscular Hemoglobin 27, Mean Corpuscular Hemoglobin Concent 33, Red Cell Distribution Width 17.4H, Platelet Count 174, Mean Platelet Volume 10.2, Neutrophils (%) (Auto) 92H, Lymphocytes (%) (Auto) 4L , Monocytes (%) (Auto) 4, Eosinophils (%) (Auto) 0, Basophils (%) (Auto) 0, Neutrophils # (Auto) 9.9H, Lymphocytes # (Auto) 0.4L, Monocytes # (Auto) 0.4, Eosinophils # (Auto) 0.0, Basophils # (Auto) 0.0, Sodium Level 132L, Potassium Level 4.8, Chloride Level 105, Carbon Dioxide Level 20L, Anion Gap 7, Blood Urea Nitrogen 31H, Creatinine 1.14, Estimat Glomerular Filtration Rate 46, BUN/Creatinine Ratio 27, Glucose Level 91, Calcium Level 7.8L, Magnesium Level 1.8 A/P: Assessment: Relatively hypotensive recently, resolved after d/c bp meds Anemia of undetermined etiology. Management is with Dr Johnston Valvular heart disease. 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 LANIE appears to have resolved Transaminase elevation of undetermined etiology, managed by Dr Johnston Plan: * Continue current regimen (all bp meds, including STEPHEN-inhib and diuretics, stopped) * Continue to monitor labs because K has been mildly elevated (Cr stable and potassium WNL) * Management of anemia per medical services * Rising INR - monitor closely and adjust warfarin as indicated LINCOLN MUÑOZ Jan 02, 2020 12:20
[2020-01-02] MEDS ORDERED: NS IV 500 ML 500 ML IV SCH (13:15)
--- NOTE | 2020-01-02 14:21 | Occupational Ther Daily Note ---
OT Current Status-Daily Note Subjective Pt alert, sitting in recliner. Pt agrees to therapy. No c/o pain at this time. Mental Status/Objective Patient Orientation: Person, Place, Time, Situation Attachments: IV (mid line) ADL-Treatment Pt ambulated to/from bathroom using FWW, mod I. Mod I for toilet transfer, clothing manipulation and hygiene. Pt ambulated to sink and washed hands, mod I. Pt then ambulated back to room using FWW. Mod I for EOB to supine. After therapy, pt lying in bed with call light/phone in reach. All needs met in room. Therapy Code Descriptions/Definitions Functional Kirk Measure: 0=Not Assessed/NA 4=Minimal Assistance 1=Total Assistance 5=Supervision or Setup 2=Maximal Assistance 6=Modified Kirk 3=Moderate Assistance 7=Complete IndependenceSCALE: Activities may be completed with or without assistive devices. 5-Tqfxxncdzk-qswjnww completes the activity by him/herself with no assistance from a helper. 5-Set-up or Clean-up Assistance-helper sets up or cleans up; patient completes activity. [place] assists only prior to or following the activity. 4-Supervision or Touching Assistance-helper provides verbal cues and/or touching/steadying and/or contact guard assistance as patient completes activity. Assistance may be provided throughout the activity or intermittently. 3-Partial/Moderate Assistance-helper does LESS THAN HALF the effort. [place] lifts, holds or supports trunk or limbs, but provides less than half the effort. 2-Substantial/Maximal Assistance-helper does MORE THAN HALF the effort. [place] lifts or holds trunk or limbs and provides more than half the effort. 2-Egcgyydmk-hademv does ALL the effort. Patient does none of the effort to complete the activity. Or, the assistance of 2 or more helpers is required for the patient to complete the activity. If activity was not attempted, code reason: 7-Patient Refused. 9-Not Applicable-not attempted and the patient did not perform the activity before the current illness, exacerbation or injury. 10-Not Attempted due to Environmental Limitations-(lack of equipment, weather restraints, etc.). 88-Not Attempted due to Medical Conditions or Safety Concerns. Toileting Hygiene (QC): 6 Toilet Transfer (QC): 6 OT Short Term Goals Short Term Goals Time Frame: Dec 30, 2019 Eatin Oral hygiene: 4 Toileting hygiene: 3 Shower/bathe self: 3 Upper body dressin Lower body dressin Putting on/taking off footwear: 3 OT Mcfp Goals Commercial Litigation Associate Goals Time Frame: Jan 06, 2020 Eating (QC): 6 Oral Hygiene (QC): 6 Toileting Hygiene (QC): 6 Shower/Bathe Self (QC): 4 Upper Body Dressing (QC): 5 Lower Body Dressing (QC): 5 On/Off Footwear (QC): 5 Additional Goals: 1-Demonstrate ADL Tasks, 2-Verbalize Understanding, 3- ImproveStrength/Lukas 1=Demonstrate adherence to instructed precautions during ADL tasks. 2=Patient will verbalize/demonstrate understanding of assistive devices/modifications for ADL. 3=Patient will improve strength/tolerance for activity to enable patient to perform ADL's. OT Education/Plan Problem List/Assessment Assessment: Impaired Self-Care Skills Discharge Recommendations Plan/Recommendations: Continue POC Treatment Plan/Plan of Care Patient would benefit from OT for education, treatment and training to promote independence in ADL's, mobility, safety and/or upper extremity function for ADL's. Plan of Care: ADL Retraining, Functional Mobility, UE Funct Exercise/Act Treatment Duration: Jan 06, 2020 Frequency: At least 5 of 7 days/Wk (IRF) Estimated Hrs Per Day: 1.5 hours per day Agreement: Yes Rehab Potential: Good Time/GCodes Start Time: 13:50 Stop Time: 14:05 Total Time Billed (hr/min): 15 Billed Treatment Time 1 visit-FA 1 (15 min) MAURA MORENO Jan 02, 2020 14:21
--- NOTE | 2020-01-02 14:25 | NUR ---
CM/SS DISCHARGE PLANNING, continued Patient target discharge is tomorrow, her brother and OBED will be coming from [place], [place] to pick her up and take her to their home for a time of continued recuperation. HHC: Referral initiated with [facility] in [place], just merged last week with the /[facility] HHC offered in the same city. Confirmed agency receipt of referral, will forward overall discharge information tomorrow. Upon discharge, summary clinical will be forwarded to PCP Dr. Bel Leyva who has agreed to follow [facility] orders and patient care plan post ARU discharge. DME: Therapy has recommended a hip kit, patient's brother/DPOA advised automobile and property underwriter to get this for her. It is a private pay item, automobile and property underwriter has reserved one at [facility], will follow up as appropriate. If patient does not have a charge card with her, will inquire of brother if he wishes to purchase on her behalf. Patient reportedly already has a FWW.
--- NOTE | 2020-01-02 14:59 | Physical Therapy Daily Note ---
PT Daily Note-Current Subjective Pt. in bed, agrees to therapy. She has no complaints, states she might be leaving tomorrow. Transfers SCALE: Activities may be completed with or without assistive devices. 9-Tkbmpctfok-fxkaqyt completes the activity by him/herself with no assistance from a helper. 5-Set-up or Clean-up Assistance-helper sets up or cleans up; patient completes activity. [place] assists only prior to or following the activity. 4-Supervision or Touching Assistance-helper provides verbal cues and/or touching/steadying and/or contact guard assistance as patient completes activity. Assistance may be provided throughout the activity or intermittently. 3-Partial/Moderate Assistance-helper does LESS THAN HALF the effort. [place] lifts, holds or supports trunk or limbs, but provides less than half the effort. 2-Substantial/Maximal Assistance-helper does MORE THAN HALF the effort. [place] lifts or holds trunk or limbs and provides more than half the effort. 5-Ploibcitt-winzqw does ALL the effort. Patient does none of the effort to complete the activity. Or, the assistance of 2 or more helpers is required for the patient to complete the activity. If activity was not attempted, code reason: 7-Patient Refused. 9-Not Applicable-not attempted and the patient did not perform the activity before the current illness, exacerbation or injury. 10-Not Attempted due to Environmental Limitations-(lack of equipment, weather restraints, etc.). 88-Not Attempted due to Medical Conditions or Safety Concerns. Roll Left & Right (QC): 6 Lying to Sitting/Side of Bed(Q: 4 Sit to Stand (QC): 4 Toilet Transfer (QC): 6 Weight Bearing Right Lower Extremity: Right Weight Bearing/Tolerated Left Lower Extremity: Left Weight Bearing/Tolerated Gait Training Does the Patient Walk?: Yes Distance: x 100 ft, x 200 ft Walk 10 feet (QC): 4 Walk 150 ft (QC): 4 Gait Persons Needed: 1 Gait Assistive Device: FWW occasional cuing to stay close to walker Exercises NuStep Minutes: 10 NuStep Workload: 5 Treatments gait, exercise Assessment Current Status: Good Progress Pt. is slow but steady with gait, did need cuing to stay close to walker. Pt. does well with Nustep and transfers. Pt. returned to bed post session, all light in reach and all needs met. PT Short Term Goals Short Term Goals Time Frame: Dec 30, 2019 Roll Left & Right: 6 Sit to lyin Lying to sitting on side of be: 6 Sit to stand: 6 PT Proof Reader Goals Correction Goals PT Correction Goals Time Frame: Jan 06, 2020 Roll Left & Right (QC): 6 (met) Sit to Lying (QC): 6 (met) Lying-Sitting on Side/Bed(QC): 6 (met) Sit to Stand (QC): 6 (met) Chair/Sgs-te-Dofzv Xfer(QC): 6 (met) Toilet Transfer (QC): 6 (met) Car Transfer (QC): 6 (scored 5) Does the Patient Walk: Yes Walk 10 feet (QC): 6 (met) Walk 50ft with 2 Turns (QC): 6 (met) Walk 150 ft (QC): 6 (met) Walking 10ft on Uneven Surface: 6 (met) 1 Step (curb) (QC): 6 (met) 4 Steps (QC): 6 (met) 12 Steps (QC): 9 Picking up an Object (QC): 88 (Pt will utilize urban planning teacher for back health) Does the Pt use WC or Scooter?: No Wheel 50 feet with 2 turns (QC: 9 Type: N/A Wheel 150 feet: 9 Type: N/A PT Plan Treatment/Plan Treatment Plan: Continue Plan of Care Treatment Plan: Bed Mobility, Education, Functional Activity Lukas, Functional Strength, Group Therapy, Gait, Safety, Therapeutic Exercise, Transfers Treatment Duration: Dec 30, 2019 Frequency: At least 5 of 7 days/Wk (IRF) Estimated Hrs Per Day: 1.5 hours per day Patient and/or Family Agrees t: Yes Time/GCodes Time In: 1420 Time Out: 1450 Total Billed Treatment Time: 30 Total Billed Treatment 1, FA 20', Ex 10' ARACELI MORAN PT Jan 02, 2020 14:59
[2020-01-02] MEDS ORDERED: NS IV 500 ML 500 ML ONE (15:05)
[2020-01-02 15:29] VITALS: BP 140/65
[2020-01-02 15:50] VITALS: BP 136/59
--- NOTE | 2020-01-02 16:27 | Progress Note - Cardiology ---
Cardiology SOAP Progress Note Subjective: Generalized weakness persists No cp or palp or syncope No focal weakness No n/v/d Poor appetite Objective: I&O/Vital Signs 01/02/20 01/02/20 01/02/20 01/02/20 05:10 09:00 15:29 15:50 Temp 37.0 36.4 36.4 Pulse 63 61 60 Resp 18 16 16 B/P (MAP) 127/56 (79) 140/65 136/59 Pulse Ox 96 99 96 O2 Delivery Room Air Room Air Room Air Room Air 01/02/20 00:00 Intake Total 1740 ml Balance 1740 ml Constitutional: AAO x 3; No well-developed, No well-nourished; other (poor memory) Respiratory: accessory muscle use, other (good bilat air entry) Cardiovascular: regular rate-rhythm, S1 and S2, systolic murmur (3/6 MSM over entire precordium, more prominent at the cardiac base) Gastrointestional: No tender; soft; No guarding, No rebound; audible bowel sounds Extremities: No clubbing, No cyanosis, No significant edema Neurologic/Psychiatric: oriented x 3, other (moves all limbs equally) Skin: No rash on exposed areas, No ulcerations on exposed areas Results/Procedures: Labs Laboratory Tests 01/02/20 05:42: Prothrombin Time 28.2H, INR Comment 2.6H 01/02/20 05:43: White Blood Count 10.8, Red Blood Count 2.85L, Hemoglobin 7.7L, Hematocrit 24L, Mean Corpuscular Volume 83, Mean Corpuscular Hemoglobin 27, Mean Corpuscular Hemoglobin Concent 33, Red Cell Distribution Width 17.4H, Platelet Count 174, Mean Platelet Volume 10.2, Neutrophils (%) (Auto) 92H, Lymphocytes (%) (Auto) 4L , Monocytes (%) (Auto) 4, Eosinophils (%) (Auto) 0, Basophils (%) (Auto) 0, Neutrophils # (Auto) 9.9H, Lymphocytes # (Auto) 0.4L, Monocytes # (Auto) 0.4, Eosinophils # (Auto) 0.0, Basophils # (Auto) 0.0, Sodium Level 132L, Potassium Level 4.8, Chloride Level 105, Carbon Dioxide Level 20L, Anion Gap 7, Blood Urea Nitrogen 31H, Creatinine 1.14, Estimat Glomerular Filtration Rate 46, BUN/Creatinine Ratio 27, Glucose Level 91, Calcium Level 7.8L, Magnesium Level 1.8 Laboratory Tests 01/01/20 05:40 01/02/20 05:43 A/P: Assessment: Hypotension resolved after d/c bp meds Worsening anemia of undetermined etiology, getting transfusion on 01/02/20. Management is with Dr Johnston Valvular heart disease. 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 LANIE appears to have resolved Transaminase elevation of undetermined etiology, managed by Dr Johnston Plan: * K now WNL. Blood being transfused today * Management of anemia per Medical services * Rising INR - monitor closely and adjust warfarin as indicated * Monitor labs FRANTZ DAMON MD FACP [facility] Jan 02, 2020 16:26
[2020-01-02 17:58] VITALS: BP 106/71
[2020-01-02 18:00] VITALS: BP 112/51
[2020-01-02] MEDS: DOCUSATE SODIUM 100 MG (COLACE) CAP PO SCH (20:59)
[2020-01-02] MEDS: SIMvastatin 20 MG (ZOCOR) TAB PO SCH (20:59)
[2020-01-02] MEDS: warFARin 2 MG (COUMADIN) TAB PO SCH (20:59)
[2020-01-02] MEDS ORDERED: WARF-47 PO (21:08)
[2020-01-02] MEDS ORDERED: HYDR-3812 PO (21:08)
[2020-01-02] MEDS ORDERED: PANT40TA3 PO (21:08)
--- NOTE | 2020-01-02 21:11 | D/C HH Face to Face Order ---
D/C Face to Face Orders Reconcile Patient Problems Problems Reviewed?: Yes Instructions for Patient [facility] Patient Instructions/FollowUp: PCP Dr Bel Leyva Physician to follow Patient: Gordon Discharge Diet for Home: No Restrictions Patient Problems: Severe lumbar spondylosis Delirium Severe anemia Coumadin maintained Valvular heart disease Goals for Patient: [place] Patient Data-Allergies,Ht & Wt Patient Allergies: Coded Allergies: hydrochlorothiazide (Verified Allergy, Unknown, 12/31/19) hyponatremia Home Health Need/Face to Face Date of Face to Face: Jan 02, 2020 Clinical Findings: Generalized weakness and fatigue, Instability, Muscle weakness, Unsteady gait I have seen Pt gvnc-os-lhzz: Yes Discharged To: Home Diagnosis/Conditions: Severe lumbar spondylosis Delirium Severe anemia Coumadin maintained Valvular heart disease Patient is Homebound due to: CognItive deficits, [place] fall risk due to instabilty, Muscle weakness, Pain w/ambulation Homebound Status Due to the above stated illness, injury or surgical procedure (medical condition or diagnosis) and associated clinical findings, the patient is homebound because of his/her inability to leave home except with aid of a supportive device and/or person AND leaving the home requires a considerable and taxing effort or is medically contraindicated. Pt req the following assistanc: Walker Home Health Nursing Orders Home Health Services Order: Nursing Services (monitor hgb and INR and creat), Physical Therapy-Evaluate & Treat Home Health Infusion Therapy Line Start Date: Dec 25, 2019 Certify Stmt I certify that this patient is under my care and that I, a nurse practitioner or a physician; a media assistant working with me, had a face to face encounter that - meets the physician face to face encounter requirements with this patient as dated. MOOSE HERNANDEZ DO Jan 02, 2020 21:11
[2020-01-03] MEDS: HYDROcodone/APAP 5 MG/325 MG (LORTAB) TAB PO PRN (05:01)
[2020-01-03 05:13] VITALS: BP 97/57
[2020-01-03 05:57] LABS: BASOPHILS % (AUTO) 0 % (0-10); EOSINOPHILS % (AUTO) 0 % (0-10); HEMATOCRIT 28 % (35-52); HEMOGLOBIN 9.1 G/DL (11.5-16.0); LYMPHOCYTES # (AUTO) 0.4 X 10^3 (1.0-4.0); LYMPHOCYTES % (AUTO) 3 % (12-44); MEAN CORPUSCULAR HEMOGLOBIN 27 PG (25-34); MEAN CORPUSCULAR HGB CONC 33 G/DL (32-36); MEAN CORPUSCULAR VOLUME 83 FL (80-99); MEAN PLATELET VOLUME 9.7 FL (7.4-10.4); MONOCYTES # (AUTO) 0.5 X 10^3 (0.0-1.0); MONOCYTES % (AUTO) 4 % (0-12); NEUTROPHILS # (AUTO) 12.5 X 10^3 (1.8-7.8); NEUTROPHILS % (AUTO) 93 % (42-75); PLATELET COUNT 153 10^3/uL (130-400); RED CELL DISTRIBUTION WIDTH 17.6 % (10.0-14.5); WHITE BLOOD COUNT 13.5 10^3/uL (4.3-11.0)
[2020-01-03 06:18] LABS: ALBUMIN 2.7 GM/DL (3.2-4.5); CALCIUM 8.1 MG/DL (8.5-10.1); CREATININE SERUM 1.33 MG/DL (0.60-1.30); POTASSIUM 5.1 MMOL/L (3.6-5.0); TOTAL PROTEIN 5.4 GM/DL (6.4-8.2)
[2020-01-03] MEDS: CATHETER FLUSH 10 ML SYR IV SCH (06:51)
[2020-01-03 08:00] VITALS: BP 112/52
--- NOTE | 2020-01-03 08:20 | Discharge Summary ---
Diagnosis/Chief Complaint Date of Admission Dec 22, 2019 at 17:00 Date of Discharge Discharge Date: Jan 03, 2020 Discharge Diagnosis Assessment: Severe back pain with severe spondylosis AF Coumadin treatment CRI Confusion Delirium Pacemaker Plan: 12/22/19 IRF protocol Check labs in am Fall risk Bed alarm Dr Awad consultation 12/23/19: INR good Start low dose Hydrocodone Monitor LFT's BP monitoring BM regimen since 6 days since BM 12/24/19: BM large so severe constipation of 6 days resolved Pain meds minimal dosing to prevent delirium Iron level and hgb 8.4 will require midline placement due to poor vascular access and start IV iron Monitor orthostatic BP readings 12/25/19: Transfuse 1 unit of blood Iron infusions Dr Martines consult INR monitoring Complex case 12/26/19: Appreciate Dr. Martines but she declines endoscopy Maintain Coumadin Blood pressure management per cardiology Stop Florinef Monitor Hemiglobin 12/27/19: Appreciate cardiology management of elevated low blood pressure Monitor INR periodically last was 2.8 Bowels are moving well 12/28/19: Hemiglobin much improved at 9.6 Doing much better Very lucid today INR 2.0 12/29/19: Monitor Orthostasis Voltaren gel Multiple blood pressure medications changed by Cardiology Back pain management 12/30/19: More lucid and delirium is clearing Back pain management Orthostasis management 12/31/19: Monitor hyponatremia Continue NS at 50cc/hr Check labs in am List HCTZ as allergy due to severe and rapid hyponatremia Monitor loose stools 01/01/20: Had 3 loose stools yesterday x3 Creatinine 1.14 so will Heplock IV fluid Hemoglobin 8.1 and that is dilutional Overall improved 01/02/20: Continue Iron Infusions Patient really needs Endoscopy but she declines Will likely need to get some sort of follow up arranged because she really needs to have the scopes Disposition home with brother tomorrow Discharge Summary Discharge Physical Examination Allergies: Coded Allergies: hydrochlorothiazide (Verified Allergy, Unknown, 12/31/19) hyponatremia Vitals & I&Os Vital Signs Date Time Temp Pulse Resp B/P (MAP) Pulse Ox O2 Delivery O2 Flow Rate FiO2 01/03/20 10:56 36.0 62 18 112/52 96 Room Air General Appearance: Alert, Oriented X3 Respiratory: Normal Air Movement Cardiovascular: Regular Rate Hospital Course Was the Problem List Reviewed?: Yes Patient had an uncomplicated course. Patient required 13 days of IRF. Patients Delirium cleared with minimizing pain medication. Patient did require a total of 2 units of Blood Transfusions due to Anemia and she declined EGD and Colonoscopy. Coumadin was monitored closely. Over all she was able to participate in all therapies maintained on low dose pain medication some medications were altered for Hypertension and at discharge her INR was 2.6 and her Hemoglobin was 9.1 and Creatinine was 1.33 I did have a call-in to Dr. Leyva who will cover her home health orders. Labs (last 24 hrs) Laboratory Tests 12/22/19 19:55: Creatinine 1.28 12/23/19 04:50: Creatinine 1.03, White Blood Count 13.8H, Red Blood Count 3.30L, Hemoglobin 8.4L , Hematocrit 27L, Mean Corpuscular Volume 81, Mean Corpuscular Hemoglobin 25, Mean Corpuscular Hemoglobin Concent 32, Red Cell Distribution Width 17.2H, Platelet Count 305, Mean Platelet Volume 9.6, Neutrophils (%) (Auto) 95H, Lymphocytes (%) (Auto) 3L, Monocytes (%) (Auto) 2, Eosinophils (%) (Auto) 0, Basophils (%) (Auto) 0, Neutrophils # (Auto) 13.2H, Lymphocytes # (Auto) 0.4L, Monocytes # (Auto) 0.2, Eosinophils # (Auto) 0.0, Basophils # (Auto) 0.0, Neutrophils % (Manual) 93, Lymphocytes % (Manual) 4, Monocytes % (Manual) 1, Band Neutrophils 2, Anisocytosis SLIGHT, Prothrombin Time 27.4H, INR Comment 2.5H, Sodium Level 135, Potassium Level 4.9, Chloride Level 105, Carbon Dioxide Level 18L, Anion Gap 12, Blood Urea Nitrogen 36H, Estimat Glomerular Filtration Rate 51, BUN/Creatinine Ratio 35, Glucose Level 146H, Calcium Level 9.0, Corrected Calcium 9.6, Iron Level 19L, Total Bilirubin 0.5, Aspartate Amino Transf (AST/SGOT) 94H, Alanine Aminotransferase (ALT/SGPT) 65H, Alkaline Phospha tase 97, Total Protein 6.5, Albumin 3.2 12/24/19 20:50: Glucometer 99 12/25/19 04:30: Creatinine 0.98, White Blood Count 9.0, Red Blood Count 2.90L, Hemoglobin 7.5L, Hematocrit 24L, Mean Corpuscular Volume 81, Mean Corpuscular Hemoglobin 26, Mean Corpuscular Hemoglobin Concent 32, Red Cell Distribution Width 17.1H, Platelet Count 219, Mean Platelet Volume 9.8, Neutrophils (%) (Auto) 92H, Lymphocytes (%) (Auto) 5L, Monocytes (%) (Auto) 3, Eosinophils (%) (Auto) 0, Basophils (%) (Auto) 0, Neutrophils # (Auto) 8.3H, Lymphocytes # (Auto) 0.4L, Monocytes # ( Auto) 0.3, Eosinophils # (Auto) 0.0, Basophils # (Auto) 0.0, Prothrombin Time 29.6H, INR Comment 2.8H, Sodium Level 136, Potassium Level 4.6, Chloride Level 106, Carbon Dioxide Level 21, Anion Gap 9, Blood Urea Nitrogen 35H, Estimat Glomerular Filtration Rate 54, BUN/Creatinine Ratio 36, Glucose Level 122H, Calcium Level 8.5, Corrected Calcium 9.4, Total Bilirubin 0.4, Aspartate Amino Transf (AST/SGOT) 40H, Alanine Aminotransferase (ALT/SGPT) 49, Alkaline Phosphatase 83, Total Protein 5.5L, Albumin 2.9L 12/25/19 11:32: Stool Occult Blood Immunoassay POSITIVEH 12/25/19 21:09: Hemoglobin 8.9L 12/26/19 05:27: Hemoglobin 9.4L, White Blood Count 11.5H, Red Blood Count 3.59L, Hematocrit 29L, Mean Corpuscular Volume 80, Mean Corpuscular Hemoglobin 26, Mean Corpuscular Hemoglobin Concent 33, Red Cell Distribution Width 16.4H, Platelet Count 223, Mean Platelet Volume 10.0, Neutrophils (%) (Auto) 93H, Lymphocytes (%) (Auto) 4L , Monocytes (%) (Auto) 3, Eosinophils (%) (Auto) 0, Basophils (%) (Auto) 0, Neutrophils # (Auto) 10.6H, Lymphocytes # (Auto) 0.5L, Monocytes # (Auto) 0.4, Eosinophils # (Auto) 0.0, Basophils # (Auto) 0.0, Sodium Level 135, Potassium Level 4.6, Chloride Level 102, Carbon Dioxide Level 23, Anion Gap 10, Blood Urea Nitrogen 31H, Creatinine 0.89, Estimat Glomerular Filtration Rate > 60, BUN/Creatinine Ratio 35, Glucose Level 99, Calcium Level 8.8, Corrected Calcium 9.4, Total Bilirubin 0.8, Aspartate Amino Transf (AST/SGOT) 35H, Alanine Aminotransferase (ALT/SGPT) 51, Alkaline Phosphatase 87, Total Protein 6.1L, Albumin 3.2 12/27/19 05:25: Sodium Level 132L, Potassium Level 5.0, Chloride Level 100, Carbon Dioxide Level 24, Anion Gap 8, Blood Urea Nitrogen 34H, Creatinine 1.14, Estimat Glomerular Filtration Rate 46, BUN/Creatinine Ratio 30, Glucose Level 85, Calcium Level 8.4L, Magnesium Level 1.9 12/28/19 06:30: Hemoglobin 9.6L, Hematocrit 29L, Prothrombin Time 22.8H, INR Comment 2.0H, Sodium Level 133L, Potassium Level 5.3H, Chloride Level 100, Carbon Dioxide Level 25, Anion Gap 8, Blood Urea Nitrogen 36H, Creatinine 1.29, Estimat Glomerular Filtration Rate 39, BUN/Creatinine Ratio 28, Glucose Level 86, Calcium Level 8.7 12/30/19 18:27: Hemoglobin 9.5L, Hematocrit 29L, Prothrombin Time 24.9H, INR Comment 2.2H, Sodiu m Level 128L, Potassium Level 5.2H, Chloride Level 96L, Carbon Dioxide Level 21, Anion Gap 11, Blood Urea Nitrogen 39H, Creatinine 1.53H, Estimat Glomerular Filtration Rate 32, BUN/Creatinine Ratio 25, Glucose Level 103, Calcium Level 8.5, White Blood Count 13.2H, Red Blood Count 3.57L, Mean Corpuscular Volume 81, Mean Corpuscular Hemoglobin 27, Mean Corpuscular Hemoglobin Concent 33, Red Cell Distribution Width 17.7H, Platelet Count 227, Mean Platelet Volume 10.0, Ne utrophils (%) (Auto) 92H, Lymphocytes (%) (Auto) 4L, Monocytes (%) (Auto) 3, Eosinophils (%) (Auto) 0, Basophils (%) (Auto) 0, Neutrophils # (Auto) 12.2H, Lymphocytes # (Auto) 0.5L, Monocytes # (Auto) 0.5, Eosinophils # (Auto) 0.1, Basophils # (Auto) 0.0, Lactic Acid Level 0.63, Corrected Calcium 9.2, Total Bi lirubin 0.7, Aspartate Amino Transf (AST/SGOT) 20, Alanine Aminotransferase (ALT/SGPT) 30, Alkaline Phosphatase 70, Total Protein 6.1L, Albumin 3.1L, Procalcitonin 0.96H 12/31/19 06:05: Hemoglobin 9.0L, Hematocrit 28L, Sodium Level 132L, Potassium Level 5.3H, Chloride Level 102, Carbon Dioxide Level 22, Anion Gap 8, Blood Urea Nitrogen 36H, Creatinine 1.35H, Estimat Glomerular Filtration Rate 37, BUN/Creatinine Ratio 27, Glucose Level 84, Calcium Level 8.5, White Blood Count 10.9, Red Blood Count 3.37L, Mean Corpuscular Volume 82, Mean Corpuscular Hemoglobin 27, Mean Corpuscular Hemoglobin Concent 33, Red Cell Distribution Width 17.6H, Platelet Count 205, Mean Platelet Volume 10.1, Neutrophils (%) (Auto) 87H, Lymphocytes (%) (Auto) 8L, Monocytes (%) (Auto) 4, Eosinophils (%) (Auto) 1, Basophils (%) (Auto) 0, Neutrophils # (Auto) 9.5H, Lymphocytes # (Auto) 0.9L, Monocytes # (Auto) 0.5, Eosinophils # (Auto) 0.1, Basophils # (Auto) 0.0 01/01/20 05:40: Hemoglobin 8.1L, Hematocrit 26L, Sodium Level 132L, Potassium Level 5.4H, Chloride Level 105, Carbon Dioxide Level 19L, Anion Gap 8, Blood Urea Nitrogen 33H, Creatinine 1.14, Estimat Glomerular Filtration Rate 46, BUN/Creatinine Ratio 29, Glucose Level 86, Calcium Level 8.0L, White Blood Count 10.2, Red Blood Count 3.07L, Mean Corpuscular Volume 84, Mean Corpuscular Hemoglobin 26, Mean Corpuscular Hemoglobin Concent 32, Red Cell Distribution Width 17.9H, Platelet Count 186, Mean Platelet Volume 10.1, Neutrophils (%) (Auto) 89H, Lymphocytes (%) (Auto) 6L, Monocytes (%) (Auto) 5, Eosinophils (%) (Auto) 1, Basophils (%) (Auto) 0, Neutrophils # (Auto) 9.0H, Lymphocytes # (Auto) 0.6L, Monocytes # (Auto) 0.5, Eosinophils # (Auto) 0.1, Basophils # (Auto) 0.0, Corrected Calcium 9.0, Total Bilirubin 0.5, Aspartate Amino Transf (AST/SGOT) 28, Alanine Aminotransferase (ALT/SGPT) 29, Alkaline Phosphatase 73, Total Protein 5.3L, Albumin 2.7L, Neutrophils % (Manual) 84, Lymphocytes % (Manual) 6, Monocytes % (Manual) 5, Eosinophils % (Manual) 1, Basophils % (Manual) 0, Band Neutrophils 4, Anisocytosis SLIGHT, Elliptocytes SLIGHT 01/02/20 05:42: Prothrombin Time 28.2H, INR Comment 2.6H 01/02/20 05:43: White Blood Count 10.8, Red Blood Count 2.85L, Hemoglobin 7.7L, Hematocrit 24L, Mean Corpuscular Volume 83, Mean Corpuscular Hemoglobin 27, Mean Corpuscular Hemoglobin Concent 33, Red Cell Distribution Width 17.4H, Platelet Count 174, Mean Platelet Volume 10.2, Neutrophils (%) (Auto) 92H, Lymphocytes (%) (Auto) 4L , Monocytes (%) (Auto) 4, Eosinophils (%) (Auto) 0, Basophils (%) (Auto) 0, Neutrophils # (Auto) 9.9H, Lymphocytes # (Auto) 0.4L, Monocytes # (Auto) 0.4, Eosinophils # (Auto) 0.0, Basophils # (Auto) 0.0, Sodium Level 132L, Potassium Level 4.8, Chloride Level 105, Carbon Dioxide Level 20L, Anion Gap 7, Blood Urea Nitrogen 31H, Creatinine 1.14, Estimat Glomerular Filtration Rate 46, BUN/Creatinine Ratio 27, Glucose Level 91, Calcium Level 7.8L, Magnesium Level 1.8 01/03/20 05:39: White Blood Count 13.5H, Red Blood Count 3.35L, Hemoglobin 9.1L, Hematocrit 28L, Mean Corpuscular Volume 83, Mean Corpuscular Hemoglobin 27, Mean Corpuscular Hemoglobin Concent 33, Red Cell Distribution Width 17.6H, Platelet Count 153, Mean Platelet Volume 9.7, Neutrophils (%) (Auto) 93H, Lymphocytes (%) (Auto) 3L, Monocytes (%) (Auto) 4, Eosinophils (%) (Auto) 0, Basophils (%) (Auto) 0, Neutrophils # (Auto) 12.5H, Lymphocytes # (Auto) 0.4L, Monocytes # (Auto) 0.5, Eosinophils # (Auto) 0.0, Basophils # (Auto) 0.0, Sodium Level 132L, Potassium Level 5.1H, Chloride Level 105, Carbon Dioxide Level 16L, Anion Gap 11, Blood Urea Nitrogen 35H, Creatinine 1.33H, Estimat Glomerular Filtration Rate 38, BUN /Creatinine Ratio 26, Glucose Level 89, Calcium Level 8.1L, Corrected Calcium 9.1, Total Bilirubin 1.0, Aspartate Amino Transf (AST/SGOT) 25, Alanine Aminotransferase (ALT/SGPT) 27, Alkaline Phosphatase 73, Total Protein 5.4L, Albumin 2.7L Pending Labs Laboratory Tests 12/22/19 19:55: Creatinine 1.28 12/23/19 04:50: Creatinine 1.03, White Blood Count 13.8, Red Blood Count 3.30, Hemoglobin 8.4, Hematocrit 27, Mean Corpuscular Volume 81, Mean Corpuscular Hemoglobin 25, Mean Corpuscular Hemoglobin Concent 32, Red Cell Distribution Width 17.2, Platelet Count 305, Mean Platelet Volume 9.6, Neutrophils (%) (Auto) 95, Lymphocytes (%) (Auto) 3, Monocytes (%) (Auto) 2, Eosinophils (%) (Auto) 0, Basophils (%) (Auto) 0, Neutrophils # (Auto) 13.2, Lymphocytes # (Auto) 0.4, Monocytes # (Auto) 0.2, Eosinophils # (Auto) 0.0, Basophils # (Auto) 0.0, Neutrophils % (Manual) 93, Lymphocytes % (Manual) 4, Monocytes % (Manual) 1, Band Neutrophils 2, Anisocytosis SLIGHT, Prothrombin Time 27.4, INR Comment 2.5, Sodium Level 135, Potassium Level 4.9, Chloride Level 105, Carbon Dioxide Level 18, Anion Gap 12, Blood Urea Nitrogen 36, Estimat Glomerular Filtration Rate 51, BUN/Creatinine Ratio 35, Glucose Level 146, Calcium Level 9.0, Corrected Calcium 9.6, Iron Level 19, Total Bilirubin 0.5, Aspartate Amino Transf (AST/SGOT) 94, Alanine Aminotransferase (ALT/SGPT) 65, Alkaline Phosphatase 97, Total Protein 6.5, A lbumin 3.2 12/24/19 20:50: Glucometer 99 12/25/19 04:30: Creatinine 0.98, White Blood Count 9.0, Red Blood Count 2.90, Hemoglobin 7.5, Hematocrit 24, Mean Corpuscular Volume 81, Mean Corpuscular Hemoglobin 26, Mean Corpuscular Hemoglobin Concent 32, Red Cell Distribution Width 17.1, Platelet Count 219, Mean Platelet Volume 9.8, Neutrophils (%) (Auto) 92, Lymphocytes (%) (Auto) 5, Monocytes (%) (Auto) 3, Eosinophils (%) (Auto) 0, Basophils (%) (Auto) 0, Neutrophils # (Auto) 8.3, Lymphocytes # (Auto) 0.4, Monocytes # (Auto) 0.3, Eosinophils # (Auto) 0.0, Basophils # (Auto) 0.0, Prothrombin Time 29.6, INR Comment 2.8, Sodium Level 136, Potassium Level 4.6, Chloride Level 106, Carbon Dioxide Level 21, Anion Gap 9, Blood Urea Nitrogen 35, Estimat Glomerular Filtration Rate 54, BUN/Creatinine Ratio 36, Glucose Level 122, Calcium Level 8.5, Corrected Calcium 9.4, Total Bilirubin 0.4, Aspartate Amino Transf (AST/SGOT) 40, Alanine Aminotransferase (ALT/SGPT) 49, Alkaline Phosphatase 83, Total Protein 5.5, Albumin 2.9 12/25/19 11:32: Stool Occult Blood Immunoassay POSITIVE 12/25/19 21:09: Hemoglobin 8.9 12/26/19 05:27: Hemoglobin 9.4, White Blood Count 11.5, Red Blood Count 3.59, Hematocrit 29, Mean Corpuscular Volume 80, Mean Corpuscular Hemoglobin 26, Mean Corpuscular Hemoglobin Concent 33, Red Cell Distribution Width 16.4, Platelet Count 223, Mean Platelet Volume 10.0, Neutrophils (%) (Auto) 93, Lymphocytes (%) (Auto) 4, Monocytes (%) (Auto) 3, Eosinophils (%) (Auto) 0, Basophils (%) (Auto) 0, Neutrophils # (Auto) 10.6, Lymphocytes # (Auto) 0.5, Monocytes # (Auto) 0.4, Eosinophils # (Auto) 0.0, Basophils # (Auto) 0.0, Sodium Level 135, Potassium Level 4.6, Chloride Level 102, Carbon Dioxide Level 23, Anion Gap 10, Blood Urea Nitrogen 31, Creatinine 0.89, Estimat Glomerular Filtration Rate > 60, BUN/Creatinine Ratio 35, Glucose Level 99, Calcium Level 8.8, Corrected Calcium 9.4, Total Bilirubin 0.8, Aspartate Amino Transf (AST/SGOT) 35, Alanine Aminotransferase (ALT/SGPT) 51, Alkaline Phosphatase 87, Total Protein 6.1, Albumin 3.2 12/27/19 05:25: Sodium Level 132, Potassium Level 5.0, Chloride Level 100, Carbon Dioxide Level 24, Anion Gap 8, Blood Urea Nitrogen 34, Creatinine 1.14, Estimat Glomerular Filtration Rate 46, BUN/Creatinine Ratio 30, Glucose Level 85, Calcium Level 8.4, Magnesium Level 1.9 12/28/19 06:30: Hemoglobin 9.6, Hematocrit 29, Prothrombin Time 22.8, INR Comment 2.0, Sodium Level 133, Potassium Level 5.3, Chloride Level 100, Carbon Dioxide Level 25, Anion Gap 8, Blood Urea Nitrogen 36, Creatinine 1.29, Estimat Glomerular Filtration Rate 39, BUN/Creatinine Ratio 28, Glucose Level 86, Calcium Level 8.7 12/30/19 18:27: Hemoglobin 9.5, Hematocrit 29, Prothrombin Time 24.9, INR Comment 2.2, Sodium Level 128, Potassium Level 5.2, Chloride Level 96, Carbon Dioxide Level 21, Anion Gap 11, Blood Urea Nitrogen 39, Creatinine 1.53, Estimat Glomerular Filtr ation Rate 32, BUN/Creatinine Ratio 25, Glucose Level 103, Calcium Level 8.5, White Blood Count 13.2, Red Blood Count 3.57, Mean Corpuscular Volume 81, Mean Corpuscular Hemoglobin 27, Mean Corpuscular Hemoglobin Concent 33, Red Cell Distribution Width 17.7, Platelet Count 227, Mean Platelet Volume 10.0, Neutrophils (%) (Auto) 92, Lymphocytes (%) (Auto) 4, Monocytes (%) (Auto) 3, Eo sinophils (%) (Auto) 0, Basophils (%) (Auto) 0, Neutrophils # (Auto) 12.2, Lymphocytes # (Auto) 0.5, Monocytes # (Auto) 0.5, Eosinophils # (Auto) 0.1, Basophils # (Auto) 0.0, Lactic Acid Level 0.63, Corrected Calcium 9.2, Total Bilirubin 0.7, Aspartate Amino Transf (AST/SGOT) 20, Alanine Aminotransferase (ALT/SGPT) 30, Alkaline Phosphatase 70, Total Protein 6.1, Albumin 3.1, Procal citonin 0.96 12/31/19 06:05: Hemoglobin 9.0, Hematocrit 28, Sodium Level 132, Potassium Level 5.3, Chloride Level 102, Carbon Dioxide Level 22, Anion Gap 8, Blood Urea Nitrogen 36, Creatinine 1.35, Estimat Glomerular Filtration Rate 37, BUN/Creatinine Ratio 27, Glucose Level 84, Calcium Level 8.5, White Blood Count 10.9, Red Blood Count 3.37, Mean Corpuscular Volume 82, Mean Corpuscular Hemoglobin 27, Mean Corpuscular Hemoglobin Concent 33, Red Cell Distribution Width 17.6, Platelet Count 205, Mean Platelet Volume 10.1, Neutrophils (%) (Auto) 87, Lymphocytes (%) (Auto) 8, Monocytes (%) (Auto) 4, Eosinophils (%) (Auto) 1, Basophils (%) (Auto) 0, Neutrophils # (Auto) 9.5, Lymphocytes # (Auto) 0.9, Monocytes # (Auto) 0.5, Eosinophils # (Auto) 0.1, Basophils # (Auto) 0.0 01/01/20 05:40: Hemoglobin 8.1, Hematocrit 26, Sodium Level 132, Potassium Level 5.4, Chloride Level 105, Carbon Dioxide Level 19, Anion Gap 8, Blood Urea Nitrogen 33, Creatinine 1.14, Estimat Glomerular Filtration Rate 46, BUN/Creatinine Ratio 29, Glucose Level 86, Calcium Level 8.0, White Blood Count 10.2, Red Blood Count 3.07, Mean Corpuscular Volume 84, Mean Corpuscular Hemoglobin 26, Mean Corpuscular Hemoglobin Concent 32, Red Cell Distribution Width 17.9, Platelet Count 186, Mean Platelet Volume 10.1, Neutrophils (%) (Auto) 89, Lymphocytes (%) (Auto) 6, Monocytes (%) (Auto) 5, Eosinophils (%) (Auto) 1, Basophils (%) (Auto) 0, Neutrophils # (Auto) 9.0, Lymphocytes # (Auto) 0.6, Monocytes # (Auto) 0.5, Eosinophils # (Auto) 0.1, Basophils # (Auto) 0.0, Corrected Calcium 9.0, Total Bilirubin 0.5, Aspartate Amino Transf (AST/SGOT) 28, Alanine Aminotransferase (ALT/SGPT) 29, Alkaline Phosphatase 73, Total Protein 5.3, Albumin 2.7, Neutrophils % (Manual) 84, Lymphocytes % (Manual) 6, Monocytes % (Manual) 5, Eosinophils % (Manual) 1, Basophils % (Manual) 0, Band Neutrophils 4, Anisocytos is SLIGHT, Elliptocytes SLIGHT 01/02/20 05:42: Prothrombin Time 28.2, INR Comment 2.6 01/02/20 05:43: White Blood Count 10.8, Red Blood Count 2.85, Hemoglobin 7.7, Hematocrit 24, Mean Corpuscular Volume 83, Mean Corpuscular Hemoglobin 27, Mean Corpuscular Hemoglobin Concent 33, Red Cell Distribution Width 17.4, Platelet Count 174, Mean Platelet Volume 10.2, Neutrophils (%) (Auto) 92, Lymphocytes (%) (Auto) 4, Monocytes (%) (Auto) 4, Eosinophils (%) (Auto) 0, Basophils (%) (Auto) 0, Neutrophils # (Auto) 9.9, Lymphocytes # (Auto) 0.4, Monocytes # (Auto) 0.4, Eosinophils # (Auto) 0.0, Basophils # (Auto) 0.0, Sodium Level 132, Potassium Level 4.8, Chloride Level 105, Carbon Dioxide Level 20, Anion Gap 7, Blood Urea Nitrogen 31, Creatinine 1.14, Estimat Glomerular Filtration Rate 46, BUN/Creatinine Ratio 27, Glucose Level 91, Calcium Level 7.8, Magnesium Level 1.8 01/03/20 05:39: White Blood Count 13.5, Red Blood Count 3.35, Hemoglobin 9.1, Hematocrit 28, Mean Corpuscular Volume 83, Mean Corpuscular Hemoglobin 27, Mean Corpuscular Hemoglobin Concent 33, Red Cell Distribution Width 17.6, Platelet Count 153, Mean Platelet Volume 9.7, Neutrophils (%) (Auto) 93, Lymphocytes (%) (Auto) 3, Monocytes (%) (Auto) 4, Eosinophils (%) (Auto) 0, Basophils (%) (Auto) 0, Neutrophils # (Auto) 12.5, Lymphocytes # (Auto) 0.4, Monocytes # (Auto) 0.5, Eosinophils # (Auto) 0.0, Basophils # (Auto) 0.0, Sodium Level 132, Potassium Level 5.1, Chloride Level 105, Carbon Dioxide Level 16, Anion Gap 11, Blood Urea Nitrogen 35, Creatinine 1.33, Estimat Glomerular Filtration Rate 38, BUN/Creatinine Ratio 26, Glucose Level 89, Calcium Level 8.1, Corrected Calcium 9.1, Total Bilirubin 1.0, Aspartate Amino Transf (AST/SGOT) 25, Alanine Ami notransferase (ALT/SGPT) 27, Alkaline Phosphatase 73, Total Protein 5.4, Albumin 2.7 Discharge Home Medications: Active Scripts Active Pantoprazole Sodium 40 Mg Tablet.dr 40 Mg PO BID Hydrocodone-Acetamin 5-325 mg (Hydrocodone/Acetaminophen) 1 Each Tablet 0.5 Tab PO Q8H PRN Warfarin Sodium 2 Mg Tablet 2 Mg PO HS Reported Aspirin EC (Aspirin) 81 Mg Tablet.dr 81 Mg PO DAILY Vitron-C Tablet (Iron,Carbonyl/Ascorbic Acid) 1 Each Tablet.dr 1 Each PO BID Stool Softener (Docusate Sodium) 100 Mg Capsule 100 Mg PO HS Zocor (Simvastatin) 20 Mg Tablet 20 Mg PO HS Lutein 6 Mg Tablet 6 Mg PO DAILY Synthroid (Levothyroxine Sodium) 75 Mcg Tablet 75 Mcg PO DAILY Glucosamine (Glucosamine Sulfate 2Kcl) 1,000 Mg Tablet 1,500 Mg PO DAILY Lasix (Furosemide) 20 Mg Tablet 20 Mg PO DAILY PRN Fludrocortisone Acetate 0.1 Mg Tab 0.1 Mg PO DAILY Lexapro (Escitalopram Oxalate) 5 Mg Tablet 5 Mg PO HS Cyanocobalamin Injection (Cyanocobalamin) 1,000 Mcg/Ml Inj 1,000 Mcg IM EVERY OTHER MONTH LAST FILLED 05-09-2019 #1 VIAL Instructions to patient/family Please see electronic discharge instructions given to patient. 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
[2020-01-03] MEDS: SENNA W/DOCUSATE (SENOKOT S) TABLET PO SCH (08:24)
[2020-01-03] MEDS: ASPIRIN E.C. 81 MG (ECOTRIN) TAB PO SCH (08:24)
[2020-01-03] MEDS: PANTOPRAZOLE 40 MG (PROTONIX) TAB PO SCH (08:24)
[2020-01-03] MEDS: LEVOTHYROXINE 75 MCG (LEVOTHROID) TABLET PO SCH (08:24)
[2020-01-03] MEDS: polyethylene glycoL POWDER 17 GM (MIRALAX) PACK PO SCH (08:25)
--- NOTE | 2020-01-03 08:55 | Physical Therapy Daily Note ---
PT Daily Note-Current Subjective Pt. up in recliner, eyes closed, breakfast untouched. Pt. c/o she is in 10/10 pain in her abdomen and has had this quite a while this morning. Pt. in tears part of the Rx time. Nurse present to assess pt. Pt. c/o pain that radiates from front to back and increased pain in abdomen with attempt to move as well as pain in her neck. Pt. eventually agreed to walk from recliner to bed and try to eat. Pt. states she has declined EGD and colonoscopy b/c she is afraid they will find cancer and want to do surgery and " I dont want to do all that" Pain Numeric Pain Scale: 10-Worst Possible Pain Location: Medial Location Body Site: Abdomen Pain Description: Radiating (to from back) Appearance pt. appears in pain / distress Mental Status Patient Orientation: Normal For Age Transfers SCALE: Activities may be completed with or without assistive devices. 0-Ijdkebzpts-kldcplu completes the activity by him/herself with no assistance from a helper. 5-Set-up or Clean-up Assistance-helper sets up or cleans up; patient completes activity. [place] assists only prior to or following the activity. 4-Supervision or Touching Assistance-helper provides verbal cues and/or touching/steadying and/or contact guard assistance as patient completes activity. Assistance may be provided throughout the activity or intermittently. 3-Partial/Moderate Assistance-helper does LESS THAN HALF the effort. [place] lifts, holds or supports trunk or limbs, but provides less than half the effort. 2-Substantial/Maximal Assistance-helper does MORE THAN HALF the effort. [place] lifts or holds trunk or limbs and provides more than half the effort. 6-Onsqbltzn-nijiir does ALL the effort. Patient does none of the effort to complete the activity. Or, the assistance of 2 or more helpers is required for the patient to complete the activity. If activity was not attempted, code reason: 7-Patient Refused. 9-Not Applicable-not attempted and the patient did not perform the activity before the current illness, exacerbation or injury. 10-Not Attempted due to Environmental Limitations-(lack of equipment, weather restraints, etc.). 88-Not Attempted due to Medical Conditions or Safety Concerns. Roll Left & Right (QC): 5 Sit to Lying (QC): 4 Sit to Stand (QC): 4 Chair/Lbz-nf-Mlkjk Xfer(QC): 4 pt. moving slowly and whinces , stops and rest frequently as movement escalates pain Weight Bearing Right Lower Extremity: Right Weight Bearing/Tolerated Left Lower Extremity: Left Weight Bearing/Tolerated Gait Training Does the Patient Walk?: Yes Walk 10 feet (QC): 4 Gait Persons Needed: 1 Gait Assistive Device: FWW pt. needs assist of one as her pain level is such that she is vulnerable Exercises Supine Ex: Ankle pumps, Heel Slides Supine Reps: 5 Treatments MHP to neck and traps for 15 min which seemed to hel0p relax and partially alleviate pts discomfort Assessment Current Status: Poor Progress abdominal pain greatly limits pts function and participation today PT Short Term Goals Short Term Goals Time Frame: Dec 30, 2019 Roll Left & Right: 6 Sit to lyin Lying to sitting on side of be: 6 Sit to stand: 6 PT Fpc Goals Stair Builder Goals PT Stair Builder Goals Time Frame: Jan 06, 2020 Roll Left & Right (QC): 6 (met) Sit to Lying (QC): 6 (met) Lying-Sitting on Side/Bed(QC): 6 (met) Sit to Stand (QC): 6 (met) Chair/Vur-uv-Fffht Xfer(QC): 6 (met) Toilet Transfer (QC): 6 (met) Car Transfer (QC): 6 (scored 5) Does the Patient Walk: Yes Walk 10 feet (QC): 6 (met) Walk 50ft with 2 Turns (QC): 6 (met) Walk 150 ft (QC): 6 (met) Walking 10ft on Uneven Surface: 6 (met) 1 Step (curb) (QC): 6 (met) 4 Steps (QC): 6 (met) 12 Steps (QC): 9 Picking up an Object (QC): 88 (Pt will utilize bladder changer for back health) Does the Pt use WC or Scooter?: No Wheel 50 feet with 2 turns (QC: 9 Type: N/A Wheel 150 feet: 9 Type: N/A PT Plan Treatment/Plan Treatment Plan: Continue Plan of Care Treatment Plan: Bed Mobility, Education, Functional Activity Lukas, Functional Strength, Group Therapy, Gait, Safety, Therapeutic Exercise, Transfers Treatment Duration: Dec 30, 2019 Frequency: At least 5 of 7 days/Wk (IRF) Estimated Hrs Per Day: 1.5 hours per day Patient and/or Family Agrees t: Yes Safety Risks/Education Patient Education: Gait Training, Transfer Techniques, Correct Positioning, Safety Issues Teaching Recipient: Patient Teaching Methods: Demonstration, Discussion Response to Teaching: Verbalize Understanding, Return Demonstration, Reinforcement Needed Time/GCodes Time In: 800 Time Out: 900 Total Billed Treatment Time: 60 Total Billed Treatment 1,FA60m MAX DEL ROSARIO SUPERINTENDENT TERMINAL Jan 03, 2020 08:55
[2020-01-03 10:56] VITALS: BP 112/52
--- NOTE | 2020-01-03 14:35 | NUR ---
CM/SS DISCHARGE Patient's brother and OBED here to take patient for necessary errands and then to their home in [facility] as planned. [facility]: Finalized with [facility] in [place]. Confirmed receipt of final discharge orders and instructions with agency staff/[facility]. DME: Assisted patient with providing credit card information to [facility] for hip kit, brother agreed to continuous pickling line pickler helper the kit from agency on their way out. Faxed clinical information to patient's PCP Dr. Bel Leyva in [place] since she has agreed to follow patient through [facility] for updates and continuing orders. Unit RN was intermittently updated during discharge process.
--- NOTE | 2020-01-03 14:50 | Speech Therapy Daily Note ---
Speech Daily Progress Note Subjective Date Seen by Provider: Jan 03, 2020 Time Seen by Provider: 00:08 Patient stated she was going to her brother's today. Objective Patient completed q/a related to her discharge. Assessment Assessment Current Status: Fair Progress Treatment Plan Discontinue ST Speech Short Term Goals Short Term Goals Short Term Goals 1) Patient will complete memory tasks related to her daily needs at 90% or greater. 2) Patient will complete safety awareness tasks related to her daily needs at 90% or greater. 3) Patient will complete problem solving tasks related to her daily needs at 90% or greater. Speech Manager Book Goals Manager Book Goals Patient will improve cognitive-communication necessary for safety and daily living tasks with minimal assist. Speech-Plan Patient/Family Goals Patient/Family Goals: Patient is discharging to her brother's today. Treatment Plan Speech Therapy Treatment Plan: Discontinue ST Treatment Duration: Dec 25, 2019 Frequency: 5 times per week Estimated Hrs Per Day: Other Rehab Potential: Good Barriers to Learning: Patient's cognitive deficits Pt/Family Agrees to Plan: Yes Safety Risks/Education Teaching Recipient: Patient Teaching Methods: Discussion Response to Teaching: Verbalize Understanding Education Topics Provided: Continued safety upon her discharge Time Speech Therapy Time In: 07:52 Speech Therapy Time Out: 08:00 Total Billed Time: 8 Billed Treatment Time 1, SLTS No QUALITY CODES: EXPRESSION OF IDEAS/WANTS: 4 UNDERSTANDING VERBAL CONTENT: 4 BRIEF INTERVIEW MENTAL STATUS: YES REPETITION OF 3 WORDS: 3 TEMPORAL ORIENTATION: YEAR: CORRECT, MONTH: CORRECT, DAY: CORRECT RECALL SOCK: YES WITH CUE, COLOR: YES, BED: YES WITH CUE MEMORY/RECALL ABILITY: THAT SHE IS IN THE HOSPITAL, LOCATION OF ROOM, SEASON CRISTINE EDMOND Jan 03, 2020 14:50
--- NOTE | 2020-01-03 14:53 | Therapy Team Discharge Summary ---
Therapy Discharge Summary Discharge Recommendations Date of Discharge Jan 03, 2020 at 10:40 Occupational Therapy Impaired Self-Care Skills Speech-Language Pathology Patient was admitted to the ARU due to debility and back pain. Patient received ST due to decreased cognitive deficits. Patient progressed on her ST goals, however due to short stay she did not achieve them. Patient discharged to live with her brother and sister in law in the [facility]. PT Horse Breaker Goals Horse Breaker Goals PT Horse Breaker Goals Time Frame: Jan 06, 2020 Roll Left to Right (QC): 6 (met) Sit to Lying (QC): 6 (met) Lying-Sitting on Side/Bed(QC): 6 (met) Sit to Stand (QC): 6 (met) Chair/Aob-uc-Vlxsx Xfer(QC): 6 (met) Car Transfer (QC): 6 (scored 5) Does the Patient Walk: Yes Walk 10 feet (QC): 6 (met) Walk 10ft-Uneven Surface(QC): 6 (met) Walk 50ft with 2 Turns (QC): 6 (met) Walk 150 ft (QC): 6 (met) Does the Pt use WC or Scooter?: No Wheel 50 feet with 2 turns (QC: 9 1 Step (curb) (QC): 6 (met) 4 Steps (QC): 6 (met) 12 Steps (QC): 9 Picking up an Object (QC): 88 (Pt will utilize straw hat machine operator for back health) OT Nursing Home Goals Nursing Home Goals Time Frame: Jan 06, 2020 Eating (QC): 6 Oral Hygiene (QC): 6 Shower/Bathe Self (QC): 4 Upper Body Dressing (QC): 5 Lower Body Dressing (QC): 5 On/Off Footwear (QC): 5 Toileting Hygiene (QC): 6 Toilet/Commode Transfer (QC): 6 (met) Additional Goals: 1-Demonstrate ADL Tasks, 2-Verbalize Understanding, 3- ImproveStrength/Lukas 1=Demonstrate adherence to instructed precautions during ADL tasks. 2=Patient will verbalize/demonstrate understanding of assistive devices/modifications for ADL. 3=Patient will improve strength/tolerance for activity to enable patient to perform ADL's. Speech Nursing Home Goals Nursing Home Goals Patient will improve cognitive-communication necessary for safety and daily living tasks with minimal assist. CRISTINE EDMOND Jan 03, 2020 14:53
--- NOTE | 2020-01-03 15:38 | Therapy Team Discharge Summary ---
Therapy Discharge Summary Discharge Recommendations Date of Discharge Jan 03, 2020 at 10:40 Therapy D/C Recommendations: Home w/ Family Support, Occupational Therapy Home Care Occupational Therapy Pt. has been seen by occupational therapy to increase overall strength and independence. At discharge, pt. required SBA with daily tasks. Pt. able to bathe/dress with SBA and cues. Pt discharged home with brother and family s upport. Pt. would benefit from home health OT to increase overall strength and independence. Impaired Self-Care Skills PT Casino Porter Goals Care Home Goals PT Casino Porter Goals Time Frame: Jan 06, 2020 Roll Left to Right (QC): 6 (met) Sit to Lying (QC): 6 (met) Lying-Sitting on Side/Bed(QC): 6 (met) Sit to Stand (QC): 6 (met) Chair/Giu-ks-Dhmbo Xfer(QC): 6 (met) Car Transfer (QC): 6 (scored 5) Does the Patient Walk: Yes Walk 10 feet (QC): 6 (met) Walk 10ft-Uneven Surface(QC): 6 (met) Walk 50ft with 2 Turns (QC): 6 (met) Walk 150 ft (QC): 6 (met) Does the Pt use WC or Scooter?: No Wheel 50 feet with 2 turns (QC: 9 1 Step (curb) (QC): 6 (met) 4 Steps (QC): 6 (met) 12 Steps (QC): 9 Picking up an Object (QC): 88 (Pt will utilize linoleum layer for back health) OT Casino Porter Goals Care Home Goals Time Frame: Jan 06, 2020 Eating (QC): 6 (met) Oral Hygiene (QC): 6 (met) Shower/Bathe Self (QC): 4 (met) Upper Body Dressing (QC): 5 (not met) Lower Body Dressing (QC): 5 (not met) On/Off Footwear (QC): 5 (not met) Toileting Hygiene (QC): 6 (not met) Toilet/Commode Transfer (QC): 6 (not met) Additional Goals: 1-Demonstrate ADL Tasks, 2-Verbalize Understanding, 3- ImproveStrength/Lukas 1=Demonstrate adherence to instructed precautions during ADL tasks. 2=Patient will verbalize/demonstrate understanding of assistive devices/modifications for ADL. 3=Patient will improve strength/tolerance for activity to enable patient to perform ADL's. Speech Casino Porter Goals Care Home Goals Patient will improve cognitive-communication necessary for safety and daily living tasks with minimal assist. DAVID LIU OT Jan 03, 2020 15:38
--- NOTE | 2020-01-04 15:18 | Therapy Team Discharge Summary ---
Therapy Discharge Summary Discharge Recommendations Date of Discharge Jan 03, 2020 at 10:40 Therapy D/C Recommendations: Home w/ Family Support, Occupational Therapy Home Care, Physical Therapy Home Care Physical Therapy This patient admitted to ARU post acute hospital stay due to cervical pain with dx of spondylosis. Her PLOF was indep with all mobility, caring for herself, living alone and still driving. Upon admission to this unit, she was SBA with bed mobiltiy and transfers and ambulated 100 ft with FWW with SBA. Treatment focused on cervical pain management, funcitonal strength and balance to improve gait and transfers. She has made good progress and is mod indep with functional mobility. All goals met. Pt to discharge to her brother's home. Recommend [facility] PT to follow. DC from ARU this date. Occupational Therapy Impaired Self-Care Skills PT Retirement Goals Photo Producer Goals PT Photo Producer Goals Time Frame: Jan 06, 2020 Roll Left to Right (QC): 6 (met) Sit to Lying (QC): 6 (met) Lying-Sitting on Side/Bed(QC): 6 (met) Sit to Stand (QC): 6 (met) Chair/Uza-nw-Nwpey Xfer(QC): 6 (met) Car Transfer (QC): 6 (scored 5) Does the Patient Walk: Yes Walk 10 feet (QC): 6 (met) Walk 10ft-Uneven Surface(QC): 6 (met) Walk 50ft with 2 Turns (QC): 6 (met) Walk 150 ft (QC): 6 (met) Does the Pt use WC or Scooter?: No Wheel 50 feet with 2 turns (QC: 9 1 Step (curb) (QC): 6 (met) 4 Steps (QC): 6 (met) 12 Steps (QC): 9 Picking up an Object (QC): 88 (Pt will utilize superintendent pipelines for back health) Goals met to a satisfactory level OT Retirement Goals Photo Producer Goals Time Frame: Jan 06, 2020 Eating (QC): 6 (met) Oral Hygiene (QC): 6 (met) Shower/Bathe Self (QC): 4 (met) Upper Body Dressing (QC): 5 (not met) Lower Body Dressing (QC): 5 (not met) On/Off Footwear (QC): 5 (not met) Toileting Hygiene (QC): 6 (not met) Toilet/Commode Transfer (QC): 6 (not met) Additional Goals: 1-Demonstrate ADL Tasks, 2-Verbalize Understanding, 3- ImproveStrength/Lukas 1=Demonstrate adherence to instructed precautions during ADL tasks. 2=Patient will verbalize/demonstrate understanding of assistive devices/modifications for ADL. 3=Patient will improve strength/tolerance for activity to enable patient to perform ADL's. Speech Retirement Goals Photo Producer Goals Patient will improve cognitive-communication necessary for safety and daily living tasks with minimal assist. MAURA ROSS PT Jan 04, 2020 15:18
== END 2020-01-03 10:40 | disposition home health service (06) | DRG 552 ==
PROVIDERS: ADMIT Internal Medicine; ATTEND Internal Medicine
DX: M47.816 Spondylosis without myelopathy or radiculopathy, lumbar region (principal); F05 Delirium due to known physiological condition; J90 Pleural effusion, not elsewhere classified; E87.1 Hypo-osmolality and hyponatremia; N17.9 Acute kidney failure, unspecified; M47.812 Spondylosis without myelopathy or radiculopathy, cervical region; F03.90 Unspecified dementia, unspecified severity, without behavioral disturbance, psychotic disturbance, mood disturbance, and anxiety; I12.9 Hypertensive chronic kidney disease with stage 1 through stage 4 chronic kidney disease, or unspecified chronic kidney disease; Z66 Do not resuscitate; N18.3 Chronic kidney disease, stage 3 (moderate); I48.0 Paroxysmal atrial fibrillation; I27.20 Pulmonary hypertension, unspecified; I08.0 Rheumatic disorders of both mitral and aortic valves; R32 Unspecified urinary incontinence; K59.00 Constipation, unspecified; Z91.81 History of falling; E03.9 Hypothyroidism, unspecified; E78.00 Pure hypercholesterolemia, unspecified; D64.9 Anemia, unspecified; R19.5 Other fecal abnormalities; R74.0 Nonspecific elevation of levels of transaminase and lactic acid dehydrogenase [LDH]; I95.1 Orthostatic hypotension; T50.2X5A Adverse effect of carbonic-anhydrase inhibitors, benzothiadiazides and other diuretics, initial encounter; Z79.01 Long term (current) use of anticoagulants; Z95.2 Presence of prosthetic heart valve; Z95.0 Presence of cardiac pacemaker
CPT/HCPCS: 36415; 76937; 80048; 80053; 82274; 82565; 82962; 83540; 83605; 83735; 84145; 85007; 85014; 85018; 85025; 85027; 85610; 86850; 86900; 86901; 86920; 93005; 93306